=== PATIENT | female | born 1945 | race Caucasian/White ===

== ENCOUNTER → 2016-12-10 | Outpatient (CLI) | payer MEDICARE, BC ==
--- NOTE | 2016-12-11 12:51 | MM ---
Reason for exam: screening (asymptomatic). Last mammogram was performed 1 year and 9 months ago. History: Patient is postmenopausal. Physical Findings: A clinical breast exam by your physician is recommended on an annual basis and results should be correlated with mammographic findings. MG 3D Screening Mammo W/Cad Bilateral CC and MLO view(s) were taken. Prior study comparison: February 28, 2015, mammogram. December 22, 2013, mammogram. The breast tissue is heterogeneously dense. This may lower the sensitivity of mammography. Finding: There are stable, coarse, heterogeneous, diffuse calcifications in both breasts. No significant changes in finding since February 28, 2015 and December 22, 2013. ASSESSMENT: Benign, BI-RAD 2 RECOMMENDATION: Routine screening mammogram of both breasts in 1 year.
== END | disposition home or self-care (01) ==
LOC: RADMAMWWP 16:20
PROVIDERS: ATTEND Family Medicine
DX: Z12.31 Encounter for screening mammogram for malignant neoplasm of breast (principal)
CPT/HCPCS: 77063; G0202

== ENCOUNTER 2017-07-31 06:59 | Day surgery (SDC) | payer MEDICARE ==
[2017-07-30 08:31] VITALS: BMI 29.2
[~2017-07-31 06:59] MED LIST: LACTATED RINGERS 1,000 ML IV SCH
[2017-07-31 07:52] VITALS: RESP 16; TEMP 97.7
[2017-07-31 07:59] LABS: Glucose,Whole Blood 98 mg/dL (75-99)
[2017-07-31] MEDS ORDERED: LIDOCAINE 1% 20 ML VIAL (10MG/ML) FOR IV START INTRADERMA ONE (07:59)
[2017-07-31] MEDS ORDERED: LIDOCAINE 1% INJ 10MG/ML (20 ML MDV) ONE (08:11)
[2017-07-31] MEDS ORDERED: PROPOFOL 10 MG/ML 20 ML VIAL IV ONE (08:11)
--- NOTE | 2017-07-31 08:15 | P.GSHP ---
History of Present Illness H&P Date: 07/31/17 Chief Complaint: Screening colonoscopy This is a 72-year-old female referred by Dr. Gibbons. Patient presents today for screening colonoscopy. She states her last colonoscopy was over 20 years ago. He denies any significant GI complaints. Past Medical History Past Medical History: COPD, Diabetes Mellitus, Deep Vein Thrombosis (DVT), Myocardial Infarction ([place]), Osteoarthritis (OA), Thyroid Disorder Additional Past Medical History / Comment(s): HX OF DVT RIGHT LEG, ARTHRITIS WITH BACK PAIN. Last Myocardial Infarction Date:: 2000 ? History of Any Multi-Drug Resistant Organisms: None Reported Past Surgical History: Appendectomy, Orthopedic Surgery, Tubal Ligation Additional Past Surgical History / Comment(s): LEFT WRIST SURGERY Past Anesthesia/Blood Transfusion Reactions: No Reported Reaction Past Psychological History: No Psychological Hx Reported Smoking Status: Current every day smoker Past Alcohol Use History: None Reported Additional Past Alcohol Use History / Comment(s): SMOKING 2 CIGARETTES/DAY. HX OF 2 PPD SMOKER. SMOKING SINCE 16 YRS OLD. Past Drug Use History: None Reported - Past Family History Mother Family Medical History: Cancer Additional Family Medical History / Comment(s): LUNG CANCER Medications and Allergies Home Medications Medication Instructions Recorded Confirmed Type Aspirin 325 mg PO HS 07/30/17 07/31/17 History Diclofenac Sodium/Misoprostol 1 each PO DAILY 07/30/17 07/31/17 History [Arthrotec 75 mg-200 Mcg Tab] Inhaler (Unknown Name) 1 puff INHALATION BID 07/30/17 07/31/17 History Levothyroxine Sodium [Synthroid] 50 mcg PO HS 07/30/17 07/31/17 History Losartan [Cozaar] 50 mg PO HS 07/30/17 07/31/17 History sitaGLIPtin PHOSPHATE [Januvia] 100 mg PO HS 07/30/17 07/31/17 History Allergies Allergy/AdvReac Type Severity Reaction Status Date / Time No Known Allergies Allergy Verified 07/31/17 07:43 Surgical - Exam Vital Signs Temp Pulse Resp BP Pulse Ox 97.7 F 108 H 16 174/85 96 07/31/17 07:51 07/31/17 07:51 07/31/17 07:51 07/31/17 07:51 07/31/17 07:51 - General well developed, no distress - Eyes PERRL - ENT normal pinna - Neck no masses - Respiratory normal expansion - Cardiovascular Rhythm: regular - Abdomen Abdomen: soft, non tender Assessment and Plan Assessment: We'll perform screening colonoscopy.
--- NOTE | 2017-07-31 08:34 | P.OP ---
Date of Procedure: 07/31/17 Preoperative Diagnosis: Screening colonoscopy Postoperative Diagnosis: Diverticulosis Procedure(s) Performed: Colonoscopy Anesthesia: MAC Surgeon: Sotero Landry Pathology: none sent Condition: stable Disposition: PACU Description of Procedure: The patient's placed on the endoscopy table in the lateral position. She received IV sedation. Digital rectal exam was performed there was no abnormalities. The flexible colonoscope was then placed patient anus passed throughout the entire colon. The ileocecal valve sutures. The cecum, ascending and transverse colon appeared normal. In the descending and sigmoid colon there is mild diverticular changes. Scope was then brought back the rectum and there was a small hole seen this removed with the cold forcep. Scope was withdrawn for patient.
[2017-07-31 08:54] VITALS: BP 151/89; PULSE 61
== END 2017-07-31 09:07 | disposition home or self-care (01) ==
LOC: ORWHC2ENDO 06:59
PROVIDERS: ATTEND Surgery
DX: Z12.11 Encounter for screening for malignant neoplasm of colon (principal); K62.1 Rectal polyp; K57.30 Diverticulosis of large intestine without perforation or abscess without bleeding; J44.9 Chronic obstructive pulmonary disease, unspecified; E11.9 Type 2 diabetes mellitus without complications; Z79.84 Long term (current) use of oral hypoglycemic drugs; E78.5 Hyperlipidemia, unspecified; I25.2 Old myocardial infarction; M19.90 Unspecified osteoarthritis, unspecified site; Z86.718 Personal history of other venous thrombosis and embolism; E07.9 Disorder of thyroid, unspecified; F17.210 Nicotine dependence, cigarettes, uncomplicated; Z79.82 Long term (current) use of aspirin; Z79.899 Other long term (current) drug therapy
CPT/HCPCS: 88305; 45380; J2001; J2704

== ENCOUNTER → 2018-03-04 | Outpatient (CLI) | payer MEDICARE ==
--- NOTE | 2018-03-07 07:01 | MM ---
Reason for exam: screening (asymptomatic). Last mammogram was performed 1 year and 3 months ago. History: Patient is postmenopausal. MG 3D Screening Mammo W/Cad Bilateral CC and MLO view(s) were taken. Prior study comparison: December 10, 2016, bilateral MG 3d screening mammo w/cad. February 28, 2015, mammogram. The breast tissue is heterogeneously dense. This may lower the sensitivity of mammography. There is a 9 mm equal density in the left breast upper position. There are benign-appearing calcification in bilateral breast. ASSESSMENT: Incomplete: need additional imaging evaluation, BI-RAD 0 RECOMMENDATION: Special view mammogram of the left breast.
== END ==
LOC: RADMAMWWP 16:24
PROVIDERS: ATTEND Family Medicine
DX: Z12.31 Encounter for screening mammogram for malignant neoplasm of breast (principal)
CPT/HCPCS: 77063; 77067

== ENCOUNTER → 2018-03-19 | Outpatient (CLI) | payer MEDICARE ==
--- NOTE | 2018-03-21 11:49 | MM ---
Reason for exam: additional evaluation requested from abnormal screening. Last mammogram was performed less than 1 month ago. History: Patient is postmenopausal. Family history of breast cancer in aunt at age 60. Physical Findings: Nurse did not find any significant physical abnormalities on exam. MG 3D Work Up W/Cad LT LM and spot compression MLO view(s) were taken of the left breast. Prior study comparison: March 04, 2018, bilateral MG 3d screening mammo w/cad. December 10, 2016, bilateral MG 3d screening mammo w/cad. The breast tissue is heterogeneously dense. This may lower the sensitivity of mammography. No discrete abnormality including area of concern. These results were verbally communicated with the patient and result sheet given to the patient on 03/19/18. ASSESSMENT: Benign, BI-RAD 2 RECOMMENDATION: Routine screening mammogram of both breasts in 1 year.
== END | disposition home or self-care (01) ==
LOC: RADMAMWWP 13:37
PROVIDERS: ATTEND Family Medicine
DX: R92.8 Other abnormal and inconclusive findings on diagnostic imaging of breast (principal)
CPT/HCPCS: 77065; G0279; 77061

== ENCOUNTER → 2018-11-05 | Outpatient (CLI) | payer MEDICARE ==
--- NOTE | 2018-11-05 11:09 | BD ---
EXAMINATION TYPE: Axial Bone Density DATE OF EXAM: 11/05/2018 COMPARISON: NONE CLINICAL HISTORY: Z 78.0 Height: 62 Weight: 163.7 FRAX RISK QUESTIONS: Alcohol (3 or more units per day): no Family History (Parent hip fracture): no Glucocorticoids (More than 3mos): no (Ex: prednisone, prednisolone, methylprednisolone, dexamethasone, and hydrocortisone). History of Fracture in Adulthood: yes Secondary Osteoporosis: 1. Type 1 Diabetes: no 2. Hyperthyroidism: no 3. Menopause before 45: no 4. Malnutrition: no 5. Chronic liver disease: no Rheumatoid Arthritis: no Current Tobacco Use: yes RISK FACTORS HISTORY OF: History of Wrist Fracture: left When: 2008 Family History of Osteoporosis: no Active: sometimes Diet low in dairy products/other sources of calcium: yes Postmenopausal woman: Lost more than 2 inches in height since high school: no MEDICATIONS: simvastatin, losartan, arthrotec, Januvia, aspirin Additional History: EXAM MEASUREMENTS: Bone mineral densitometry was performed using the [employer] System. Bone mineral density as measured about the Lumbar spine is: ----- L1-L4(G/cm2): 1.326 T Score Values are as follows: ----- L2: 1.2 ----- L3: 1.8 ----- L4: 1.2 ----- L1-L4: 1.2 Bone mineral density : baseline Bone mineral density about the R hip (g/cm2): 0.968 Bone mineral density about the L hip (g/cm2): 0.779 T Score values are as follows: -----R Neck: -0.5 -----L Neck: -1.9 -----R Total: -0.5 -----L Total: -1.0 Bone mineral density : baseline IMPRESSION: Osteopenia (T Score between -2.5 and -1). There is slightly increased risk of fracture and the patient may be considered for treatment. Re-Screen 2-5 years. NOTE: T-SCORE=SD OF THE YOUNG ADULT MEAN.
== END | disposition home or self-care (01) ==
LOC: RADBDWWP 10:27
PROVIDERS: ATTEND Family Medicine
DX: Z13.820 Encounter for screening for osteoporosis (principal); M85.80 Other specified disorders of bone density and structure, unspecified site; E87.5 Hyperkalemia; Z78.0 Asymptomatic menopausal state
CPT/HCPCS: 36415; 77080; 84132

== ENCOUNTER → 2020-09-03 | Outpatient (CLI) | payer MEDICARE ==
--- NOTE | 2020-09-05 08:29 | MM ---
Reason for exam: screening (asymptomatic). Last mammogram was performed 2 years and 6 months ago. History: Patient is postmenopausal. Family history of breast cancer in aunt at age 60. Physical Findings: A clinical breast exam by your physician is recommended on an annual basis and results should be correlated with mammographic findings. MG 3D Screening Mammo W/Cad Bilateral CC and MLO view(s) were taken. Prior study comparison: March 19, 2018, left breast MG 3d work up w/cad LT. March 04, 2018, bilateral MG 3d screening mammo w/cad. There are scattered fibroglandular densities. No significant changes when compared with prior studies. ASSESSMENT: Benign, BI-RAD 2 RECOMMENDATION: Routine screening mammogram of both breasts in 1 year.
== END | disposition home or self-care (01) ==
LOC: RADMAMWWP 14:35
PROVIDERS: ATTEND Family Medicine
DX: Z12.31 Encounter for screening mammogram for malignant neoplasm of breast (principal); Z78.0 Asymptomatic menopausal state; Z80.3 Family history of malignant neoplasm of breast
CPT/HCPCS: 77063; 77067

== ENCOUNTER 2020-10-22 12:00 | Emergency (ER) | payer MEDICARE ==
[2020-10-22 12:10] VITALS: RESP 18; TEMP 98.4
[2020-10-22] MEDS ORDERED: KETOROLAC 15 MG/ML 1 ML VIAL IVP STA (12:40)
--- NOTE | 2020-10-22 13:03 | ED ---
General Adult HPI - General Chief complaint: Extremity Injury, Upper Stated complaint: arm pain & swelling Time Seen by Provider: 10/22/20 12:15 Source: patient, RN notes reviewed, old records reviewed Mode of arrival: ambulatory Limitations: no limitations - History of Present Illness Initial comments: Patient is a 75-year-old female with past medical history remarkable for COPD, diabetes, prior DVT no longer on anticoagulation, [place], thyroid disorder who is presenting to the emergency Department complaining of concern for possible blood clot in her right upper extremity or left lower extremity. Patient states she has noticed swelling in the left lower extremity that has been ongoing and gotten worse in the last week. She denies any shortness breath, chest pain, abdominal pain, nausea, vomiting. She denies any left arm pain. Denies any headache, weakness, numbness. She is complaining of some mild pain in her right arm, primarily in the popliteal space which seems to radiate up to her right shoulder. There is no neck pain or trauma. There is no chest pain. She states she has not expresses pain before has been ongoing for one or 2 days. She is concerned there also may be a clot there. There is subjective numbness, however nonpresent of his physical exam. She denies any weakness. She has no other acute complaints at this time. Patient did not receive her COVID-19 vaccine. She denies any history of COVID-19 infection. She denies any trauma to the right arm or left leg. She is able to ambulate without difficulty. - Related Data Home Medications Medication Instructions Recorded Confirmed Aspirin 325 mg PO HS 07/30/17 10/22/20 sitaGLIPtin PHOSPHATE [Januvia] 100 mg PO HS 07/30/17 10/22/20 Losartan Potassium 100 mg PO HS 10/22/20 10/22/20 Simvastatin [Zocor] 20 mg PO HS 10/22/20 10/22/20 Previous Rx's Medication Instructions Recorded Ibuprofen [Motrin] 400 mg PO Q6HR PRN 7 Days #28 tab 10/22/20 Lidocaine 5% Patch [Lidoderm 5% 1 patch TOPICAL DAILY PRN 7 Days 10/22/20 Patch] #7 patch Allergies Allergy/AdvReac Type Severity Reaction Status Date / Time No Known Allergies Allergy Verified 10/22/20 13:59 Review of Systems ROS Statement: Those systems with pertinent positive or pertinent negative responses have been documented in the HPI. Review of Systems: CONST: Denies fever EYES: Denies blurry vision ENT: Denies nasal congestion C/V: Denies Chest pain RESP: Denies shortness of breath GI: Denies abdominal pain : Denies dysuria SKIN: Denies rash. MSK: Endorses right arm pain, left leg swelling NEURO: Denies headache ROS Other: All systems not noted in ROS Statement are negative. Past Medical History Past Medical History: COPD, Diabetes Mellitus, Deep Vein Thrombosis (DVT), Myocardial Infarction ([place]), Osteoarthritis (OA), Thyroid Disorder Additional Past Medical History / Comment(s): HX OF DVT RIGHT LEG, ARTHRITIS WITH BACK PAIN. Last Myocardial Infarction Date:: 2000 ? History of Any Multi-Drug Resistant Organisms: None Reported Past Surgical History: Appendectomy, Orthopedic Surgery, Tubal Ligation Additional Past Surgical History / Comment(s): LEFT WRIST SURGERY Past Anesthesia/Blood Transfusion Reactions: No Reported Reaction Past Psychological History: No Psychological Hx Reported Smoking Status: Current every day smoker Past Alcohol Use History: None Reported Past Drug Use History: None Reported - Past Family History Mother Family Medical History: Cancer Additional Family Medical History / Comment(s): LUNG CANCER General Exam - General Exam Comments Initial Comments: General: Appears in no acute distress. HEAD: Normal with no signs of head trauma. EYES: PERRLA, EOMI, conjunctiva normal, no discharge. ENT: Hearing grossly intact, normal oropharynx. RESPIRATORY: Clear breath sounds bilaterally. No wheezes, rales, or rhonchi. C/V: Regular rate and rhythm. S1 and S2 auscultated. Peripheral pulses are 2+ and intact throughout including the right radial and ulnar arteries as well as the left PT and DP arteries. Patient does have no noticeable swelling of the right upper extremity. She is tender to palpation along the antecubital space, and I cannot palpate any venous structures. There is no color change the site. Patient does have approximately 2+ pitting edema in the left lower extremity up to the upper calf. She has no tenderness to palpation of the calf or popliteal region. ABD: Abd is soft, nontender, nondistended EXT: Normal range of motion, no obvious deformity. Patient does have right s houlder exam that is normal and unremarkable. She has no midline cervical spine tenderness to palpation, thoracic spine tenderness palpation, lumbar spine tenderness to palpation. Patient has a normal left knee, left ankle, left foot exam. SKIN: No rashes or lesions observed on exposed skin. No obvious skin changes to the left lower extremity her right upper extremity. NEURO: Alert and oriented x 4. Cranial nerves II-XII intact. No focal sensory or strength deficits. Patient is able to ambulate. Cerebellar function is intact as evident by normal finger nose testing. Limitations: no limitations Course Vital Signs 10/22/20 10/22/20 12:06 15:32 Temperature 98.4 F Pulse Rate 79 57 L Respiratory 18 18 Rate Blood Pressure 162/88 163/92 O2 Sat by Pulse 98 97 Oximetry Medical Decision Making - Medical Decision Making Based on the patient's presentation and physical exam, I cannot rule out the possibility of acute clot to the right upper extremity or left lower extremity. Therefore we will obtain venous duplexes of both extremities. We will also obtain basic laboratory studies at this time. Does not appear to be traumatic injury. Possible this is muscular skeletal in nature. I have low suspicion for any other etiology at this time. She has no other symptoms at this time. Patient's laboratory studies are relatively unremarkable. Patient has mild hyponatremia of 132 and hypochloremia of 97. Patient's duplexes showed no acute signs of DVT or thrombosis. On reevaluation, patient is feeling improved. We did discuss the findings of her imaging and laboratory studies. I do believe it is safer to be discharged home at this time with close follow-up. She is likely experiencing muscular skeletal pain independent left lower extremity edema. She was in agreement this plan. I will provide the patient with a prescription for lidocaine patches, ibuprofen. I instructed the patient to follow up with their PCP in the next 3 days. . I explained that the patient should return to the emergency department if they experience any worsening symptoms. Strict return precautions were discussed with the patient. The patient expressed understanding of these instructions. I answered all questions that the patient had. The patient was discharged home in good condition with their prescriptions and follow up information. - Lab Data Result diagrams: 10/22/20 12:44 10/22/20 12:44 Lab Results 10/22/20 10/22/20 10/22/20 Range/Units 12:44 12:44 12:44 WBC 7.1 (3.8-10.6) k/uL RBC 5.45 H (3.80-5.40) m/uL Hgb 16.4 H (11.4-16.0) gm/dL Hct 51.1 H (34.0-46.0) % MCV 93.8 (80.0-100.0) fL MCH 30.2 (25.0-35.0) pg MCHC 32.2 (31.0-37.0) g/dL RDW 13.9 (11.5-15.5) % Plt Count 226 (150-450) k/uL MPV 7.3 Neutrophils % 81 % Lymphocytes % 10 % Monocytes % 6 % Eosinophils % 1 % Basophils % 1 % Neutrophils # 5.7 (1.3-7.7) k/uL Lymphocytes # 0.7 L (1.0-4.8) k/uL Monocytes # 0.4 (0-1.0) k/uL Eosinophils # 0.1 (0-0.7) k/uL Basophils # 0.0 (0-0.2) k/uL PT 10.0 (9.0-12.0) sec INR 0.9 (<1.2) APTT 22.5 (22.0-30.0) sec Sodium 132 L (137-145) mmol/L Potassium 4.7 (3.5-5.1) mmol/L Chloride 97 L (98-107) mmol/L Carbon Dioxide 28 (22-30) mmol/L Anion Gap 7 mmol/L BUN 8 (7-17) mg/dL Creatinine 0.59 (0.52-1.04) mg/dL Est GFR (CKD-EPI)AfAm >90 (>60 ml/min/1.73 sqM) Est GFR (CKD-EPI)NonAf >90 (>60 ml/min/1.73 sqM) Glucose 126 H (74-99) mg/dL Calcium 9.9 (8.4-10.2) mg/dL Disposition Clinical Impression: Musculoskeletal pain, Dependent edema Disposition: HOME SELF-CARE Condition: Good Instructions (If sedation given, give patient instructions): Musculoskeletal Pain (ED) Prescriptions: Lidocaine 5% Patch [Lidoderm 5% Patch] 1 patch TOPICAL DAILY PRN 7 Days #7 patch PRN Reason: Pain Ibuprofen [Motrin] 400 mg PO Q6HR PRN 7 Days #28 tab PRN Reason: Pain Is patient prescribed a controlled substance at d/c from ED?: No Referrals: Donya Payton DO [Primary Care Provider] - 1-2 days
[2020-10-22 13:04] LABS: Basophils % (A) 1 %; Eosinophils # (A) 0.1 k/uL (0-0.7); Eosinophils % (A) 1 %; HCT 51.1 % (34.0-46.0); HGB 16.4 gm/dL (11.4-16.0); Lymphocytes # (A) 0.7 k/uL (1.0-4.8); Lymphocytes % (A) 10 %; MCH 30.2 pg (25.0-35.0); MCHC 32.2 g/dL (31.0-37.0); MCV 93.8 fL (80.0-100.0); Mean Platelet Volume 7.3; Monocytes # (A) 0.4 k/uL (0-1.0); Monocytes % (A) 6 %; Neutrophils # (A) 5.7 k/uL (1.3-7.7); Neutrophils % (A) 81 %; Platelet Count 226 k/uL (150-450); RBC 5.45 m/uL (3.80-5.40); RDW 13.9 % (11.5-15.5); WBC 7.1 k/uL (3.8-10.6)
[2020-10-22 13:13] LABS: African American GFR (CKD) >90 (>60 ml/min/1.73 sqM); Anion Gap 7 mmol/L; Blood Urea Nitrogen 8 mg/dL (7-17); Calcium 9.9 mg/dL (8.4-10.2); Carbon Dioxide 28 mmol/L (22-30); Chloride 97 mmol/L (98-107); Glucose 126 mg/dL (74-99); Non-African American GFR(CKD) >90 (>60 ml/min/1.73 sqM); Potassium 4.7 mmol/L (3.5-5.1); Sodium 132 mmol/L (137-145)
[2020-10-22 13:21] LABS: INR 0.9 (<1.2); Partial Thromboplastin Time 22.5 sec (22.0-30.0)
--- NOTE | 2020-10-22 14:12 | US ---
EXAMINATION TYPE: US venous doppler duplex LE LT DATE OF EXAM: 10/22/2020 1:55 PM COMPARISON: NONE CLINICAL HISTORY: swelling, concern for DVT. left leg edema for 1 month SIDE PERFORMED: left TECHNIQUE: The lower extremity deep venous system is examined utilizing real time linear array sonog andreina with graded compression, doppler sonography and color-flow sonography. VESSELS IMAGED: Common Femoral Vein Deep Femoral Vein Greater Saphenous Vein * Femoral Vein Popliteal Vein Small Saphenous Vein * Proximal Calf Veins (* superficial vessels) Left Leg: no evidence of DVT IMPRESSION: No DVT at this time.
--- NOTE | 2020-10-22 14:26 | US ---
EXAMINATION TYPE: US venous doppler duplex UE RT DATE OF EXAM: 10/22/2020 COMPARISON: NONE CLINICAL HISTORY: swelling, concern for DVT. burning sensation right arm SIDE PERFORMED: right There is normal flow, compressibility and vascular waveforms. Visualized portions of the right buyer intern al jugular vein, subclavian vein, axillary vein, brachial vein, basilic vein, cephalic vein, radial a nd ulnar veins are normal. Right Arm: no evidence of DVT IMPRESSION: No evident deep venous process in the right upper extremity
[2020-10-22 15:33] VITALS: BP 163/92; PULSE 57
== END 2020-10-22 15:32 | disposition home or self-care (01) ==
LOC: EC 12:00
DX: M79.18 Myalgia, other site (principal); R60.9 Edema, unspecified; E11.9 Type 2 diabetes mellitus without complications; I25.2 Old myocardial infarction; J44.9 Chronic obstructive pulmonary disease, unspecified; M19.90 Unspecified osteoarthritis, unspecified site; F17.200 Nicotine dependence, unspecified, uncomplicated; Z79.82 Long term (current) use of aspirin; Z79.84 Long term (current) use of oral hypoglycemic drugs; Z79.1 Long term (current) use of non-steroidal anti-inflammatories (NSAID); Z79.01 Long term (current) use of anticoagulants; Z79.899 Other long term (current) drug therapy; Z80.1 Family history of malignant neoplasm of trachea, bronchus and lung; Z86.718 Personal history of other venous thrombosis and embolism
CPT/HCPCS: 36415; 80048; 85025; 85610; 85730; 93971 ×2; 99284; 96374; J1885

== ENCOUNTER → 2020-11-29 | Outpatient (CLI) | payer MEDICARE ==
--- NOTE | 2020-11-29 15:25 | BD ---
EXAMINATION TYPE: Axial Bone Density DATE OF EXAM: 11/29/2020 COMPARISON: 2019 CLINICAL HISTORY: Postmenopausal screening Height: 62 Weight: 159.4 FRAX RISK QUESTIONS: Alcohol (3 or more units per day): no Family History (Parent hip fracture): no Glucocorticoids (More than 3mos): no (Ex: prednisone, prednisolone, methylprednisolone, dexamethasone, and hydrocortisone). History of Fracture in Adulthood: yes Secondary Osteoporosis: 1. Type 1 Diabetes: no 2. Hyperthyroidism: no 3. Menopause before 45: no 4. Malnutrition: no 5. Chronic liver disease: no Rheumatoid Arthritis: no Current Tobacco Use: yes RISK FACTORS HISTORY OF: History of Wrist Fracture: When: Surgery to Spine/Hip(right/left)/Wrist (right/left): no Family History of Osteoporosis: no Active: no Diet low in dairy products/other sources of calcium: yes Postmenopausal woman: yes Lost more than 2 inches in height since high school: no MEDICATIONS: juniva, simvastatin, losartan, aspirin, pain meds Additional History: EXAM MEASUREMENTS: Bone mineral densitometry was performed using the [employer] System. Bone mineral density as measured about the Lumbar spine is: ----- L1-L4(G/cm2): 1.331 T Score Values are as follows: ----- L2: 1.1 ----- L3: 1.0 ----- L4: 1.1 ----- L1-L4: 1.3 Bone mineral density has: decreased -2.6 % since study of: 11.05.2018 Bone mineral density about the R hip (g/cm2): 0.756 Bone mineral density about the L hip (g/cm2): 0.769 T Score values are as follows: -----R Neck: -2.0 -----L Neck: -1.9 -----R Total: -1.3 -----L Total: -1.4 Bone mineral density has: decreased -8.0 % since study of: 11.05.2018 IMPRESSION: Osteopenia (T Score between -2.5 and -1). There is slightly increased risk of fracture and the patient may be considered for treatment. Re-Screen 2-5 years. NOTE: T-SCORE=SD OF THE YOUNG ADULT MEAN.
== END | disposition home or self-care (01) ==
LOC: RADBDWWP 13:03
PROVIDERS: ATTEND Family Medicine
DX: M85.89 Other specified disorders of bone density and structure, multiple sites (principal); Z78.0 Asymptomatic menopausal state
CPT/HCPCS: 77080

== ENCOUNTER 2021-01-28 07:52 | Inpatient (IN) | payer MEDICARE ==
[2021-01-28] MEDS ORDERED: IPRATROPIUM-ALBUTEROL 3 ML NEB INHALATION STA (08:33)
--- NOTE | 2021-01-28 08:34 | ED ---
General Adult HPI - General Chief complaint: Shortness of Breath Stated complaint: congestion Time Seen by Provider: 01/28/21 08:11 Source: patient, family, RN notes reviewed Mode of arrival: wheelchair Limitations: no limitations - History of Present Illness Initial comments: 75-year-old female with a past medical history of COPD, diabetes mellitus, DC, DVT presents to the emergency room for chief, shortness of breath. Patient states for the past few days she has felt congested in her throat and in her chest. States she has had increased cough. She does have a history of COPD but does not use any treatments at home. Patient also has noticed more swelling in her feet and ankles bilaterally. Patient denies any chest pain. Denies fevers.Patient has no other complaints at this time including chest pain, abdominal pain, nausea or vomiting, headache, or visual changes. - Related Data Home Medications Medication Instructions Recorded Confirmed Aspirin 325 mg PO HS 07/30/17 10/22/20 sitaGLIPtin PHOSPHATE [Januvia] 100 mg PO HS 07/30/17 10/22/20 Losartan Potassium 100 mg PO HS 10/22/20 10/22/20 Simvastatin [Zocor] 20 mg PO HS 10/22/20 10/22/20 Previous Rx's Medication Instructions Recorded Ibuprofen [Motrin] 400 mg PO Q6HR PRN 7 Days #28 tab 10/22/20 Lidocaine 5% Patch [Lidoderm 5% 1 patch TOPICAL DAILY PRN 7 Days 10/22/20 Patch] #7 patch Allergies Allergy/AdvReac Type Severity Reaction Status Date / Time No Known Allergies Allergy Verified 01/28/21 08:09 Review of Systems ROS Statement: Those systems with pertinent positive or pertinent negative responses have been documented in the HPI. ROS Other: All systems not noted in ROS Statement are negative. Past Medical History Past Medical History: COPD, Diabetes Mellitus, Deep Vein Thrombosis (DVT), Myocardial Infarction ([place]), Osteoarthritis (OA), Thyroid Disorder Additional Past Medical History / Comment(s): HX OF DVT RIGHT LEG, ARTHRITIS WITH BACK PAIN. Last Myocardial Infarction Date:: 2000 ? History of Any Multi-Drug Resistant Organisms: None Reported Past Surgical History: Appendectomy, Orthopedic Surgery, Tubal Ligation Additional Past Surgical History / Comment(s): LEFT WRIST SURGERY Past Anesthesia/Blood Transfusion Reactions: No Reported Reaction Past Psychological History: No Psychological Hx Reported Smoking Status: Current every day smoker Past Alcohol Use History: None Reported Past Drug Use History: None Reported - Past Family History Mother Family Medical History: Cancer Additional Family Medical History / Comment(s): LUNG CANCER General Exam Limitations: no limitations General appearance: alert, in no apparent distress Eye exam: Present: normal appearance, PERRL, EOMI. Absent: scleral icterus, con junctival injection ENT exam: Present: normal exam, mucous membranes moist Neck exam: Present: normal inspection, full ROM. Absent: tenderness Respiratory exam: Present: normal lung sounds bilaterally, rales. Absent: respiratory distress Cardiovascular Exam: Present: regular rate, normal rhythm, normal heart sounds Course Vital Signs 01/28/21 01/28/21 01/28/21 08:04 09:42 09:46 Temperature 98.7 F Pulse Rate 77 71 Respiratory 18 18 Rate Blood Pressure 156/94 O2 Sat by Pulse 95 98 Oximetry 01/28/21 01/28/21 09:56 10:00 Temperature Pulse Rate 64 Respiratory 18 Rate Blood Pressure O2 Sat by Pulse Oximetry EKG Findings - EKG Comments: EKG Findings:: Normal sinus rhythm with PVCs, ventricular rate 79, IN interval 154, QTc 474 Medical Decision Making - Medical Decision Making Vitals are stable. Patient did require oxygen throughout her stay. Patient is presenting for shortness of breath and bilateral ankle and foot swelling. She does have pitting edema. CBC unremarkable. CMPreveal hyponatremia. BNP is elevated at 17,000 and chest x-ray does show a possible interstitial edema. Motor within normal limits at 0.030 but will be repeated. At this time case was discussed with direct Dr. White does accept admission. Patient was given a small dose of Lasix given her hyponatremia. Etiology will be consulted. - Lab Data Result diagrams: 01/28/21 08:55 01/28/21 08:55 Lab Results 01/28/21 01/28/21 01/28/21 Range/Units 08:55 08:55 08:55 WBC 7.2 (3.8-10.6) k/uL RBC 4.82 (3.80-5.40) m/uL Hgb 14.2 (11.4-16.0) gm/dL Hct 43.4 (34.0-46.0) % MCV 90.1 (80.0-100.0) fL MCH 29.4 (25.0-35.0) pg MCHC 32.6 (31.0-37.0) g/dL RDW 13.7 (11.5-15.5) % Plt Count 203 (150-450) k/uL MPV 7.3 Neutrophils % 80 % Lymphocytes % 9 % Monocytes % 7 % Eosinophils % 1 % Basophils % 0 % Neutrophils # 5.8 (1.3-7.7) k/uL Lymphocytes # 0.7 L (1.0-4.8) k/uL Monocytes # 0.5 (0-1.0) k/uL Eosinophils # 0.1 (0-0.7) k/uL Basophils # 0.0 (0-0.2) k/uL PT 11.2 (9.0-12.0) sec INR 1.1 (<1.2) APTT 23.5 (22.0-30.0) sec Sodium 128 L (137-145) mmol/L Potassium 4.6 (3.5-5.1) mmol/L Chloride 97 L (98-107) mmol/L Carbon Dioxide 22 (22-30) mmol/L Anion Gap 9 mmol/L BUN 15 (7-17) mg/dL Creatinine 0.73 (0.52-1.04) mg/dL Est GFR (CKD-EPI)AfAm >90 (>60 ml/min/1.73 sqM) Est GFR (CKD-EPI)NonAf 82 (>60 ml/min/1.73 sqM) Glucose 116 H (74-99) mg/dL Plasma Lactic Acid Georgi (0.7-2.0) mmol/L Calcium 9.2 (8.4-10.2) mg/dL Total Bilirubin 0.7 (0.2-1.3) mg/dL AST 29 (14-36) U/L ALT 23 (4-34) U/L Alkaline Phosphatase 99 (38-126) U/L Troponin I (0.000-0.034) ng/mL NT-Pro-B Natriuret Pep pg/mL Total Protein 6.7 (6.3-8.2) g/dL Albumin 3.7 (3.5-5.0) g/dL Coronavirus (PCR) (Not Detectd) 01/28/21 01/28/21 01/28/21 Range/Units 08:55 08:55 08:55 WBC (3.8-10.6) k/uL RBC (3.80-5.40) m/uL Hgb (11.4-16.0) gm/dL Hct (34.0-46.0) % MCV (80.0-100.0) fL MCH (25.0-35.0) pg MCHC (31.0-37.0) g/dL RDW (11.5-15.5) % Plt Count (150-450) k/uL MPV Neutrophils % % Lymphocytes % % Monocytes % % Eosinophils % % Basophils % % Neutrophils # (1.3-7.7) k/uL Lymphocytes # (1.0-4.8) k/uL Monocytes # (0-1.0) k/uL Eosinophils # (0-0.7) k/uL Basophils # (0-0.2) k/uL PT (9.0-12.0) sec INR (<1.2) APTT (22.0-30.0) sec Sodium (137-145) mmol/L Potassium (3.5-5.1) mmol/L Chloride (98-107) mmol/L Carbon Dioxide (22-30) mmol/L Anion Gap mmol/L BUN (7-17) mg/dL Creatinine (0.52-1.04) mg/dL Est GFR (CKD-EPI)AfAm (>60 ml/min/1.73 sqM) Est GFR (CKD-EPI)NonAf (>60 ml/min/1.73 sqM) Glucose (74-99) mg/dL Plasma Lactic Acid Georgi 0.9 (0.7-2.0) mmol/L Calcium (8.4-10.2) mg/dL Total Bilirubin (0.2-1.3) mg/dL AST (14-36) U/L ALT (4-34) U/L Alkaline Phosphatase (38-126) U/L Troponin I 0.030 (0.000-0.034) ng/mL NT-Pro-B Natriuret Pep 67422 pg/mL Total Protein (6.3-8.2) g/dL Albumin (3.5-5.0) g/dL Coronavirus (PCR) (Not Detectd) 01/28/21 Range/Units 08:55 WBC (3.8-10.6) k/uL RBC (3.80-5.40) m/uL Hgb (11.4-16.0) gm/dL Hct (34.0-46.0) % MCV (80.0-100.0) fL MCH (25.0-35.0) pg MCHC (31.0-37.0) g/dL RDW (11.5-15.5) % Plt Count (150-450) k/uL MPV Neutrophils % % Lymphocytes % % Monocytes % % Eosinophils % % Basophils % % Neutrophils # (1.3-7.7) k/uL Lymphocytes # (1.0-4.8) k/uL Monocytes # (0-1.0) k/uL Eosinophils # (0-0.7) k/uL Basophils # (0-0.2) k/uL PT (9.0-12.0) sec INR (<1.2) APTT (22.0-30.0) sec Sodium (137-145) mmol/L Potassium (3.5-5.1) mmol/L Chloride (98-107) mmol/L Carbon Dioxide (22-30) mmol/L Anion Gap mmol/L BUN (7-17) mg/dL Creatinine (0.52-1.04) mg/dL Est GFR (CKD-EPI)AfAm (>60 ml/min/1.73 sqM) Est GFR (CKD-EPI)NonAf (>60 ml/min/1.73 sqM) Glucose (74-99) mg/dL Plasma Lactic Acid Georgi (0.7-2.0) mmol/L Calcium (8.4-10.2) mg/dL Total Bilirubin (0.2-1.3) mg/dL AST (14-36) U/L ALT (4-34) U/L Alkaline Phosphatase (38-126) U/L Troponin I (0.000-0.034) ng/mL NT-Pro-B Natriuret Pep pg/mL Total Protein (6.3-8.2) g/dL Albumin (3.5-5.0) g/dL Coronavirus (PCR) Not Detected (Not Detectd) Disposition Clinical Impression: CHF exacerbation, Elevated brain natriuretic peptide (BNP) level, Hyponatremia, Shortness of breath Disposition: ADMITTED IP TO THIS HOSP Is patient prescribed a controlled substance at d/c from ED?: No Referrals: Donya Payton DO [Primary Care Provider] - 1-2 days Time of Disposition: 10:10
[2021-01-28 09:18] LABS: Basophils % (A) 0 %; Eosinophils # (A) 0.1 k/uL (0-0.7); Eosinophils % (A) 1 %; HCT 43.4 % (34.0-46.0); HGB 14.2 gm/dL (11.4-16.0); Lymphocytes # (A) 0.7 k/uL (1.0-4.8); Lymphocytes % (A) 9 %; MCH 29.4 pg (25.0-35.0); MCHC 32.6 g/dL (31.0-37.0); MCV 90.1 fL (80.0-100.0); Mean Platelet Volume 7.3; Monocytes # (A) 0.5 k/uL (0-1.0); Monocytes % (A) 7 %; Neutrophils # (A) 5.8 k/uL (1.3-7.7); Neutrophils % (A) 80 %; Platelet Count 203 k/uL (150-450); RBC 4.82 m/uL (3.80-5.40); RDW 13.7 % (11.5-15.5); WBC 7.2 k/uL (3.8-10.6)
[2021-01-28 09:23] LABS: ALT 23 U/L (4-34); AST 29 U/L (14-36); African American GFR (CKD) >90 (>60 ml/min/1.73 sqM); Albumin 3.7 g/dL (3.5-5.0); Alkaline Phosphatase 99 U/L (38-126); Anion Gap 9 mmol/L; Blood Urea Nitrogen 15 mg/dL (7-17); Calcium 9.2 mg/dL (8.4-10.2); Carbon Dioxide 22 mmol/L (22-30); Chloride 97 mmol/L (98-107); Glucose 116 mg/dL (74-99); Non-African American GFR(CKD) 82 (>60 ml/min/1.73 sqM); Potassium 4.6 mmol/L (3.5-5.1); Sodium 128 mmol/L (137-145); Total Bilirubin 0.7 mg/dL (0.2-1.3); Total Protein 6.7 g/dL (6.3-8.2)
[2021-01-28 09:32] LABS: INR 1.1 (<1.2); Partial Thromboplastin Time 23.5 sec (22.0-30.0); Prothrombin Time 11.2 sec (9.0-12.0)
--- NOTE | 2021-01-28 09:41 | XR ---
EXAMINATION TYPE: XR chest 2V DATE OF EXAM: 01/28/2021 COMPARISON: NONE HISTORY: Difficulty breathing, shortness of breath and congestion TECHNIQUE: Frontal and lateral views of the chest are obtained. FINDINGS: There is no focal air space opacity, pleural effusion, or pneumothorax seen. Interstitium mildly prominent, some bandlike areas of increased attenuation are present. There is increased AP william meter of the chest with flattening the hemidiaphragms. The cardiac silhouette size is enlarged, the a gloria is dense. The osseous structures are intact, there is a spinal curvature. IMPRESSION: There may be underlying scarring, interstitial lung disease, difficult to exclude early interstitial edema, there is underlying cardiomegaly and possible COPD, short interval follow-up sugg julio cesard as indicated
[2021-01-28] MEDS ORDERED: FUROSEMIDE 10 MG/ML 2 ML VIAL IV STA (10:05)
--- NOTE | 2021-01-28 13:31 | P.CRDCN ---
History of Present Illness Consult date: 01/28/21 History of present illness: HISTORY OF PRESENT ILLNESS: This is a 75-year-old female with a past medical history significant for hypertension, hyperlipidemia, diabetes, peripheral vascular disease with previous stenting, COPD, and nicotine dependence. Patient used to follow in the office with Dr. Rinaldi but has not been seen since 2016. We have been asked to see the patient in consultation for congestive heart failure. Patient examined at the bedside. Patient presented to the emergency room with a chief complaint of shortness of breath and and increased lower extremity edema. The patient also reports having some mild chest discomfort. She reports some occasional dizziness at home but no syncopal episodes. The patient currently denies shortness of breath at rest. She states her shortness of breath has mostly been with exertion. The patient was found to be in congestive heart failure on presentation to the emergency room. The patient denies any previous history of congestive heart failure. EKG reveals sinus mechanism with Q waves inferiorly. No signs of acute ischemia Chest xray underlying scarring, interstitial lung disease, difficult to exclude early interstitial edema. There is underlying cardiomegaly and possible COPD. Laboratory data: WBC 7.2. Hemoglobin 14.2. Platelet count 203. Sodium 128. Potassium 4.6. BUN 15. Creatinine 0.73. Troponin 0.030. 0.027. ProBNP 17,800 Current home cardiac medications include aspirin 325 mg at night, losartan 100 mg at night, simvastatin 20 mg at night REVIEW OF SYSTEMS: At the time of my exam: CONSTITUTIONAL: Denies fever or chills. HEENT: Denies blurred vision, vision changes, or eye pain. Denies hemoptysis CARDIOVASCULAR: Denies chest pain. Denies orthopnea. Denies PND. Denies palpitations RESPIRATORY: Denies shortness of breath. GASTROINTESTINAL: Denies abdominal pain. Denies nausea or vomiting. HEMATOLOGIC: Denies bleeding disorders. GENITOURINARY: Denies any blood in urine. SKIN: Denies pruitis. Denies rash. PHYSICAL EXAM: VITAL SIGNS: Reviewed. GENERAL: Well-developed in no acute distress. HEENT: Head is normocephalic. Pupils are equal, round. Sclerae anicteric. Mucous membranes of the mouth are moist. Neck supple. No thyromegaly. Positive JVD LUNGS: Respirations even and unlabored. Lungs diminished to auscultation bilaterally. HEART: Regular rate and rhythm. S1 and S2 heard. ABDOMEN: Soft. Nondistended. Nontender. EXTREMITIES: Normal range of motion. No clubbing or cyanosis. Peripheral pulses intact. 2-3+ bilateral lower extremity edema NEUROLOGIC: Awake and alert. Oriented x 3. ASSESSMENT: Acute congestive heart failure, type unknown, echo pending, proBNP 17,800 Hypertension Hyperlipidemia Diabetes Peripheral vascular disease with previous stenting COPD Nicotine dependence Hyponatremia PLAN: Obtain 2-D echo to assess cardiac structure and function Begin IV Lasix 40 mg every 8 hours Monitor kidney function Accurate I&O Daily weights Resume home cardiac medications Further recommendations pending patient's course Patient to follow up outpatient with Dr. Melton Nurse practitioner note has been reviewed by physician. Signing provider agrees with the documented findings, assessment, and plan of care. Past Medical History Past Medical History: COPD, Diabetes Mellitus, Deep Vein Thrombosis (DVT), Myocardial Infarction ([place]), Osteoarthritis (OA), Thyroid Disorder Additional Past Medical History / Comment(s): HX OF DVT RIGHT LEG, ARTHRITIS WITH BACK PAIN. Last Myocardial Infarction Date:: 2000 ? History of Any Multi-Drug Resistant Organisms: None Reported Past Surgical History: Appendectomy, Orthopedic Surgery, Tubal Ligation Additional Past Surgical History / Comment(s): LEFT WRIST SURGERY Past Anesthesia/Blood Transfusion Reactions: No Reported Reaction Past Psychological History: No Psychological Hx Reported Smoking Status: Current every day smoker Past Alcohol Use History: None Reported Past Drug Use History: None Reported - Past Family History Mother Family Medical History: Cancer Additional Family Medical History / Comment(s): LUNG CANCER Medications and Allergies Home Medications Medication Instructions Recorded Confirmed Type sitaGLIPtin PHOSPHATE [Januvia] 100 mg PO HS 07/30/17 01/28/21 History Losartan Potassium 100 mg PO HS 10/22/20 01/28/21 History Simvastatin [Zocor] 20 mg PO HS 10/22/20 01/28/21 History Aspirin EC [Ecotrin] 325 mg PO HS 01/28/21 01/28/21 History Cholecalciferol [Vitamin D3 (25 25 mcg PO HS 01/28/21 01/28/21 History Mcg = 1000 Iu)] Diclofenac Sodium/Misoprostol 1 tab PO HS 01/28/21 01/28/21 History [Arthrotec 75 mg-200 Mcg Tab] Allergies Allergy/AdvReac Type Severity Reaction Status Date / Time No Known Allergies Allergy Verified 01/28/21 10:12 Physical Exam Vitals: Vital Signs Temp Pulse Resp BP Pulse Ox 01/28/21 11:47 68 18 175/92 98 01/28/21 10:00 18 01/28/21 09:56 64 01/28/21 09:46 71 01/28/21 09:42 18 98 01/28/21 08:04 98.7 F 77 18 156/94 95 Intake and Output 01/27/21 01/28/21 01/28/21 22:59 06:59 14:59 Other: Weight 74.843 kg Results 01/28/21 08:55 01/28/21 08:55 Cardiac Enzymes 01/28/21 01/28/21 Range/Units 08:55 08:55 AST 29 (14-36) U/L Troponin I 0.030 (0.000-0.034) ng/mL Coagulation 01/28/21 Range/Units 08:55 PT 11.2 (9.0-12.0) sec APTT 23.5 (22.0-30.0) sec CBC 01/28/21 Range/Units 08:55 WBC 7.2 (3.8-10.6) k/uL RBC 4.82 (3.80-5.40) m/uL Hgb 14.2 (11.4-16.0) gm/dL Hct 43.4 (34.0-46.0) % Plt Count 203 (150-450) k/uL Comprehensive Metabolic Panel 01/28/21 Range/Units 08:55 Sodium 128 L (137-145) mmol/L Potassium 4.6 (3.5-5.1) mmol/L Chloride 97 L (98-107) mmol/L Carbon Dioxide 22 (22-30) mmol/L BUN 15 (7-17) mg/dL Creatinine 0.73 (0.52-1.04) mg/dL Glucose 116 H (74-99) mg/dL Calcium 9.2 (8.4-10.2) mg/dL AST 29 (14-36) U/L ALT 23 (4-34) U/L Alkaline Phosphatase 99 (38-126) U/L Total Protein 6.7 (6.3-8.2) g/dL Albumin 3.7 (3.5-5.0) g/dL Intake and Output 01/27/21 01/28/21 01/28/21 22:59 06:59 14:59 Other: Weight 74.843 kg Patient Weight 01/29/21 06:59 Weight 74.843 kg 01/28/21 08:55 01/28/21 08:55
[2021-01-28] MEDS: FUROSEMIDE 10 MG/ML 4 ML VIAL IV SCH (16:51)
[2021-01-28 17:04] LABS: Glucose,Whole Blood 118 mg/dL (75-99)
--- NOTE | 2021-01-28 19:45 | ECHOF ---
Referral Reason:CHF MEASUREMENTS -------- HEIGHT: 157.5 cm WEIGHT: 74.8 kg BP: IVSd: 1.3 cm (0.6 - 1.1) LVIDd: 4.5 cm (3.9 - 5.3) LVPWd: 1.6 cm (0.6 - 1.1) EDV(Teich): 91 ml IVSs: 1.8 cm LVIDs: 4.2 cm LVPWs: 1.3 cm %IVS Thck: 42 % ESV(Teich): 77 ml EF(Teich): 15 % %FS: 7 % SV(Teich): 14 ml LA Diam: 1.4 cm (2.7 - 3.8) RVIDd: 3.1 cm (< 3.3) LALs A4C: 6.1 cm LAAs A4C: 24.4 cm LAESV A-L A4C: 82 ml LAESV MOD A4C: 71 ml LALs A2C: 5.7 cm LAAs A2C: 18.0 cm LAESV A-L A2C: 48 ml LAESV MOD A2C: 46 ml LAESV(A-L): 65 ml LAESV Index (A-L): 37.19 ml/m Ao Diam: 2.7 cm (2.0 - 3.7) LA Diam: 4.0 cm (2.7 - 3.8) EPSS: 2.5 cm MV E Puneet: 1.09 m/s MV DecT: 150 ms MV Dec Izard: 7.3 m/s MV A Puneet: 0.88 m/s MV E/A Ratio: 1.25 MV PHT: 44 ms MR Vmax: 3.36 m/s MR maxP.27 mmHg AV Vmax: 0.90 m/s AV maxP.32 mmHg AR Vmax: 1.49 m/s AR maxP.83 mmHg AR PHT: 327 ms AR Dec Time: 1129 ms AR Dec Izard: 1.3 m/s TR Vmax: 2.71 m/s TR maxP.35 mmHg RAP: 5.00 mmHg RVSP: 34.35 mmHg %FS: 32.58 % EDV(Teich): 111.09 ml EF(Teich): 60.79 % ESV(Teich): 43.55 ml IVSd: 0.96 cm (0.6 - 1.1) IVSs: 1.33 cm LVIDd: 4.87 cm (3.9 - 5.3) LVIDs: 3.28 cm LVPWd: 1.03 cm (0.6 - 1.1) LVPWs: 1.70 cm MV EF SLOPE: 56.62 mm/s (70 - 150) MV EXCURSION: 14.38 mm (> 18.000) SV(Teich): 67.54 ml FINDINGS -------- This was a technically adequate study. The left ventricular size is normal. There is moderate concentric left ventricular hypertrophy. O verall left ventricular systolic function is moderate-severely impaired with, an EF between 30 - 35 % . Increased LAP Grade 2 Diastolic Dysfunction. The right ventricle is normal in size. LA is moderately dilated 34-39 ml/m2 RA appears enlarged. The aortic valve is trileaflet and appears structurally normal. Trace amount of aortic regurgitatio n. The mitral valve is normal. Moderate mitral regurgitation is present. The tricuspid valve appears structurally normal. Mild tricuspid regurgitation present. Right vent ricular systolic pressure is normal at < 35 mmHg. There is no pulmonic regurgitation present. The aortic root size is normal. IVC Not well visulized. There is a trivial pericardial effusion present. CONCLUSIONS -------- 1. The left ventricular size is normal. 2. There is moderate concentric left ventricular hypertrophy. 3. Overall left ventricular systolic function is moderate-severely impaired with, an EF between 30 - 35 %. 4. Increased LAP Grade 2 Diastolic Dysfunction. 5. LA is moderately dilated 34-39 ml/m2 6. RA appears enlarged. 7. Trace amount of aortic regurgitation. 8. Moderate mitral regurgitation is present. 9. Mild tricuspid regurgitation present. 10. There is a trivial pericardial effusion present. HOSPITALITY SPECIALIST: Basia Collier, NOAH
[2021-01-28] MEDS: LOSARTAN 50 MG TAB PO SCH (19:51)
[2021-01-28 20:17] LABS: Glucose,Whole Blood 99 mg/dL (75-99)
[2021-01-28] MEDS: CHOLECALCIFEROL 25 MCG (1000 IU) TABLET PO SCH (20:20)
[2021-01-28] MEDS: LINAGLIPTIN 5 MG TABLET PO SCH (20:20)
[2021-01-28] MEDS: ATORVASTATIN 10 MG TAB PO SCH (20:20)
--- NOTE | 2021-01-28 23:25 | P.HPIM ---
History of Present Illness H&P Date: 01/28/21 Chief Complaint: Leg swelling Patient is a 75-year-old female with a known history of COPD, diabetes type 2 [id number], peripheral vascular disease with history of right lower extremity and, history of DVT, and hypothyroidism presents z to ER with complaints of bilateral lower extremity swelling. Patient states that she has been having left leg swelling for the past 2 months on and off and also started having right leg swelling 10 days ago and also shortness of breath with walking. Patient does have history of right lower extremity stent in 2000. Patient is currently everyday smoker. Denies any complaints of chest pain. No nausea vomiting abdominal pain or diarrhea. No palpitations. No cough or sputum production. No recent travel or sick contacts. Chest x-ray showed there may be underlying scarring, interstitial lung disease, difficult to exclude early interstitial edema there is underlying cardiomegaly and possible COPD, short-term interval follow-up suggested as indicated. EKG showed sinus rhythm Laboratory showed sodium 128 potassium 4.6 chloride 97 BUN 15 and creatinine 0.73 BNP 77783 and troponin x3 - COVID-19 PCR not detected Review of Systems Constitutional: Patient denies any fever or chills . No generalized weakness or weight loss. Abdomen: Patient denied nausea vomiting and diarrhea and abdominal pain. Cardiovascular: Patient does have bilateral leg swelling and shortness of breath. No chest pain. No palpitations.. Respiratory: patient denied any cough or sputum production. + shortness of breath Neurologic: Patient denied any numbness or tingling headache. Musculoskeletal: Patient denies any complaints of joint swelling or deformity. Skin: Negative Psychiatric: Negative Endocrine: No heat or cold intolerance. No recent weight gain. Genitourinary: No dysuria or hematuria. All other 14 point ROS negative except the above Past Medical History Past Medical History: COPD, Diabetes Mellitus, Deep Vein Thrombosis (DVT), Myocardial Infarction ([place]), Osteoarthritis ([place]), Thyroid Disorder Additional Past Medical History / Comment(s): HX OF DVT RIGHT LEG, ARTHRITIS WITH BACK PAIN. Last Myocardial Infarction Date:: 2000 ? History of Any Multi-Drug Resistant Organisms: None Reported Past Surgical History: Appendectomy, Orthopedic Surgery, Tubal Ligation Additional Past Surgical History / Comment(s): LEFT WRIST SURGERY Past Anesthesia/Blood Transfusion Reactions: No Reported Reaction Past Psychological History: No Psychological Hx Reported Smoking Status: Current every day smoker Past Alcohol Use History: None Reported Additional Past Alcohol Use History / Comment(s): SMOKING 2 CIGARETTES/DAY. HX OF 2 PPD SMOKER. SMOKING SINCE 16 YRS OLD. Past Drug Use History: None Reported - Past Family History Mother Family Medical History: Cancer Additional Family Medical History / Comment(s): LUNG CANCER Medications and Allergies Home Medications Medication Instructions Recorded Confirmed Type sitaGLIPtin PHOSPHATE [Januvia] 100 mg PO HS 07/30/17 01/28/21 History Losartan Potassium 100 mg PO HS 10/22/20 01/28/21 History Simvastatin [Zocor] 20 mg PO HS 10/22/20 01/28/21 History Aspirin EC [Ecotrin] 325 mg PO HS 01/28/21 01/28/21 History Cholecalciferol [Vitamin D3 (25 25 mcg PO HS 01/28/21 01/28/21 History Mcg = 1000 Iu)] Diclofenac Sodium/Misoprostol 1 tab PO HS 01/28/21 01/28/21 History [Arthrotec 75 mg-200 Mcg Tab] Allergies Allergy/AdvReac Type Severity Reaction Status Date / Time No Known Allergies Allergy Verified 01/28/21 10:12 Physical Exam Vitals: Vital Signs Temp Pulse Pulse Resp BP BP Pulse Ox 01/28/21 20:00 69 18 01/28/21 19:50 98.1 F 69 18 90/65 99 01/28/21 15:46 98.1 F 96 18 133/71 98 01/28/21 15:36 98.7 F 56 L 18 130/87 97 01/28/21 14:10 56 L 18 130/87 97 01/28/21 11:47 68 18 175/92 98 01/28/21 10:00 18 01/28/21 09:56 64 01/28/21 09:46 71 01/28/21 09:42 18 98 01/28/21 08:04 98.7 F 77 18 156/94 95 Intake and Output 01/28/21 01/28/21 01/29/21 14:59 22:59 06:59 Intake Total 240 Output Total 2100 Balance -1860 Intake: Oral 240 Output: Urine 2100 Other: Voiding Method Toilet Weight 74.843 kg 77.3 kg PHYSICAL EXAMINATION: Patient is lying in the bed comfortably, no acute distress, awake alert and orie nted.. HEENT: Normocephalic. Neck is supple. Pupils reactive. Nostrils clear. Oral cavity is moist. Neck reveals no JVD, carotid bruits, or thyromegaly. CHEST EXAMINATION: Trachea is central. Symmetrical expansion. Bibasilar diminished sounds and crackles present. Scattered rhonchi.. CARDIAC: Normal S1, S2 with no gallops. No murmurs ABDOMEN: Soft. Bowel sounds normal. No organomegaly. No abdominal bruits. Extremities: Bilateral lower extremity 2+ edema.. No clubbing or cyanosis Neurologically awake, alert, oriented x3 with well-coordinated movements. No focal deficits noted Skin: No rash or skin lesions. Psychiatric: Cooperative. Nonsuicidal Musculoskeletal: No joint swelling or deformity. Normal range of motion. Results CBC & Chem 7: 01/28/21 08:55 01/28/21 08:55 Labs: Abnormal Lab Results - Last 24 Hours (Table) 01/28/21 01/28/21 01/28/21 Range/Units 08:55 08:55 17:00 Lymphocytes # 0.7 L (1.0-4.8) k/uL Sodium 128 L (137-145) mmol/L Chloride 97 L (98-107) mmol/L Glucose 116 H (74-99) mg/dL POC Glucose (mg/dL) 118 H (75-99) mg/dL Thrombosis Risk Factor Assmnt - DVT/VTE Prophylaxis DVT/VTE Prophylaxis: Pharmacologic Prophylaxis ordered - Choose All That Apply Each Factor Represents 1 point: Obesity (BMI >25) Each Risk Factor Represents 2 Points: Age 61-74 years Thrombosis Risk Factor Assessment Total Risk Factor Score: 3 Thrombosis Risk Factor Assessment Level: Moderate Risk Assessment and Plan Assessment: Acute CHF ejection fraction not known. Elevated BNP, leg swelling, shortness of breath and interstitial edema on chest x-ray. Hyponatremia likely hypervolemic Ongoing nicotine addiction Hypertension Diabetes type 2 [id number] Peripheral vascular disease with history of right lower extremity stent placemen t. DVT prophylaxis with heparin subcu Plan: Patient will be continued on telemetry monitoring. Continue with Lasix 40 mg IV every 12 hourly and continue with aspirin and statins. Duo nebs as needed. Continue with home blood pressure medications and follow-up closely. Cardiology on board. 2D echocardiogram was ordered. Follow-up renal function. Time with Patient: Greater than 30
[2021-01-29] MEDS: FUROSEMIDE 10 MG/ML 4 ML VIAL IV SCH ×3 (00:13→16:45)
[2021-01-29] MEDS: HEPARIN SODIUM,PORCINE/PF 5,000 UNIT/0.5 ML SYRINGE SQ SCH ×3 (00:13→16:45)
[2021-01-29 05:58] LABS: Glucose,Whole Blood 105 mg/dL (75-99)
[2021-01-29 06:37] LABS: African American GFR (CKD) 78 (>60 ml/min/1.73 sqM); Anion Gap 7 mmol/L; Blood Urea Nitrogen 17 mg/dL (7-17); Calcium 8.8 mg/dL (8.4-10.2); Carbon Dioxide 37 mmol/L (22-30); Chloride 86 mmol/L (98-107); Glucose 96 mg/dL (74-99); Non-African American GFR(CKD) 67 (>60 ml/min/1.73 sqM); Potassium 3.9 mmol/L (3.5-5.1); Sodium 130 mmol/L (137-145)
--- NOTE | 2021-01-29 07:39 | P.PN ---
Subjective Progress Note Date: 01/29/21 Principal diagnosis: Heart failure exacerbation secondary to heart failure with reduced ejection fraction This is a 75-year-old female patient with a past medical history significant for diabetes and hypertension and dyslipidemia as well as a smoking and chronic obstructive pulmonary disease and also lower extremities peripheral tear disease was admitted to the hospital with acute exacerbation of heart failure of unknown etiology at that point. Subsequently the patient underwent an echo which revealed impaired only function was EF between 30-35%. She was seen this morning beach she stated "I feel better". The shortness of breath has improved as well as the lower extent his edema. Hemodynamically she is stable. She has been diuresing very well on the current dose of Lasix which is 40 mg IV twice a day. I'm going to add small dose of DL inhibitor and hold adding any beta jake in view of the heart failure exacerbation status. She needs to undergo coronary angiogram either as an inpatient or as an outpatient. Objective - Vital Signs Vital signs: Vital Signs Temp 98.0 F 01/29/21 04:00 Pulse 85 01/29/21 04:00 Resp 18 01/29/21 04:00 BP 90/55 01/29/21 04:00 Pulse Ox 98 01/29/21 04:00 Intake & Output 01/28/21 01/29/21 01/29/21 18:59 06:59 18:59 Intake Total 240 Output Total 400 2350 Balance -160 -2350 Weight 77.3 kg 74.1 kg Intake: Oral 240 Output: Urine 400 2350 Other: Voiding Method Toilet - Constitutional General appearance: Present: no acute distress - Respiratory Respiratory: bilateral: diminished - Cardiovascular Rhythm: regular Heart sounds: normal: S1, S2 - Labs CBC & Chem 7: 01/28/21 08:55 01/29/21 05:30 Labs: Abnormal Lab Results - Last 24 Hours (Table) 01/28/21 01/28/21 01/28/21 Range/Units 08:55 08:55 17:00 Lymphocytes # 0.7 L (1.0-4.8) k/uL Sodium 128 L (137-145) mmol/L Chloride 97 L (98-107) mmol/L Carbon Dioxide (22-30) mmol/L Glucose 116 H (74-99) mg/dL POC Glucose (mg/dL) 118 H (75-99) mg/dL 01/29/21 01/29/21 Range/Units 05:30 05:56 Lymphocytes # (1.0-4.8) k/uL Sodium 130 L (137-145) mmol/L Chloride 86 L (98-107) mmol/L Carbon Dioxide 37 H (22-30) mmol/L Glucose (74-99) mg/dL POC Glucose (mg/dL) 105 H (75-99) mg/dL Assessment and Plan Assessment: Assessment #1 acute exacerbation of heart failure with reduced ejection fraction #2 severe cardiomyopathy of unknown etiology, ischemic versus nonischemic #3 lower extremities peripheral arterial disease #4 smoking history #5 multiple comorbid conditions including diabetes and hypertension and dyslipidemia and COPD Plan #1 continue the current dose of Lasix IV #2 continue monitoring the kidney function and electrolytes #3 as small dose of DL inhibitor with lisinopril #4 hold adding any beta jake at this point in view of the heart failure exacerbation #5 coronary angiogram to be performed to rule out severe CAD
[2021-01-29] MEDS: ASPIRIN 81 MG PO SCH (08:55)
[2021-01-29 10:28] VITALS: BMI 29.8
[2021-01-29 12:00] LABS: Glucose,Whole Blood 97 mg/dL (75-99)
[2021-01-29 16:49] LABS: Glucose,Whole Blood 96 mg/dL (75-99)
[2021-01-29] MEDS: CHOLECALCIFEROL 25 MCG (1000 IU) TABLET PO SCH (20:09)
[2021-01-29] MEDS: LINAGLIPTIN 5 MG TABLET PO SCH (20:09)
[2021-01-29] MEDS: ATORVASTATIN 10 MG TAB PO SCH (20:09)
[2021-01-29 20:29] LABS: Glucose,Whole Blood 121 mg/dL (75-99)
[2021-01-29] MEDS: ACETAMINOPHEN TAB 325 MG TAB PO PRN (20:39)
[2021-01-29] MEDS: LOSARTAN 50 MG TAB PO SCH (22:59)
[2021-01-29] MEDS ORDERED: HEPARIN SODIUM,PORCINE 5,000 UNIT/ML 1 ML VIAL ONE (23:26)
[2021-01-30] MEDS: HEPARIN SODIUM,PORCINE/PF 5,000 UNIT/0.5 ML SYRINGE SQ SCH ×4 (03:28→23:46)
[2021-01-30] MEDS: FUROSEMIDE 10 MG/ML 4 ML VIAL IV SCH ×3 (03:28→20:36)
[2021-01-30 06:00] LABS: Glucose,Whole Blood 88 mg/dL (75-99)
[2021-01-30] MEDS: ACETAMINOPHEN TAB 325 MG TAB PO PRN ×2 (06:57→12:31)
[2021-01-30] MEDS: IPRATROPIUM-ALBUTEROL 3 ML NEB INHALATION PRN (07:55)
[2021-01-30] MEDS: ASPIRIN 81 MG PO SCH (08:14)
--- NOTE | 2021-01-30 11:42 | P.PN ---
Subjective Progress Note Date: 01/30/21 HISTORY OF PRESENT ILLNESS: This is a 75-year-old female with a past medical history significant for hypertension, hyperlipidemia, diabetes, peripheral vascular disease with previous stenting, COPD, and nicotine dependence. Patient used to follow in the office with Dr. Rinaldi but has not been seen since 2016. We have been asked to see the patient in consultation for congestive heart failure. Patient examined at the bedside. Patient presented to the emergency room with a chief complaint of shortness of breath and and increased lower extremity edema. The patient also reports having some mild chest discomfort. She reports some occasional dizziness at home but no syncopal episodes. The patient currently denies shortness of breath at rest. She states her shortness of breath has mostly been with exertion. The patient was found to be in congestive heart failure on presentat ion to the emergency room. The patient denies any previous history of congestive heart failure. EKG reveals sinus mechanism with Q waves inferiorly. No signs of acute ischemia Chest xray underlying scarring, interstitial lung disease, difficult to exclude early interstitial edema. There is underlying cardiomegaly and possible COPD. Laboratory data: WBC 7.2. Hemoglobin 14.2. Platelet count 203. Sodium 128. Potassium 4.6. BUN 15. Creatinine 0.73. Troponin 0.030. 0.027. ProBNP 17,800 Current home cardiac medications include aspirin 325 mg at night, losartan 100 mg at night, simvastatin 20 mg at night 01/30/21 Patient examined this morning at the bedside. Patient denies chest pain or pressure. Reports improvement in her shortness of breath. She remains on IV lasix every 8 hours. Fluid balance is -3 over the last 24 hours. Echo reveals EF 30-35% PHYSICAL EXAM: VITAL SIGNS: Reviewed. GENERAL: Well-developed in no acute distress. HEENT: Head is normocephalic. Pupils are equal, round. Sclerae anicteric. Mucous membranes of the mouth are moist. Neck supple. No thyromegaly. Positive JVD LUNGS: Respirations even and unlabored. Lungs diminished to auscultation bilaterally. HEART: Regular rate and rhythm. S1 and S2 heard. ABDOMEN: Soft. Nondistended. Nontender. EXTREMITIES: Normal range of motion. No clubbing or cyanosis. Peripheral pulses intact. 1+ bilateral lower extremity edema NEUROLOGIC: Awake and alert. Oriented x 3. ASSESSMENT: Acute congestive heart failure, systolic Cardiomyopathy, type unknown Hypertension Hyperlipidemia Diabetes Peripheral vascular disease with previous stenting COPD Nicotine dependence Hyponatremia PLAN: Continue IV lasix. Decrease dosing to q12 hours. Check electrolytes Monitor kidney function Accurate I&O Daily weights Anticipate cardiac cath tomorrow with Dr. Melton pending kidney function Further recommendations pending patient's course Patient to follow up outpatient with Dr. Melton Nurse practitioner note has been reviewed by physician. Signing provider agrees with the documented findings, assessment, and plan of care. Objective - Vital Signs Vital signs: Vital Signs Temp 97.4 F L 01/30/21 08:00 Pulse 84 01/30/21 08:02 Resp 16 01/30/21 08:02 BP 107/67 01/30/21 08:00 Pulse Ox 96 01/30/21 08:00 Intake & Output 01/29/21 01/30/21 01/30/21 18:59 06:59 18:59 Intake Total 598 118 Output Total 1850 1825 Balance -1252 -1825 118 Weight 74.1 kg 72.3 kg Intake: Oral 598 118 Output: Urine 1850 1825 Other: Voiding Method Toilet Toilet Toilet # Bowel Movements 1 - Labs CBC & Chem 7: 01/28/21 08:55 01/29/21 05:30 Labs: Abnormal Lab Results - Last 24 Hours (Table) 01/29/21 Range/Units 20:26 POC Glucose (mg/dL) 121 H (75-99) mg/dL
[2021-01-30 12:05] LABS: Glucose,Whole Blood 90 mg/dL (75-99)
[2021-01-30 12:47] LABS: Calcium 8.8 mg/dL (8.4-10.2); Magnesium 1.5 mg/dL (1.6-2.3); Potassium 3.6 mmol/L (3.5-5.1)
[2021-01-30] MEDS ORDERED: NITROGLYCERIN SL TABS 0.4 MG TAB SUBLINGUAL PRN (14:03)
[2021-01-30] MEDS ORDERED: ALPRAZolam 0.25 MG TAB PO PRN (14:03)
[2021-01-30] MEDS ORDERED: ALPRAZolam 0.5 MG TAB PO PRN (14:03)
[2021-01-30 16:32] LABS: Glucose,Whole Blood 107 mg/dL (75-99)
[2021-01-30] MEDS ORDERED: POTASSIUM CHLORIDE ER 20 MEQ TAB.ER PO STA (16:47)
[2021-01-30] MEDS: MAGNESIUM SULFATE-D5W PMX 1 GM in DEXTROSE/WATER 1 100ML.BAG IVPB SCH ×2 (16:58→18:11)
[2021-01-30 20:12] LABS: Glucose,Whole Blood 119 mg/dL (75-99)
[2021-01-30] MEDS: CHOLECALCIFEROL 25 MCG (1000 IU) TABLET PO SCH (20:36)
[2021-01-30] MEDS: ATORVASTATIN 10 MG TAB PO SCH (20:36)
[2021-01-30] MEDS: LINAGLIPTIN 5 MG TABLET PO SCH (20:36)
[2021-01-30] MEDS: LOSARTAN 50 MG TAB PO SCH (23:46)
[2021-01-30] MEDS: SODIUM CHLORIDE 0.9% 1,000 ML in EMPTY BAG 1 BAG IV SCH (23:47)
[2021-01-31 06:06] LABS: Glucose,Whole Blood 102 mg/dL (75-99)
[2021-01-31] MEDS ORDERED: HEPARIN SODIUM,PORCINE 10,000 UNIT in SODIUM CHLORIDE 0.9% 1,000 ML IRRIGATION PRN (07:00)
[2021-01-31] MEDS ORDERED: ASPIRIN 325 MG TAB PO ONE (07:00)
[2021-01-31] MEDS ORDERED: HEPARIN SODIUM,PORCINE 2,500 UNIT in SODIUM CHLORIDE 0.9% 250 ML IRRIGATION PRN (07:00)
[2021-01-31] MEDS ORDERED: ATORVASTATIN 80 MG TAB PO ONE (07:00)
[2021-01-31 08:22] LABS: Basophils % (A) 0 %; Eosinophils # (A) 0.1 k/uL (0-0.7); Eosinophils % (A) 1 %; HCT 48.1 % (34.0-46.0); HGB 14.9 gm/dL (11.4-16.0); Hypochromasia Slight; Lymphocytes # (A) 0.7 k/uL (1.0-4.8); Lymphocytes % (A) 9 %; MCH 29.7 pg (25.0-35.0); Mean Platelet Volume 7.1; Monocytes # (A) 0.7 k/uL (0-1.0); Monocytes % (A) 9 %; Neutrophils # (A) 6.3 k/uL (1.3-7.7); Neutrophils % (A) 78 %; Platelet Count 210 k/uL (150-450); RBC 5.03 m/uL (3.80-5.40); RDW 13.9 % (11.5-15.5); WBC 8.1 k/uL (3.8-10.6)
[2021-01-31 08:32] LABS: MCV 95.6 fL (80.0-100.0)
[2021-01-31 08:36] LABS: Calcium 9.1 mg/dL (8.4-10.2); Potassium 4.1 mmol/L (3.5-5.1)
[2021-01-31] MEDS: ASPIRIN 81 MG PO SCH (08:39)
[2021-01-31] MEDS ORDERED: VERAPAMIL 2.5 MG/ML 2 ML AMP ONE (09:09)
[2021-01-31] MEDS ORDERED: LIDOCAINE 1% INJ 10MG/ML (20 ML MDV) ONE (09:09)
[2021-01-31] MEDS ORDERED: IV FLUID CONTINUATION 200 ML IV ONE (09:21)
[2021-01-31] MEDS ORDERED: HEPARIN SODIUM 1,000 UN/ML (10ML VL) ONE (09:35)
[2021-01-31] MEDS ORDERED: MIDAZOLAM 2 MG/2 ML VIAL IV ONE (09:47)
[2021-01-31] MEDS ORDERED: LIDOCAINE 1% INJ 10MG/ML (20 ML MDV) SQ ONE (09:49)
[2021-01-31] MEDS ORDERED: HEPARIN SODIUM 1,000 UN/ML (10ML VL) IV ONE (09:52)
[2021-01-31] MEDS: VERAPAMIL SYRINGE (5 MG/10 ML) INTRAARTER ONE ×2 (09:52→09:58)
[2021-01-31] MEDS ORDERED: IOPAMIDOL-370 125ML BTL INJ ONE (09:58)
[2021-01-31] MEDS ORDERED: RX INFO: IV CONTRAST WAS GIVEN 1 EACH MISC MISCELLANE PRN (10:05)
[2021-01-31] MEDS ORDERED: SODIUM CHLORIDE 0.9% 1,000 ML IV SCH (10:15)
--- NOTE | 2021-01-31 11:37 | CC ---
CARDIAC CATHETERIZATION REPORT PERFORMING PHYSICIAN: Zia Melton MD. PROCEDURE PERFORMED: 1. Selective right and left coronary angiogram. 2. Left heart catheterization. INDICATION: This is a 75-year-old female patient with lower extremities peripheral arterial disease as well as chronic obstructive pulmonary disease and also hypertension, and dyslipidemia, who was admitted to the hospital with heart failure symptoms. She underwent an echocardiogram which revealed severe cardiomyopathy and for that reason, a heart catheterization was advised. APPROACH: Right radial artery. COMPLICATION: None. LEVEL OF SEDATION: Moderate with sedation length of 11 minutes. PROCEDURE DESCRIPTION: After obtaining an informed consent, the patient was brought to the cardiac pathology laboratory aide. The right radial artery was cannulated using micropuncture technique. Under ultrasound guidance, a micropuncture wire passed easily. Then I placed a 6-Mongolian sheath in the right radial artery. I gave the patient 2 mg of verapamil IA and 6000 units of heparin IV. Selective right and left coronary angiogram performed using JR4 and JL3.5 catheters. Left heart catheterization was performed using the JR4 catheter which crossed the aortic valve. Then I did pullback across the valve. The procedure was completed without any complication. SELECTIVE CORONARY ANGIOGRAM: 1. The right coronary artery is extremely calcified. The RCA is chronically occluded by the mid portion and fills by collateral from the left coronary system. 2. The left main is extremely calcified. The left main is calcified as well with about 30 to 40% lesion. The left main bifurcates into LCX and LAD. 3. The LCX is a large-caliber vessel. It is a nondominant vessel. The LCX proximally gives rise to an OM branch which is a medium caliber vessel has a lesion appeared to be in the range of 70% to 80%. The left circumflex after that continues in the AV groove as a moderate caliber vessel and seems to be occluded distally as well. 4. The LAD is a large-caliber vessel. It is extremely calcified. The proximal LAD has eccentric lesion appeared to be in the range of 90 to 95 percent by the bifurcation of a large diagonal branch. The mid LAD has tubular lesion appeared to be in the range of 60% to 70%. HEMODYNAMICS: The LVEDP was 30 mmHg without significant gradient across aortic valve. CONCLUSION: 1. Extremely calcified right and left coronary system. 2. Extremely calcified aortic root and ascending aorta. 3. Severe triple-vessel coronary artery disease. 4. Chronic total occlusion of the RCA in the mid portion. 5. Severe disease involving the first obtuse marginal branch of the left circumflex with completed circumflex in the AV groove distally. 6. Critical disease involving the proximal left anterior descending artery by the bifurcation of a large diagonal branch. 7. Extremely elevated left-sided filling pressure. POSTPROCEDURE MANAGEMENT: 1. Given the above anatomy, I advised the patient to be seen by a surgeon for the evaluation of coronary artery bypass grafting. 2. Further recommendation will follow that. 3. Continue IV diuretics. 4. Follow up with the patient. MMODL / IJN: [id number] /
--- NOTE | 2021-01-31 11:44 | P.GSCN ---
<Basia Guerrero - Last Filed: 01/31/21 11:29> History of Present Illness Consult date: 01/31/21 Reason for Consult: Calcified triple-vessel coronary artery disease Requesting physician: Zia Melton History of present illness: This is a 75-year-old inactive female who follows on an outpatient basis with Dr. Donya Padilla for primary care. She has a previous medical history of hypertension, hyperlipidemia, myocardial infarction in 2000 without intervention, peripheral arterial disease with stent placement to the right lower extremity in 2000 at [facility] per patient, cardiomyopathy, [id number] diabetes, COPD with current tobacco dependence, previous hypothyroid taken off meds, and family history of lung cancer and stroke. She remains unvaccinated against covid. The patient presented to [facility] emergency room a few days ago with complaints of exertional dyspnea which has been worse over the previous week, lower extremity edema, and chronic cough with congestion. She denies any fever, nausea/ vomiting, chest pain, or any other symptomatology. She states she gets short of breath just walking from one room to another. She denies dyspnea at rest. In the emergency room her x-ray demonstrated evidence of heart failure, BNP was 17,000, troponin was negative, white blood cell count was 8.1, coronavirus PCR was negative, and the patient was felt to be in acute heart failure. Transthoracic echocardiogram was completed demonstrating impaired left ventricular systolic function with EF 30-35%, grade 2 diastolic dysfunction, trace aortic insufficiency, moderate mitral regurgitation, mild tricuspid regurgitation, and trivial pericardial effusion. She was admitted for evaluation and treatment with consultation placed to cardiology. She was initiated on IV Lasix and allowed to diuresis. She was recommended to undergo heart catheterization which was completed today and which demonstrated severely calcified triple-vessel coronary artery disease. Consultation was placed to cardiothoracic surgery for surgical revascularization recommendations. Review of Systems Review of systems was completed and was negative except as noted - Cardiovascular Reports as per HPI, Reports decreased exercise tolerance, Reports dyspnea on exertion, Reports leg edema, Reports shortness of breath - Respiratory Reports as per HPI, Reports congestion, Reports cough Past Medical History Past Medical History: Chest Pain / Angina, COPD, Diabetes Mellitus, Hyperlipidemia, Hypertension, Myocardial Infarction ([place]), Osteoarthritis (OA), Thyroid Disorder Additional Past Medical History / Comment(s): ARTHRITIS WITH BACK PAIN. Last Myocardial Infarction Date:: 2000 ? History of Any Multi-Drug Resistant Organisms: None Reported Past Surgical History: Appendectomy, Orthopedic Surgery, Tubal Ligation Additional Past Surgical History / Comment(s): LEFT WRIST SURGERY; right knee scope Past Anesthesia/Blood Transfusion Reactions: No Reported Reaction Past Psychological History: No Psychological Hx Reported Smoking Status: Current every day smoker Past Alcohol Use History: None Reported Past Drug Use History: None Reported Additional History: Patient recently quit down to half a pack a day in the last week, prior she smoked 1-2 packs per day for more than 60 years - Past Family History Mother Family Medical History: Cancer, Coronary Artery Disease (CAD) Additional Family Medical History / Comment(s): from LUNG CANCER Father Family Medical History: CVA/TIA Additional Family Medical History / Comment(s): from CVA Medications and Allergies Home Medications Medication Instructions Recorded Confirmed Type sitaGLIPtin PHOSPHATE [Januvia] 100 mg PO HS 07/30/17 01/28/21 History Losartan Potassium 100 mg PO HS 10/22/20 01/28/21 History Simvastatin [Zocor] 20 mg PO HS 10/22/20 01/28/21 History Aspirin EC [Ecotrin] 325 mg PO HS 01/28/21 01/28/21 History Cholecalciferol [Vitamin D3 (25 25 mcg PO HS 01/28/21 01/28/21 History Mcg = 1000 Iu)] Diclofenac Sodium/Misoprostol 1 tab PO HS 01/28/21 01/28/21 History [Arthrotec 75 mg-200 Mcg Tab] Allergies Allergy/AdvReac Type Severity Reaction Status Date / Time No Known Allergies Allergy Verified 01/28/21 10:12 Surgical - Exam Vital Signs Temp Pulse Resp BP Pulse Ox 98.7 F 77 18 156/94 95 01/28/21 08:04 01/28/21 08:04 01/28/21 08:04 01/28/21 08:04 01/28/21 08:04 CONSTITUTIONAL: Awake and alert, appears comfortable, cooperative, well- developed, well-nourished, no pain, no acute distress EYES: Pupils equal, round, reactive to light, normal ocular movement ENT: Moist mucous membranes without oral lesions present NECK: No masses, no bruits, trachea midline RESPIRATORY: Lungs sounds diminished bilaterally. Respirations even, nonlabored. Currently on 2 L nasal cannula with oxygen saturation 95%. Strong loose cough. No chest wall deformities. No clubbing or cyanosis present CARDIOVASCULAR: S1, S2 present. Regular rate and rhythm, sinus rhythm on telemetry. Palpable peripheral pulses bilaterally. Bilateral lower extremity 1+ edema present. No calf pain or tenderness noted. No significant lower extremity varicosities noted. GASTROINTESTINAL: Abdomen soft, nontender, nondistended without masses or organomegaly noted. There is no rebound or guarding present. Active bowel sounds present 4 quadrants. GENITOURINARY: Deferred INTEGUMENTARY: Skin is warm and dry with evidence of good perfusion. Right radial heart catheterization site with T Band in place, no redness or drainage NEUROLOGIC: Cranial nerves II through XII intact, normal coordination, no obvious motor or sensory deficits, speech is normal MUSKULOSKELETAL: Able to move all extremities, strength equal bilaterally, normal posture PSYCHIATRIC: Alert and oriented to person place and time, appropriate affect, intact judgment and insight Results - Labs 01/31/21 07:28 01/31/21 07:28 Abnormal Lab Results - Last 24 Hours (Table) 01/30/21 01/30/21 01/30/21 Range/Units 11:49 16:30 20:10 Hct (34.0-46.0) % Lymphocytes # (1.0-4.8) k/uL Sodium 128 L (137-145) mmol/L Chloride 82 L (98-107) mmol/L Carbon Dioxide 41 H* (22-30) mmol/L BUN 18 H (7-17) mg/dL POC Glucose (mg/dL) 107 H 119 H (75-99) mg/dL Magnesium 1.5 L (1.6-2.3) mg/dL 01/31/21 01/31/21 01/31/21 Range/Units 06:02 07:28 07:28 Hct 48.1 H (34.0-46.0) % Lymphocytes # 0.7 L (1.0-4.8) k/uL Sodium 130 L (137-145) mmol/L Chloride 84 L (98-107) mmol/L Carbon Dioxide 38 H (22-30) mmol/L BUN 18 H (7-17) mg/dL POC Glucose (mg/dL) 102 H (75-99) mg/dL Magnesium (1.6-2.3) mg/dL Diabetes panel 01/30/21 01/31/21 Range/Units 11:49 07:28 Sodium 128 L 130 L (137-145) mmol/L Potassium 3.6 4.1 (3.5-5.1) mmol/L Chloride 82 L 84 L (98-107) mmol/L Carbon Dioxide 41 H* 38 H (22-30) mmol/L BUN 18 H 18 H (7-17) mg/dL Creatinine 0.77 0.76 (0.52-1.04) mg/dL Glucose 84 93 (74-99) mg/dL Calcium 8.8 9.1 (8.4-10.2) mg/dL Calcium panel 01/30/21 01/31/21 Range/Units 11:49 07:28 Calcium 8.8 9.1 (8.4-10.2) mg/dL Pituitary panel 01/30/21 01/31/21 Range/Units 11:49 07:28 Sodium 128 L 130 L (137-145) mmol/L Potassium 3.6 4.1 (3.5-5.1) mmol/L Chloride 82 L 84 L (98-107) mmol/L Carbon Dioxide 41 H* 38 H (22-30) mmol/L BUN 18 H 18 H (7-17) mg/dL Creatinine 0.77 0.76 (0.52-1.04) mg/dL Glucose 84 93 (74-99) mg/dL Calcium 8.8 9.1 (8.4-10.2) mg/dL Adrenal panel 01/30/21 01/31/21 Range/Units 11:49 07:28 Sodium 128 L 130 L (137-145) mmol/L Potassium 3.6 4.1 (3.5-5.1) mmol/L Chloride 82 L 84 L (98-107) mmol/L Carbon Dioxide 41 H* 38 H (22-30) mmol/L BUN 18 H 18 H (7-17) mg/dL Creatinine 0.77 0.76 (0.52-1.04) mg/dL Glucose 84 93 (74-99) mg/dL Calcium 8.8 9.1 (8.4-10.2) mg/dL - Imaging Chest x-ray: report reviewed, image reviewed EKG: image reviewed Additional studies: Heart catheterization films reviewed with Dr. Melton Assessment and Plan Assessment: 1. Calcified triple-vessel coronary artery disease 2. Acute systolic heart failure present on admission 3. Exertional dyspnea present on admission secondary to above 4. History of hypertension 5. Hyperlipidemia, treated 6. Myocardial infarction in 2000 without intervention 7. Peripheral arterial disease with stent placement to the right lower extremity in 2000 at [facility] per patient 8. History of cardiomyopathy 9. Swn-pknmsqv-zeqnmhzdd diabetes 10. COPD 11. Current tobacco dependence 12. Previous hypothyroid taken off meds 13. Family history of lung cancer and stroke 14. Unvaccinated against covid. Plan: The patient was seen and examined at the bedside on the cardiac stepdown unit with daughter present. Chart/diagnostics were reviewed. The case will be discussed in detail with Dr. Kothari. The usual perioperative course of surgical revascularization was discussed in detail with the patient, risks and benefits were reviewed, all questions were answered. The patient is agreeable to consider surgery if that is the recommendation. Preoperative testing was initiated. Recommend continuing aspirin, statin, recommend initiating beta jake therapy. Continue diuresis. Patient was counseled regarding the need to quit smoking. She states she has been cutting down and does intend to quit. Of note, the patient and daughter do state that she is very inactive, in fact the majority of the time she sits around watching TV. She does intend to move in with her daughter when she is discharged from the hospital. More recommendations to follow once preoperative testing has been completed and Dr. Kothari has had the opportunity to review the patient's heart catheterization films. Thank you Dr. Melton for this consult Time with Patient: Greater than 30 <Herber Kothari - Last Filed: 01/31/21 17:00> Surgical - Exam Vital Signs Temp Pulse Resp BP Pulse Ox 98.7 F 77 18 156/94 95 01/28/21 08:04 01/28/21 08:04 01/28/21 08:04 01/28/21 08:04 01/28/21 08:04 Results - Labs 01/31/21 07:28 01/31/21 07:28 Abnormal Lab Results - Last 24 Hours (Table) 01/30/21 01/31/21 01/31/21 Range/Units 20:10 06:02 07:28 Hct (34.0-46.0) % Lymphocytes # (1.0-4.8) k/uL Sodium 130 L (137-145) mmol/L Chloride 84 L (98-107) mmol/L Carbon Dioxide 38 H (22-30) mmol/L BUN 18 H (7-17) mg/dL POC Glucose (mg/dL) 119 H 102 H (75-99) mg/dL 01/31/21 01/31/21 01/31/21 Range/Units 07:28 11:47 16:43 Hct 48.1 H (34.0-46.0) % Lymphocytes # 0.7 L (1.0-4.8) k/uL Sodium (137-145) mmol/L Chloride (98-107) mmol/L Carbon Dioxide (22-30) mmol/L BUN (7-17) mg/dL POC Glucose (mg/dL) 101 H 101 H (75-99) mg/dL Diabetes panel 01/31/21 Range/Units 07:28 Sodium 130 L (137-145) mmol/L Potassium 4.1 (3.5-5.1) mmol/L Chloride 84 L (98-107) mmol/L Carbon Dioxide 38 H (22-30) mmol/L BUN 18 H (7-17) mg/dL Creatinine 0.76 (0.52-1.04) mg/dL Glucose 93 (74-99) mg/dL Calcium 9.1 (8.4-10.2) mg/dL Calcium panel 01/31/21 Range/Units 07:28 Calcium 9.1 (8.4-10.2) mg/dL Pituitary panel 01/31/21 Range/Units 07:28 Sodium 130 L (137-145) mmol/L Potassium 4.1 (3.5-5.1) mmol/L Chloride 84 L (98-107) mmol/L Carbon Dioxide 38 H (22-30) mmol/L BUN 18 H (7-17) mg/dL Creatinine 0.76 (0.52-1.04) mg/dL Glucose 93 (74-99) mg/dL Calcium 9.1 (8.4-10.2) mg/dL Adrenal panel 01/31/21 Range/Units 07:28 Sodium 130 L (137-145) mmol/L Potassium 4.1 (3.5-5.1) mmol/L Chloride 84 L (98-107) mmol/L Carbon Dioxide 38 H (22-30) mmol/L BUN 18 H (7-17) mg/dL Creatinine 0.76 (0.52-1.04) mg/dL Glucose 93 (74-99) mg/dL Calcium 9.1 (8.4-10.2) mg/dL Assessment and Plan Plan: Patient seen and examined . Cath and echo reviewed. Multiple comorbidities, s/p Remote [place], CHF prsentation, active smoker, sedentary life, vasculopathy with PAD and prior lower extremities stenting. Calcified diffuse Triple vessel CAD, moderate MR and moderate to severe LV dysfunction. FEV1 WITH GOOD EFFORT AT LESS THAN 500CC, 25% of predicted. Questionable left subclavian steal.. Calcified aortic root. Patient is a non-surgical candidate. Consider high risk P CI with support. Discussed with Dr Worley.
[2021-01-31 11:48] LABS: Glucose,Whole Blood 101 mg/dL (75-99)
--- NOTE | 2021-01-31 12:04 | P.PN ---
Subjective Progress Note Date: 01/29/21 Principal diagnosis: Acute CHF with reduced ejection fraction Patient is a 75-year-old female with a known history of COPD, diabetes type 2 [id number], peripheral vascular disease with history of right lower extremity and, history of DVT, and hypothyroidism presents z to ER with complaints of bilateral lower extremity swelling. Patient states that she has been having left leg swelling for the past 2 months on and off and also started having right leg swelling 10 days ago and also shortness of breath with walking. Patient does have history of right lower extremity stent in 2000. Patient is currently everyday smoker. Denies any complaints of chest pain. No nausea vomiting abdominal pain or diarrhea. No palpitations. No cough or sputum production. No recent travel or sick contacts. Chest x-ray showed there may be underlying scarring, interstitial lung disease, difficult to exclude early interstitial edema there is underlying cardiomegaly and possible COPD, short-term interval follow-up suggested as indicated. EKG showed sinus rhythm Laboratory showed sodium 128 potassium 4.6 chloride 97 BUN 15 and creatinine 0.73 BNP 05303 and troponin x3 - COVID-19 PCR not detected 01/29/2021 Patient is currently lying in the bed. Awake alert and oriented 3. Feels better. Bilateral leg swelling is improving. Patient is being tried on Lasix 40 mg twice daily. Cardiology is on board. 2-D echocardiogram showed ejection fraction 30-35%. Cardiology recommends catheterization. Laboratory data showed sodium 1:30 potassium 3.9 chloride 86 bicarb is 37 BUN 17 and creatinine 0.86 TSH 3.15 Current medications reviewed. Objective - Vital Signs Vital signs: Vital Signs Temp 96.9 F L 01/31/21 08:00 Pulse 91 01/31/21 11:53 Resp 16 01/31/21 11:53 BP 95/61 01/31/21 11:53 Pulse Ox 96 01/31/21 11:53 Intake & Output 01/30/21 01/31/21 01/31/21 18:59 06:59 18:59 Intake Total 354 150 Output Total 1800 Balance 354 -1800 150 Weight 71.3 kg Intake: IV 150 Oral 354 Output: Urine 1800 Other: Voiding Method Toilet Toilet Toilet - Exam PHYSICAL EXAMINATION: Patient is lying in the bed comfortably, no acute distress, awake alert and oriented.. HEENT: Normocephalic. Neck is supple. Pupils reactive. Nostrils clear. Oral cavity is moist. Neck reveals no JVD, carotid bruits, or thyromegaly. CHEST EXAMINATION: Trachea is central. Symmetrical expansion. Bilateral basilar crackles present. No wheezing or rhonchi. CARDIAC: Normal S1, S2 with no gallops. No murmurs ABDOMEN: Soft. Bowel sounds normal. No organomegaly. No abdominal bruits. Extremities: Bilateral lower extremity 2+ edema.. No clubbing or cyanosis Neurologically awake, alert, oriented x3 with well-coordinated movements. No focal deficits noted Skin: No rash or skin lesions. Psychiatric: Cooperative. Nonsuicidal Musculoskeletal: No joint swelling or deformity. Normal range of motion. - Labs CBC & Chem 7: 01/31/21 07:28 01/31/21 07:28 Labs: Abnormal Lab Results - Last 24 Hours (Table) 01/30/21 01/30/21 01/30/21 Range/Units 11:49 16:30 20:10 Hct (34.0-46.0) % Lymphocytes # (1.0-4.8) k/uL Sodium 128 L (137-145) mmol/L Chloride 82 L (98-107) mmol/L Carbon Dioxide 41 H* (22-30) mmol/L BUN 18 H (7-17) mg/dL POC Glucose (mg/dL) 107 H 119 H (75-99) mg/dL Magnesium 1.5 L (1.6-2.3) mg/dL 01/31/21 01/31/21 01/31/21 Range/Units 06:02 07:28 07:28 Hct 48.1 H (34.0-46.0) % Lymphocytes # 0.7 L (1.0-4.8) k/uL Sodium 130 L (137-145) mmol/L Chloride 84 L (98-107) mmol/L Carbon Dioxide 38 H (22-30) mmol/L BUN 18 H (7-17) mg/dL POC Glucose (mg/dL) 102 H (75-99) mg/dL Magnesium (1.6-2.3) mg/dL 01/31/21 Range/Units 11:47 Hct (34.0-46.0) % Lymphocytes # (1.0-4.8) k/uL Sodium (137-145) mmol/L Chloride (98-107) mmol/L Carbon Dioxide (22-30) mmol/L BUN (7-17) mg/dL POC Glucose (mg/dL) 101 H (75-99) mg/dL Magnesium (1.6-2.3) mg/dL Assessment and Plan Assessment: Acute CHF ejection fraction 30-35%. Systolic dysfunction. Severe cardiomyopathy. Ischemic versus nonischemic. Elevated BNP, leg swelling, shortness of breath and interstitial edema on chest x-ray. Hyponatremia likely hypervolemic. Improving. Ongoing nicotine addiction Hypertension Diabetes type 2 [id number] Peripheral vascular disease with history of right lower extremity stent placement. DVT prophylaxis with heparin subcu Plan: Patient will be continued on telemetry monitoring. Continue with Lasix 40 mg IV every 12 hourly and continue with aspirin and statins. Low-dose lisinopril was added. Beta blockers on hold. Duo nebs as needed. 2-D echo. That her person. Continue with home blood pressure medications and follow-up closely. Cardiology on board. Follow-up renal function. Cardiology is planning for coronary angiogram to rule out severe CAD
--- NOTE | 2021-01-31 12:10 | P.PN ---
Subjective Progress Note Date: 01/30/21 Principal diagnosis: Acute CHF with reduced ejection fraction Patient is a 75-year-old female with a known history of COPD, diabetes type 2 [id number], peripheral vascular disease with history of right lower extremity and, history of DVT, and hypothyroidism presents z to ER with complaints of bilateral lower extremity swelling. Patient states that she has been having left leg swelling for the past 2 months on and off and also started having right leg swelling 10 days ago and also shortness of breath with walking. Patient does have history of right lower extremity stent in 2000. Patient is currently everyday smoker. Denies any complaints of chest pain. No nausea vomiting abdominal pain or diarrhea. No palpitations. No cough or sputum production. No recent travel or sick contacts. Chest x-ray showed there may be underlying scarring, interstitial lung disease, difficult to exclude early interstitial edema there is underlying cardiomegaly and possible COPD, short-term interval follow-up suggested as indicated. EKG showed sinus rhythm Laboratory showed sodium 128 potassium 4.6 chloride 97 BUN 15 and creatinine 0.73 BNP 10444 and troponin x3 - COVID-19 PCR not detected 01/29/2021 Patient is currently lying in the bed. Awake alert and oriented 3. Feels better. Bilateral leg swelling is improving. Patient is being tried on Lasix 40 mg twice daily. Cardiology is on board. 2-D echocardiogram showed ejection fraction 30-35%. Cardiology recommends catheterization. Laboratory data showed sodium 1:30 potassium 3.9 chloride 86 bicarb is 37 BUN 17 and creatinine 0.86 TSH 3.15 01/30/2021 Patient is resting in the bed comfortably. Awake alert and oriented 3. Current on IV Lasix. Continue lisinopril. Cardiac catheterization Denied any complaints of chest pain or shortness of breath. No nausea vomiting or abdominal pain or diarrhea. No fever no chills. No cough or sputum production. No headache or dizziness or lightheadedness. Tolerating oral diet. Current medications reviewed. Objective - Vital Signs Vital signs: Vital Signs Temp 97.7 F 01/30/21 19:29 Pulse 68 01/30/21 19:29 Resp 18 01/30/21 19:29 BP 106/64 01/30/21 19:29 Pulse Ox 96 01/30/21 19:29 Intake & Output 01/30/21 01/30/21 01/31/21 06:59 18:59 06:59 Intake Total 354 Output Total 1825 200 Balance -1825 354 -200 Weight 72.3 kg Intake: Oral 354 Output: Urine 1825 200 Other: Voiding Method Toilet Toilet Toilet - Exam PHYSICAL EXAMINATION: Patient is lying in the bed comfortably, no acute distress, awake alert and oriented.. HEENT: Normocephalic. Neck is supple. Pupils reactive. Nostrils clear. Oral cavity is moist. Neck reveals no JVD, carotid bruits, or thyromegaly. CHEST EXAMINATION: Trachea is central. Symmetrical expansion. Bilateral basilar crackles present. No wheezing or rhonchi. CARDIAC: Normal S1, S2 with no gallops. No murmurs ABDOMEN: Soft. Bowel sounds normal. No organomegaly. No abdominal bruits. Extremities: Bilateral lower extremity 1+ edema.. No clubbing or cyanosis Neurologically awake, alert, oriented x3 with well-coordinated movements. No focal deficits noted Skin: No rash or skin lesions. Psychiatric: Cooperative. Nonsuicidal Musculoskeletal: No joint swelling or deformity. Normal range of motion. - Labs CBC & Chem 7: 01/31/21 07:28 01/31/21 07:28 Labs: Abnormal Lab Results - Last 24 Hours (Table) 01/30/21 01/30/21 01/30/21 Range/Units 11:49 16:30 20:10 Sodium 128 L (137-145) mmol/L Chloride 82 L (98-107) mmol/L Carbon Dioxide 41 H* (22-30) mmol/L BUN 18 H (7-17) mg/dL POC Glucose (mg/dL) 107 H 119 H (75-99) mg/dL Magnesium 1.5 L (1.6-2.3) mg/dL Assessment and Plan Assessment: Acute CHF ejection fraction 30-35%. Systolic dysfunction. Severe cardiomyopathy. Ischemic versus nonischemic. Elevated BNP, leg swelling, shortness of breath and interstitial edema on chest x-ray. Hyponatremia likely hypervolemic. Improving. Ongoing nicotine addiction Hypertension Diabetes type 2 [id number] Peripheral vascular disease with history of right lower extremity stent placement. DVT prophylaxis with heparin subcu Plan: Patient will be continued on telemetry monitoring. Continue with Lasix 40 mg IV every 8 hourly and continue with aspirin and statins. Low-dose lisinopril was added. Beta blockers on hold. Duo nebs as needed. 2-D echo. That her person. Continue with home blood pressure medications and follow-up closely. Cardiology on board. Follow-up renal function. Cardiology is planning for coronary angiogram to rule out severe CAD Time with Patient: Greater than 30
[2021-01-31] MEDS: HEPARIN SODIUM,PORCINE/PF 5,000 UNIT/0.5 ML SYRINGE SQ SCH ×2 (12:47→15:45)
--- NOTE | 2021-01-31 13:43 | US ---
EXAMINATION TYPE: US carotid duplex BILAT DATE OF EXAM: 01/31/2021 COMPARISON: NONE CLINICAL HISTORY: preop cardiac surgery. EXAM MEASUREMENTS: RIGHT: Peak Systolic Velocity (PSV) cm/sec ----- Right CCA: 70.6 ----- Right ICA: 146.1 ----- Right ECA: 91.1 ICA/CCA ratio: 2.1 RIGHT: End Diastole cm/sec ----- Right CCA: 11.3 ----- Right ICA: 27.6 ----- Right ECA: 5.2 LEFT: Peak Systolic Velocity (PSV) cm/sec ----- Left CCA: 54.9 ----- Left ICA: 197.5 ----- Left ECA: 232.4 ICA/CCA ratio: 3.6 LEFT: End Diastole cm/sec ----- Left CCA: 13.0 ----- Left ICA: 61.7 ----- Left ECA: 22.9 VERTEBRALS (direction of flow): Right Vertebral: Antegrade Left Vertebral: There appears to be to-and-fro antegrade and retrograde flow in the left vertebral ar dayan; possibly indicating pre-subclavian steal. There is visualization of moderate to severe plaque bilaterally in the CCA, ECA, and ICA; more severe on the left. There is evidence of stenosis in the right ICA as well as the left ICA and ECA based o n elevated velocities. IMPRESSION: 1. Atherosclerotic disease with findings suggestive of a moderate proximal left ICA stenosis measurin g approximately 50-69%. Correlate with CTA of the neck as clinically warranted. 2. See above regarding left vertebral artery with possible subclavian steal phenomenon correlate clin ically. Criteria for Assigning % of Stenosis / Diameter reduction (Estimation based on the indirect measurements of the internal carotid artery velocities (ICA PSV). 1. Normal (no stenosis)=ICA PSV < 125 cm/s: ratio < 2.0: ICA EDV<40 cm/s. 2. Less than 50% stenosis=ICA PSV < 125 cm/s: ratio < 2.0: ICA EDV<40 cm/s. 3. 50 to 69% stenosis=ICA PSV of 125 to 230 cm/s: ration 2.0 ? 4.0: ICA EDV 40-100 cm/s. 4. Greater than 70% stenosis to near occlusion= ICA PSV > 230 cm/s: ratio > 4.0: ICA EDV > 100 cm/s. 5. Near occlusion= ICA PSV velocities may be low or undetectable: variable ratio and ICA EDV. 6. Total occlusion=unable to detect flow.
[2021-01-31] MEDS: ACETAMINOPHEN TAB 325 MG TAB PO PRN (15:46)
[2021-01-31] MEDS: FUROSEMIDE 40 MG TAB PO SCH (15:46)
[2021-01-31 16:46] LABS: Glucose,Whole Blood 101 mg/dL (75-99)
[2021-01-31] MEDS: SODIUM CHLORIDE 0.9% 1,000 ML in EMPTY BAG 1 BAG IV SCH (18:25)
[2021-01-31] MEDS: ATORVASTATIN 40 MG TAB PO SCH (20:17)
[2021-01-31] MEDS: CHOLECALCIFEROL 25 MCG (1000 IU) TABLET PO SCH (20:17)
[2021-01-31] MEDS: LINAGLIPTIN 5 MG TABLET PO SCH (20:17)
[2021-01-31 20:34] LABS: Glucose,Whole Blood 92 mg/dL (75-99)
--- NOTE | 2021-02-01 00:07 | P.PN ---
Subjective Progress Note Date: 01/31/21 Principal diagnosis: Acute CHF with reduced ejection fraction Patient is a 75-year-old female with a known history of COPD, diabetes type 2 [id number], peripheral vascular disease with history of right lower extremity and, history of DVT, and hypothyroidism presents z to ER with complaints of bilateral lower extremity swelling. Patient states that she has been having left leg swelling for the past 2 months on and off and also started having right leg swelling 10 days ago and also shortness of breath with walking. Patient does have history of right lower extremity stent in 2000. Patient is currently everyday smoker. Denies any complaints of chest pain. No nausea vomiting abdominal pain or diarrhea. No palpitations. No cough or sputum production. No recent travel or sick contacts. Chest x-ray showed there may be underlying scarring, interstitial lung disease, difficult to exclude early interstitial edema there is underlying cardiomegaly and possible COPD, short-term interval follow-up suggested as indicated. EKG showed sinus rhythm Laboratory showed sodium 128 potassium 4.6 chloride 97 BUN 15 and creatinine 0.73 BNP 73412 and troponin x3 - COVID-19 PCR not detected 01/29/2021 Patient is currently lying in the bed. Awake alert and oriented 3. Feels better. Bilateral leg swelling is improving. Patient is being tried on Lasix 40 mg twice daily. Cardiology is on board. 2-D echocardiogram showed ejection fraction 30-35%. Cardiology recommends catheterization. Laboratory data showed sodium 1:30 potassium 3.9 chloride 86 bicarb is 37 BUN 17 and creatinine 0.86 TSH 3.15 01/30/2021 Patient is resting in the bed comfortably. Awake alert and oriented 3. Current on IV Lasix. Continue lisinopril. Cardiac catheterization Denied any complaints of chest pain or shortness of breath. No nausea vomiting or abdominal pain or diarrhea. No fever no chills. No cough or sputum production. No headache or dizziness or lightheadedness. Tolerating oral diet. 01/31/2021 Patient is currently resting in bed. Awake alert and oriented x3. Leg swelling is much improved and Lasix changed to by mouth. Patient underwent cardiac catheterization today showed extremely calcified right and left coronary system. Severe triple-vessel coronary artery disease. Chronic total occlusion of the RCA in the midportion. Severe disease involving the first obtuse marginal branch of the left circumflex with completed circumflex in the AV groove distally. Critical disease involving the proximal left anterior descending artery by the bifurcation of a large diagonal branch. Extremity elevated left-sided filling pressure. CT surgery was consulted for possible coronary revascularization. Otherwise patient denied any complaints of chest pain. No fever no chills. No cough or sputum production. Laboratory showed sodium 130 potassium 4.1 chloride 84 bicarb is 38 BUN 18 and creatinine 0.76 Current medications reviewed. Objective - Vital Signs Vital signs: Vital Signs Temp 96.9 F L 01/31/21 08:00 Pulse 72 01/31/21 13:53 Resp 16 01/31/21 13:53 BP 136/73 01/31/21 13:53 Pulse Ox 100 01/31/21 13:53 Intake & Output 01/30/21 01/31/21 01/31/21 18:59 06:59 18:59 Intake Total 354 150 Output Total 1800 Balance 354 -1800 150 Weight 71.3 kg Intake: IV 150 Oral 354 Output: Urine 1800 Other: Voiding Method Toilet Toilet Toilet - Exam PHYSICAL EXAMINATION: Patient is lying in the bed comfortably, no acute distress, awake alert and oriented.. HEENT: Normocephalic. Neck is supple. Pupils reactive. Nostrils clear. Oral cavity is moist. Neck reveals no JVD, carotid bruits, or thyromegaly. CHEST EXAMINATION: Trachea is central. Symmetrical expansion. Bilateral basilar crackles present. No wheezing or rhonchi. CARDIAC: Normal S1, S2 with no gallops. No murmurs ABDOMEN: Soft. Bowel sounds normal. No organomegaly. No abdominal bruits. Extremities: Bilateral lower extremity 1+ edema.. No clubbing or cyanosis Neurologically awake, alert, oriented x3 with well-coordinated movements. No focal deficits noted Skin: No rash or skin lesions. Psychiatric: Cooperative. Nonsuicidal Musculoskeletal: No joint swelling or deformity. Normal range of motion. - Labs CBC & Chem 7: 01/31/21 07:28 01/31/21 07:28 Labs: Abnormal Lab Results - Last 24 Hours (Table) 01/30/21 01/30/21 01/31/21 Range/Units 16:30 20:10 06:02 Hct (34.0-46.0) % Lymphocytes # (1.0-4.8) k/uL Sodium (137-145) mmol/L Chloride (98-107) mmol/L Carbon Dioxide (22-30) mmol/L BUN (7-17) mg/dL POC Glucose (mg/dL) 107 H 119 H 102 H (75-99) mg/dL 01/31/21 01/31/21 01/31/21 Range/Units 07:28 07:28 11:47 Hct 48.1 H (34.0-46.0) % Lymphocytes # 0.7 L (1.0-4.8) k/uL Sodium 130 L (137-145) mmol/L Chloride 84 L (98-107) mmol/L Carbon Dioxide 38 H (22-30) mmol/L BUN 18 H (7-17) mg/dL POC Glucose (mg/dL) 101 H (75-99) mg/dL Assessment and Plan Assessment: Severe triple-vessel disease with extremely calcified right and left coronary arteries system. Status post cath on 01/31/2021 CT surgery consulted for evaluation. Acute CHF ejection fraction 30-35%. Systolic dysfunction. Severe cardiomyopathy. Ischemic versus nonischemic. Elevated BNP, leg swelling, shortness of breath and interstitial edema on chest x-ray. Hyponatremia likely hypervolemic. Improving. Ongoing nicotine addiction Hypertension Diabetes type 2 [id number] Peripheral vascular disease with history of right lower extremity stent placement. DVT prophylaxis with heparin subcu Plan: Patient will be continued on telemetry monitoring. Continued with Lasix 40 mg IV every 8 hourly. chnaged to PO 40mg BID, continue with aspirin and statins. Low-dose lisinopril was added. Beta blockers on hold. Duo nebs as needed. Continue with home blood pressure medications and follow-up closely. Cardiology on board. Follow-up renal function. coronary angiogram Showed severe triple-vessel disease. CT surgery was consulted. Time with Patient: Greater than 30
[2021-02-01] MEDS: HEPARIN SODIUM,PORCINE/PF 5,000 UNIT/0.5 ML SYRINGE SQ SCH ×4 (00:52→23:29)
[2021-02-01] MEDS: SODIUM CHLORIDE 0.9% 1,000 ML in EMPTY BAG 1 BAG IV SCH ×2 (00:53→16:57)
[2021-02-01] MEDS: FUROSEMIDE 10 MG/ML 4 ML VIAL IV SCH ×4 (03:03→23:30)
[2021-02-01 05:59] LABS: Glucose,Whole Blood 109 mg/dL (75-99)
[2021-02-01 08:31] LABS: Sodium 131 mmol/L (137-145)
[2021-02-01 08:34] LABS: African American GFR (CKD) >90 (>60 ml/min/1.73 sqM); Anion Gap 5 mmol/L; Blood Urea Nitrogen 17 mg/dL (7-17); Calcium 8.8 mg/dL (8.4-10.2); Carbon Dioxide 37 mmol/L (22-30); Chloride 89 mmol/L (98-107); Glucose 101 mg/dL (74-99); Non-African American GFR(CKD) 86 (>60 ml/min/1.73 sqM); Potassium 4.6 mmol/L (3.5-5.1)
[2021-02-01] MEDS: ASPIRIN 81 MG PO SCH (09:44)
[2021-02-01] MEDS: FUROSEMIDE 40 MG TAB PO SCH (09:44)
[2021-02-01] MEDS: METOPROLOL SUCCINATE (ER) 25 MG TAB.ER.24H PO SCH (09:44)
[2021-02-01 11:53] LABS: Glucose,Whole Blood 95 mg/dL (75-99)
--- NOTE | 2021-02-01 13:09 | P.PN ---
Subjective Progress Note Date: 02/01/21 HISTORY OF PRESENT ILLNESS: This is a 75-year-old female with a past medical history significant for hypertension, hyperlipidemia, diabetes, peripheral vascular disease with previous stenting, COPD, and nicotine dependence. Patient used to follow in the office with Dr. Rinaldi but has not been seen since 2016. We have been asked to see the patient in consultation for congestive heart failure. Patient examined at the bedside. Patient presented to the emergency room with a chief complaint of shortness of breath and and increased lower extremity edema. The patient also reports having some mild chest discomfort. She reports some occasional dizziness at home but no syncopal episodes. The patient currently denies shortness of breath at rest. She states her shortness of breath has mostly been with exertion. The patient was found to be in congestive heart failure on presentat ion to the emergency room. The patient denies any previous history of congestive heart failure. EKG reveals sinus mechanism with Q waves inferiorly. No signs of acute ischemia Chest xray underlying scarring, interstitial lung disease, difficult to exclude early interstitial edema. There is underlying cardiomegaly and possible COPD. Laboratory data: WBC 7.2. Hemoglobin 14.2. Platelet count 203. Sodium 128. Potassium 4.6. BUN 15. Creatinine 0.73. Troponin 0.030. 0.027. ProBNP 17,800 Current home cardiac medications include aspirin 325 mg at night, losartan 100 mg at night, simvastatin 20 mg at night 01/30/21 Patient examined this morning at the bedside. Patient denies chest pain or pressure. Reports improvement in her shortness of breath. She remains on IV lasix every 8 hours. Fluid balance is -3 over the last 24 hours. Echo reveals EF 30-35% 02/01/2021 Patient underwent cardiac catheterization revealing triple vessel disease. Patient was evaluated by cardiothoracic surgery and it was decided that patient was a nonsurgical candidate. Patient denies chest pain or pressure. She does report shortness of breath today. PHYSICAL EXAM: VITAL SIGNS: Reviewed. GENERAL: Well-developed in no acute distress. HEENT: Head is normocephalic. Pupils are equal, round. Sclerae anicteric. Mucous membranes of the mouth are moist. Neck supple. No thyromegaly. Positive JVD LUNGS: Respirations even and unlabored. Lungs diminished to auscultation bilaterally with bibasilar rales HEART: Regular rate and rhythm. S1 and S2 heard. ABDOMEN: Soft. Nondistended. Nontender. EXTREMITIES: Normal range of motion. No clubbing or cyanosis. Peripheral pulses intact. 1+ bilateral lower extremity edema NEUROLOGIC: Awake and alert. Oriented x 3. ASSESSMENT: Acute congestive heart failure, systolic Cardiomyopathy, ischemic Triple vessel coronary artery disease Hypertension Hyperlipidemia Diabetes Peripheral vascular disease with previous stenting COPD Nicotine dependence Hyponatremia PLAN: Resume IV Lasix 40 mg every 8 hours Check electrolytes Monitor kidney function Accurate I&O Daily weights Further recommendations pending patient's course Patient to undergo PCI next week with Dr. Melton Nurse practitioner note has been reviewed by physician. Signing provider agrees with the documented findings, assessment, and plan of care. Objective - Vital Signs Vital signs: Vital Signs Temp 98.3 F 02/01/21 12:00 Pulse 95 02/01/21 12:00 Resp 19 02/01/21 12:00 BP 85/66 02/01/21 12:00 Pulse Ox 97 02/01/21 12:00 Intake & Output 01/31/21 02/01/21 02/01/21 18:59 06:59 18:59 Intake Total 150 Output Total 400 1200 Balance -250 -1200 Weight 73 kg Intake: IV 150 Output: Urine 400 1200 Other: Voiding Method Toilet Toilet - Labs CBC & Chem 7: 01/31/21 07:28 02/01/21 07:38 Labs: Abnormal Lab Results - Last 24 Hours (Table) 01/31/21 02/01/21 02/01/21 Range/Units 16:43 05:57 07:38 Sodium 131 L (137-145) mmol/L Chloride 89 L (98-107) mmol/L Carbon Dioxide 37 H (22-30) mmol/L Glucose 101 H (74-99) mg/dL POC Glucose (mg/dL) 101 H 109 H (75-99) mg/dL
[2021-02-01 16:44] LABS: Glucose,Whole Blood 94 mg/dL (75-99)
[2021-02-01] MEDS: ACETAMINOPHEN TAB 325 MG TAB PO PRN ×2 (17:05→20:44)
--- NOTE | 2021-02-01 18:34 | P.PN ---
Subjective Patient is a 75-year-old female with a known history of COPD, diabetes type 2 [id number], peripheral vascular disease with history of right lower extremity and, history of DVT, and hypothyroidism presents z to ER with complaints of bilateral lower extremity swelling. Patient states that she has been having left leg swelling for the past 2 months on and off and also started having right leg swelling 10 days ago and also shortness of breath with walking. Patient does have history of right lower extremity stent in 2000. Patient is c urrently everyday smoker. Denies any complaints of chest pain. No nausea vomiting abdominal pain or diarrhea. No palpitations. No cough or sputum production. No recent travel or sick contacts. Chest x-ray showed there may be underlying scarring, interstitial lung disease, difficult to exclude early interstitial edema there is underlying cardiomegaly and possible COPD, short-term interval follow-up suggested as indicated. EKG showed sinus rhythm Laboratory showed sodium 128 potassium 4.6 chloride 97 BUN 15 and creatinine 0.73 BNP 45193 and troponin x3 - COVID-19 PCR not detected 01/29/2021 Patient is currently lying in the bed. Awake alert and oriented 3. Feels better. Bilateral leg swelling is improving. Patient is being tried on Lasix 40 mg twice daily. Cardiology is on board. 2-D echocardiogram showed ejection fraction 30-35%. Cardiology recommends catheterization. Laboratory data showed sodium 1:30 potassium 3.9 chloride 86 bicarb is 37 BUN 17 and creatinine 0.86 TSH 3.15 01/30/2021 Patient is resting in the bed comfortably. Awake alert and oriented 3. Current on IV Lasix. Continue lisinopril. Cardiac catheterization Denied any complaints of chest pain or shortness of breath. No nausea vomiting or abdominal pain or diarrhea. No fever no chills. No cough or sputum production. No headache or dizziness or lightheadedness. Tolerating oral diet. 01/31/2021 Patient is currently resting in bed. Awake alert and oriented x3. Leg swelling is much improved and Lasix changed to by mouth. Patient underwent cardiac catheterization today showed extremely calcified right and left coronary system. Severe triple-vessel coronary artery disease. Chronic total occlusion of the RCA in the midportion. Severe disease involving the first obtuse marginal branch of the left circumflex with completed circumflex in the AV groove distally. Critical disease involving the proximal left anterior descending artery by the bifurcation of a large diagonal branch. Extremity elevated left-sided filling pressure. 02/01/2021 This is a pleasant 75 years old female who presents with signs symptoms of CHF. She is improving gradually and doing well at dressed with minimal exertional dyspnea. No chest pain. Looks calm and pleasant with no specific complaint. Hemodynamically stable. Sodium is 131 she underwent cardiac cath yesterday and showed severe Na[place] coronary artery disease with extremely calcified left coronary system Her IV Lasix increased to 40 mg 3 times a day. Also she is on baby aspirin 81 mg, metoprolol 12.5 mg, subcu heparin Cardiothoracic surgery to evaluate the patient Objective - Vital Signs Vital signs: Vital Signs Temp 98.3 F 02/01/21 12:00 Pulse 95 02/01/21 12:00 Resp 19 02/01/21 12:00 BP 85/66 02/01/21 12:00 Pulse Ox 97 02/01/21 12:00 Intake & Output 01/31/21 02/01/21 02/01/21 18:59 06:59 18:59 Intake Total 150 Output Total 400 1200 Balance -250 -1200 Weight 73 kg Intake: IV 150 Output: Urine 400 1200 Other: Voiding Method Toilet Toilet - Exam -GENERAL: The patient is alert and oriented x3, not in any acute distress. Obese HEENT: Pupils are round and equally reacting to light. EOMI. No scleral icterus. No conjunctival pallor. Normocephalic, atraumatic. No pharyngeal erythema. No thyromegaly. CARDIOVASCULAR: S1 and S2 present. No murmurs, rubs, or gallops. -PULMONARY: Chest is clear to auscultation, no wheezing. bilateral basal crepitation ABDOMEN: Soft, nontender, nondistended, normoactive bowel sounds. No palpable organomegaly. MUSCULOSKELETAL: No joint swelling or deformity. EXTREMITIES: No cyanosis, clubbing, or pedal edema. NEUROLOGICAL: Gross neurological examination did not reveal any focal deficits. SKIN: No rashes. no petechiae. - Labs CBC & Chem 7: 01/31/21 07:28 02/01/21 07:38 Labs: Abnormal Lab Results - Last 24 Hours (Table) 01/31/21 02/01/21 02/01/21 Range/Units 16:43 05:57 07:38 Sodium 131 L (137-145) mmol/L Chloride 89 L (98-107) mmol/L Carbon Dioxide 37 H (22-30) mmol/L Glucose 101 H (74-99) mg/dL POC Glucose (mg/dL) 101 H 109 H (75-99) mg/dL Assessment and Plan Assessment: Severe triple-vessel disease with extremely calcified right and left coronary a rteries system. Status post cath on 01/31/2021 CT surgery consulted for evaluation. Acute CHF ejection fraction 30-35%. Systolic dysfunction. Severe cardiomyopathy. Ischemic Hyponatremia likely hypervolemic. Ongoing nicotine addiction Hypertension Diabetes type 2 [id number] Peripheral vascular disease with history of right lower extremity stent placement. Plan: This is a pleasant 75 years old female presents with CHF and found to have severe triple-vessel coronary artery disease Continue with Lasix 40 mg IV [employer] team on consult. Cardiothoracic surgery consult for possible bypass grafting Labs and medication were reviewed.. Continue same treatment. Continue with symptomatic treatment. Resume home medication. Monitor lytes and vitals. DVT and GI prophylaxis. Further recommendationsas per clinical course of the patient DVT prophylaxis: Subcutaneous heparin GI Prophylaxis: Pepcid Prognosis is guarded
[2021-02-01] MEDS: IPRATROPIUM-ALBUTEROL 3 ML NEB INHALATION PRN (19:40)
[2021-02-01] MEDS: FAMOTIDINE 20 MG/2 ML VIAL IV SCH (20:22)
[2021-02-01] MEDS: CHOLECALCIFEROL 25 MCG (1000 IU) TABLET PO SCH (20:22)
[2021-02-01] MEDS: ATORVASTATIN 40 MG TAB PO SCH (20:22)
[2021-02-01] MEDS: LINAGLIPTIN 5 MG TABLET PO SCH (20:22)
[2021-02-02] MEDS: ACETAMINOPHEN TAB 325 MG TAB PO PRN ×4 (01:59→22:12)
[2021-02-02 06:00] LABS: Glucose,Whole Blood 122 mg/dL (75-99)
[2021-02-02] MEDS: SODIUM CHLORIDE 0.9% 1,000 ML in EMPTY BAG 1 BAG IV SCH ×2 (06:35→20:13)
--- NOTE | 2021-02-02 07:13 | P.PN ---
Subjective Progress Note Date: 02/02/21 Principal diagnosis: Heart failure exacerbation secondary to heart failure with reduced ejection fraction This is a 75-year-old female patient with a past medical history significant for diabetes and hypertension and dyslipidemia as well as a smoking and chronic obstructive pulmonary disease and also lower extremities peripheral tear disease was admitted to the hospital with acute exacerbation of heart failure of unknown etiology at that point. Subsequently the patient underwent an echo which revealed impaired only function was EF between 30-35%. Subsequently she underwe nt a heart catheterization and that revealed severe triple-vessel coronary artery disease. She was seen by surgical team and she deemed to be high risk for the surgery. The patient was seen this morning. She stated that she is feeling better overall. She stated have bilateral rhonchi. The pressure has been marginally low. I'm going to decrease the dose of Lasix in to 40 mg IV twice a day. C ontinue the current medical regimen. Consider discharging the patient home tomorrow and consider PCI as an outpatient. Objective - Vital Signs Vital signs: Vital Signs Temp 97.9 F 02/02/21 04:00 Pulse 70 02/02/21 04:00 Resp 16 02/02/21 04:00 BP 90/53 02/02/21 04:00 Pulse Ox 99 02/02/21 04:00 Intake & Output 02/01/21 02/02/21 02/02/21 18:59 06:59 18:59 Intake Total 240 Output Total 1300 Balance 240 -1300 Weight 73.6 kg Intake: Oral 240 Output: Urine 1300 Other: Voiding Method Toilet Toilet - Constitutional General appearance: Present: no acute distress - Respiratory Respiratory: bilateral: rales - Cardiovascular Rhythm: regular Heart sounds: normal: S1, S2 - Labs CBC & Chem 7: 01/31/21 07:28 02/01/21 07:38 Labs: Abnormal Lab Results - Last 24 Hours (Table) 02/01/21 02/02/21 Range/Units 07:38 05:55 Sodium 131 L (137-145) mmol/L Chloride 89 L (98-107) mmol/L Carbon Dioxide 37 H (22-30) mmol/L Glucose 101 H (74-99) mg/dL POC Glucose (mg/dL) 122 H (75-99) mg/dL Assessment and Plan Assessment: Assessment #1 acute exacerbation of heart failure with reduced ejection fraction #2 severe cardiomyopathy of unknown etiology, ischemic versus nonischemic #3 severe triple-vessel CAD #4 smoking history #5 multiple comorbid conditions including diabetes and hypertension and dyslipidemia and COPD Plan #1 decrease the dose of IV Lasix #2 continue monitoring the kidney function and electrolytes #3 possible discharge home in the next 24 hours
[2021-02-02] MEDS: HEPARIN SODIUM,PORCINE/PF 5,000 UNIT/0.5 ML SYRINGE SQ SCH ×3 (08:51→23:54)
[2021-02-02] MEDS: FAMOTIDINE 20 MG/2 ML VIAL IV SCH ×2 (08:51→20:18)
[2021-02-02] MEDS: FUROSEMIDE 10 MG/ML 4 ML VIAL IV SCH ×2 (08:51→20:18)
[2021-02-02] MEDS: METOPROLOL SUCCINATE (ER) 25 MG TAB.ER.24H PO SCH (08:51)
[2021-02-02] MEDS: ASPIRIN 81 MG PO SCH (08:51)
--- NOTE | 2021-02-02 12:53 | P.PN ---
Subjective Patient is a 75-year-old female with a known history of COPD, diabetes type 2 [id number], peripheral vascular disease with history of right lower extremity and, history of DVT, and hypothyroidism presents z to ER with complaints of bilateral lower extremity swelling. Patient states that she has been having left leg swelling for the past 2 months on and off and also started having right leg swelling 10 days ago and also shortness of breath with walking. Patient does have history of right lower extremity stent in 2000. Patient is c urrently everyday smoker. Denies any complaints of chest pain. No nausea vomiting abdominal pain or diarrhea. No palpitations. No cough or sputum production. No recent travel or sick contacts. Chest x-ray showed there may be underlying scarring, interstitial lung disease, difficult to exclude early interstitial edema there is underlying cardiomegaly and possible COPD, short-term interval follow-up suggested as indicated. EKG showed sinus rhythm Laboratory showed sodium 128 potassium 4.6 chloride 97 BUN 15 and creatinine 0.73 BNP 71261 and troponin x3 - COVID-19 PCR not detected 01/29/2021 Patient is currently lying in the bed. Awake alert and oriented 3. Feels better. Bilateral leg swelling is improving. Patient is being tried on Lasix 40 mg twice daily. Cardiology is on board. 2-D echocardiogram showed ejection fraction 30-35%. Cardiology recommends catheterization. Laboratory data showed sodium 1:30 potassium 3.9 chloride 86 bicarb is 37 BUN 17 and creatinine 0.86 TSH 3.15 01/30/2021 Patient is resting in the bed comfortably. Awake alert and oriented 3. Current on IV Lasix. Continue lisinopril. Cardiac catheterization Denied any complaints of chest pain or shortness of breath. No nausea vomiting or abdominal pain or diarrhea. No fever no chills. No cough or sputum production. No headache or dizziness or lightheadedness. Tolerating oral diet. 01/31/2021 Patient is currently resting in bed. Awake alert and oriented x3. Leg swelling is much improved and Lasix changed to by mouth. Patient underwent cardiac catheterization today showed extremely calcified right and left coronary system. Severe triple-vessel coronary artery disease. Chronic total occlusion of the RCA in the midportion. Severe disease involving the first obtuse marginal branch of the left circumflex with completed circumflex in the AV groove distally. Critical disease involving the proximal left anterior descending artery by the bifurcation of a large diagonal branch. Extremity elevated left-sided filling pressure. 02/01/2021 This is a pleasant 75 years old female who presents with signs symptoms of CHF. She is improving gradually and doing well at dressed with minimal exertional dyspnea. No chest pain. Looks calm and pleasant with no specific complaint. Hemodynamically stable. Sodium is 131 she underwent cardiac cath yesterday and showed severe [place] coronary artery disease with extremely calcified left coronary system Her IV Lasix increased to 40 mg 3 times a day. Also she is on baby aspirin 81 mg, metoprolol 12.5 mg, subcu heparin Cardiothoracic surgery to evaluate the patient 02/02/2021 Patient clinically looks the same as yesterday, only with mild dyspnea on exertion. No chest pain. She is hemodynamically stable. Glucose controlled Check labs tomorrow morning Fluid restriction 1200 mL per day was added today. 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 Obese HEENT: Pupils are round and equally reacting to light. EOMI. No scleral icterus. No conjunctival pallor. Normocephalic, atraumatic. No pharyngeal erythema. No thyromegaly. CARDIOVASCULAR: S1 and S2 present. No murmurs, rubs, or gallops. -PULMONARY: Chest is clear to auscultation, no wheezing. bilateral basal crepitation ABDOMEN: Soft, nontender, nondistended, normoactive bowel sounds. No palpable organomegaly. MUSCULOSKELETAL: No joint swelling or deformity. EXTREMITIES: No cyanosis, clubbing, or pedal edema. NEUROLOGICAL: Gross neurological examination did not reveal any focal deficits. SKIN: No rashes. no petechiae. - Labs CBC & Chem 7: 01/31/21 07:28 02/01/21 07:38 Labs: Abnormal Lab Results - Last 24 Hours (Table) 02/02/21 Range/Units 05:55 POC Glucose (mg/dL) 122 H (75-99) mg/dL Assessment and Plan Assessment: Severe triple-vessel disease with extremely calcified right and left coronary arteries system. Status post cath on 01/31/2021 CT surgery consulted for evaluation. Acute CHF ejection fraction 30-35%. Systolic dysfunction. Severe cardiomyopathy. Ischemic Hyponatremia likely hypervolemic. Ongoing nicotine addiction Hypertension Diabetes type 2 [id number] Peripheral vascular disease with history of right lower extremity stent placement. 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 Cardiothoracic surgery consult for possible bypass grafting Labs and medication were reviewed.. Continue same treatment. Continue with symptomatic treatment. Resume home medication. Monitor lytes and vitals. DVT and GI prophylaxis. Further recommendationsas per clinical course of the patient DVT prophylaxis: Subcutaneous heparin GI Prophylaxis: Pepcid Prognosis is guarded
[2021-02-02] MEDS: IPRATROPIUM-ALBUTEROL 3 ML NEB INHALATION PRN (19:45)
[2021-02-02] MEDS: LINAGLIPTIN 5 MG TABLET PO SCH (20:18)
[2021-02-02] MEDS: ATORVASTATIN 40 MG TAB PO SCH (20:18)
[2021-02-02] MEDS: CHOLECALCIFEROL 25 MCG (1000 IU) TABLET PO SCH (20:18)
[2021-02-02 21:03] LABS: Glucose,Whole Blood 125 mg/dL (75-99)
[2021-02-03 06:51] LABS: Glucose,Whole Blood 109 mg/dL (75-99)
[2021-02-03 07:33] LABS: Basophils # (A) 0.1 k/uL (0-0.2); Basophils % (A) 1 %; Eosinophils # (A) 0.2 k/uL (0-0.7); Eosinophils % (A) 3 %; HCT 44.9 % (34.0-46.0); Hypochromasia Slight; Lymphocytes # (A) 1.1 k/uL (1.0-4.8); Lymphocytes % (A) 19 %; MCH 29.8 pg (25.0-35.0); MCHC 31.2 g/dL (31.0-37.0); MCV 95.6 fL (80.0-100.0); Mean Platelet Volume 7.7; Monocytes # (A) 0.6 k/uL (0-1.0); Monocytes % (A) 11 %; Neutrophils # (A) 3.6 k/uL (1.3-7.7); Neutrophils % (A) 63 %; Platelet Count 180 k/uL (150-450); RDW 13.2 % (11.5-15.5); WBC 5.7 k/uL (3.8-10.6)
[2021-02-03 07:51] LABS: Calcium 9.4 mg/dL (8.4-10.2); Potassium 4.7 mmol/L (3.5-5.1)
--- NOTE | 2021-02-03 07:54 | P.PN ---
Subjective Progress Note Date: 02/03/21 Principal diagnosis: Heart failure exacerbation secondary to heart failure with reduced ejection fraction This is a 75-year-old female patient with a past medical history significant for diabetes and hypertension and dyslipidemia as well as a smoking and chronic obstructive pulmonary disease and also lower extremities peripheral tear disease was admitted to the hospital with acute exacerbation of heart failure of unknown etiology at that point. Subsequently the patient underwent an echo which revealed impaired only function was EF between 30-35%. She underwent a heart ca theterization and that revealed severe triple-vessel coronary artery disease. She was seen by surgical team and she deemed to be high risk for the surgery. The patient was seen this morning. She stated "I feel better". Her breathing has improved significantly. She does have diminished breathing sounds in both bases probably slightly worse on the right side than the left side. No lower extremities edema. No symptoms of chest pain or chest discomfort. She is interested in going home today. Her pressure continues to be stable. I'm going to stop the Lasix IV and start the patient on Lasix by mouth. We'll obtain a chest x-ray before discharge and try to get the patient up and around and if she is stable she potentially come go home and I will follow-up with the patient as an outpatient. She is on maximize medical treatment for the cardiomyopathy except for Aldactone which will be started hopefully as an outpatient and also as an outpatient I will discuss with her the option of revascularization including percutaneous coronary intervention. Objective - Vital Signs Vital signs: Vital Signs Temp 98.2 F 02/03/21 04:00 Pulse 79 02/03/21 04:00 Resp 20 02/03/21 04:00 BP 104/71 02/03/21 04:00 Pulse Ox 95 02/03/21 04:00 Intake & Output 02/02/21 02/03/21 02/03/21 18:59 06:59 18:59 Intake Total 336 100 Output Total 800 600 Balance -464 -500 Weight 71.2 kg Intake: Oral 336 100 Output: Urine 800 600 Other: Voiding Method Toilet Toilet # Voids 3 # Bowel Movements 1 - Constitutional General appearance: Present: no acute distress - Respiratory Respiratory: bilateral: diminished - Cardiovascular Rhythm: regular Heart sounds: normal: S1, S2 - Labs CBC & Chem 7: 02/03/21 06:36 02/01/21 07:38 Labs: Abnormal Lab Results - Last 24 Hours (Table) 02/02/21 02/03/21 Range/Units 20:53 06:49 POC Glucose (mg/dL) 125 H 109 H (75-99) mg/dL Assessment and Plan Assessment: Assessment #1 acute exacerbation of heart failure with reduced ejection fraction #2 severe cardiomyopathy of unknown etiology, ischemic versus nonischemic #3 severe triple-vessel CAD #4 smoking history #5 multiple comorbid conditions including diabetes and hypertension and dyslipidemia and COPD Plan #1 DC Lasix IV and start the patient on Lasix by mouth #2 obtain a chest x-ray #3 get the patient up and around #4 continue the current medical regimen #5 DC home in the next 12 hours
[2021-02-03] MEDS: ASPIRIN 81 MG PO SCH (08:38)
[2021-02-03] MEDS: FAMOTIDINE 20 MG TAB PO SCH ×2 (08:38→21:05)
[2021-02-03] MEDS: METOPROLOL SUCCINATE (ER) 25 MG TAB.ER.24H PO SCH (08:38)
[2021-02-03] MEDS: HEPARIN SODIUM,PORCINE/PF 5,000 UNIT/0.5 ML SYRINGE SQ SCH ×2 (08:38→15:24)
[2021-02-03] MEDS: FUROSEMIDE 20 MG TAB PO SCH ×2 (08:38→15:24)
[2021-02-03] MEDS: IPRATROPIUM-ALBUTEROL 3 ML NEB INHALATION PRN (08:50)
--- NOTE | 2021-02-03 09:33 | XR ---
EXAMINATION TYPE: XR chest 2V DATE OF EXAM: 02/03/2021 8:49 AM COMPARISON:Chest radiographs from 01/31/2021 CLINICAL INDICATION:Female, 76 years old with history of chf; TECHNIQUE: Frontal and lateral views of the chest. FINDINGS: Lungs/Pleura: There is no evidence of pleural effusion, focal consolidation, or pneumothorax. Pulmonary vascularity: Pulmonary vascular congestion. Heart/mediastinum: Cardiomediastinal silhouette is enlarged and stable. Musculoskeletal: No acute osseous pathology. IMPRESSION: Congestive heart failure changes with cardiomegaly and mild pulmonary vascular congestion.
[2021-02-03] MEDS: SODIUM CHLORIDE 0.9% 1,000 ML in EMPTY BAG 1 BAG IV SCH (09:53)
[2021-02-03] MEDS: ACETAMINOPHEN TAB 325 MG TAB PO PRN ×2 (09:54→15:30)
[2021-02-03 11:35] LABS: Glucose,Whole Blood 105 mg/dL (75-99)
[2021-02-03] MEDS ORDERED: FUROSEMIDE 10 MG/ML 4 ML VIAL IV STA (12:13)
--- NOTE | 2021-02-03 12:15 | P.PN ---
Subjective Patient is a 75-year-old female with a known history of COPD, diabetes type 2 [id number], peripheral vascular disease with history of right lower extremity and, history of DVT, and hypothyroidism presents z to ER with complaints of bilateral lower extremity swelling. Patient states that she has been having left leg swelling for the past 2 months on and off and also started having right leg swelling 10 days ago and also shortness of breath with walking. Patient does have history of right lower extremity stent in 2000. Patient is c urrently everyday smoker. Denies any complaints of chest pain. No nausea vomiting abdominal pain or diarrhea. No palpitations. No cough or sputum production. No recent travel or sick contacts. Chest x-ray showed there may be underlying scarring, interstitial lung disease, difficult to exclude early interstitial edema there is underlying cardiomegaly and possible COPD, short-term interval follow-up suggested as indicated. EKG showed sinus rhythm Laboratory showed sodium 128 potassium 4.6 chloride 97 BUN 15 and creatinine 0.73 BNP 03651 and troponin x3 - COVID-19 PCR not detected 01/29/2021 Patient is currently lying in the bed. Awake alert and oriented 3. Feels better. Bilateral leg swelling is improving. Patient is being tried on Lasix 40 mg twice daily. Cardiology is on board. 2-D echocardiogram showed ejection fraction 30-35%. Cardiology recommends catheterization. Laboratory data showed sodium 1:30 potassium 3.9 chloride 86 bicarb is 37 BUN 17 and creatinine 0.86 TSH 3.15 01/30/2021 Patient is resting in the bed comfortably. Awake alert and oriented 3. Current on IV Lasix. Continue lisinopril. Cardiac catheterization Denied any complaints of chest pain or shortness of breath. No nausea vomiting or abdominal pain or diarrhea. No fever no chills. No cough or sputum production. No headache or dizziness or lightheadedness. Tolerating oral diet. 01/31/2021 Patient is currently resting in bed. Awake alert and oriented x3. Leg swelling is much improved and Lasix changed to by mouth. Patient underwent cardiac catheterization today showed extremely calcified right and left coronary system. Severe triple-vessel coronary artery disease. Chronic total occlusion of the RCA in the midportion. Severe disease involving the first obtuse marginal branch of the left circumflex with completed circumflex in the AV groove distally. Critical disease involving the proximal left anterior descending artery by the bifurcation of a large diagonal branch. Extremity elevated left-sided filling pressure. 02/01/2021 This is a pleasant 75 years old female who presents with signs symptoms of CHF. She is improving gradually and doing well at dressed with minimal exertional dyspnea. No chest pain. Looks calm and pleasant with no specific complaint. Hemodynamically stable. Sodium is 131 she underwent cardiac cath yesterday and showed severe May coronary artery disease with extremely calcified left coronary system Her IV Lasix increased to 40 mg 3 times a day. Also she is on baby aspirin 81 mg, metoprolol 12.5 mg, subcu heparin Cardiothoracic surgery to evaluate the patient 02/02/2021 Patient clinically looks the same as yesterday, only with mild dyspnea on exertion. No chest pain. She is hemodynamically stable. Glucose controlled Check labs tomorrow morning Fluid restriction 1200 mL per day was added today. Lasix was lowered to 40 mg twice a day, it was 3 times a day yesterday possible PCI this coming week according to Automotive Worker 02/03/2021 Patient breathing improving gradually however she looks still somewhat swollen, and repeat chest x-ray this morning shows still CHF and she still has hyper euvolemic hyponatremia with sodium stable at 131. Other than that she denies significant dyspnea or chest pain at rest. Leg swelling is minimal, no much basal crepitation. Sodium 131, carbon dioxide 43. Her Lasix switched to oral dose 20 mg twice daily by cardiology team Give 1 time dose of IV Lasix Check BMP tomorrow morning Objective - Vital Signs Vital signs: Vital Signs Temp 98.2 F 02/03/21 04:00 Pulse 79 02/03/21 04:00 Resp 20 02/03/21 04:00 BP 104/71 02/03/21 04:00 Pulse Ox 95 02/03/21 04:00 Intake & Output 02/02/21 02/03/21 02/03/21 18:59 06:59 18:59 Intake Total 336 100 118 Output Total 800 600 200 Balance -464 -500 -82 Weight 71.2 kg Intake: Oral 336 100 118 Output: Urine 800 600 200 Other: Voiding Method Toilet Toilet # Voids 3 # Bowel Movements 1 1 - Exam -GENERAL: The patient is alert and oriented x3, not in any acute distress. Ob mikayla HEENT: Pupils are round and equally reacting to light. EOMI. No scleral icterus. No conjunctival pallor. Normocephalic, atraumatic. No pharyngeal erythema. No thyromegaly. CARDIOVASCULAR: S1 and S2 present. No murmurs, rubs, or gallops. -PULMONARY: Chest is clear to auscultation, no wheezing. bilateral basal crepitation ABDOMEN: Soft, nontender, nondistended, normoactive bowel sounds. No palpable organomegaly. MUSCULOSKELETAL: No joint swelling or deformity. EXTREMITIES: No cyanosis, clubbing, or pedal edema. NEUROLOGICAL: Gross neurological examination did not reveal any focal deficits. SKIN: No rashes. no petechiae. - Labs CBC & Chem 7: 02/03/21 06:36 02/03/21 06:36 Labs: Abnormal Lab Results - Last 24 Hours (Table) 02/02/21 02/03/21 02/03/21 Range/Units 20:53 06:36 06:49 Sodium 131 L (137-145) mmol/L Chloride 85 L (98-107) mmol/L Carbon Dioxide 43 H* (22-30) mmol/L BUN 20 H (7-17) mg/dL Glucose 102 H (74-99) mg/dL POC Glucose (mg/dL) 125 H 109 H (75-99) mg/dL Assessment and Plan Assessment: Severe triple-vessel disease with extremely calcified right and left coronary arteries system. Status post cath on 01/31/2021 CT surgery consulted for evaluation. Acute CHF ejection fraction 30-35%. Systolic dysfunction. Severe cardiomyopathy. Ischemic Hyponatremia likely hypervolemic. Ongoing nicotine addiction Hypertension Diabetes type 2 [id number] Peripheral vascular disease with history of right lower extremity stent placement. Plan: This is a pleasant 75 years old female presents with CHF and found to have severe triple-vessel coronary artery disease Continue with Lasix 20 mg which is switched to by mouth by seed cleaning machine operator Automotive Worker team on consult. Cardiothoracic surgery consult for possible bypass grafting Labs and medication were reviewed.. Continue same treatment. Continue with symptomatic treatment. Resume home medication. Monitor lytes and vitals. DVT and GI prophylaxis. Further recommendationsas per clinical course of the patient DVT prophylaxis: Subcutaneous heparin GI Prophylaxis: Pepcid Prognosis is guarded
[2021-02-03] MEDS ORDERED: FUROSEMIDE 20 MG TAB PO ONE (21:00)
[2021-02-03] MEDS: CHOLECALCIFEROL 25 MCG (1000 IU) TABLET PO SCH (21:05)
[2021-02-03] MEDS: ATORVASTATIN 40 MG TAB PO SCH (21:05)
[2021-02-03] MEDS: LINAGLIPTIN 5 MG TABLET PO SCH (21:05)
[2021-02-04] MEDS: SODIUM CHLORIDE 0.9% 1,000 ML in EMPTY BAG 1 BAG IV SCH (00:12)
[2021-02-04] MEDS: HEPARIN SODIUM,PORCINE/PF 5,000 UNIT/0.5 ML SYRINGE SQ SCH ×2 (00:13→08:27)
[2021-02-04 06:45] LABS: Calcium 9.3 mg/dL (8.4-10.2); Magnesium 1.9 mg/dL (1.6-2.3); Potassium 4.3 mmol/L (3.5-5.1)
[2021-02-04] MEDS: FUROSEMIDE 20 MG TAB PO SCH (08:27)
[2021-02-04] MEDS: FAMOTIDINE 20 MG TAB PO SCH (08:27)
[2021-02-04] MEDS: ASPIRIN 81 MG PO SCH (08:27)
[2021-02-04] MEDS: METOPROLOL SUCCINATE (ER) 25 MG TAB.ER.24H PO SCH (08:27)
[2021-02-04 08:34] VITALS: TEMP 98
[2021-02-04] MEDS ORDERED: lisinopriL 5 MG TAB PO SCH (09:00)
[2021-02-04] MEDS ORDERED: CLOPIDOGREL 75 MG TAB PO SCH (09:00)
[2021-02-04] MEDS ORDERED: METOPROLOL SUCCINATE (ER) 25 MG TAB.ER.24H PO ONE (09:00)
[2021-02-04] MEDS ORDERED: METOPROLOL SUCCINATE (ER) 25 MG TAB.ER.24H PO SCH (09:00)
[2021-02-04 11:59] VITALS: BP 158/81; PULSE 74; RESP 17
--- NOTE | 2021-02-04 14:11 | P.PN ---
Subjective This is a 75-year-old female with a past medical history significant for hypertension, hyperlipidemia, diabetes, peripheral vascular disease with pre vious stenting, COPD, and nicotine dependence. Patient used to follow in the office with Dr. Rinaldi but has not been seen since 2016. We have been asked to see the patient in consultation for congestive heart failure. Patient presented to the emergency room with a chief complaint of shortness of breath and and increased lower extremity edema. Echo revealed EF 30-35%, increased grade 2 diastolic dysfunction, moderate mitral regurgitation, mild cusp regurgitation, which is new for the patient. 02/01/2021 patient underwent cardiac catheterization revealing triple vessel disease. Patient was evaluated by cardiothoracic surgery and it was decided that patient was a nonsurgical candidate. Patient denies chest pain or pressure. She denies shortness of breath. Labs Reviewed. She's currently maintained on aspirin 80 mg daily, atorvastatin 40 mg nightly, PO Lasix 20 mg twice a day, lisinopril 2.5 mg daily, metoprolol succinate 12.5 mg daily PHYSICAL EXAM: VITAL SIGNS: Reviewed. GENERAL: Well-developed in no acute distress. HEENT:Neck supple.No JVD LUNGS: Respirations even and unlabored. Lungs clear to auscultation bilaterally HEART: Regular rate and rhythm. S1 and S2 heard. ABDOMEN: Soft. Nondistended. Nontender. EXTREMITIES: Normal range of motion. No clubbing or cyanosis. No edema NEUROLOGIC: Awake and alert. Oriented x 3. ASSESSMENT: Acute congestive heart failure, systolic Cardiomyopathy, ischemic Triple vessel coronary artery disease Hypertension Hyperlipidemia Diabetes Peripheral vascular disease with previous stenting COPD Nicotine dependence Hyponatremia PLAN: Start Plavix 75mg daily Increase lisinopril 5mg daily and metoprolol succinate to 25mg daily Continue aspirin, statin, PO Lasix From a cardiology perspective, patient is stable to be discharged home today on current medical regimen. Follow up with Dr. Melton in 1 week. Nurse practitioner note has been reviewed by physician. Signing provider agrees with the documented findings, assessment, and plan of care. Objective - Vital Signs Vital signs: Vital Signs Temp 98.0 F 02/04/21 11:58 Pulse 74 02/04/21 11:58 Resp 17 02/04/21 11:58 BP 158/81 02/04/21 11:58 Pulse Ox 93 L 02/04/21 11:59 Intake & Output 02/03/21 02/04/21 02/04/21 18:59 06:59 18:59 Intake Total 354 10 240 Output Total 1000 800 Balance -646 -790 240 Weight 71 kg Intake: IV 10 Invasive Line 2 10 Oral 354 240 Output: Urine 1000 800 Other: Voiding Method Toilet Toilet Toilet # Bowel Movements 1 - Labs CBC & Chem 7: 02/03/21 06:36 02/04/21 05:42 Labs: Abnormal Lab Results - Last 24 Hours (Table) 02/04/21 Range/Units 05:42 Sodium 131 L (137-145) mmol/L Chloride 87 L (98-107) mmol/L Carbon Dioxide 40 H (22-30) mmol/L BUN 24 H (7-17) mg/dL
--- NOTE | 2021-02-04 23:56 | P.DS ---
Providers Date of admission: 01/28/21 09:57 Attending physician: Lolis White Consults: 01/28/21 10:05 Consult Physician Routine Consulting Provider: [facility] Consult Reason/Comments: CHF Do you want consulting provider notified?: Yes Primary care physician: Donya Payton Hospital Course: Diagnoses: Severe triple-vessel disease with extremely calcified right and left coronary arteries system. Status post cath on 01/31/2021 Acute CHF ejection fraction 30-35%. Systolic dysfunction. Severe cardiomyopathy. Ischemic Hyponatremia likely hypervolemic. Ongoing nicotine addiction Hypertension Diabetes type 2 [id number] Peripheral vascular disease with history of right lower extremity stent placement. Hospital course: Patient is a 75-year-old female with a known history of COPD, diabetes type 2 [id number]-[id number], peripheral vascular disease with history of right lower extremity and, history of DVT, and hypothyroidism presents to ER with complaints of bilateral lower extremity swelling. Found to have acute CHF exacerbation with ejection fraction 30-35% Patient was treated with IV Lasix 40 mg twice a day and short course of heparin drip which is stopped already now Patient has been doing well for more than 48 hours, no significant dyspnea and today states that her dyspnea is completely resolved. Leg swelling is also improving. She denies chest pain for more than 48 hours Also patient has been evaluated by clinical sociologist and switched her Lasix to oral dose 20 mg twice a day, also her metoprolol increased to 12.5 up to 25 mg and lisinopril 2.5 up to 5 mg. As well as Lipitor 40 mg. Plavix added to her aspirin. Her aspirin dose lowered from 325 mg at home down to 81 mg, I informed the patient and myself about all these changes and she agreeable. Patient denies any other specific symptoms and she is eager to go home today. No change in urine or bowel habits. No fever For discharge by clinical sociologist Problems and management plan were discussed with the patient and he verbalized understanding and acceptance Patient was found stable and can be discharged home however he needs follow-up as an outpatient. Patient was instructed to follow up with PCP Dr. Payton within one week and patient agrees 02/06/21 Also patient was instructed to follow up with her clinical sociologist Dr. Melton in one week after discharge, she agrees to call and make her appointment. Staff tried to make her an appointment with cardiology office and informed cardiac office will call patient themselves. Physical exam Gen: patient is a AAOx3, no distress CVS: S1-S2, RRR, no murmur Lungs: B/L CTA, no wheezing Abdomen: soft, no distention, no tenderness, positive bowel sounds Extremity: no leg edema or induration Time spent more than 35 minutes Plan - Discharge Summary Discharge Rx Participant: No New Discharge Prescriptions: New Aspirin 81 mg PO DAILY #30 tab Atorvastatin [Lipitor] 40 mg PO HS #30 tab Famotidine [Pepcid] 20 mg PO BID #30 tab Clopidogrel [Plavix] 75 mg PO DAILY #30 tab Metoprolol Succinate (ER) [Toprol XL] 25 mg PO DAILY #30 tablet Furosemide [Lasix] 20 mg PO BID@0900,1600 #60 tab Albuterol Inhaler [Ventolin Hfa Inhaler] 2 puff INHALATION RT-QID PRN #8 gm PRN Reason: Shortness Of Breath lisinopriL [Zestril] 5 mg PO DAILY #30 tab Continue sitaGLIPtin PHOSPHATE [Januvia] 100 mg PO HS Cholecalciferol [Vitamin D3 (25 Mcg = 1000 Iu)] 25 mcg PO HS Discontinued Losartan Potassium 100 mg PO HS Aspirin EC [Ecotrin] 325 mg PO HS Simvastatin [Zocor] 20 mg PO HS Diclofenac Sodium/Misoprostol [Arthrotec 75 mg-200 Mcg Tab] 1 tab PO HS Discharge Medication List sitaGLIPtin PHOSPHATE [Januvia] 100 mg PO HS 07/30/17 [History] Cholecalciferol [Vitamin D3 (25 Mcg = 1000 Iu)] 25 mcg PO HS 01/28/21 [History] Albuterol Inhaler [Ventolin Hfa Inhaler] 2 puff INHALATION RT-QID PRN #8 gm 02/04/21 [Rx] Aspirin 81 mg PO DAILY #30 tab 02/04/21 [Rx] Atorvastatin [Lipitor] 40 mg PO HS #30 tab 02/04/21 [Rx] Clopidogrel [Plavix] 75 mg PO DAILY #30 tab 02/04/21 [Rx] Famotidine [Pepcid] 20 mg PO BID #30 tab 02/04/21 [Rx] Furosemide [Lasix] 20 mg PO BID@0900,1600 #60 tab 02/04/21 [Rx] Metoprolol Succinate (ER) [Toprol XL] 25 mg PO DAILY #30 tablet 02/04/21 [Rx] lisinopriL [Zestril] 5 mg PO DAILY #30 tab 02/04/21 [Rx] Follow up Appointment(s)/Referral(s): Zia Melton MD [STAFF PHYSICIAN] - 1 Week ([facility] will call with a follow up appointment because she hasnt been seen recently, per Gi, office staff.) [facility] [NON-STAFF] - 1-2 Days Donya Payton DO [Primary Care Provider] - 02/06/21 2:20 pm Patient Instructions/Handouts: Heart Failure (DC) Activity/Diet/Wound Care/Special Instructions: Heart healthy diet, we recommend to restrict fluid and salt at home Activity is restricted till you see your doctor We recommend to check your glucose 4 times a day, before each meal and at bedtime, keep the results in a log book and bring it to your doctor on your appointment date If her glucose is less than 70 or more than 400 then call 911 and come to emergency room Discharge Disposition: HOME SELF-CARE
[2021-02-05] MEDS ORDERED: lisinopriL 5 MG TAB PO SCH (09:00)
[2021-02-05] MEDS ORDERED: METOPROLOL SUCCINATE (ER) 25 MG TAB.ER.24H PO SCH (09:00)
--- NOTE | 2021-02-06 09:10 | P.VSCSTY ---
Greater Saphenous Vein Mapping This is bilateral lower extremity greater saphenous vein mapping. Date of service: 01/31/2021 Vein quality and ultrasound appearance: We see no intraluminal thrombus or obvious wall changes. Vein size groin right : 5.4 x 4.6 groin left: 6.5 x 5.2 High thigh right: 5.4 x 3.5 high thigh left: 6.5 x 4.8 Mid thigh right: 3.3 x 2.6 mid thigh left: 4.9 x 3.8 Above-knee right: 5.7 x 3.6 above-knee left: 4.1 x 3.0 Below knee right: 4.9 x 2.6 below-knee left: 4.1 x 3.3 Mid calf right: 2.4 x 1.5 mid calf left: 2.9 x 2.3 Ankle right: 2.2 x 1.9 ankle left: 3.1 x 2.5 Impression: Usable bilateral greater saphenous vein. Mid calf and below on the right is a bit small for use as conduit..
== END 2021-02-04 15:36 | disposition home or self-care (01) | DRG 286 ==
LOC: EC 07:52 → 3SCARD 09:57
PROVIDERS: ADMIT Internal Medicine; ATTEND Internal Medicine
PROC: B51D1ZZ Fluoroscopy of Bilateral Lower Extremity Veins using Low Osmolar Contrast (ICD-10-PCS; 2021-01-24)
PROC: B2111ZZ Fluoroscopy of Multiple Coronary Arteries using Low Osmolar Contrast (ICD-10-PCS; 2021-01-31)
PROC: 4A023N7 Measurement of Cardiac Sampling and Pressure, Left Heart, Percutaneous Approach (ICD-10-PCS; principal; 2021-01-31 07:30)
DX: I11.0 Hypertensive heart disease with heart failure (principal); I50.23 Acute on chronic systolic (congestive) heart failure; E87.1 Hypo-osmolality and hyponatremia; E03.9 Hypothyroidism, unspecified; E11.51 Type 2 diabetes mellitus with diabetic peripheral angiopathy without gangrene; E78.5 Hyperlipidemia, unspecified; F17.200 Nicotine dependence, unspecified, uncomplicated; I25.10 Atherosclerotic heart disease of native coronary artery without angina pectoris; I25.2 Old myocardial infarction; I25.5 Ischemic cardiomyopathy; I25.82 Chronic total occlusion of coronary artery; I34.0 Nonrheumatic mitral (valve) insufficiency; J44.9 Chronic obstructive pulmonary disease, unspecified; Z20.822 Contact with and (suspected) exposure to COVID-19; Z79.82 Long term (current) use of aspirin; Z79.84 Long term (current) use of oral hypoglycemic drugs; Z79.899 Other long term (current) drug therapy; Z80.1 Family history of malignant neoplasm of trachea, bronchus and lung; Z82.3 Family history of stroke; Z82.49 Family history of ischemic heart disease and other diseases of the circulatory system; Z86.718 Personal history of other venous thrombosis and embolism; Z95.820 Peripheral vascular angioplasty status with implants and grafts
CPT/HCPCS: 36415; 71046; 80048; 80053; 83605; 83735; 83880; 84443; 84484; 85025; 85610; 85730; 87635; 93005; 93306; 93458; 93880; 93970; 94150; 94640; 94760; 99285

== ENCOUNTER 2021-02-20 08:30 | Inpatient (IN) | payer MEDICARE ==
[~2021-02-20 08:30] MED LIST changes: +ALPRAZolam 0.25 MG TAB PO PRN; +ALPRAZolam 0.5 MG TAB PO PRN; +ASPIRIN 325 MG TAB PO STA; +ATORVASTATIN 80 MG TAB PO STA; +HEPARIN SODIUM,PORCINE 10,000 UNIT in SODIUM CHLORIDE 0.9% 1,000 ML IRRIGATION PRN; +HEPARIN SODIUM,PORCINE 2,500 UNIT in SODIUM CHLORIDE 0.9% 250 ML IRRIGATION PRN; -LACTATED RINGERS 1,000 ML IV SCH; +NITROGLYCERIN SL TABS 0.4 MG TAB SUBLINGUAL PRN; +SODIUM CHLORIDE 0.9% 1,000 ML in EMPTY BAG 1 BAG IV SCH
[2021-02-20] MEDS ORDERED: SODIUM CHLORIDE 0.9% 1,000 ML in EMPTY BAG 1 BAG IV ONE (11:00)
[2021-02-20] MEDS ORDERED: CLOPIDOGREL 75 MG TAB ONE (11:31)
[2021-02-20 11:47] LABS: Glucose,Whole Blood 135 mg/dL (75-99)
[2021-02-20] MEDS ORDERED: METOPROLOL SUCCINATE (ER) 25 MG TAB.ER.24H PO STA (12:04)
[2021-02-20] MEDS ORDERED: lisinopriL 5 MG TAB PO STA (12:04)
[2021-02-20 12:13] LABS: African American GFR (CKD) >90 (>60 ml/min/1.73 sqM); Anion Gap 11 mmol/L; Blood Urea Nitrogen 22 mg/dL (7-17); Carbon Dioxide 35 mmol/L (22-30); Chloride 91 mmol/L (98-107); Glucose 138 mg/dL (74-99); Non-African American GFR(CKD) 81 (>60 ml/min/1.73 sqM); Potassium 3.7 mmol/L (3.5-5.1); Sodium 137 mmol/L (137-145)
[2021-02-20] MEDS ORDERED: LIDOCAINE 1% INJ 10MG/ML (20 ML MDV) ONE (13:43)
[2021-02-20] MEDS ORDERED: MIDAZOLAM 2 MG/2 ML VIAL IVP ONE (14:00)
[2021-02-20] MEDS: LIDOCAINE 1% INJ 10MG/ML (20 ML MDV) SQ ONE ×2 (14:02→14:30)
[2021-02-20] MEDS ORDERED: HEPARIN SODIUM 1,000 UN/ML (10ML VL) ONE (14:03)
[2021-02-20] MEDS ORDERED: IOPAMIDOL-370 50ML BTL INJ ONE (14:36)
[2021-02-20] MEDS ORDERED: SODIUM CHLORIDE 0.9% 1,000 ML IV SCH (14:45)
[2021-02-20] MEDS ORDERED: RX INFO: IV CONTRAST WAS GIVEN 1 EACH MISC MISCELLANE PRN (14:45)
[2021-02-20 17:50] VITALS: PULSE 56
--- NOTE | 2021-02-20 17:52 | AN ---
ANGIOGRAPHY REPORT DATE OF SERVICE: 02/20/2021 PERFORMING PHYSICIAN: Zia Melton M.D. PROCEDURES PERFORMED: 1. Ultrasound-guided access of the right and left common femoral arteries. 2. Selective left common femoral artery and left external iliac artery angiogram. INDICATION: This is a 76-year-old female patient with coronary artery disease and lower extremity peripheral arterial disease who was admitted to the hospital recently with heart failure and she was diagnosed with cardiomyopathy. She underwent an echocardiogram which revealed severe cardiomyopathy. She underwent heart catheterization and that revealed severe triple-vessel CAD and she was deemed to be high risk for surgery. For that reason, she was referred for PCI with adjunctive use of Impella. APPROACH: Right common femoral artery and left common femoral artery. COMPLICATIONS: None. LEVEL OF SEDATION: Moderate, with sedation length of 36 minutes. PROCEDURE DESCRIPTION: After obtaining informed consent, the patient was brought to the cardiac denture laboratory technician. Initially I accessed the left common femoral artery using micropuncture technique under ultrasound sound guidance. The micropuncture wire passed easily. Then I did selective left common femoral artery angiogram using the micropuncture sheath and that revealed severe/critical disease involving the left external iliac artery with severe disease involving the profunda and SFA. At that point I decided to pull the sheath out. Subsequently the right common femoral artery was cannulated using micropuncture technique. The micropuncture wire passed easily, but I could not advance the sheath over the wire. For that reason, the sheath was pulled out. Given the severe lower extremity peripheral arterial disease, I decided to abort the procedure from the groins and do the procedure using Impella from left subclavian technique. That was discussed with the patient. The patient is going to be discharged home after undergoing a CTA of the chest today. MMODL / IJN: [id number] /
[2021-02-20 21:17] VITALS: BP 137/81; RESP 20; TEMP 98.4
--- NOTE | 2021-02-21 07:50 | CT ---
EXAMINATION TYPE: CT angio chest DATE OF EXAM: 02/20/2021 COMPARISON: None HISTORY: chest pain post cath-lab CT DLP: 904.6 mGycm CONTRAST: CTA thoracic aorta with 3-D reconstruction is performed and without and with IV Contrast, patient inj ected with 80cc mL of Isovue 370. Contrast CTA of the thoracic aorta was performed from the lung apex through the upper abdomen. 3D re construction imaging obtained at a separate workstation. CT Chest: THORACIC AORTA: No evidence for thoracic aortic aneurysm. Mild atheromatous changes seen. There is n o evidence for dissection or periaortic collection. LUNGS: The lungs are clear and free of infiltrate or atelectasis. No pulmonary nodule or mass is det ected. No pleural effusion or CT evidence of interstitial lung disease. MEDIASTINUM: No evidence for mediastinal hematoma. The heart is enlarged. No evidence for medias tinal mass or adenopathy. HILAR STRUCTURES: No evidence for mass. No hilar adenopathy is appreciated. OTHER: Layering gallstones incidentally noted. IMPRESSION- Atheromatous changes involving the thoracic aorta without evidence for aneurysm or dissection. Cardio megaly.
== END 2021-02-20 20:43 | disposition home or self-care (01) | DRG 286 ==
LOC: 2ORMAIN 11:01 → 6NMEDSUR 16:11
PROVIDERS: ADMIT Internal Medicine Interventional Cardiology; ATTEND Internal Medicine Interventional Cardiology
PROC: B2011ZZ Plain Radiography of Multiple Coronary Arteries using Low Osmolar Contrast (ICD-10-PCS; principal; 2021-02-20 08:30)
DX: I25.10 Atherosclerotic heart disease of native coronary artery without angina pectoris (principal); I50.23 Acute on chronic systolic (congestive) heart failure; I11.0 Hypertensive heart disease with heart failure; I25.5 Ischemic cardiomyopathy; I34.0 Nonrheumatic mitral (valve) insufficiency; Z20.822 Contact with and (suspected) exposure to COVID-19
CPT/HCPCS: 71275; 80048; 87635

== ENCOUNTER 2021-03-13 08:11 | Inpatient (IN) | payer MEDICARE ==
[~2021-03-13 08:11] MED LIST changes: +LACTATED RINGERS 1,000 ML IV SCH; +LIDOCAINE 1% (10MG/ML) FOR IV START INTRADERMA PRN; -SODIUM CHLORIDE 0.9% 1,000 ML in EMPTY BAG 1 BAG IV SCH
[2021-03-13] MEDS ORDERED: SODIUM CHLORIDE 0.9% 1,000 ML IV ONE ×2 (08:17→15:40)
[2021-03-13 08:31] LABS: Glucose,Whole Blood 123 mg/dL (75-99)
[2021-03-13] MEDS ORDERED: LIDOCAINE 1% INJ 10MG/ML (20 ML MDV) ONE ×2 (10:41→11:04)
[2021-03-13] MEDS ORDERED: HEPARIN SODIUM,PORCINE 10,000 UNIT/ML 1 ML VIAL ONE (11:04)
[2021-03-13] MEDS ORDERED: fentaNYL (PF) 50 MCG/ML 2 ML AMP ONE (11:04)
[2021-03-13] MEDS ORDERED: ROCURONIUM 10 MG/ML (5 ML VIAL) IV ONE (11:04)
[2021-03-13] MEDS ORDERED: HYDROmorphone (PF) 1 MG/ML ONE (11:04)
[2021-03-13] MEDS ORDERED: SUCCINYLCHOLINE CHLORIDE 100 MG/5 ML SYR IV ONE (11:04)
[2021-03-13] MEDS ORDERED: ETOMIDATE 2 MG/ML 10 ML VIAL ONE (11:04)
[2021-03-13] MEDS ORDERED: ePHEDrine 50 MG/ML 1 ML AMP ONE (11:04)
[2021-03-13] MEDS ORDERED: LIDOCAINE 1% INJ 10MG/ML (20 ML MDV) SQ ONE (13:10)
[2021-03-13] MEDS ORDERED: niCARdipine 25 MG/10 ML VIAL ONE (13:41)
[2021-03-13] MEDS ORDERED: IOPAMIDOL-370 125ML BTL INJ ONE (14:06)
[2021-03-13] MEDS ORDERED: ALBUTEROL NEBULIZED 2.5 MG/3 ML INHALATION PRN (14:18)
[2021-03-13] MEDS ORDERED: NITROGLYCERIN SL TABS 0.4 MG TAB SUBLINGUAL PRN (14:21)
[2021-03-13] MEDS ORDERED: ZOLPIDEM 5 MG TAB PO PRN (14:21)
[2021-03-13] MEDS ORDERED: ATROPINE SULFATE 0.1 MG/ML 10ML SYRINGE IV PRN (14:21)
[2021-03-13] MEDS ORDERED: RX INFO: IV CONTRAST WAS GIVEN 1 EACH MISC MISCELLANE PRN (14:21)
[2021-03-13] MEDS ORDERED: MAG HYDROX/AL HYDROX/SIMETH 30 ML CUP PO PRN (14:21)
[2021-03-13] MEDS ORDERED: SODIUM CHLORIDE 0.9% 1,000 ML in EMPTY BAG 1 BAG IV SCH (14:30)
[2021-03-13] MEDS ORDERED: GELATIN SPONGE,ABSORB (LARGE) 1 EACH SPONGE TOPICAL ONE (14:30)
[2021-03-13] MEDS ORDERED: THROMBIN (BOVINE) 5,000 UNIT VIAL TOPICAL ONE (14:30)
--- NOTE | 2021-03-13 14:32 | P.PCN ---
Date of Procedure: 03/13/21 Operative Findings: Percutaneous coronary intervention Performing physician Zia Melton M.D. Procedure performed #1 successful placement of Impella CP in the left ventricle from left subclavian approach #2 atherectomy of the proximal left anterior descending artery using the orbital atherectomy device #3 successful stenting of the proximal left anterior descending artery using 3.5 x 23 mm Xience drug-eluting stent with an excellent angiographic results #4 selective left common femoral artery angiogram #5 ultrasound guided access of the left common femoral artery Indication This is a pleasant 76-year-old female patient with known severe triple-vessel coronary artery disease as well as severe cardiomyopathy as well as lower extremities peripheral arterial disease and also hypertension and dyslipidemia and COPD who was admitted to the hospital recently with heart failure. She underwent an echo which revealed severe cardiomyopathy. Subsequently she underwent heart catheterization which revealed severe triple-vessel coronary artery disease. The patient was seen by cardiothoracic surgeon and she was deemed to be high risk for the surgery. In light of that the patient was brought today to undergo an intervention of the left anterior descending artery Approach Left common femoral artery Left subclavian artery Complication None Level of sedation The procedure was performed under general anesthesia. The patient was intubated throughout the case Procedure description After obtaining an informed consent the patient was brought to cardiac labor relations worker. The left subclavian artery was accessed using cutdown. Please refer to separate note by Dr. Forbes After a 14-Japanese sheath was placed in the left subclavian, my procedure was started. Anticoagulation was initiated using heparin and the patient was given a total of 6000 use of heparin at the beginning of the procedure with continuous ACT monitoring throughout the procedure. Subsequently I did advanced an 035 wire with a pigtail catheter to the ascending aorta. Subsequently across the aortic valve using the 035 wire and then I advanced the pigtail catheter over the wire. Subsequently the 035 wire was pulled out and I advanced an 018 wire through the pigtail catheter and then I pulled the pigtail catheter out and left the wire which was 018 wire in the LV. Subsequently, the Impella CP was advanced over the 018 wire to the left ventricle. Subsequently it was turned on. Then I did access the left common femoral artery using micropuncture technique under ultrasound guidance, the micropuncture wire passed easily then I placed a 6-Japanese sheath 11 cm at the left common femoral artery Then I did advanced an EBU guide over an 035 wire then the left main was engaged. Selective left coronary angiogram was performed and showed vertical disease involving the proximal left anterior descending artery by the bifurcation of the diagonal branch. I do the wire the LAD using a whisper wire. Subsequently I did exchange my wire over super cross catheter into the Viber wire. After that I did atherectomy of the LAD using 20 runs at low speed. Subsequently balloon angioplasty was performed using 3.25 mm balloon. After that I deployed 3.5 x 23 mm stent where the stent was positioned under fluoroscopy guidance and deployed under its nominal pressure. The following angiogram showed excellent angiographic results and the procedure was completed without any complication After that I pulled the Impella from the left ventricle. Then it was pulled completely out of the sheath. Subsequently Dr. Perla came into the room to close the incision. Then I did selective left common femoral artery angiogram by the end of the procedure. The procedure was completed without any complication Postprocedure management #1 dual antiplatelet therapy #2 risk factors modification #3 aggressive cholesterol control #4 standard groin care #5 follow-up with the patient
--- NOTE | 2021-03-13 16:00 | P.OP ---
Date of Procedure: 03/13/21 Preoperative Diagnosis: Severe triple vessel coronary artery disease Severe peripheral arterial disease Postoperative Diagnosis: Same Procedure(s) Performed: 1. Left subclavian artery cutdown and placement of Impella sheath 2. Selective left subclavian artery and arch angiogram Surgeon: Ashok Forbes Media Strategist #1: Nayla Perla Pathology: none sent Condition: stable Indications for Procedure: 76 year old female who presents today for cardiac catheterization and intervention for severe triple vessel coronary artery disease. She underwent attempt in the past and it was determined that she would need Impella placement but her femoral arteries were too calcified and diseased. Her brachial arteries were also diminutive and therefore we were asked to cutdown on the subclavian artery for access. Description of Procedure: After written and informed consent was obtained and all risks, benefits, and complications were discussed the patient was brought to the cook house laborer and laid in a supine position. The area of the neck and chest was prepped and draped in the usual sterile fashion. Time out was performed and patient was administered antibiotics prior to incision. A supraclavicular transverse incision was then created with a 10 blade scalpel and dissection was carried down to the ster nocleidomastoid musculature and retracted medially. The subclavian artery was located but was extremely deep and unsuitable for access and therefore an infraclavicular approach was performed. Approximately 2 finger breaths below the angle of the clavicle a transverse incision was created and extended laterally. Dissection was then carried down to the subclavian artery. The brachial plexus was located and inferiorly to this the subclavian artery was located and meticulous dissection was performed to dissect free the artery. Proximal and distal control was obtained with vessel loops. Patient was administered heparin and a purse string suture was placed on the anterior surface of the subclavian artery. Utilizing a multipurpose needle the artery was accessed and under fluoroscopy a guidwire was placed into the aorta. A retrograde angiogram was obtained demonstrating good access. The subclavian artery demonstrated an area of occlusive disease at the orifice as well. Serial dilation was performed and the Impella sheath was placed and secured. The cardiac cath and intervention was then performed by Dr. Melton- please see his dictation. Once completed the Impella was removed and sutures were secured for hemostasis. The areas were irrigated and closed in a multilayer fashion. A SUSIE drain was placed in the supraclavicular incision prior to closure. The skin was cleansed and dressings placed. Patient had doppler signals at the left radial artery and good signals at the subclavian prior to closure. She was then sent to recovery
[2021-03-13 16:28] LABS: Glucose,Whole Blood 127 mg/dL (75-99)
[2021-03-13] MEDS ORDERED: CLOPIDOGREL 75 MG TAB PO STA (18:17)
[2021-03-13] MEDS: SODIUM CHLORIDE 0.9% 1,000 ML in EMPTY BAG 1 BAG IV SCH (18:19)
[2021-03-13] MEDS: FUROSEMIDE 20 MG TAB PO SCH (20:35)
[2021-03-13] MEDS ORDERED: LINAGLIPTIN 5 MG TABLET PO SCH (21:00)
[2021-03-13] MEDS ORDERED: LATANOPROST 0.005% OPHTH DROPS 2.5 ML BTL RIGHT EYE SCH (21:00)
[2021-03-13] MEDS ORDERED: CHOLECALCIFEROL 25 MCG (1000 IU) TABLET PO SCH (21:00)
[2021-03-13] MEDS ORDERED: ATORVASTATIN 40 MG TAB PO SCH (21:00)
[2021-03-14 05:55] LABS: African American GFR (CKD) >90 (>60 ml/min/1.73 sqM); Non-African American GFR(CKD) 90 (>60 ml/min/1.73 sqM)
[2021-03-14] MEDS: FUROSEMIDE 20 MG TAB PO SCH (07:59)
[2021-03-14 08:43] LABS: Basophils % (A) 0 %; Eosinophils % (A) 0 %; HCT 36.7 % (34.0-46.0); HGB 11.3 gm/dL (11.4-16.0); Hypochromasia Moderate; Lymphocytes # (A) 0.6 k/uL (1.0-4.8); Lymphocytes % (A) 6 %; MCH 29.9 pg (25.0-35.0); MCHC 30.8 g/dL (31.0-37.0); MCV 97.2 fL (80.0-100.0); Monocytes # (A) 0.7 k/uL (0-1.0); Monocytes % (A) 7 %; Neutrophils # (A) 8.8 k/uL (1.3-7.7); Neutrophils % (A) 86 %; Platelet Count 146 k/uL (150-450); RBC 3.77 m/uL (3.80-5.40); RDW 14.6 % (11.5-15.5); WBC 10.3 k/uL (3.8-10.6)
[2021-03-14] MEDS ORDERED: ASPIRIN 81 MG PO SCH (09:00)
[2021-03-14] MEDS ORDERED: CLOPIDOGREL 75 MG TAB PO SCH (09:00)
[2021-03-14] MEDS ORDERED: lisinopriL 5 MG TAB PO SCH (09:00)
[2021-03-14] MEDS ORDERED: METOPROLOL SUCCINATE (ER) 25 MG TAB.ER.24H PO SCH (09:00)
--- NOTE | 2021-03-14 09:16 | P.DS ---
Providers Date of admission: 03/13/21 08:11 March 132021 Attending physician: Zia Melton Consults: 03/13/21 14:21 Consult Physician Routine Consulting Provider: [facility] Consult Reason/Comments: Post Interventional patient Do you want consulting provider notified?: Already Contacted 03/13/21 14:33 Consult Physician Routine Consulting Provider: Nayla Perla Consult Reason/Comments: Post Interventional patient Do you want consulting provider notified?: Already Contacted Primary care physician: Donya Payton [facility] Course: This is a 76-year-old female patient with severe triple-vessel coronary artery disease and ischemic cardiomyopathy as well as significant history of smoking who was brought yesterday to undergo percutaneous coronary intervention of the LAD with adjunctive use of support from Impella The device was placed from left subclavian approach by a vascular surgeon. Subsequently I did perform successful atherectomy and stenting of the LAD with an excellent angiographic results and without any complication. The procedure was performed from the left groin. The patient was seen this morning. She is stable hemodynamically. She is asymptomatic. She was sitting in the chair eating her breakfast. She reports no pain in the chest or shortness of breath or any dizziness or lightheadedness. She has been maintaining normal sinus mechanism. The incision above the left subclavian was evaluated by the surgeon earlier today and we given the green white for the patient to be discharged home. The left groin is soft and nontender and without any bruises. The left foot is warm as well. From the cardiovascular standpoint of view, the patient can be discharged home on dual antiplatelet therapy along with a statin. I will follow-up with the patient in a week and she's also going to be seen by the surgeon in a week as well. Plan - Discharge Summary Discharge Rx Participant: No New Discharge Prescriptions: Continue sitaGLIPtin PHOSPHATE [Januvia] 100 mg PO HS Aspirin 81 mg PO DAILY #30 tab Atorvastatin [Lipitor] 40 mg PO HS #30 tab Clopidogrel [Plavix] 75 mg PO DAILY #30 tab Metoprolol Succinate (ER) [Toprol XL] 25 mg PO DAILY #30 tablet Cholecalciferol [Vitamin D3 (25 Mcg = 1000 Iu)] 25 mcg PO HS Furosemide [Lasix] 20 mg PO BID@0900,1600 #60 tab Albuterol Inhaler [Ventolin Hfa Inhaler] 2 puff INHALATION RT-QID PRN #8 gm PRN Reason: Shortness Of Breath lisinopriL [Zestril] 5 mg PO DAILY #30 tab Latanoprost [Xalatan 0.005%] 1 drop RIGHT EYE HS Discharge Medication List sitaGLIPtin PHOSPHATE [Januvia] 100 mg PO HS 07/30/17 [History] Cholecalciferol [Vitamin D3 (25 Mcg = 1000 Iu)] 25 mcg PO HS 01/28/21 [History] Albuterol Inhaler [Ventolin Hfa Inhaler] 2 puff INHALATION RT-QID PRN #8 gm 02/04/21 [Rx] Aspirin 81 mg PO DAILY #30 tab 02/04/21 [Rx] Atorvastatin [Lipitor] 40 mg PO HS #30 tab 02/04/21 [Rx] Clopidogrel [Plavix] 75 mg PO DAILY #30 tab 02/04/21 [Rx] Furosemide [Lasix] 20 mg PO BID@0900,1600 #60 tab 02/04/21 [Rx] Metoprolol Succinate (ER) [Toprol XL] 25 mg PO DAILY #30 tablet 02/04/21 [Rx] lisinopriL [Zestril] 5 mg PO DAILY #30 tab 02/04/21 [Rx] Latanoprost [Xalatan 0.005%] 1 drop RIGHT EYE HS 03/11/21 [History] Follow up Appointment(s)/Referral(s): Zia Melton MD [STAFF PHYSICIAN] - 1 Week Ashok Forbes DO [STAFF PHYSICIAN] - 1 Week
[2021-03-14 10:08] VITALS: RESP 20
[2021-03-14 12:07] VITALS: TEMP 97.9
[2021-03-14 12:43] VITALS: BMI 30.5
[2021-03-14 13:08] VITALS: BP 130/75; PULSE 93
== END 2021-03-14 13:57 | disposition home or self-care (01) | DRG 221 ==
LOC: 2ORMAIN 08:11 → 2SICU 15:04
PROVIDERS: ADMIT Internal Medicine Interventional Cardiology; ATTEND Internal Medicine Interventional Cardiology
PROC: 02HA3RJ Insertion of Short-term External Heart Assist System into Heart, Intraoperative, Percutaneous Approach (ICD-10-PCS; 2021-03-13)
PROC: B41G1ZZ Fluoroscopy of Left Lower Extremity Arteries using Low Osmolar Contrast (ICD-10-PCS; 2021-03-13)
PROC: B3121ZZ Fluoroscopy of Left Subclavian Artery using Low Osmolar Contrast (ICD-10-PCS; 2021-03-13)
PROC: 02C03Z7 Extirpation of Matter from Coronary Artery, One Artery, Orbital Atherectomy Technique, Percutaneous Approach (ICD-10-PCS; principal; 2021-03-13 10:15)
PROC: 5A0221D Assistance with Cardiac Output using Impeller Pump, Continuous (ICD-10-PCS; 2021-03-13 10:15)
PROC: 0270346 Dilation of Coronary Artery, One Artery, Bifurcation, with Drug-eluting Intraluminal Device, Percutaneous Approach (ICD-10-PCS; 2021-03-13 10:15)
DX: I25.10 Atherosclerotic heart disease of native coronary artery without angina pectoris (principal); I11.0 Hypertensive heart disease with heart failure; J44.9 Chronic obstructive pulmonary disease, unspecified; I25.5 Ischemic cardiomyopathy; I50.9 Heart failure, unspecified; I73.9 Peripheral vascular disease, unspecified; E78.5 Hyperlipidemia, unspecified; Z87.891 Personal history of nicotine dependence
CPT/HCPCS: 82565; 85025; 87635

== ENCOUNTER 2021-06-10 06:07 | Inpatient (IN) | payer MEDICARE ==
[2021-06-10] MEDS ORDERED: IPRATROPIUM-ALBUTEROL 3 ML NEB INHALATION STA (06:19)
[2021-06-10] MEDS ORDERED: methylPREDNISolone SOD SUCCI 125 MG/2 ML VIAL IV STA (06:19)
[2021-06-10] MEDS ORDERED: FUROSEMIDE 10 MG/ML 4 ML VIAL IV STA (06:19)
--- NOTE | 2021-06-10 06:22 | ED ---
General Adult HPI - General Chief complaint: Shortness of Breath Stated complaint: AQUILES Time Seen by Provider: 06/10/21 06:07 Source: patient, EMS, RN notes reviewed Mode of arrival: EMS Limitations: no limitations - History of Present Illness Initial comments: Patient is a pleasant 76-year-old female presenting to the emergency department with difficulty breathing. Onset of symptoms was several days ago, symptoms worsen yesterday. Patient does not use her nebulizer treatments frequently at home. Patient recently had increase in her home oxygen and Lasix by her doctor. Patient states symptoms are somewhat similar to previous COPD. No fever. P atient does have dry cough. Patient has noticed some leg swelling. No calf pain. - Related Data Home Medications Medication Instructions Recorded Confirmed sitaGLIPtin PHOSPHATE [Januvia] 100 mg PO HS 07/30/17 03/13/21 Cholecalciferol [Vitamin D3 (25 25 mcg PO HS 01/28/21 03/13/21 Mcg = 1000 Iu)] Latanoprost [Xalatan 0.005%] 1 drop RIGHT EYE HS 03/11/21 03/13/21 Previous Rx's Medication Instructions Recorded Albuterol Inhaler [Ventolin Hfa 2 puff INHALATION RT-QID PRN #8 gm 02/04/21 Inhaler] Aspirin 81 mg PO DAILY #30 tab 02/04/21 Atorvastatin [Lipitor] 40 mg PO HS #30 tab 02/04/21 Clopidogrel [Plavix] 75 mg PO DAILY #30 tab 02/04/21 Furosemide [Lasix] 20 mg PO BID@0900,1600 #60 tab 02/04/21 Metoprolol Succinate (ER) [Toprol 25 mg PO DAILY #30 tablet 02/04/21 XL] lisinopriL [Zestril] 5 mg PO DAILY #30 tab 02/04/21 Allergies Allergy/AdvReac Type Severity Reaction Status Date / Time No Known Allergies Allergy Verified 03/13/21 08:27 Review of Systems ROS Statement: Those systems with pertinent positive or pertinent negative responses have been documented in the HPI. ROS Other: All systems not noted in ROS Statement are negative. Constitutional: Denies: fever Eyes: Denies: eye pain ENT: Denies: ear pain Respiratory: Reports: cough, dyspnea Cardiovascular: Denies: chest pain Endocrine: Reports: fatigue Gastrointestinal: Denies: abdominal pain Genitourinary: Denies: dysuria Musculoskeletal: Denies: back pain Skin: Denies: rash Neurological: Denies: weakness Past Medical History Past Medical History: Chest Pain / Angina, Heart Failure, COPD, Diabetes Mellitus, Deep Vein Thrombosis (DVT), Hyperlipidemia, Hypertension, Myocardial Infarction (NM), Osteoarthritis (OA), Thyroid Disorder Additional Past Medical History / Comment(s): ARTHRITIS WITH BACK PAIN. GLAUCOMA , DVT RIGHT LEG Last Myocardial Infarction Date:: 2000 POSSIBLE DATE History of Any Multi-Drug Resistant Organisms: None Reported Past Surgical History: Appendectomy, Heart Catheterization, Orthopedic Surgery, Tubal Ligation Additional Past Surgical History / Comment(s): LEFT WRIST SURGERY; right knee- ARTHROSCOPIC, Past Anesthesia/Blood Transfusion Reactions: No Reported Reaction Past Psychological History: No Psychological Hx Reported Smoking Status: Former smoker Past Alcohol Use History: None Reported Past Drug Use History: None Reported - Past Family History Mother Family Medical History: Cancer, Coronary Artery Disease (CAD) Additional Family Medical History / Comment(s): from LUNG CANCER Father Family Medical History: CVA/TIA Additional Family Medical History / Comment(s): from CVA General Exam Limitations: no limitations General appearance: alert Head exam: Present: normocephalic Eye exam: Present: normal appearance Neck exam: Present: normal inspection Respiratory exam: Present: wheezes, rales Cardiovascular Exam: Present: regular rate, normal rhythm GI/Abdominal exam: Present: soft. Absent: tenderness, guarding Extremities exam: Present: pedal edema (+1 bilateral). Absent: calf tenderness Neurological exam: Present: alert Psychiatric exam: Present: normal affect, normal mood Skin exam: Present: normal color Course Vital Signs 06/10/21 06/10/21 06/10/21 06:08 06:13 06:43 Temperature 98.2 F Pulse Rate 64 51 L Respiratory 18 22 Rate Blood Pressure 142/87 125/80 O2 Sat by Pulse 73 L 94 L 95 Oximetry 06/10/21 07:06 Temperature Pulse Rate 54 L Respiratory Rate Blood Pressure O2 Sat by Pulse 95 Oximetry - Reevaluation(s) Reevaluation #1: 06/10/21 07:12 Patient has questionable pneumonia. Blood cultures, lactic acid and IV antibiotics ordered. Patient has definite CHF. Patient does not need fluid bolus in addition fluid boluses felt to be detriment to patient's overall health. EKG Findings - EKG Comments: EKG Findings:: Sinus bradycardia 51. NH 150. QRS 84. QT 434. QTC 410. Right axis. Normal QRS. No acute ST change. Medical Decision Making - Medical Decision Making Patient reevaluated and updated. Case discussed with practitioner Shaina, who will admit for Dr. Perez. - Lab Data Result diagrams: 06/10/21 06:23 06/10/21 06:23 Lab Results 06/10/21 06/10/21 06/10/21 Range/Units 06:23 06:23 06:23 WBC 7.6 (3.8-10.6) k/uL RBC 4.03 (3.80-5.40) m/uL Hgb 12.1 (11.4-16.0) gm/dL Hct 40.4 (34.0-46.0) % MCV 100.2 H (80.0-100.0) fL MCH 29.9 (25.0-35.0) pg MCHC 29.8 L (31.0-37.0) g/dL RDW 15.1 (11.5-15.5) % Plt Count 194 (150-450) k/uL MPV 7.8 Neutrophils % 80 % Lymphocytes % 7 % Monocytes % 9 % Eosinophils % 1 % Basophils % 1 % Neutrophils # 6.1 (1.3-7.7) k/uL Lymphocytes # 0.6 L (1.0-4.8) k/uL Monocytes # 0.7 (0-1.0) k/uL Eosinophils # 0.1 (0-0.7) k/uL Basophils # 0.0 (0-0.2) k/uL Hypochromasia Marked Macrocytosis Slight PT 11.0 (9.0-12.0) sec INR 1.0 (<1.2) APTT 22.9 (22.0-30.0) sec Sodium 139 (137-145) mmol/L Potassium 4.1 (3.5-5.1) mmol/L Chloride 83 L (98-107) mmol/L Carbon Dioxide 51 H* (22-30) mmol/L Anion Gap 5 mmol/L BUN 40 H (7-17) mg/dL Creatinine 0.77 (0.52-1.04) mg/dL Est GFR (CKD-EPI)AfAm 87 (>60 ml/min/1.73 sqM) Est GFR (CKD-EPI)NonAf 76 (>60 ml/min/1.73 sqM) Glucose 139 H (74-99) mg/dL Plasma Lactic Acid Georgi (0.7-2.0) mmol/L Calcium 9.1 (8.4-10.2) mg/dL Total Bilirubin 1.1 (0.2-1.3) mg/dL AST 48 H (14-36) U/L ALT 42 H (4-34) U/L Alkaline Phosphatase 75 (38-126) U/L NT-Pro-B Natriuret Pep pg/mL Total Protein 7.2 (6.3-8.2) g/dL Albumin 3.6 (3.5-5.0) g/dL Coronavirus (PCR) (Not Detectd) 06/10/21 06/10/21 06/10/21 Range/Units 06:23 06:23 06:23 WBC (3.8-10.6) k/uL RBC (3.80-5.40) m/uL Hgb (11.4-16.0) gm/dL Hct (34.0-46.0) % MCV (80.0-100.0) fL MCH (25.0-35.0) pg MCHC (31.0-37.0) g/dL RDW (11.5-15.5) % Plt Count (150-450) k/uL MPV Neutrophils % % Lymphocytes % % Monocytes % % Eosinophils % % Basophils % % Neutrophils # (1.3-7.7) k/uL Lymphocytes # (1.0-4.8) k/uL Monocytes # (0-1.0) k/uL Eosinophils # (0-0.7) k/uL Basophils # (0-0.2) k/uL Hypochromasia Macrocytosis PT (9.0-12.0) sec INR (<1.2) APTT (22.0-30.0) sec Sodium (137-145) mmol/L Potassium (3.5-5.1) mmol/L Chloride (98-107) mmol/L Carbon Dioxide (22-30) mmol/L Anion Gap mmol/L BUN (7-17) mg/dL Creatinine (0.52-1.04) mg/dL Est GFR (CKD-EPI)AfAm (>60 ml/min/1.73 sqM) Est GFR (CKD-EPI)NonAf (>60 ml/min/1.73 sqM) Glucose (74-99) mg/dL Plasma Lactic Acid Georgi 0.9 (0.7-2.0) mmol/L Calcium (8.4-10.2) mg/dL Total Bilirubin (0.2-1.3) mg/dL AST (14-36) U/L ALT (4-34) U/L Alkaline Phosphatase (38-126) U/L NT-Pro-B Natriuret Pep 71571 pg/mL Total Protein (6.3-8.2) g/dL Albumin (3.5-5.0) g/dL Coronavirus (PCR) Not Detected (Not Detectd) - Radiology Data Radiology results: image reviewed (Chest x-ray shows large left effusion with associated consolidation and atelectasis. CHF possible.) Disposition Clinical Impression: CHF exacerbation, Acute exacerbation of chronic obstructive pulmonary disease Disposition: ADMITTED IP TO THIS HOSP Condition: Serious Is patient prescribed a controlled substance at d/c from ED?: No Time of Disposition: 07:08
[2021-06-10 06:36] LABS: Basophils % (A) 1 %; Eosinophils # (A) 0.1 k/uL (0-0.7); Eosinophils % (A) 1 %; HCT 40.4 % (34.0-46.0); HGB 12.1 gm/dL (11.4-16.0); Hypochromasia Marked; Lymphocytes # (A) 0.6 k/uL (1.0-4.8); Lymphocytes % (A) 7 %; MCH 29.9 pg (25.0-35.0); MCHC 29.8 g/dL (31.0-37.0); MCV 100.2 fL (80.0-100.0); Macrocytosis Slight; Mean Platelet Volume 7.8; Monocytes # (A) 0.7 k/uL (0-1.0); Monocytes % (A) 9 %; Neutrophils # (A) 6.1 k/uL (1.3-7.7); Neutrophils % (A) 80 %; Platelet Count 194 k/uL (150-450); RBC 4.03 m/uL (3.80-5.40); RDW 15.1 % (11.5-15.5); WBC 7.6 k/uL (3.8-10.6)
--- NOTE | 2021-06-10 06:39 | XR ---
EXAMINATION TYPE: XR chest 2V DATE OF EXAM: 06/10/2021 COMPARISON: 02/03/2021 HISTORY: Difficulty breathing TECHNIQUE: 2 views FINDINGS: There is complete opacification left hemithorax. Right lung shows pleural fluid. There is m ild pulmonary congestion. Trachea deviated slightly to the left side. IMPRESSION: There is combination of large pleural effusion with left-sided pulmonary consolidation an d mild atelectasis which is new compared to old exam. Small right pleural effusion. Congestive heart failure is possible.
[2021-06-10 06:45] LABS: Partial Thromboplastin Time 22.9 sec (22.0-30.0)
[2021-06-10] MEDS ORDERED: PNEUMONIA PROTOCOL UTILIZED 1 EACH MISC PO PRN (06:49)
[2021-06-10] MEDS ORDERED: AZITHROMYCIN 500 MG in SODIUM CHLORIDE 0.9% 250 ML IVPB STA (06:49)
[2021-06-10] MEDS ORDERED: IPRATROPIUM-ALBUTEROL 3 ML NEB INHALATION PRN (06:49)
[2021-06-10 06:50] LABS: Albumin 3.6 g/dL (3.5-5.0); Calcium 9.1 mg/dL (8.4-10.2); Total Bilirubin 1.1 mg/dL (0.2-1.3); Total Protein 7.2 g/dL (6.3-8.2)
[2021-06-10 07:07] LABS: Potassium 4.1 mmol/L (3.5-5.1)
[2021-06-10] MEDS ORDERED: ASPIRIN 325 MG TAB PO STA (07:10)
[2021-06-10] MEDS: IPRATROPIUM-ALBUTEROL 3 ML NEB INHALATION SCH ×4 (08:25→19:39)
[2021-06-10] MEDS: SPIRONOLACTONE 25 MG TAB PO SCH (08:41)
[2021-06-10] MEDS: lisinopriL 5 MG TAB PO SCH (08:41)
[2021-06-10] MEDS: CLOPIDOGREL 75 MG TAB PO SCH (08:41)
[2021-06-10] MEDS: METOPROLOL SUCCINATE (ER) 25 MG TAB.ER.24H PO SCH (08:41)
[2021-06-10] MEDS ORDERED: SERTRALINE 50 MG TAB PO SCH (09:00)
[2021-06-10] MEDS ORDERED: NITROGLYCERIN OINT 1 INCH/GM PACKET TOPICAL SCH (09:00)
[2021-06-10] MEDS: CLOTRIMAZOLE 1% CREAM 30 GM TUBE TOPICAL SCH (09:02)
--- NOTE | 2021-06-10 09:44 | US ---
EXAMINATION TYPE: US chest DATE OF EXAM: 06/10/2021 COMPARISON: Chest x-ray dated 06/10/2021 CLINICAL HISTORY: large left pleural effusion. TECHNIQUE: Targeted ultrasound of the posterior lower bilateral hemithoraces EXAM MEASUREMENTS: Right Pleural Effusion pocket size: 2.4 cm Right skin surface to fluid distance: 3.0 cm Left Pleural Effusion pocket size: 7.3 cm Left skin surface to fluid distance: 3.0 cm Right side not marked for possible thoracentesis outside the dept. Left side marked for possible thoracentesis outside the dept. Pulmonologists are able to review the images in the patient?s EMR. Minute scanning performed. IMPRESSIONS: Bilateral pleural effusions left greater than right
--- NOTE | 2021-06-10 10:17 | P.CNPUL ---
History of Present Illness Consult date: 06/10/21 Requesting physician: Sil Perez Reason for consult: dyspnea, cough, COPD, hypoxemia, pneumonia, pleural effusion, abnormal CXR/CT Chief complaint: Shortness of breath, cough. History of present illness: Pulmonary consult dated 06/10/2021. 76-year-old female who presented to the emergency department on June 10, complaining of shortness of breath and difficulty breathing. She has significa nt cough. She sees a physician out in [place], [place]. She hadn't been feeling well for a couple of days. She is a heavy smoker, started smoking at the age of 16. She quit January 2021. The patient apparently was in the hospital recently, and had stents placed in her heart. She been using her nebulizer treatments at home. She is on home O2 at 3 L/m, 15/09. The patient also complained of lower extremity edema. Currently, she is on 4 L. Not receiving any IV fluids. White count 7.6, hemoglobin 12.1, hematocrit 40.4, and platelet count 194,000. PT, INR, PTT were normal. Sodium 139, potassium 4.1, chlorides 83, CO2 51, anion gap 5, BUN 40, and creatinine 0.77. Her troponin was 0.104. N-terminal proBNP was 19,500. Testing for virgen virus was negative. Chest x- ray shows near complete opacification of the left hemithorax. Ultrasound of the chest shows a small right-sided pleural effusion, and a small to moderate left- sided pleural effusion, measuring 7.3 cm. Review of Systems REVIEW OF SYSTEMS: CONSTITUTIONAL: [Negative.] NEUROLOGIC: [ Negative.] HEENT: [ Negative.] CARDIAC: [Negative.] PULMONARY: Shortness of breath, and nonproductive cough. GI: [Negative.] : [Negative.] RHEUMATOLOGIC: [ Negative.] IMMUNOLOGIC: [ Negative.] ENDOCRINE: [Negative. ] DERMATOLOGIC: [Negative.] Past Medical History Past Medical History: Coronary Artery Disease (CAD), Chest Pain / Angina, Heart Failure, COPD, Diabetes Mellitus, Deep Vein Thrombosis (DVT), Hyperlipidemia, Hypertension, Myocardial Infarction (PA), Osteoarthritis (OA), Thyroid Disorder, Vascular Disorder Additional Past Medical History / Comment(s): Ischemic cardiomyopathy, home oxygen at 3L/NNC ATC, NIDDM type II, occasional neuropathy bilateral feet/toes, DVT R leg, PAD lower extremities, vertigo, lower back pain, diverticular disease, glaucoma bilateral eyes/now only treating R eye Last Myocardial Infarction Date:: 2000 POSSIBLE DATE History of Any Multi-Drug Resistant Organisms: None Reported Past Surgical History: Appendectomy, Heart Catheterization, Heart Catheterization With Stent, Orthopedic Surgery, Tubal Ligation Additional Past Surgical History / Comment(s): L wrist fracture/surgical repair, R knee arthroscopy, colonoscopy, bilateral cataract removals/lens implants. Past Anesthesia/Blood Transfusion Reactions: No Reported Reaction Date of Last Stent Placement:: 03/13/21 Smoking Status: Former smoker - Past Family History Mother Family Medical History: Cancer, Coronary Artery Disease (CAD) Additional Family Medical History / Comment(s): from LUNG CANCER Father Family Medical History: CVA/TIA Additional Family Medical History / Comment(s): from CVA Medications and Allergies Home Medications Medication Instructions Recorded Confirmed Type sitaGLIPtin PHOSPHATE [Januvia] 100 mg PO HS 07/30/17 06/10/21 History Cholecalciferol [Vitamin D3 (25 25 mcg PO HS 01/28/21 06/10/21 History Mcg = 1000 Iu)] Albuterol Inhaler [Ventolin Hfa 2 puff INHALATION RT-QID PRN #8 gm 02/04/21 06/10/21 Rx Inhaler] Atorvastatin [Lipitor] 40 mg PO HS #30 tab 02/04/21 06/10/21 Rx Clopidogrel [Plavix] 75 mg PO DAILY #30 tab 02/04/21 06/10/21 Rx Metoprolol Succinate (ER) [Toprol 25 mg PO DAILY #30 tablet 02/04/21 06/10/21 Rx XL] lisinopriL [Zestril] 5 mg PO DAILY #30 tab 02/04/21 06/10/21 Rx Latanoprost [Xalatan 0.005%] 1 drop RIGHT EYE HS 03/11/21 06/10/21 History Aspirin EC [Ecotrin Low Dose] 81 mg PO DAILY 06/10/21 06/10/21 History Furosemide [Lasix] 40 mg PO BID@0900,1600 06/10/21 06/10/21 History Ketoconazole 2% Cream [Nizoral 2%] 1 applic TOPICAL DAILY 06/10/21 06/10/21 History Sertraline [Zoloft] 50 mg PO HS 06/10/21 06/10/21 History Spironolactone [Aldactone] 25 mg PO DAILY 06/10/21 06/10/21 History Allergies Allergy/AdvReac Type Severity Reaction Status Date / Time No Known Allergies Allergy Verified 06/10/21 07:24 Physical Exam Osteopathic Statement: *. No significant issues noted on an osteopathic structural exam other than those noted in the History and Physical/Consult. Vitals: Vital Signs Temp Pulse Resp BP Pulse Ox 06/10/21 09:40 70 20 122/73 97 06/10/21 08:39 68 18 120/78 98 06/10/21 08:37 58 L 06/10/21 08:26 54 L 06/10/21 07:14 69 06/10/21 07:06 54 L 95 06/10/21 06:43 51 L 22 125/80 95 06/10/21 06:13 94 L 06/10/21 06:08 98.2 F 64 18 142/87 73 L Intake and Output 06/09/21 06/10/21 06/10/21 22:59 06:59 14:59 Other: Weight 73.028 kg 73.028 kg No acute distress, oriented 3. Currently on 4 L nasal cannula. No conversational dyspnea or use of accessory muscles noted. HEENT examination is grossly unremarkable. Neck supple. Full range of motion. No adenopathy thyromegaly or neck vein distention. Cardiovascular examination reveals regular rhythm rate. S1-S2 normal. No S3 or S4. No discernible murmur noted. Heart rate 70 bpm. Lungs reveal severely diminished breath sounds at the left side. Rhonchi noted on the right side. No wheezes. No crackles. Saturations 97% on 4 L. Abdomen soft bowel sounds are heard. No masses or tenderness. Extremities are intact. No cyanosis or clubbing. Mild lower extremity edema noted. Skin is without rash or lesion. Neurologic examination is brief but nonfocal. Results - Laboratory Findings CBC and BMP: 06/10/21 06:23 06/10/21 06:23 PT/INR, D-dimer PT 11.0 sec (9.0-12.0) 06/10/21 06:23 INR 1.0 (<1.2) 06/10/21 06:23 Abnormal lab findings: Abnormal Labs 06/10/21 06/10/21 06/10/21 06:23 06:23 06:23 MCV 100.2 H MCHC 29.8 L Lymphocytes # 0.6 L Chloride 83 L Carbon Dioxide 51 H* BUN 40 H Glucose 139 H AST 48 H ALT 42 H Troponin I 0.104 H* - Diagnostic Findings Chest x-ray: image reviewed Assessment and Plan Assessment: Acute hypoxemic respiratory failure secondary to left-sided pneumonia, as well as left-sided pleural effusion. Acute exacerbation of COPD. History of heavy tobacco use, for at least 60 years. History of diabetes mellitus. History of hyperlipidemia. CAD with previous and recent stent placement. History of hypertension. History of DVT. History of myocardial infarction. Plan: Plan dated 06/10/2021. The patient is seen in the emergency department, room 9. The patient will have an ultrasound of the chest. The ultrasound shows a small right-sided pleural effusion, and a moderate sized left pleural effusion. The patient will probably benefit from thoracentesis, and bronchoscopy. We'll get her on the schedule for that. Additional recommendations and suggestions are forthcoming. We will have to hold her blood thinner. Additional recommendations and suggestions are forthcoming. Prognosis is guarded. Time with Patient: Greater than 30
[2021-06-10 11:54] LABS: Glucose,Whole Blood 185 mg/dL (75-99)
[2021-06-10] MEDS: INSULIN ASPART (NovoLOG) 100 UNIT/ML VIAL SQ SCH ×3 (12:33→21:36)
[2021-06-10] MEDS: methylPREDNISolone SOD SUCCI 125 MG/2 ML VIAL IV SCH ×3 (12:33→23:32)
--- NOTE | 2021-06-10 13:29 | P.CRDCN ---
History of Present Illness Consult date: 06/10/21 History of present illness: HISTORY OF PRESENT ILLNESS: This is a 76 year old female with a past medical history significant for coronary artery disease with previous PCI, COPD with home O2, former nicotine dependence, peripheral arterial disease, ischemic cardiomyopathy, hypertension, and hyperlipidemia. Patient follows in the office with Dr. Melton. We have been asked to see the patient in consultation for CHF. Patient examined at the bedside. Patient presented to the hospital with a chief complaint of shortness of breath. Patient states that she has been feeling short of breath for the past couple days but it got worse yesterday. She reports a nonproductive cough. She reports that she is feeling short of breath at rest and also with exertion. She denies any chest pain or pressure. The patient was found to be in congestive heart failure was started on IV Lasix in the emergency room. * EKG reveals sinus mechanism with no signs of acute ischemia * Chest xray there is a combination of large pleural effusion with left-sided pulmonary consolidation and mild atelectasis which is new compared to old exam. Small right pleural effusion. Congestive heart failure is possible. * Laboratory data: * Current home cardiac medications include aspirin 81 mg daily, Lipitor 40 mg daily, Plavix 75 mg daily, lisinopril 5 mg daily, Aldactone 25 mg daily, Lasix 40 mg twice a day, metoprolol succinate 25 mg daily * Most recent echocardiogram obtained on 05/30/2021 revealed ejection fraction 35%, moderate to severe TR, moderate to severe MR * Cardiac catheterization history: February 2021 with stenting to the mid LAD REVIEW OF SYSTEMS: At the time of my exam: CONSTITUTIONAL: Denies fever or chills. HEENT: Denies blurred vision, vision changes, or eye pain. Denies hemoptysis CARDIOVASCULAR: Denies chest pain. Denies orthopnea. Denies PND. Denies palpitations RESPIRATORY: Denies shortness of breath. GASTROINTESTINAL: Denies abdominal pain. Denies nausea or vomiting. HEMATOLOGIC: Denies bleeding disorders. GENITOURINARY: Denies any blood in urine. SKIN: Denies pruitis. Denies rash. PHYSICAL EXAM: VITAL SIGNS: Reviewed. GENERAL: Well-developed in no acute distress. HEENT: Head is normocephalic. Pupils are equal, round. Sclerae anicteric. Mucous membranes of the mouth are moist. Neck supple. No JVD or thyromegaly LUNGS: Respirations even and unlabored. Lungs diminished, left greater than right, with bilateral rhonchi. HEART: Regular rate and rhythm. S1 and S2 heard. ABDOMEN: Soft. Nondistended. Nontender. EXTREMITIES: Normal range of motion. No clubbing or cyanosis. Peripheral pulses intact. No lower extremity edema NEUROLOGIC: Awake and alert. Oriented x 3. ASSESSMENT: Shortness of breath Acute on chronic congestive heart failure with reduced ejection fraction Bilateral pleural effusions, Left greater than right Left sided pneumonia Acute COPD exacerbation Coronary artery disease with previous PCI to the LAD, February 2021 and known severe disease involving the RCA and circumflex, deemed too high risk for CABG in the past Hypertension Hyperlipidemia Ischemic cardiomyopathy Peripheral arterial disease Former nicotine dependence PLAN: Continue current cardiac medications Continue IV lasix Monitor kidney function Daily weights Accurate I&O Pulmonary following. Possible thoracentesis. Further recommendations pending patient's course Nurse practitioner note has been reviewed by physician. Signing provider agrees with the documented findings, assessment, and plan of care. Past Medical History Past Medical History: Chest Pain / Angina, Heart Failure, COPD, Diabetes Mellitus, Deep Vein Thrombosis (DVT), Hyperlipidemia, Hypertension, Myocardial Infarction ([place]), Osteoarthritis (OA), Thyroid Disorder Additional Past Medical History / Comment(s): ARTHRITIS WITH BACK PAIN. GLAUCOMA , DVT RIGHT LEG Last Myocardial Infarction Date:: 2000 POSSIBLE DATE History of Any Multi-Drug Resistant Organisms: None Reported Past Surgical History: Appendectomy, Heart Catheterization, Orthopedic Surgery, Tubal Ligation Additional Past Surgical History / Comment(s): LEFT WRIST SURGERY; right knee- ARTHROSCOPIC, Past Anesthesia/Blood Transfusion Reactions: No Reported Reaction Past Psychological History: No Psychological Hx Reported Smoking Status: Former smoker Past Alcohol Use History: None Reported Past Drug Use History: None Reported - Past Family History Mother Family Medical History: Cancer, Coronary Artery Disease (CAD) Additional Family Medical History / Comment(s): from LUNG CANCER Father Family Medical History: CVA/TIA Additional Family Medical History / Comment(s): from CVA Medications and Allergies Home Medications Medication Instructions Recorded Confirmed Type sitaGLIPtin PHOSPHATE [Januvia] 100 mg PO HS 07/30/17 06/10/21 History Cholecalciferol [Vitamin D3 (25 25 mcg PO HS 01/28/21 06/10/21 History Mcg = 1000 Iu)] Albuterol Inhaler [Ventolin Hfa 2 puff INHALATION RT-QID PRN #8 gm 02/04/21 06/10/21 Rx Inhaler] Atorvastatin [Lipitor] 40 mg PO HS #30 tab 02/04/21 06/10/21 Rx Clopidogrel [Plavix] 75 mg PO DAILY #30 tab 02/04/21 06/10/21 Rx Metoprolol Succinate (ER) [Toprol 25 mg PO DAILY #30 tablet 02/04/21 06/10/21 Rx XL] lisinopriL [Zestril] 5 mg PO DAILY #30 tab 02/04/21 06/10/21 Rx Latanoprost [Xalatan 0.005%] 1 drop RIGHT EYE HS 03/11/21 06/10/21 History Aspirin EC [Ecotrin Low Dose] 81 mg PO DAILY 06/10/21 06/10/21 History Furosemide [Lasix] 40 mg PO BID@0900,1600 06/10/21 06/10/21 History Ketoconazole 2% Cream [Nizoral 2%] 1 applic TOPICAL DAILY 06/10/21 06/10/21 History Sertraline [Zoloft] 50 mg PO HS 06/10/21 06/10/21 History Spironolactone [Aldactone] 25 mg PO DAILY 06/10/21 06/10/21 History Allergies Allergy/AdvReac Type Severity Reaction Status Date / Time No Known Allergies Allergy Verified 06/10/21 07:24 Physical Exam Vitals: Vital Signs Temp Pulse Resp BP Pulse Ox 06/10/21 08:26 54 L 06/10/21 07:14 69 06/10/21 07:06 54 L 95 06/10/21 06:43 51 L 22 125/80 95 06/10/21 06:13 94 L 06/10/21 06:08 98.2 F 64 18 142/87 73 L Intake and Output 06/09/21 06/10/21 06/10/21 22:59 06:59 14:59 Other: Weight 73.028 kg Results 06/10/21 06:23 06/10/21 06:23 Cardiac Enzymes 06/10/21 06/10/21 Range/Units 06:23 06:23 AST 48 H (14-36) U/L Troponin I 0.104 H* (0.000-0.034) ng/mL Coagulation 06/10/21 Range/Units 06:23 PT 11.0 (9.0-12.0) sec APTT 22.9 (22.0-30.0) sec CBC 06/10/21 Range/Units 06:23 WBC 7.6 (3.8-10.6) k/uL RBC 4.03 (3.80-5.40) m/uL Hgb 12.1 (11.4-16.0) gm/dL Hct 40.4 (34.0-46.0) % Plt Count 194 (150-450) k/uL Comprehensive Metabolic Panel 06/10/21 Range/Units 06:23 Sodium 139 (137-145) mmol/L Potassium 4.1 (3.5-5.1) mmol/L Chloride 83 L (98-107) mmol/L Carbon Dioxide 51 H* (22-30) mmol/L BUN 40 H (7-17) mg/dL Creatinine 0.77 (0.52-1.04) mg/dL Glucose 139 H (74-99) mg/dL Calcium 9.1 (8.4-10.2) mg/dL AST 48 H (14-36) U/L ALT 42 H (4-34) U/L Alkaline Phosphatase 75 (38-126) U/L Total Protein 7.2 (6.3-8.2) g/dL Albumin 3.6 (3.5-5.0) g/dL Current Medications Generic Name Dose Route Start Last Admin Trade Name Freq PRN Reason Stop Dose Admin Albuterol/Ipratropium 3 ml 06/10/21 08:00 06/10/21 08:25 Ipratropium-Albuterol 3 Ml Neb INHALATION 3 ml RT-QID [facility] Administration Albuterol/Ipratropium 3 ml 06/10/21 06:49 Ipratropium-Albuterol 3 Ml Neb INHALATION RT-Q4H PRN shortness of breath Aspirin 325 mg 06/11/21 09:00 Aspirin 325 Mg Tab PO DAILY [facility] Atorvastatin Calcium 40 mg 06/10/21 21:00 Atorvastatin 40 Mg Tab PO HS [facility] Azithromycin 500 mg 06/11/21 09:00 Azithromycin 500 Mg Tab PO 06/12/21 09:01 DAILY [facility] Protocol Clopidogrel Bisulfate 75 mg 06/10/21 09:00 Clopidogrel 75 Mg Tab PO DAILY [facility] Clotrimazole 1 applic 06/10/21 09:00 Clotrimazole 1% Cream 30 Gm Tube TOPICAL DAILY [facility] Furosemide 40 mg 06/10/21 16:00 Furosemide 10 Mg/Ml 4 Ml Vial IV Q12H [facility] Ceftriaxone Sodium 2 gm/ 50 mls @ 100 mls/hr 06/11/21 09:00 Sodium Chloride IVPB 06/14/21 09:29 Q24HR [facility] Protocol Latanoprost 1 drops 06/10/21 21:00 Latanoprost 0.005% Ophth Drops 2.5 Ml Btl RIGHT EYE HS [facility] Linagliptin 5 mg 06/10/21 21:00 Linagliptin 5 Mg Tablet PO HS [facility] Lisinopril 5 mg 06/10/21 09:00 Lisinopril 5 Mg Tab PO DAILY [facility] Methylprednisolone Sodium Succinate 60 mg 06/10/21 12:00 Methylprednisolone Sod Succi 125 Mg/2 Ml Vial IV Q6HR [facility] Metoprolol Succinate 25 mg 06/10/21 09:00 Metoprolol Succinate (Er) 25 Mg Tab.Er.24h PO DAILY [facility] Miscellaneous Information 1 each 06/10/21 06:49 Pneumonia Protocol Utilized 1 Each Misc PO ONCE PRN Per Protocol Nitroglycerin 1 inch 06/10/21 09:00 Nitroglycerin Oint 1 Inch/Gm Packet TOPICAL QID [facility] Sertraline HCl 50 mg 06/10/21 09:00 Sertraline 50 Mg Tab PO DAILY [facility] Sodium Chloride 10 ml 06/10/21 09:00 Sodium Chloride 0.9% Flush 10 Ml Syringe IV BID [facility] Spironolactone 25 mg 06/10/21 09:00 Spironolactone 25 Mg Tab PO DAILY [facility] Intake and Output 06/09/21 06/10/21 06/10/21 22:59 06:59 14:59 Other: Weight 73.028 kg 06/10/21 06:23 06/10/21 06:23
--- NOTE | 2021-06-10 14:12 | P.HPIM ---
History of Present Illness H&P Date: 06/10/21 Chief Complaint: SOB Patient is a 76-year-old female with a known history of coronary artery disease and stent placement in February 2021, COPD on home oxygen, peripheral vascular disease, ischemic cardiomyopathy ejection fraction 35%, presents to ER with complaints of worsening shortness of breath and leg swelling for the past 2 days. She does have cough with whitish sputum production. No complaints of fever or chills. No nausea vomiting. No chest pain. Chest x-ray showed there is a combination of large pleural effusion with left- sided pulmonary consolidation and mild atelectasis which is new compared to old exam. Small right pleural effusion. Congestive heart failure is possible. EKG showed sinus bradycardia WBC 7.6 hemoglobin 12.1 and Laboratory data showed platelets 194 Sodium 139 potassium 4.1 chloride 83 bicarb is 51 BUN 14 creatinine 0.7 troponin 0.104 andAlbumin 3.6 Pro BNP Review of Systems Constitutional: Patient denies any fever or chills . No generalized weakness or weight loss. Abdomen: Patient denied nausea vomiting and diarrhea and abdominal pain. Cardiovascular: Patient denies any chest pain. Does have short of breath no palpitations. Does have leg swelling. Respiratory: patient denied any cough is from production. Positive shortness of breath Neurologic: Patient denied any numbness or tingling headache. Musculoskeletal: Patient denies any complaints of joint swelling or deformity. Skin: Negative Psychiatric: Negative Endocrine: No heat or cold intolerance. No recent weight gain. Genitourinary: No dysuria or hematuria. All other 14 point ROS negative except the above Past Medical History Past Medical History: Chest Pain / Angina, Heart Failure, COPD, Diabetes Mellitus, Deep Vein Thrombosis (DVT), Hyperlipidemia, Hypertension, Myocardial Infarction ([place]), Osteoarthritis (OA), Thyroid Disorder Additional Past Medical History / Comment(s): ARTHRITIS WITH BACK PAIN. GLAUCOMA , DVT RIGHT LEG Last Myocardial Infarction Date:: 2000 POSSIBLE DATE History of Any Multi-Drug Resistant Organisms: None Reported Past Surgical History: Appendectomy, Heart Catheterization, Orthopedic Surgery, Tubal Ligation Additional Past Surgical History / Comment(s): LEFT WRIST SURGERY; right knee-ARTHROSCOPIC, Past Anesthesia/Blood Transfusion Reactions: No Reported Reaction Date of Last Stent Placement:: 03/13/21 Past Psychological History: No Psychological Hx Reported Smoking Status: Former smoker Past Alcohol Use History: None Reported Past Drug Use History: None Reported - Past Family History Mother Family Medical History: Cancer, Coronary Artery Disease (CAD) Additional Family Medical History / Comment(s): from LUNG CANCER Father Family Medical History: CVA/TIA Additional Family Medical History / Comment(s): from CVA Medications and Allergies Home Medications Medication Instructions Recorded Confirmed Type sitaGLIPtin PHOSPHATE [Januvia] 100 mg PO HS 07/30/17 06/10/21 History Cholecalciferol [Vitamin D3 (25 25 mcg PO HS 01/28/21 06/10/21 History Mcg = 1000 Iu)] Albuterol Inhaler [Ventolin Hfa 2 puff INHALATION RT-QID PRN #8 gm 02/04/21 06/10/21 Rx Inhaler] Atorvastatin [Lipitor] 40 mg PO HS #30 tab 02/04/21 06/10/21 Rx Clopidogrel [Plavix] 75 mg PO DAILY #30 tab 02/04/21 06/10/21 Rx Metoprolol Succinate (ER) [Toprol 25 mg PO DAILY #30 tablet 02/04/21 06/10/21 Rx XL] lisinopriL [Zestril] 5 mg PO DAILY #30 tab 02/04/21 06/10/21 Rx Latanoprost [Xalatan 0.005%] 1 drop RIGHT EYE HS 03/11/21 06/10/21 History Aspirin EC [Ecotrin Low Dose] 81 mg PO DAILY 06/10/21 06/10/21 History Furosemide [Lasix] 40 mg PO BID@0900,1600 06/10/21 06/10/21 History Ketoconazole 2% Cream [Nizoral 2%] 1 applic TOPICAL DAILY 06/10/21 06/10/21 History Sertraline [Zoloft] 50 mg PO HS 06/10/21 06/10/21 History Spironolactone [Aldactone] 25 mg PO DAILY 06/10/21 06/10/21 History Allergies Allergy/AdvReac Type Severity Reaction Status Date / Time No Known Allergies Allergy Verified 06/10/21 07:24 Physical Exam Vitals: Vital Signs Temp Pulse Resp BP Pulse Ox 06/10/21 13:19 65 16 06/10/21 13:08 63 16 06/10/21 09:40 70 20 122/73 97 06/10/21 08:39 68 18 120/78 98 06/10/21 08:37 58 L 06/10/21 08:26 54 L 06/10/21 07:14 69 06/10/21 07:06 54 L 95 06/10/21 06:43 51 L 22 125/80 95 06/10/21 06:13 94 L 06/10/21 06:08 98.2 F 64 18 142/87 73 L Intake and Output 06/09/21 06/10/21 06/10/21 22:59 06:59 14:59 Other: Weight 73.028 kg 73.028 kg PHYSICAL EXAMINATION: Patient is lying in the bed comfortably, no acute distress, awake alert and oriented.. HEENT: Normocephalic. Neck is supple. Pupils reactive. Nostrils clear. Oral cavity is moist. Neck reveals no JVD, carotid bruits, or thyromegaly. CHEST EXAMINATION: Trachea is central. Symmetrical expansion. Left-sided basilar diminished sounds.. Mild expiratory wheezing. Nonlabored breathing. CARDIAC: Normal S1, S2 with no gallops. No murmurs ABDOMEN: Soft. Bowel sounds normal. No organomegaly. No abdominal bruits. Extremities: 2+ bilateral pedal edema. No clubbing or cyanosis Neurologically awake, alert, oriented x3 with well-coordinated movements. No focal deficits noted Skin: No rash or skin lesions. Psychiatric: Coperative. Nonsuicidal Musculoskeletal: No joint swelling or deformity. Normal range of motion. Results CBC & Chem 7: 06/10/21 06:23 06/10/21 06:23 Labs: Abnormal Lab Results - Last 24 Hours (Table) 06/10/21 06/10/21 06/10/21 Range/Units 06:23 06:23 06:23 MCV 100.2 H (80.0-100.0) fL MCHC 29.8 L (31.0-37.0) g/dL Lymphocytes # 0.6 L (1.0-4.8) k/uL Chloride 83 L (98-107) mmol/L Carbon Dioxide 51 H* (22-30) mmol/L BUN 40 H (7-17) mg/dL Glucose 139 H (74-99) mg/dL POC Glucose (mg/dL) (75-99) mg/dL AST 48 H (14-36) U/L ALT 42 H (4-34) U/L Troponin I 0.104 H* (0.000-0.034) ng/mL 06/10/21 06/10/21 Range/Units 11:06 11:35 MCV (80.0-100.0) fL MCHC (31.0-37.0) g/dL Lymphocytes # (1.0-4.8) k/uL Chloride (98-107) mmol/L Carbon Dioxide (22-30) mmol/L BUN (7-17) mg/dL Glucose (74-99) mg/dL POC Glucose (mg/dL) 185 H (75-99) mg/dL AST (14-36) U/L ALT (4-34) U/L Troponin I 0.085 H* (0.000-0.034) ng/mL Thrombosis Risk Factor Assmnt - DVT/VTE Prophylaxis DVT/VTE Prophylaxis: Pharmacologic Prophylaxis ordered - Choose All That Apply Any of the Below Risk Factors Present?: Yes Each Factor Represents 1 point: Abnormal pulmonary function (COPD), Heart fa ilure (<1month), Swollen legs (current) Other Risk Factors: Yes Each Risk Factor Represents 3 Points: Age 75 years or older, History of DVT/PE Other congenital or acquired thrombophilia - If yes, enter type in comment: No Thrombosis Risk Factor Assessment Total Risk Factor Score: 9 Thrombosis Risk Factor Assessment Level: High Risk Assessment and Plan Assessment: Acute on chronic CHF with systolic dysfunction ejection fraction 30%. Large left pleural effusion and right small pleural effusion. Left-sided pneumonia Acute COPD exacerbation Coronary artery disease with history of stent placement in February 2021 Severe coronary artery disease involving RCA and circumflex, deemed high risk for CABG Ischemic cardiomyopathy ejection fraction 35% Peripheral vascular disease Hypertension Hyperlipidemia Chronic hypoxic respiratory failure on oxygen via nasal cannula at home. Previous history of smoking DVT prophylaxis. Plan: Patient will be continued on IV Lasix 40 mg to 12 and continue with oxygen supplementation. Patient was also started on antibiotics and Solu-Medrol IV and breathing treatments and be continued. Pulmonary is planning for left thoracentesis. Cardiology is on board. Continue with daily weights and strict I&O's. Continue with home medications and follow closely. Prognosis is guarded. Time with Patient: Greater than 30
[2021-06-10 16:46] LABS: Glucose,Whole Blood 236 mg/dL (75-99)
[2021-06-10] MEDS: FUROSEMIDE 10 MG/ML 4 ML VIAL IV SCH (17:49)
[2021-06-10] MEDS: HEPARIN SODIUM,PORCINE/PF 5,000 UNIT/0.5 ML SYRINGE SQ SCH ×2 (17:50→19:01)
[2021-06-10 19:11] LABS: Glucose,Whole Blood 209 mg/dL (75-99)
[2021-06-10] MEDS: LINAGLIPTIN 5 MG TABLET PO SCH (21:36)
[2021-06-10] MEDS: ATORVASTATIN 40 MG TAB PO SCH (21:36)
[2021-06-10] MEDS: SERTRALINE 50 MG TAB PO SCH (21:36)
[2021-06-10] MEDS: LATANOPROST 0.005% OPHTH DROPS 2.5 ML BTL RIGHT EYE SCH (21:36)
[2021-06-11 05:44] LABS: Glucose,Whole Blood 140 mg/dL (75-99)
[2021-06-11] MEDS: methylPREDNISolone SOD SUCCI 125 MG/2 ML VIAL IV SCH ×4 (06:50→23:30)
[2021-06-11 07:32] LABS: Calcium 9.3 mg/dL (8.4-10.2); Potassium 3.9 mmol/L (3.5-5.1)
[2021-06-11] MEDS: FUROSEMIDE 10 MG/ML 4 ML VIAL IV SCH ×2 (07:48→17:11)
[2021-06-11] MEDS: INSULIN ASPART (NovoLOG) 100 UNIT/ML VIAL SQ SCH ×4 (07:52→21:15)
[2021-06-11] MEDS: CLOTRIMAZOLE 1% CREAM 30 GM TUBE TOPICAL SCH (08:31)
--- NOTE | 2021-06-11 08:31 | XR ---
EXAMINATION TYPE: XR chest 2V DATE OF EXAM: 06/11/2021 COMPARISON: 06/10/2021 TECHNIQUE: PA and lateral views submitted. HISTORY: Abnormal x-ray FINDINGS: There remains complete opacification of the left hemithorax. There does appear to be a lucent level a long the posterior margin of the lateral view. Bilateral pleural effusions, cardiomegaly, atheroscler otic change aorta, diffuse interstitial pattern suspected. Suspect COPD. IMPRESSION: 1. Persistent near complete opacification of the left hemithorax likely representing a combination of airspace disease and pleural effusion. Lateral view shows a lucency posteriorly which may represent a loculated air collection or pneumothorax. 2. Right-sided small effusion correlate for underlying CHF with chronic interstitial lung disease sup erimposed on a background COPD.
[2021-06-11] MEDS: IPRATROPIUM-ALBUTEROL 3 ML NEB INHALATION SCH ×4 (08:51→20:59)
[2021-06-11] MEDS ORDERED: ASPIRIN 325 MG TAB PO SCH (09:00)
[2021-06-11] MEDS ORDERED: ASPIRIN 81 MG PO SCH (09:00)
--- NOTE | 2021-06-11 11:02 | P.PN ---
Subjective Progress Note Date: 06/11/21 Principal diagnosis: Shortness of breath. Pulmonary consult dated 06/10/2021. 76-year-old female who presented to the emergency department on June 10, complaining of shortness of breath and difficulty breathing. She has significant cough. She sees a physician out in [place], [place]. She hadn't been feeling well for a couple of days. She is a heavy smoker, started smoking at the age of 16. She quit January 2021. The patient apparently was in the hospital recently, and had stents placed in her heart. She been using her nebulizer treatments at home. She is on home O2 at 3 L/m, 24/7. The patient also complained of lower extremity edema. Currently, she is on 4 L. Not receiving any IV fluids. White count 7.6, hemoglobin 12.1, hematocrit 40.4, and platelet count 194,000. PT, INR, PTT were normal. Sodium 139, potassium 4.1, chlorides 83, CO2 51, anion gap 5, BUN 40, and creatinine 0.77. Her troponin was 0.104. N-terminal proBNP was 19,500. Testing for virgen virus was negative. Chest x-ray shows near complete opacification of the left hemithorax. Ultrasound of the chest shows a small right-sided pleural effusion, and a small to moderate left-sided pleural effusion, measuring 7.3 cm. Progress note dated 06/11/2021. 76-year-old female seen yesterday in the emergency department. We saw her in consultation for increasing shortness of breath. The patient has significant opacification of the left lung, and moderate sized left-sided pleural effusion. The patient is on the bronchoscopy scheduled today. Currently, she's feeling about the same today as she did yesterday. May be a bit better. The patient's on O2 at 4 L. She uses home oxygen at 3 L, 24/7. Labs today include a sodium 135, potassium 3.9, chlorides 81, CO2 44, a normal anion gap, BUN 32, and creatinine 0.78. Microbiologic studies are currently pending or negative. The chest x-ray continues to show a near complete opacification of the left lung, with a left-sided pleural effusion. Objective - Vital Signs Vital signs: Vital Signs Temp 97.9 F 06/11/21 09:05 Pulse 81 06/11/21 09:05 Resp 20 06/11/21 09:05 BP 128/86 06/11/21 09:05 Pulse Ox 94 L 06/11/21 09:05 Intake & Output 06/10/21 06/11/21 06/11/21 18:59 06:59 18:59 Intake Total 720 Output Total 1000 Balance 720 -1000 Weight 73.028 kg 77.7 kg Intake: Oral 720 Output: Urine 1000 Other: Voiding Method Bedside Commode Bedside Commode - Exam No acute distress, oriented 3. Currently on 4 L nasal cannula. No conversa tional dyspnea or use of accessory muscles noted. HEENT examination is grossly unremarkable. Neck supple. Full range of motion. No adenopathy thyromegaly or neck vein distention. Cardiovascular examination reveals regular rhythm rate. S1-S2 normal. No S3 or S4. No discernible murmur noted. Heart rate 81 bpm. Lungs reveal severely diminished breath sounds at the left side. Rhonchi noted on the right side. No wheezes. No crackles. Saturations 94% on 4 L. Abdomen soft bowel sounds are heard. No masses or tenderness. Extremities are intact. No cyanosis or clubbing. Mild lower extremity edema noted. Skin is without rash or lesion. Neurologic examination is brief but nonfocal. - Labs CBC & Chem 7: 06/10/21 06:23 06/11/21 06:36 Labs: Abnormal Lab Results - Last 24 Hours (Table) 06/10/21 06/10/21 06/10/21 Range/Units 11:06 11:35 14:31 Sodium (137-145) mmol/L Chloride (98-107) mmol/L Carbon Dioxide (22-30) mmol/L BUN (7-17) mg/dL Glucose (74-99) mg/dL POC Glucose (mg/dL) 185 H (75-99) mg/dL Troponin I 0.085 H* 0.083 H* (0.000-0.034) ng/mL 06/10/21 06/10/21 06/11/21 Range/Units 16:38 19:10 05:43 Sodium (137-145) mmol/L Chloride (98-107) mmol/L Carbon Dioxide (22-30) mmol/L BUN (7-17) mg/dL Glucose (74-99) mg/dL POC Glucose (mg/dL) 236 H 209 H 140 H (75-99) mg/dL Troponin I (0.000-0.034) ng/mL 06/11/21 Range/Units 06:36 Sodium 135 L (137-145) mmol/L Chloride 81 L (98-107) mmol/L Carbon Dioxide 44 H* (22-30) mmol/L BUN 32 H (7-17) mg/dL Glucose 161 H (74-99) mg/dL POC Glucose (mg/dL) (75-99) mg/dL Troponin I (0.000-0.034) ng/mL Microbiology - Last 24 Hours (Table) 06/10/21 06:59 Blood Culture - Preliminary Blood No Growth after 24 hours 06/10/21 06:59 Blood Culture - Preliminary Blood No Growth after 24 hours 06/10/21 13:20 Gram Stain - Preliminary Sputum Sputum Culture - Preliminary Assessment and Plan Assessment: Acute hypoxemic respiratory failure secondary to left-sided pneumonia, as well as left-sided pleural effusion. Bronchoscopy, with airway examination, scheduled for 06/11/2021. Acute exacerbation of COPD. History of heavy tobacco use, for at least 60 years. History of diabetes mellitus. History of hyperlipidemia. CAD with previous and recent stent placement. History of hypertension. History of DVT. History of myocardial infarction. Plan: Plan dated 06/10/2021. The patient is seen in the emergency department, room 9. The patient will have an ultrasound of the chest. The ultrasound shows a small right-sided pleural effusion, and a moderate sized left pleural effusion. The patient will probably benefit from thoracentesis, and bronchoscopy. We'll get her on the schedule for that. Additional recommendations and suggestions are forthcoming. We will have to hold her blood thinner. Additional recommendations and suggestions are forthcoming. Prognosis is guarded. Plan dated 06/11/2021. The patient is seen today in room 362. Yesterday, we saw in consultation in the emergency department. She remains on 4 L of oxygen. I held the aspirin. We'll do the bronchoscopy today, and asked for a chest x-ray in the morning. She may benefit from thoracentesis. If that's the case, we would have to hold the Plavix. Additional recommendations and suggestions are forthcoming. Clinically she is about the same or minimally better today than she was yesterday. Additional recommendations and suggestions are forthcoming. Prognosis is guarded. Time with Patient: Less than 30
[2021-06-11 11:46] LABS: Glucose,Whole Blood 116 mg/dL (75-99)
[2021-06-11] MEDS ORDERED: IV FLUID CONTINUATION 900 ML IV ONE (13:16)
[2021-06-11] MEDS ORDERED: KETAMINE 10 MG/ML 20 ML VIAL ONE (13:20)
[2021-06-11] MEDS ORDERED: PROPOFOL 10 MG/ML 20 ML VIAL IV ONE (13:20)
[2021-06-11] MEDS ORDERED: MIDAZOLAM 2 MG/2 ML VIAL ONE (13:20)
[2021-06-11] MEDS ORDERED: fentaNYL (PF) 50 MCG/ML 2 ML AMP ONE (13:20)
[2021-06-11] MEDS ORDERED: LIDOCAINE 2% INJ 20 MG/ML (2 ML VIAL) ONE (13:20)
[2021-06-11] MEDS ORDERED: RX INFO: IV CONTRAST WAS GIVEN 1 EACH MISC MISCELLANE PRN (13:53)
--- NOTE | 2021-06-11 14:36 | PCN ---
PROCEDURE NOTE PULMONARY/CRITICAL CARE PROCEDURE NOTE: PROCEDURE: Bronchoscopy, airway examination, therapeutic lavage, pool washings, left lung. PREOPERATIVE DIAGNOSIS: Left lung collapse. POSTOPERATIVE DIAGNOSIS: Left lung collapse. OPERATORS: 1. Dr. Pacheco. 2. Dr. Beauchamp. 3. Dr. Rodriguez. DESCRIPTION OF PROCEDURE: There was informed consent and universal timeout. Anesthesia provided general anesthesia. The patient's procedure was to place in room #1 [facility]. After the patient was adequately sedated and being fully monitored, the bronchoscope was inserted through the right nostril. It passed through the right nasopharynx into the oropharynx. The hypopharynx was identified and topicalized. The structures appeared normal, including anterior commissure, true cords, false cords, arytenoids, piriform sinuses, right and left valleculae and epiglottis. The glottic opening was topicalized. The bronchoscope was pushed through the glottic opening into the trachea. There were some secretions noted in the trachea. Tracheal avtar was sharp. There were secretions noted to be saddling over the tracheal avtar. The right side was evaluated first. The right upper lobe and its 3 segments, the right middle lobe and its 2 segments and the right lower lobe and its 5 segments were all found to be relatively normal once secretions were removed. There were thick secretions noted throughout the right lung, but they were suctioned relatively easily. On the left side, there was a greater quantity of secretions. They were more difficult to suction. The mucosa was erythematous and hyperemic. There was some mucosal friability and the mucosa bled easily. There was some vascular prominence. There was no distinct mass or tumor, although quite honestly, once the patient started having some mucosal bleeding it was difficult to really truly evaluate the airways. At this point, because the patient was desaturating, we went ahead and just did pool washings of the left lung. They will be sent for microbiology and cytology. The patient tolerated the procedure relatively well, although after the procedure the patient was slow to recover from the anesthetic. The patient was maintained on oxygen and will be transferred to phase 1 to be watched more carefully. In addition, we asked that her BiPAP device be moved up to the phase 1 area that she be placed on BiPAP until she fully recovers. There was no immediate complication. The patient tolerated the procedure relatively well save for the low saturations. The fluid will be sent for analysis. MMODL / IJN: [id number] /
[2021-06-11 16:42] LABS: Glucose,Whole Blood 126 mg/dL (75-99)
[2021-06-11] MEDS: HEPARIN SODIUM,PORCINE/PF 5,000 UNIT/0.5 ML SYRINGE SQ SCH ×2 (16:58→23:30)
[2021-06-11] MEDS: SPIRONOLACTONE 25 MG TAB PO SCH (17:10)
[2021-06-11] MEDS: METOPROLOL SUCCINATE (ER) 25 MG TAB.ER.24H PO SCH (17:10)
[2021-06-11] MEDS: lisinopriL 5 MG TAB PO SCH (17:10)
[2021-06-11] MEDS: CLOPIDOGREL 75 MG TAB PO SCH (17:10)
[2021-06-11] MEDS: AZITHROMYCIN 500 MG TAB PO SCH (17:10)
[2021-06-11] MEDS: ATORVASTATIN 40 MG TAB PO SCH (20:25)
[2021-06-11] MEDS: SERTRALINE 50 MG TAB PO SCH (20:25)
[2021-06-11] MEDS: LINAGLIPTIN 5 MG TABLET PO SCH (20:25)
[2021-06-11] MEDS: LATANOPROST 0.005% OPHTH DROPS 2.5 ML BTL RIGHT EYE SCH (20:26)
[2021-06-11 20:46] LABS: Glucose,Whole Blood 208 mg/dL (75-99)
[2021-06-12] MEDS: FUROSEMIDE 10 MG/ML 4 ML VIAL IV SCH ×2 (04:06→15:23)
[2021-06-12 06:09] LABS: Glucose,Whole Blood 122 mg/dL (75-99)
[2021-06-12] MEDS: INSULIN ASPART (NovoLOG) 100 UNIT/ML VIAL SQ SCH ×4 (06:11→21:28)
[2021-06-12] MEDS: methylPREDNISolone SOD SUCCI 125 MG/2 ML VIAL IV SCH ×3 (06:19→17:20)
[2021-06-12 07:15] LABS: Basophils % (A) 0 %; Eosinophils % (A) 0 %; HCT 41.2 % (34.0-46.0); HGB 12.2 gm/dL (11.4-16.0); Hypochromasia Marked; Lymphocytes # (A) 0.3 k/uL (1.0-4.8); Lymphocytes % (A) 3 %; MCH 29.4 pg (25.0-35.0); MCHC 29.5 g/dL (31.0-37.0); MCV 99.6 fL (80.0-100.0); Macrocytosis Slight; Mean Platelet Volume 7.4; Monocytes # (A) 0.4 k/uL (0-1.0); Monocytes % (A) 4 %; Neutrophils # (A) 9.2 k/uL (1.3-7.7); Neutrophils % (A) 93 %; Platelet Count 170 k/uL (150-450); RBC 4.14 m/uL (3.80-5.40); RDW 15.1 % (11.5-15.5); WBC 9.9 k/uL (3.8-10.6)
[2021-06-12 07:41] LABS: Albumin 3.5 g/dL (3.5-5.0); Calcium 8.8 mg/dL (8.4-10.2); Total Bilirubin 0.8 mg/dL (0.2-1.3); Total Protein 6.8 g/dL (6.3-8.2)
[2021-06-12] MEDS: HEPARIN SODIUM,PORCINE/PF 5,000 UNIT/0.5 ML SYRINGE SQ SCH ×2 (09:00→17:19)
[2021-06-12] MEDS: SPIRONOLACTONE 25 MG TAB PO SCH (09:00)
[2021-06-12] MEDS: METOPROLOL SUCCINATE (ER) 25 MG TAB.ER.24H PO SCH (09:00)
[2021-06-12] MEDS: AZITHROMYCIN 500 MG TAB PO SCH (09:00)
[2021-06-12] MEDS: lisinopriL 5 MG TAB PO SCH (09:01)
[2021-06-12] MEDS: CLOTRIMAZOLE 1% CREAM 30 GM TUBE TOPICAL SCH (09:02)
[2021-06-12] MEDS: IPRATROPIUM-ALBUTEROL 3 ML NEB INHALATION SCH ×5 (09:07→19:02)
--- NOTE | 2021-06-12 09:12 | XR ---
EXAMINATION TYPE: XR chest 2V DATE OF EXAM: 06/12/2021 COMPARISON: Chest x-ray 06/11/2021, CT 06/12/2021 HISTORY: Pneumonia TECHNIQUE: Frontal and lateral views of the chest are obtained. FINDINGS: No evident pneumothorax. Near complete opacification of left hemithorax is again noted. Ao rta is dense. Heart is obscured but may be enlarged. Patchy basilar density noted on the right. Inter stitium appears increased. Prominent lung volumes suggest underlying COPD, enlarged pulmonary artery may be due to pulmonary artery hypertension. There are coronary artery calcifications. IMPRESSION: Findings are similar, bilateral pleural effusions left greater than right and associated atelectasis, correlate to exclude pneumonia. Cardiomegaly and coronary artery disease. Difficult to exclude congestive heart failure, interstitial edema in a patient with pre-existing COPD. Additional findings above.
--- NOTE | 2021-06-12 09:19 | CT ---
EXAMINATION TYPE: CT chest w con DATE OF EXAM: 06/12/2021 COMPARISON: CT dated 02/20/2021 HISTORY: Shortness of breath CT DLP: 391.4 mGycm Automated exposure control for dose reduction was used. TECHNIQUE: CT scan of the chest is performed with IV Contrast, patient injected with 100 ml mL of Isovue 300. FINDINGS: LUNGS: Large bilateral pleural effusions associated with complete collapse of the left upper lobe and to a lesser extent left lower lobe. There is apparent partial obstruction of the left upper lobe bro nchus as well as the left lower lobe bronchus. The previously seen spiculated suspicious lesion in th e left lower lobe measuring 15 mm is not appreciated due to the collapse of the left lung. Lung cance r cannot be excluded. Partial collapse of the right lower lobe. Minimal infiltration is seen in the r ight lung, possibly inflammatory/infectious in etiology. Suspected COPD changes. MEDIASTINUM: Severe cardiomegaly. Extensive arterial atherosclerotic calcifications and atheromatous plaques. The pulmonary trunk measures 2.9 cm. Small pericardial effusion. No major or central pulmona ry embolism. Subcentimeter mediastinal lymph nodes. No pathologically enlarged lymph nodes in the [address]. OTHER: Scattered tiny hepatic calcifications. Heterogeneous left adrenal lesion measuring 2.8 cm, kulkarni boptimally assessed by this CT scan. Bilateral body wall subcutaneous edema. Suspected left upper eric e renal cyst, suboptimally assessed. Severe degenerative changes of the lower thoracic and upper lumb ar spine. Osteopenia. IMPRESSION: 1. Severe cardiomegaly with large bilateral pleural effusions and almost complete collapse of the lef t lung as detailed above. Please correlate clinically for congestive heart failure. 2. On retrospect review of the previous CT scan, there is apparent spiculated suspicious lesion in th e left lower lobe, not identified today due to the collapse of the left lung. Recommend follow-up CT or PET scan assessment after resolution of the lung collapse and pleural effusions to rule out neopla stic process. 3. Indeterminate left adrenal lesion which can be assessed by elective dedicated adrenal CT scan. Ot er findings as described above.
--- NOTE | 2021-06-12 11:27 | P.PN ---
Subjective Progress Note Date: 06/12/21 76-year-old female who presented to the emergency department on June 10, complaining of shortness of breath and difficulty breathing. She has significant cough. She sees a physician out in [place], [place]. She hadn't been feeling well for a couple of days. She is a heavy smoker, started smoking at the age of 16. She quit January 2021. The patient apparently was in the hospital recently, and had stents placed in her heart. She been using her nebulizer treatments at home. She is on home O2 at 3 L/m, 24/7. The patient also complained of lower extremity edema. Currently, she is on 4 L. Not receiving any IV fluids. White count 7.6, hemoglobin 12.1, hematocrit 40.4, and platelet count 194,000. PT, INR, PTT were normal. Sodium 139, potassium 4.1, chlorides 83, CO2 51, anion gap 5, BUN 40, and creatinine 0.77. Her troponin was 0.104. N-terminal proBNP was 19,500. Testing for virgen virus was negative. Chest x-ray shows near complete opacification of the left hemithorax. Ultrasound of the chest shows a small right-sided pleural effusion, and a small to moderate left-sided pleural effusion, measuring 7.3 cm. Progress note dated 06/11/2021. 76-year-old female seen yesterday in the emergency department. We saw her in consultation for increasing shortness of breath. The patient has significant opacification of the left lung, and moderate sized left-sided pleural effusion. The patient is on the bronchoscopy scheduled today. Currently, she's feeling about the same today as she did yesterday. May be a bit better. The patient's on O2 at 4 L. She uses home oxygen at 3 L, 24/7. Labs today include a sodium 135, potassium 3.9, chlorides 81, CO2 44, a normal anion gap, BUN 32, and creatinine 0.78. Microbiologic studies are currently pending or negative. The chest x-ray continues to show a near complete opacification of the left lung, with a left-sided pleural effusion. The patient is seen today 06/12/2021 in follow-up on the selective care unit. She is currently sitting up in bed. Awake and alert in no acute distress. She is on 4 L nasal cannula with O2 saturations in the mid 90s. She's been afebrile. CAT scan of the chest reveals severe cardiomegaly with a large bilateral pleural effusions and near complete collapse of the left lung. There is also a spiculated suspicious lesion in the left lower lobe. Indeterminate left adrenal lesion. His x-ray continues to show near complete opacification of left hemithorax. Sputum culture positive for Proteus mirabilis. She did undergo bronchoscopy with BAL yesterday. Cytology pending. White count 9.9. Hemoglobin 12.2. Platelet count 170,000. Sodium 133. Potassium 4.0. Bicarb 46. BUN 38. Creatinine 0.8. Glucose 134. Continue on DuoNeb inhalations, IV Solu-Medrol, IV diuretics. Remains on antibiotics in the form of ceftriaxone. Heparin for DVT prophylaxis. Currently in a -450 ML balance. Objective - Vital Signs Vital signs: Vital Signs Temp 97.0 F L 06/12/21 11:13 Pulse 107 H 06/12/21 11:13 Resp 20 06/12/21 11:13 BP 106/69 06/12/21 11:13 Pulse Ox 96 06/12/21 11:13 Intake & Output 06/11/21 06/12/21 06/12/21 18:59 06:59 18:59 Intake Total 150 Output Total 600 Balance 150 -600 Weight 77.7 kg Intake: IV 100 Intake, IV Titration 50 Amount cefTRIAXone 2 gm In 50 Sodium Chloride 0.9% 50 ml @ 100 mls/hr IVPB Q24HR [facility] Rx#:[id number] Output: Urine 600 Other: Voiding Method External Catheter External Catheter - Exam GENERAL EXAM: Alert, pleasant 76-year-old female patient, on 4 L nasal cannula, comfortable in no apparent distress. HEAD: Normocephalic. EYES: Normal reaction of pupils, equal size. NOSE: Clear with pink turbinates. THROAT: No erythema or exudates. NECK: No masses, no JVD. CHEST: No chest wall deformity. LUNGS: Equal air entry with crackles in bilateral bases left greater than right. Diminished in the left lung. CVS: S1 and S2 normal with no audible murmur, regular rhythm. ABDOMEN: No hepatosplenomegaly, normal bowel sounds, no guarding or rigidity. SPINE: No scoliosis or deformity SKIN: No rashes CENTRAL NERVOUS SYSTEM: No focal deficits, tone is normal in all 4 extremities. EXTREMITIES: There is no peripheral edema. No clubbing, no cyanosis. Peripheral pulses are intact. - Labs CBC & Chem 7: 06/12/21 06:45 06/12/21 06:45 Labs: Abnormal Lab Results - Last 24 Hours (Table) 06/11/21 06/11/21 06/11/21 Range/Units 11:44 16:18 20:43 MCHC (31.0-37.0) g/dL Neutrophils # (1.3-7.7) k/uL Lymphocytes # (1.0-4.8) k/uL Sodium (137-145) mmol/L Chloride (98-107) mmol/L Carbon Dioxide (22-30) mmol/L BUN (7-17) mg/dL Glucose (74-99) mg/dL POC Glucose (mg/dL) 116 H 126 H 208 H (75-99) mg/dL 06/12/21 06/12/21 06/12/21 Range/Units 06:06 06:45 06:45 MCHC 29.5 L (31.0-37.0) g/dL Neutrophils # 9.2 H (1.3-7.7) k/uL Lymphocytes # 0.3 L (1.0-4.8) k/uL Sodium 133 L (137-145) mmol/L Chloride 81 L (98-107) mmol/L Carbon Dioxide 46 H* (22-30) mmol/L BUN 38 H (7-17) mg/dL Glucose 134 H (74-99) mg/dL POC Glucose (mg/dL) 122 H (75-99) mg/dL Microbiology - Last 24 Hours (Table) 06/10/21 06:59 Blood Culture - Preliminary Blood No Growth after 48 hours 06/10/21 06:59 Blood Culture - Preliminary Blood No Growth after 48 hours 06/10/21 13:20 Gram Stain - Final Sputum Sputum Culture - Final Proteus mirabilis Assessment and Plan Assessment: 1 Acute hypoxemic respiratory failure secondary to left-sided pneumonia, as well as left-sided pleural effusion. Bronchoscopy, with airway examination, performed 06/11/2021. Cytology pending 2 Acute exacerbation of COPD. 3 History of heavy tobacco use, for at least 60 years. 4 History of diabetes mellitus. 5 History of hyperlipidemia. 6 CAD with previous and recent stent placement. 7 History of hypertension. 8 History of DVT. 9 History of myocardial infarction. Plan: The patient was seen and evaluated CAT scan of the chest, chest x-ray and labs reviewed We'll plan to hold the Plavix and aspirin Possible thoracentesis on 06/14/2021 Continue bronchodilators, Solu-Medrol, antibiotics Continue diuretics Prognosis is guarded We will continue to follow I have personally seen and examined the patient, performed the documentation and the assessment and plan as written. Number of minutes spent on the visit: 10.
[2021-06-12 12:13] LABS: Glucose,Whole Blood 136 mg/dL (75-99)
[2021-06-12] MEDS: METOPROLOL TARTRATE 25 MG TAB PO SCH (15:23)
[2021-06-12 16:33] LABS: Glucose,Whole Blood 196 mg/dL (75-99)
[2021-06-12 20:41] LABS: Glucose,Whole Blood 210 mg/dL (75-99)
[2021-06-12] MEDS: LATANOPROST 0.005% OPHTH DROPS 2.5 ML BTL RIGHT EYE SCH (21:28)
[2021-06-12] MEDS: ATORVASTATIN 40 MG TAB PO SCH (21:28)
[2021-06-12] MEDS: LINAGLIPTIN 5 MG TABLET PO SCH (21:28)
[2021-06-12] MEDS: SERTRALINE 50 MG TAB PO SCH (21:28)
[2021-06-12 23:13] LABS: Appearance,BF Bloody
--- NOTE | 2021-06-12 23:49 | P.PN ---
Subjective Progress Note Date: 06/11/21 Patient is a 76-year-old female with a known history of coronary artery disease and stent placement in February 2021, COPD on home oxygen, peripheral vascular disease, ischemic cardiomyopathy ejection fraction 35%, presents to ER with complaints of worsening shortness of breath and leg swelling for the past 2 days. She does have cough with whitish sputum production. No complaints of fever or chills. No nausea vomiting. No chest pain. Chest x-ray showed there is a combination of large pleural effusion with left- sided pulmonary consolidation and mild atelectasis which is new compared to old exam. Small right pleural effusion. Congestive heart failure is possible. EKG showed sinus bradycardia WBC 7.6 hemoglobin 12.1 and Laboratory data showed platelets 194 Sodium 139 potassium 4.1 chloride 83 bicarb is 51 BUN 14 creatinine 0.7 troponin 0.104 andAlbumin 3.6 Pro BNP 2021 Patient is awake alert and oriented. States that his breathing is little better today. No complaints of chest pain. Chest x-ray today showed persistent near complete opacification of the left hemithorax likely representing combination of airspace disease and pleural effusion. Possible loculated air collection or pneumothorax. Right-sided small effusion correlate for underlying CHF with chronic interstit ial lung disease superimposed on background of COPD. Pulmonary is planning for bronchoscopy today. Laboratory data showed sodium 135 potassium 3.9 chloride 81 bicarb is 844 BUN 32 and creatinine 0.78 and blood sugar is 161. Patient is being continued IV Solu-Medrol, duo nebs and Lasix 40 mg every 12. Also on antibiotics of ceftriaxone. Current medications reviewed. Objective - Vital Signs Vital signs: Vital Signs Temp 97.5 F L 06/11/21 13:57 Pulse 73 06/11/21 14:13 Resp 22 06/11/21 14:13 BP 133/79 06/11/21 14:13 Pulse Ox 95 06/11/21 14:13 Intake & Output 06/10/21 06/11/21 06/11/21 18:59 06:59 18:59 Intake Total 720 100 Output Total 1000 Balance 720 -1000 100 Weight 73.028 kg 77.7 kg 77.7 kg Intake: IV 100 Oral 720 Output: Urine 1000 Other: Voiding Method Bedside Commode Bedside Commode - Exam PHYSICAL EXAMINATION: Patient is lying in the bed comfortably, no acute distress, awake alert and oriented.. HEENT: Normocephalic. Neck is supple. Pupils reactive. Nostrils clear. Oral cavity is moist. Neck reveals no JVD, carotid bruits, or thyromegaly. CHEST EXAMINATION: Trachea is central. Symmetrical expansion. Left-sided basilar diminished sounds.. expiratory wheezing. Nonlabored breathing. CARDIAC: Normal S1, S2 with no gallops. No murmurs ABDOMEN: Soft. Bowel sounds normal. No organomegaly. No abdominal bruits. Extremities: 2+ bilateral pedal edema. No clubbing or cyanosis Neurologically awake, alert, oriented x3 with well-coordinated movements. No focal deficits noted Skin: No rash or skin lesions. Psychiatric: Coperative. Nonsuicidal Musculoskeletal: No joint swelling or deformity. Normal range of motion. - Labs CBC & Chem 7: 06/12/21 06:45 06/12/21 06:45 Labs: Abnormal Lab Results - Last 24 Hours (Table) 06/10/21 06/10/21 06/10/21 Range/Units 14:31 16:38 19:10 Sodium (137-145) mmol/L Chloride (98-107) mmol/L Carbon Dioxide (22-30) mmol/L BUN (7-17) mg/dL Glucose (74-99) mg/dL POC Glucose (mg/dL) 236 H 209 H (75-99) mg/dL Troponin I 0.083 H* (0.000-0.034) ng/mL 06/11/21 06/11/21 06/11/21 Range/Units 05:43 06:36 11:44 Sodium 135 L (137-145) mmol/L Chloride 81 L (98-107) mmol/L Carbon Dioxide 44 H* (22-30) mmol/L BUN 32 H (7-17) mg/dL Glucose 161 H (74-99) mg/dL POC Glucose (mg/dL) 140 H 116 H (75-99) mg/dL Troponin I (0.000-0.034) ng/mL Microbiology - Last 24 Hours (Table) 06/10/21 13:20 Gram Stain - Preliminary Sputum Sputum Culture - Preliminary Gram Neg Bacilli 06/10/21 06:59 Blood Culture - Preliminary Blood No Growth after 24 hours 06/10/21 06:59 Blood Culture - Preliminary Blood No Growth after 24 hours Assessment and Plan Assessment: Acute on chronic CHF with systolic dysfunction ejection fraction 30%. Large left pleural effusion With complete opacification.and right small pleural effusion. Left-sided pneumonia Acute COPD exacerbation Coronary artery disease with history of stent placement in February 2021 Severe coronary artery disease involving RCA and circumflex, deemed high risk for CABG Ischemic cardiomyopathy ejection fraction 35% Peripheral vascular disease Hypertension Hyperlipidemia Chronic hypoxic respiratory failure on oxygen via nasal cannula at home. Previous history of smoking DVT prophylaxis. Plan: Patient will be continued on IV Lasix 40 mg to 12 and continue with oxygen supplementation. Patient was also started on antibiotics and Solu-Medrol IV and breathing treatments and be continued. Patient is scheduled for bronchoscopy today due to left lung complete opacification.. Cardiology and pulmonary is on board. Continue with daily weights and strict I&O's. Continue with home medications and follow closely. Prognosis is guarded. Time with Patient: Greater than 30
--- NOTE | 2021-06-12 23:53 | P.PN ---
Subjective Progress Note Date: 06/12/21 Patient is a 76-year-old female with a known history of coronary artery disease and stent placement in February 2021, COPD on home oxygen, peripheral vascular disease, ischemic cardiomyopathy ejection fraction 35%, presents to ER with complaints of worsening shortness of breath and leg swelling for the past 2 days. She does have cough with whitish sputum production. No complaints of fever or chills. No nausea vomiting. No chest pain. Chest x-ray showed there is a combination of large pleural effusion with left- sided pulmonary consolidation and mild atelectasis which is new compared to old exam. Small right pleural effusion. Congestive heart failure is possible. EKG showed sinus bradycardia WBC 7.6 hemoglobin 12.1 and Laboratory data showed platelets 194 Sodium 139 potassium 4.1 chloride 83 bicarb is 51 BUN 14 creatinine 0.7 troponin 0.104 andAlbumin 3.6 Pro BNP 2021 Patient is awake alert and oriented. States that his breathing is little better today. No complaints of chest pain. Chest x-ray today showed persistent near complete opacification of the left hemithorax likely representing combination of airspace disease and pleural effusion. Possible loculated air collection or pneumothorax. Right-sided small effusion correlate for underlying CHF with chronic interstit ial lung disease superimposed on background of COPD. Pulmonary is planning for bronchoscopy today. Laboratory data showed sodium 135 potassium 3.9 chloride 81 bicarb is 844 BUN 32 and creatinine 0.78 and blood sugar is 161. Patient is being continued IV Solu-Medrol, duo nebs and Lasix 40 mg every 12. Also on antibiotics of ceftriaxone. 06/12/2021 Patient is currently sitting in the chair. Patient states that her breathing is little better today. Requiring oxygen at 4 L via nasal cannula. Patient is status post bronchoscopy and follow-up BAL fluid cultures. Bronchoscopy done on 06/11/2021. CT chest done this morning showed severe cardiomegaly with large bilateral pleural effusions and almost complete collapse of the left lung as detailed. On retrospective review of the previous CT scan there is an apparent spiculated suspicious lesion in the left lower lobe not identified today due to collapse of the left lung. Recommend CT or PET scan. Intermediate left adrenal lesion.. Current medications reviewed. Objective - Vital Signs Vital signs: Vital Signs Temp 97.8 F 06/12/21 21:26 Pulse 86 06/12/21 21:26 Resp 20 06/12/21 16:00 BP 98/53 06/12/21 21:26 Pulse Ox 98 06/12/21 21:26 Intake & Output 06/12/21 06/12/21 06/13/21 06:59 18:59 06:59 Intake Total 718 Output Total 600 750 Balance -600 -32 Intake: Oral 718 Output: Urine 600 750 Other: Voiding Method External Catheter External Catheter - Exam PHYSICAL EXAMINATION: Patient is lying in the bed comfortably, no acute distress, awake alert and oriented.. HEENT: Normocephalic. Neck is supple. Pupils reactive. Nostrils clear. Oral cavity is moist. Neck reveals no JVD, carotid bruits, or thyromegaly. CHEST EXAMINATION: Trachea is central. Symmetrical expansion. Left-sided basilar diminished sounds.. expiratory wheezing. Nonlabored breathing. CARDIAC: Normal S1, S2 with no gallops. No murmurs ABDOMEN: Soft. Bowel sounds normal. No organomegaly. No abdominal bruits. Extremities: 2+ bilateral pedal edema. No clubbing or cyanosis Neurologically awake, alert, oriented x3 with well-coordinated movements. No focal deficits noted Skin: No rash or skin lesions. Psychiatric: Coperative. Nonsuicidal Musculoskeletal: No joint swelling or deformity. Normal range of motion. - Labs CBC & Chem 7: 06/12/21 06:45 06/12/21 06:45 Labs: Abnormal Lab Results - Last 24 Hours (Table) 06/12/21 06/12/21 06/12/21 Range/Units 06:06 06:45 06:45 MCHC 29.5 L (31.0-37.0) g/dL Neutrophils # 9.2 H (1.3-7.7) k/uL Lymphocytes # 0.3 L (1.0-4.8) k/uL Sodium 133 L (137-145) mmol/L Chloride 81 L (98-107) mmol/L Carbon Dioxide 46 H* (22-30) mmol/L BUN 38 H (7-17) mg/dL Glucose 134 H (74-99) mg/dL POC Glucose (mg/dL) 122 H (75-99) mg/dL 06/12/21 06/12/21 06/12/21 Range/Units 11:55 16:18 20:35 MCHC (31.0-37.0) g/dL Neutrophils # (1.3-7.7) k/uL Lymphocytes # (1.0-4.8) k/uL Sodium (137-145) mmol/L Chloride (98-107) mmol/L Carbon Dioxide (22-30) mmol/L BUN (7-17) mg/dL Glucose (74-99) mg/dL POC Glucose (mg/dL) 136 H 196 H 210 H (75-99) mg/dL Microbiology - Last 24 Hours (Table) 06/11/21 13:30 Fungal Culture - Preliminary Bronchial Washings - Left 06/11/21 13:30 Acid Fast Bacilli Culture - Preliminary Bronchial Washings - Left 06/11/21 13:30 Bronchial Washings Culture - Preliminary Bronchial Washings - Left 06/10/21 06:59 Blood Culture - Preliminary Blood No Growth after 48 hours 06/10/21 06:59 Blood Culture - Preliminary Blood No Growth after 48 hours 06/10/21 13:20 Gram Stain - Final Sputum Sputum Culture - Final Proteus mirabilis Assessment and Plan Assessment: Left lower lobe spiculated lesion. Large left pleural effusion With complete opacification.and right small pleural effusion.s./p bronchoscopy on 06/11 Left-sided pneumonia Acute COPD exacerbation Acute on chronic CHF with systolic dysfunction ejection fraction 30%. Coronary artery disease with history of stent placement in February 2021 Severe coronary artery disease involving RCA and circumflex, deemed high risk for CABG Ischemic cardiomyopathy ejection fraction 35% Peripheral vascular disease Hypertension Hyperlipidemia Chronic hypoxic respiratory failure on oxygen via nasal cannula at home. Previous history of smoking DVT prophylaxis. Plan: Patient will be continued on IV Lasix 40 mg to 12 and continue with oxygen supplementation. Patient was also started on antibiotics and Solu-Medrol IV and breathing treatments and be continued. Patient is s./p bronchoscopy on 06/11 due to left lung complete opacification.. Follow-up BAL culture. Pulmonary is also planning for thoracentesis. Cardiology and pulmonary is on board. Continue with daily weights and strict I&O's. Continue with home medications and follow closely. Prognosis is guarded. Time with Patient: Greater than 30
[2021-06-13] MEDS: methylPREDNISolone SOD SUCCI 125 MG/2 ML VIAL IV SCH ×4 (00:32→18:08)
[2021-06-13] MEDS: HEPARIN SODIUM,PORCINE/PF 5,000 UNIT/0.5 ML SYRINGE SQ SCH ×3 (00:32→15:54)
[2021-06-13] MEDS: FUROSEMIDE 10 MG/ML 4 ML VIAL IV SCH ×2 (04:44→16:27)
[2021-06-13 05:06] LABS: Glucose,Whole Blood 134 mg/dL (75-99)
[2021-06-13] MEDS: INSULIN ASPART (NovoLOG) 100 UNIT/ML VIAL SQ SCH ×4 (06:02→20:53)
[2021-06-13] MEDS: IPRATROPIUM-ALBUTEROL 3 ML NEB INHALATION SCH ×4 (07:08→19:41)
[2021-06-13] MEDS: SPIRONOLACTONE 25 MG TAB PO SCH (08:02)
[2021-06-13] MEDS: METOPROLOL TARTRATE 25 MG TAB PO SCH ×2 (08:02→20:54)
[2021-06-13] MEDS: CLOTRIMAZOLE 1% CREAM 30 GM TUBE TOPICAL SCH (08:02)
[2021-06-13] MEDS: lisinopriL 5 MG TAB PO SCH (08:02)
--- NOTE | 2021-06-13 11:11 | P.PN ---
Subjective Progress Note Date: 06/13/21 Principal diagnosis: Shortness of breath. Pulmonary consult dated 06/10/2021. 76-year-old female who presented to the emergency department on June 10, complaining of shortness of breath and difficulty breathing. She has significant cough. She sees a physician out in [place], [place]. She hadn't been feeling well for a couple of days. She is a heavy smoker, started smoking at the age of 16. She quit January 2021. The patient apparently was in the hospital recently, and had stents placed in her heart. She been using her nebulizer treatments at home. She is on home O2 at 3 L/m, 24/7. The patient also complained of lower extremity edema. Currently, she is on 4 L. Not receiving any IV fluids. White count 7.6, hemoglobin 12.1, hematocrit 40.4, and platelet count 194,000. PT, INR, PTT were normal. Sodium 139, potassium 4.1, chlorides 83, CO2 51, anion gap 5, BUN 40, and creatinine 0.77. Her troponin was 0.104. N-terminal proBNP was 19,500. Testing for virgen virus was negative. Chest x-ray shows near complete opacification of the left hemithorax. Ultrasound of the chest shows a small right-sided pleural effusion, and a small to moderate left-sided pleural effusion, measuring 7.3 cm. Progress note dated 06/11/2021. 76-year-old female seen yesterday in the emergency department. We saw her in consultation for increasing shortness of breath. The patient has significant opacification of the left lung, and moderate sized left-sided pleural effusion. The patient is on the bronchoscopy scheduled today. Currently, she's feeling about the same today as she did yesterday. May be a bit better. The patient's on O2 at 4 L. She uses home oxygen at 3 L, 24/7. Labs today include a sodium 135, potassium 3.9, chlorides 81, CO2 44, a normal anion gap, BUN 32, and creatinine 0.78. Microbiologic studies are currently pending or negative. The chest x-ray continues to show a near complete opacification of the left lung, with a left-sided pleural effusion. Progress note dated 06/13/2021. 76-year-old female seen a couple days ago in consultation. She came into the hospital with significant opacification of the left lung. She also had a m oderate sized left-sided pleural effusion. The patient had bronchoscopy on June 11, and we primarily remove secretions from her lungs, more left-sided than right-sided. The plan is to do a left-sided thoracentesis tomorrow. Her aspirin and Plavix is currently on hold. There are no new labs today. Sputum sampling from June 10 did show evidence of Proteus mirabilis. Cytology from the bronchoscopy is currently pending. Computed tomography scan and chest x-ray from June 12 was reviewed. The patient is currently on ceftriaxone, and the Proteus, is sensitive to it. Objective - Vital Signs Vital signs: Vital Signs Temp 97.9 F 06/13/21 08:11 Pulse 61 06/13/21 08:11 Resp 18 06/13/21 08:11 BP 109/70 06/13/21 08:11 Pulse Ox 93 L 06/13/21 08:11 Intake & Output 06/12/21 06/13/21 06/13/21 18:59 06:59 18:59 Intake Total 718 400 220 Output Total 750 750 800 Balance -32 -350 -580 Weight 77.5 kg Intake: Oral 718 400 220 Output: Urine 750 750 800 Other: Voiding Method External Catheter External Catheter External Catheter - Exam No acute distress, oriented 3. Currently on 4 L nasal cannula. No convers ational dyspnea or use of accessory muscles noted. HEENT examination is grossly unremarkable. Neck supple. Full range of motion. No adenopathy thyromegaly or neck vein distention. Cardiovascular examination reveals regular rhythm rate. S1-S2 normal. No S3 or S4. No discernible murmur noted. Heart rate 61 bpm. Lungs reveal severely diminished breath sounds at the left side. Rhonchi noted on the right side. No wheezes. No crackles. Saturations 93% on 4 L. Abdomen soft bowel sounds are heard. No masses or tenderness. Extremities are intact. No cyanosis or clubbing. Mild lower extremity edema noted. Skin is without rash or lesion. Neurologic examination is brief but nonfocal. - Labs CBC & Chem 7: 06/12/21 06:45 06/12/21 06:45 Labs: Abnormal Lab Results - Last 24 Hours (Table) 06/12/21 06/12/21 06/12/21 Range/Units 11:55 16:18 20:35 POC Glucose (mg/dL) 136 H 196 H 210 H (75-99) mg/dL 06/13/21 Range/Units 04:44 POC Glucose (mg/dL) 134 H (75-99) mg/dL Microbiology - Last 24 Hours (Table) 06/10/21 13:20 Gram Stain - Final Sputum Sputum Culture - Final Proteus mirabilis 06/10/21 06:59 Blood Culture - Preliminary Blood No Growth after 72 hours 06/10/21 06:59 Blood Culture - Preliminary Blood No Growth after 72 hours 06/11/21 13:30 Gram Stain - Preliminary Bronchial Washings - Left Bronchial Washings Culture - Preliminary 06/11/21 13:30 Fungal Culture - Preliminary Bronchial Washings - Left 06/11/21 13:30 Acid Fast Bacilli Culture - Preliminary Bronchial Washings - Left Assessment and Plan Assessment: Acute hypoxemic respiratory failure secondary to left-sided pneumonia, as well as left-sided pleural effusion. Sputum positive for Proteus mirabilis, and the patient remains on ceftriaxone. Bronchoscopy, with airway examination, scheduled for 06/11/2021. Acute exacerbation of COPD. History of heavy tobacco use, for at least 60 years. History of diabetes mellitus. History of hyperlipidemia. CAD with previous and recent stent placement. History of hypertension. History of DVT. History of myocardial infarction. Plan: Plan dated 06/10/2021. The patient is seen in the emergency department, room 9. The patient will have an ultrasound of the chest. The ultrasound shows a small right-sided pleural effusion, and a moderate sized left pleural effusion. The patient will probably benefit from thoracentesis, and bronchoscopy. We'll get her on the schedule for that. Additional recommendations and suggestions are forthcoming. We will have to hold her blood thinner. Additional recommendations and suggestions are forthcoming. Prognosis is guarded. Plan dated 06/11/2021. The patient is seen today in room 362. Yesterday, we saw in consultation in the emergency department. She remains on 4 L of oxygen. I held the aspirin. We'll do the bronchoscopy today, and asked for a chest x-ray in the morning. She may benefit from thoracentesis. If that's the case, we would have to hold the Plavix. Additional recommendations and suggestions are forthcoming. Clinically she is about the same or minimally better today than she was yesterday. Additional recommendations and suggestions are forthcoming. Prognosis is guarded. Plan dated 06/13/2021. The patient's sputum was positive for Proteus. The patient is currently on Rocephin, which is effective against this bacteria. The plan is to do a thoracentesis tomorrow. She remains on 4 L nasal cannula. Aspirin and Plavix are currently on hold. The patient appears to be relatively comfortable. She d oes not appear to be short of breath. We did explain to her that we are planning to do a thoracentesis tomorrow. She does agree. Time with Patient: Less than 30
[2021-06-13 11:47] LABS: Glucose,Whole Blood 121 mg/dL (75-99)
[2021-06-13 12:19] LABS: Calcium 8.8 mg/dL (8.4-10.2)
--- NOTE | 2021-06-13 13:50 | P.PN ---
Subjective Progress Note Date: 06/13/21 HISTORY OF PRESENT ILLNESS: This is a 76 year old female with a past medical history significant for coronary artery disease with previous PCI, COPD with home O2, former nicotine de pendence, peripheral arterial disease, ischemic cardiomyopathy, hypertension, and hyperlipidemia. Patient follows in the office with Dr. Melton. We have been asked to see the patient in consultation for CHF. Patient examined at the bedside. Patient presented to the hospital with a chief complaint of shortness of breath. Patient states that she has been feeling short of breath for the past couple days but it got worse yesterday. She reports a nonproductive cough. She reports that she is feeling short of breath at rest and also with exertion. She denies any chest pain or pressure. The patient was found to be in congestive heart failure was started on IV Lasix in the emergency room. * EKG reveals sinus mechanism with no signs of acute ischemia * Chest xray there is a combination of large pleural effusion with left-sided pulmonary consolidation and mild atelectasis which is new compared to old exam. Small right pleural effusion. Congestive heart failure is possible. * Laboratory data: * Current home cardiac medications include aspirin 81 mg daily, Lipitor 40 mg daily, Plavix 75 mg daily, lisinopril 5 mg daily, Aldactone 25 mg daily, Lasix 40 mg twice a day, metoprolol succinate 25 mg daily * Most recent echocardiogram obtained on 05/30/2021 revealed ejection fraction 35%, moderate to severe TR, moderate to severe MR * Cardiac catheterization history: February 2021 with stenting to the mid LAD 06/13/2021 Patient examined this morning at the bedside. Patient denies chest pain or pressure. She denies shortness breath. She remains on IV diuretics. Patient is scheduled for thoracentesis tomorrow. Her aspirin and Plavix are been on hold. The patient went into atrial fibrillation overnight. Her heart rates are controlled. PHYSICAL EXAM: VITAL SIGNS: Reviewed. GENERAL: Well-developed in no acute distress. HEENT: Head is normocephalic. Pupils are equal, round. Sclerae anicteric. Mucous membranes of the mouth are moist. Neck supple. No JVD or thyromegaly LUNGS: Respirations even and unlabored. Lungs diminished, left greater than right, with bilateral rhonchi. HEART: Irregular rate and rhythm. S1 and S2 heard. ABDOMEN: Soft. Nondistended. Nontender. EXTREMITIES: Normal range of motion. No clubbing or cyanosis. Peripheral pulses intact. No lower extremity edema NEUROLOGIC: Awake and alert. Oriented x 3. ASSESSMENT: Shortness of breath Acute on chronic congestive heart failure with reduced ejection fraction Bilateral pleural effusions, Left greater than right Left sided pneumonia Acute COPD exacerbation Coronary artery disease with previous PCI to the LAD, February 2021 and known severe disease involving the RCA and circumflex, deemed too high risk for CABG in the past Hypertension Hyperlipidemia Ischemic cardiomyopathy Peripheral arterial disease Former nicotine dependence New-onset atrial fibrillation PLAN: Continue current cardiac medications Continue IV lasix Monitor kidney function Daily weights Accurate I&O Pulmonary following. She is scheduled for thoracentesis tomorrow. Post thoracentesis will begin patient on Eliquis. She was previously taking asp irin and Plavix which are on hold for her thoracentesis. Post procedure, we will resume Plavix and discontinue aspirin. Further recommendations pending patient's course Nurse practitioner note has been reviewed by physician. Signing provider agrees with the documented findings, assessment, and plan of care. Objective - Vital Signs Vital signs: Vital Signs Temp 97.9 F 06/13/21 08:11 Pulse 78 06/13/21 12:00 Resp 18 06/13/21 12:00 BP 111/81 06/13/21 12:00 Pulse Ox 95 06/13/21 12:00 Intake & Output 06/12/21 06/13/21 06/13/21 18:59 06:59 18:59 Intake Total 718 400 220 Output Total 750 750 800 Balance -32 -350 -580 Weight 77.5 kg Intake: Oral 718 400 220 Output: Urine 750 750 800 Other: Voiding Method External Catheter External Catheter External Catheter - Labs CBC & Chem 7: 06/12/21 06:45 06/13/21 11:53 Labs: Abnormal Lab Results - Last 24 Hours (Table) 06/12/21 06/12/21 06/13/21 Range/Units 16:18 20:35 04:44 Sodium (137-145) mmol/L Chloride (98-107) mmol/L Carbon Dioxide (22-30) mmol/L BUN (7-17) mg/dL Glucose (74-99) mg/dL POC Glucose (mg/dL) 196 H 210 H 134 H (75-99) mg/dL 06/13/21 06/13/21 Range/Units 11:45 11:53 Sodium 129 L (137-145) mmol/L Chloride 78 L (98-107) mmol/L Carbon Dioxide 43 H* (22-30) mmol/L BUN 50 H (7-17) mg/dL Glucose 104 H (74-99) mg/dL POC Glucose (mg/dL) 121 H (75-99) mg/dL Microbiology - Last 24 Hours (Table) 06/10/21 13:20 Gram Stain - Final Sputum Sputum Culture - Final Proteus mirabilis 06/10/21 06:59 Blood Culture - Preliminary Blood No Growth after 72 hours 06/10/21 06:59 Blood Culture - Preliminary Blood No Growth after 72 hours 06/11/21 13:30 Gram Stain - Preliminary Bronchial Washings - Left Bronchial Washings Culture - Preliminary 06/11/21 13:30 Fungal Culture - Preliminary Bronchial Washings - Left 06/11/21 13:30 Acid Fast Bacilli Culture - Preliminary Bronchial Washings - Left
[2021-06-13 14:04] VITALS: BMI 31.2
[2021-06-13 16:11] LABS: Glucose,Whole Blood 235 mg/dL (75-99)
[2021-06-13 19:53] LABS: Glucose,Whole Blood 190 mg/dL (75-99)
[2021-06-13] MEDS ORDERED: ACETAMINOPHEN TAB 325 MG TAB PO PRN (20:09)
[2021-06-13] MEDS: LINAGLIPTIN 5 MG TABLET PO SCH (20:54)
[2021-06-13] MEDS: ATORVASTATIN 40 MG TAB PO SCH (20:55)
[2021-06-13] MEDS: SERTRALINE 50 MG TAB PO SCH (20:55)
[2021-06-13] MEDS: LATANOPROST 0.005% OPHTH DROPS 2.5 ML BTL RIGHT EYE SCH (20:55)
[2021-06-13] MEDS: ACETAMINOPHEN TAB 325 MG TAB PO PRN (21:57)
[2021-06-14] MEDS: HEPARIN SODIUM,PORCINE/PF 5,000 UNIT/0.5 ML SYRINGE SQ SCH ×4 (00:52→23:09)
[2021-06-14] MEDS: methylPREDNISolone SOD SUCCI 125 MG/2 ML VIAL IV SCH ×5 (00:52→23:09)
[2021-06-14] MEDS: FUROSEMIDE 10 MG/ML 4 ML VIAL IV SCH ×2 (04:30→15:59)
[2021-06-14 06:16] LABS: Glucose,Whole Blood 113 mg/dL (75-99)
[2021-06-14] MEDS: INSULIN ASPART (NovoLOG) 100 UNIT/ML VIAL SQ SCH ×5 (06:33→20:45)
[2021-06-14] MEDS: IPRATROPIUM-ALBUTEROL 3 ML NEB INHALATION SCH ×5 (08:01→20:00)
[2021-06-14] MEDS: CLOTRIMAZOLE 1% CREAM 30 GM TUBE TOPICAL SCH (08:47)
[2021-06-14] MEDS: METOPROLOL TARTRATE 25 MG TAB PO SCH ×2 (08:47→20:44)
[2021-06-14] MEDS: lisinopriL 5 MG TAB PO SCH (08:47)
[2021-06-14] MEDS: SPIRONOLACTONE 25 MG TAB PO SCH (08:47)
[2021-06-14 09:39] LABS: Basophils % (A) 0 %; Eosinophils % (A) 0 %; HCT 41.2 % (34.0-46.0); HGB 12.7 gm/dL (11.4-16.0); Hypochromasia Marked; Lymphocytes # (A) 0.2 k/uL (1.0-4.8); Lymphocytes % (A) 3 %; MCH 30.1 pg (25.0-35.0); MCHC 30.9 g/dL (31.0-37.0); MCV 97.2 fL (80.0-100.0); Mean Platelet Volume 7.8; Monocytes # (A) 0.4 k/uL (0-1.0); Monocytes % (A) 6 %; Neutrophils % (A) 90 %; Platelet Count 156 k/uL (150-450); RBC 4.24 m/uL (3.80-5.40); RDW 15.2 % (11.5-15.5); WBC 6.7 k/uL (3.8-10.6)
[2021-06-14 10:07] LABS: Calcium 8.7 mg/dL (8.4-10.2); Potassium 4.8 mmol/L (3.5-5.1)
--- NOTE | 2021-06-14 10:17 | XR ---
EXAMINATION TYPE: XR chest 1V portable DATE OF EXAM: 06/14/2021 COMPARISON: 06/12/2021 HISTORY: Abnormal x-ray. TECHNIQUE: Single frontal view of the chest is obtained. FINDINGS: Complete opacification left hemithorax with abrupt cut off the left mainstem bronchus. Rig ht-sided consolidation and pleural effusion seen and there are diffuse interstitial pattern. Atherosc lerotic change aorta. Diffuse osteopenia arthropathy of the AC joints. Hypertrophic and degenerative changes of the spine. IMPRESSION: 1. Complete opacification of the left hemithorax with abrupt termination the left mainstem bronchus. Endobronchial lesion or mucous plug in the differential diagnosis. Left hemithoracic opacification ma y been the basis of a combination of pleural fluid and consolidation including pneumonia or mass. 2. right-sided consolidation and pleural effusion correlate for underlying venous congestion.
[2021-06-14 11:23] LABS: Glucose,Whole Blood 94 mg/dL (75-99)
--- NOTE | 2021-06-14 12:18 | P.PN ---
Subjective Progress Note Date: 06/14/21 Principal diagnosis: Shortness of breath. Pulmonary consult dated 06/10/2021. 76-year-old female who presented to the emergency department on June 10, complaining of shortness of breath and difficulty breathing. She has significant cough. She sees a physician out in [place], [place]. She hadn't been feeling well for a couple of days. She is a heavy smoker, started smoking at the age of 16. She quit January 2021. The patient apparently was in the hospital recently, and had stents placed in her heart. She been using her nebulizer treatments at home. She is on home O2 at 3 L/m, 24/7. The patient also complained of lower extremity edema. Currently, she is on 4 L. Not receiving any IV fluids. White count 7.6, hemoglobin 12.1, hematocrit 40.4, and platelet count 194,000. PT, INR, PTT were normal. Sodium 139, potassium 4.1, chlorides 83, CO2 51, anion gap 5, BUN 40, and creatinine 0.77. Her troponin was 0.104. N-terminal proBNP was 19,500. Testing for virgen virus was negative. Chest x-ray shows near complete opacification of the left hemithorax. Ultrasound of the chest shows a small right-sided pleural effusion, and a small to moderate left-sided pleural effusion, measuring 7.3 cm. Progress note dated 06/11/2021. 76-year-old female seen yesterday in the emergency department. We saw her in consultation for increasing shortness of breath. The patient has significant opacification of the left lung, and moderate sized left-sided pleural effusion. The patient is on the bronchoscopy scheduled today. Currently, she's feeling about the same today as she did yesterday. May be a bit better. The patient's on O2 at 4 L. She uses home oxygen at 3 L, 24/7. Labs today include a sodium 135, potassium 3.9, chlorides 81, CO2 44, a normal anion gap, BUN 32, and creatinine 0.78. Microbiologic studies are currently pending or negative. The chest x-ray continues to show a near complete opacification of the left lung, with a left-sided pleural effusion. Progress note dated 06/13/2021. 76-year-old female seen a couple days ago in consultation. She came into the hospital with significant opacification of the left lung. She also had a m oderate sized left-sided pleural effusion. The patient had bronchoscopy on June 11, and we primarily remove secretions from her lungs, more left-sided than right-sided. The plan is to do a left-sided thoracentesis tomorrow. Her aspirin and Plavix is currently on hold. There are no new labs today. Sputum sampling from June 10 did show evidence of Proteus mirabilis. Cytology from the bronchoscopy is currently pending. Computed tomography scan and chest x-ray from June 12 was reviewed. The patient is currently on ceftriaxone, and the Proteus, is sensitive to it. Progress note dated 06/14/2021. 76-year-old female, who had a left-sided thoracentesis performed today. 1 L of fluid was removed. The patient had constipation June 11, for removal of significant airway secretions. Most recent chest x-ray continues to show significant opacification of the left lung. The patient is currently on 4 L nasal cannula. Laboratory data includes a white count 6.7, hemoglobin 12.7, and platelet count 156,000. Sodium 127, potassium 4.8, chlorides 75, CO2 49, anion gap 3, BUN 63, and creatinine 1.27. The patient is a DO NOT RESUSCITATE patient. She is profoundly weak and could not even sit up at the bedside on her own for the procedure. The left pleural effusion with left for cytology, chemistry, and microbiology. Washings from the left lung, performed the other day, did not reveal any malignant cells. Objective - Vital Signs Vital signs: Vital Signs Temp 97.7 F 06/14/21 07:50 Pulse 83 06/14/21 07:50 Resp 18 06/14/21 07:50 BP 135/85 06/14/21 07:50 Pulse Ox 96 06/14/21 07:50 Intake & Output 06/13/21 06/14/21 06/14/21 18:59 06:59 18:59 Intake Total 820 120 Output Total 800 Balance 20 120 Weight 77.5 kg 79 kg Intake: Oral 820 120 Output: Urine 800 Other: Voiding Method External Catheter External Catheter - Exam No acute distress, oriented 3. Currently on 4 L nasal cannula. No conversational dyspnea or use of accessory muscles noted. Saturations are 96%. HEENT examination is grossly unremarkable. Neck supple. Full range of motion. No adenopathy thyromegaly or neck vein distention. Cardiovascular examination reveals regular rhythm rate. S1-S2 normal. No S3 or S4. No discernible murmur noted. Heart rate 83 bpm. Heart sounds are distant. Lungs reveal severely diminished breath sounds at the left side. Rhonchi noted on the right side. No wheezes. No crackles. Saturations 96 % on 4 L. Abdomen soft bowel sounds are heard. No masses or tenderness. Extremities are intact. No cyanosis or clubbing. Mild lower extremity edema noted. Skin is without rash or lesion. Neurologic examination is brief but nonfocal. - Labs CBC & Chem 7: 06/14/21 09:06 06/14/21 09:06 Labs: Abnormal Lab Results - Last 24 Hours (Table) 06/13/21 06/13/21 06/13/21 Range/Units 11:53 16:06 19:24 MCHC (31.0-37.0) g/dL Lymphocytes # (1.0-4.8) k/uL Sodium 129 L (137-145) mmol/L Chloride 78 L (98-107) mmol/L Carbon Dioxide 43 H* (22-30) mmol/L BUN 50 H (7-17) mg/dL Creatinine (0.52-1.04) mg/dL Glucose 104 H (74-99) mg/dL POC Glucose (mg/dL) 235 H 190 H (75-99) mg/dL 06/14/21 06/14/21 06/14/21 Range/Units 05:50 09:06 09:06 MCHC 30.9 L (31.0-37.0) g/dL Lymphocytes # 0.2 L (1.0-4.8) k/uL Sodium 127 L (137-145) mmol/L Chloride 75 L (98-107) mmol/L Carbon Dioxide 49 H* (22-30) mmol/L BUN 63 H (7-17) mg/dL Creatinine 1.27 H (0.52-1.04) mg/dL Glucose 100 H (74-99) mg/dL POC Glucose (mg/dL) 113 H (75-99) mg/dL Microbiology - Last 24 Hours (Table) 06/11/21 13:30 Gram Stain - Final Bronchial Washings - Left Bronchial Washings Culture - Final 06/10/21 06:59 Blood Culture - Preliminary Blood No Growth after 96 hours 06/10/21 06:59 Blood Culture - Preliminary Blood No Growth after 96 hours 06/11/21 13:30 Acid Fast Bacilli Smear - Final Bronchial Washings - Left Acid Fast Bacilli Culture - Preliminary 06/10/21 13:20 Gram Stain - Final Sputum Sputum Culture - Final Proteus mirabilis Assessment and Plan Assessment: Acute hypoxemic respiratory failure secondary to left-sided pneumonia, as well as left-sided pleural effusion. Sputum positive for Proteus mirabilis, and the patient remains on ceftriaxone. Bronchoscopy, with airway examination, 06/11/2021. Status post left thoracentesis, 06/14/2021, with 1 L removed. Acute exacerbation of COPD. History of heavy tobacco use, for at least 60 years. History of diabetes mellitus. History of hyperlipidemia. CAD with previous and recent stent placement. History of hypertension. History of DVT. History of myocardial infarction. Plan: Plan dated 06/10/2021. The patient is seen in the emergency department, room 9. The patient will have an ultrasound of the chest. The ultrasound shows a small right-sided pleural effusion, and a moderate sized left pleural effusion. The patient will probably benefit from thoracentesis, and bronchoscopy. We'll get her on the schedule for that. Additional recommendations and suggestions are forthcoming. We will have to hold her blood thinner. Additional recommendations and suggestions are forthcoming. Prognosis is guarded. Plan dated 06/11/2021. The patient is seen today in room 362. Yesterday, we saw in consultation in the emergency department. She remains on 4 L of oxygen. I held the aspirin. We'll do the bronchoscopy today, and asked for a chest x-ray in the morning. She may benefit from thoracentesis. If that's the case, we would have to hold the Plavix. Additional recommendations and suggestions are forthcoming. Clinically she is about the same or minimally better today than she was yesterday. Additional recommendations and suggestions are forthcoming. Prognosis is guarded. Plan dated 06/13/2021. The patient's sputum was positive for Proteus. The patient is currently on Rocephin, which is effective against this bacteria. The plan is to do a thoracentesis tomorrow. She remains on 4 L nasal cannula. Aspirin and Plavix are currently on hold. The patient appears to be relatively comfortable. She does not appear to be short of breath. We did explain to her that we are planning to do a thoracentesis tomorrow. She does agree. Plan dated 06/14/2021. The patient is currently on antibiotics for Proteus, in the patient's sputum. The cytology on the recent bronchoscopy, was negative for malignant cells. Today, she underwent a left-sided thoracentesis, and 1 L of fluid was removed. It will be sent for chemistry, cytology, and microbiology. The patient is profoundly weak. The patient's aspirin and Plavix can be resumed. Additional recommendations and suggestions are forthcoming. Some consideration should be given to palliative care consult, or hospice consultation. Additional recommendations and suggestions are forthcoming. Prognosis is poor. Time with Patient: Less than 30
--- NOTE | 2021-06-14 13:02 | P.PN ---
Subjective Progress Note Date: 06/14/21 HISTORY OF PRESENT ILLNESS: This is a 76 year old female with a past medical history significant for coronary artery disease with previous PCI, COPD with home O2, former nicotine de pendence, peripheral arterial disease, ischemic cardiomyopathy, hypertension, and hyperlipidemia. Patient follows in the office with Dr. Melton. We have been asked to see the patient in consultation for CHF. Patient examined at the bedside. Patient presented to the hospital with a chief complaint of shortness of breath. Patient states that she has been feeling short of breath for the past couple days but it got worse yesterday. She reports a nonproductive cough. She reports that she is feeling short of breath at rest and also with exertion. She denies any chest pain or pressure. The patient was found to be in congestive heart failure was started on IV Lasix in the emergency room. * EKG reveals sinus mechanism with no signs of acute ischemia * Chest xray there is a combination of large pleural effusion with left-sided pulmonary consolidation and mild atelectasis which is new compared to old exam. Small right pleural effusion. Congestive heart failure is possible. * Laboratory data: * Current home cardiac medications include aspirin 81 mg daily, Lipitor 40 mg daily, Plavix 75 mg daily, lisinopril 5 mg daily, Aldactone 25 mg daily, Lasix 40 mg twice a day, metoprolol succinate 25 mg daily * Most recent echocardiogram obtained on 05/30/2021 revealed ejection fraction 35%, moderate to severe TR, moderate to severe MR * Cardiac catheterization history: February 2021 with stenting to the mid LAD 06/13/2021 Patient examined this morning at the bedside. Patient denies chest pain or pressure. She denies shortness breath. She remains on IV diuretics. Patient is scheduled for thoracentesis tomorrow. Her aspirin and Plavix are been on hold. The patient went into atrial fibrillation overnight. Her heart rates are controlled. 06/14/2021 Patient examined this point the bedside. She denies chest pain or pressure. She is scheduled to undergo thoracentesis today. Patient remains in atrial fibrillation with a heart rate around 104. It is noted that when the patient was in sinus rhythm she was bradycardic with a heart rate in the low 50s. PHYSICAL EXAM: VITAL SIGNS: Reviewed. GENERAL: Well-developed in no acute distress. HEENT: Head is normocephalic. Pupils are equal, round. Sclerae anicteric. Mucous membranes of the mouth are moist. Neck supple. No JVD or thyromegaly LUNGS: Respirations even and unlabored. Lungs diminished, left greater than right, with bilateral rhonchi. HEART: Irregular rate and rhythm. S1 and S2 heard. ABDOMEN: Soft. Nondistended. Nontender. EXTREMITIES: Normal range of motion. No clubbing or cyanosis. Peripheral pulses intact. No lower extremity edema NEUROLOGIC: Awake and alert. Oriented x 3. ASSESSMENT: Shortness of breath Acute on chronic congestive heart failure with reduced ejection fraction Bilateral pleural effusions, Left greater than right Left sided pneumonia Acute COPD exacerbation Coronary artery disease with previous PCI to the LAD, February 2021 and known severe disease involving the RCA and circumflex, deemed too high risk for CABG in the past Hypertension Hyperlipidemia Ischemic cardiomyopathy Peripheral arterial disease Former nicotine dependence New-onset atrial fibrillation PLAN: Continue current cardiac medications Continue IV lasix Monitor kidney function Daily weights Accurate I&O Pulmonary following. She is scheduled for thoracentesis today. Post thoracentesis will begin patient on Eliquis. She was previously taking aspirin and Plavix which are on hold for her thoracentesis. Post procedure, we will resume Plavix and discontinue aspirin. Further recommendations pending patient's course Nurse practitioner note has been reviewed by physician. Signing provider agrees with the documented findings, assessment, and plan of care. Objective - Vital Signs Vital signs: Vital Signs Temp 97.5 F L 06/14/21 12:00 Pulse 88 06/14/21 12:00 Resp 18 06/14/21 12:00 BP 102/68 06/14/21 12:00 Pulse Ox 100 06/14/21 12:00 Intake & Output 06/13/21 06/14/21 06/14/21 18:59 06:59 18:59 Intake Total 820 120 Output Total 800 Balance 20 120 Weight 77.5 kg 79 kg Intake: Oral 820 120 Output: Urine 800 Other: Voiding Method External Catheter External Catheter - Labs CBC & Chem 7: 06/14/21 09:06 06/14/21 09:06 Labs: Abnormal Lab Results - Last 24 Hours (Table) 06/13/21 06/13/21 06/14/21 Range/Units 16:06 19:24 05:50 MCHC (31.0-37.0) g/dL Lymphocytes # (1.0-4.8) k/uL Sodium (137-145) mmol/L Chloride (98-107) mmol/L Carbon Dioxide (22-30) mmol/L BUN (7-17) mg/dL Creatinine (0.52-1.04) mg/dL Glucose (74-99) mg/dL POC Glucose (mg/dL) 235 H 190 H 113 H (75-99) mg/dL 06/14/21 06/14/21 Range/Units 09:06 09:06 MCHC 30.9 L (31.0-37.0) g/dL Lymphocytes # 0.2 L (1.0-4.8) k/uL Sodium 127 L (137-145) mmol/L Chloride 75 L (98-107) mmol/L Carbon Dioxide 49 H* (22-30) mmol/L BUN 63 H (7-17) mg/dL Creatinine 1.27 H (0.52-1.04) mg/dL Glucose 100 H (74-99) mg/dL POC Glucose (mg/dL) (75-99) mg/dL Microbiology - Last 24 Hours (Table) 06/11/21 13:30 Gram Stain - Final Bronchial Washings - Left Bronchial Washings Culture - Final 06/10/21 06:59 Blood Culture - Preliminary Blood No Growth after 96 hours 06/10/21 06:59 Blood Culture - Preliminary Blood No Growth after 96 hours 06/11/21 13:30 Acid Fast Bacilli Smear - Final Bronchial Washings - Left Acid Fast Bacilli Culture - Preliminary 06/10/21 13:20 Gram Stain - Final Sputum Sputum Culture - Final Proteus mirabilis
--- NOTE | 2021-06-14 13:08 | PCN ---
PROCEDURE NOTE PULMONARY/CRITICAL CARE PROCEDURE NOTE: Left-sided thoracentesis. PREOPERATIVE DIAGNOSIS: Left pleural effusion. POSTOPERATIVE DIAGNOSIS: Left pleural effusion. OPERATORS: 1. Dr. Pacheco. 2. Dr. Beauchamp. PROCEDURE DESCRIPTION: There was informed consent and universal timeout, verifying correct patient, procedure, site, positioning , and implant (s) or special equipment if applicable. Ultrasound guidance was used to jayme the posterior chest and appropriate fluid pocket was identified and marked. Patient was positioned, prepped and draped in usual sterile fashion. Lidocaine was used to anesthetize the area. A thoracentesis catheter was introduced into the pleural space and roughly one liter of yellow fluid was removed from the left pleural space. Blood loss was none. A repeat chest x-ray will be done to rule out pneumothorax. The fluid will be send for analysis, including cytology, microbiology and chemistry. The patient tolerated the procedure well and there were no additional complications noted. MMODL / IJN: [id number] /
[2021-06-14 16:50] LABS: Glucose,Whole Blood 263 mg/dL (75-99)
[2021-06-14 18:37] LABS: Appearance,BF Hazy
[2021-06-14 20:01] LABS: Glucose,Whole Blood 189 mg/dL (75-99)
[2021-06-14 20:23] LABS: Glucose, BF Source Pleural Fluid; Glucose, Body Fluid 114 mg/dL; LDH, Body Fluid Source Pleural Fluid; T. Protein, Body Fluid Source Pleural Fluid; Total Protein, Body Fluid 1550 mg/dL
[2021-06-14] MEDS: LINAGLIPTIN 5 MG TABLET PO SCH (20:44)
[2021-06-14] MEDS: LATANOPROST 0.005% OPHTH DROPS 2.5 ML BTL RIGHT EYE SCH (20:44)
[2021-06-14] MEDS: ATORVASTATIN 40 MG TAB PO SCH (20:44)
[2021-06-14] MEDS: SERTRALINE 50 MG TAB PO SCH (20:44)
[2021-06-14] MEDS: ACETAMINOPHEN TAB 325 MG TAB PO PRN (23:08)
[2021-06-15] MEDS: FUROSEMIDE 10 MG/ML 4 ML VIAL IV SCH ×2 (05:12→17:38)
[2021-06-15] MEDS: methylPREDNISolone SOD SUCCI 125 MG/2 ML VIAL IV SCH ×4 (05:12→23:29)
[2021-06-15 06:02] LABS: Glucose,Whole Blood 105 mg/dL (75-99)
[2021-06-15] MEDS: INSULIN ASPART (NovoLOG) 100 UNIT/ML VIAL SQ SCH ×7 (06:04→21:09)
[2021-06-15] MEDS: IPRATROPIUM-ALBUTEROL 3 ML NEB INHALATION SCH ×4 (08:20→20:31)
[2021-06-15 08:29] LABS: Basophils % (A) 0 %; Eosinophils % (A) 0 %; HGB 12.7 gm/dL (11.4-16.0); Hypochromasia Marked; Lymphocytes # (A) 0.2 k/uL (1.0-4.8); Lymphocytes % (A) 2 %; MCH 29.2 pg (25.0-35.0); MCHC 30.2 g/dL (31.0-37.0); MCV 96.5 fL (80.0-100.0); Mean Platelet Volume 7.8; Monocytes # (A) 0.2 k/uL (0-1.0); Monocytes % (A) 3 %; Neutrophils % (A) 93 %; Platelet Count 165 k/uL (150-450); RBC 4.35 m/uL (3.80-5.40); WBC 6.4 k/uL (3.8-10.6)
[2021-06-15 08:40] LABS: Calcium 8.7 mg/dL (8.4-10.2); Potassium 4.2 mmol/L (3.5-5.1)
--- NOTE | 2021-06-15 09:34 | P.PN ---
Subjective Progress Note Date: 06/13/21 Patient is a 76-year-old female with a known history of coronary artery disease and stent placement in February 2021, COPD on home oxygen, peripheral vascular disease, ischemic cardiomyopathy ejection fraction 35%, presents to ER with complaints of worsening shortness of breath and leg swelling for the past 2 days. She does have cough with whitish sputum production. No complaints of fever or chills. No nausea vomiting. No chest pain. Chest x-ray showed there is a combination of large pleural effusion with left- sided pulmonary consolidation and mild atelectasis which is new compared to old exam. Small right pleural effusion. Congestive heart failure is possible. EKG showed sinus bradycardia WBC 7.6 hemoglobin 12.1 and Laboratory data showed platelets 194 Sodium 139 potassium 4.1 chloride 83 bicarb is 51 BUN 14 creatinine 0.7 troponin 0.104 andAlbumin 3.6 Pro BNP 2021 Patient is awake alert and oriented. States that his breathing is little better today. No complaints of chest pain. Chest x-ray today showed persistent near complete opacification of the left hemithorax likely representing combination of airspace disease and pleural effusion. Possible loculated air collection or pneumothorax. Right-sided small effusion correlate for underlying CHF with chronic interstit ial lung disease superimposed on background of COPD. Pulmonary is planning for bronchoscopy today. Laboratory data showed sodium 135 potassium 3.9 chloride 81 bicarb is 844 BUN 32 and creatinine 0.78 and blood sugar is 161. Patient is being continued IV Solu-Medrol, duo nebs and Lasix 40 mg every 12. Also on antibiotics of ceftriaxone. 06/12/2021 Patient is currently sitting in the chair. Patient states that her breathing is little better today. Requiring oxygen at 4 L via nasal cannula. Patient is status post bronchoscopy and follow-up BAL fluid cultures. Bronchoscopy done on 06/11/2021. CT chest done this morning showed severe cardiomegaly with large bilateral pleural effusions and almost complete collapse of the left lung as detailed. On retrospective review of the previous CT scan there is an apparent spiculated suspicious lesion in the left lower lobe not identified today due to collapse of the left lung. Recommend CT or PET scan. Intermediate left adrenal lesion.. 06/13/2021 Patient is currently lying in the bed. Patient states that her breathing is slightly better. Patient was found to have left-sided complete opacification and moderate left-sided pleural effusion. Status post bronchoscopy on 06/11/2021. Pulmonary is planning for left thoracentesis tomorrow. Aspirin and Plavix on hold. Sputum culture showed Proteus mirabilis. Patient is on antibiotics in the form of ceftriaxone. Bowel fluid cultures are pending. Laboratory data showed sodium 129 potassium 4.0 chloride 78 bicarb is 43 BUN 15 creatinine 2.90 and blood sugar is 121 Current medications reviewed. Objective - Vital Signs Vital signs: Vital Signs Temp 97.9 F 06/13/21 08:11 Pulse 78 06/13/21 14:00 Resp 18 06/13/21 14:00 BP 111/81 06/13/21 12:00 Pulse Ox 95 06/13/21 12:00 Intake & Output 06/12/21 06/13/21 06/13/21 18:59 06:59 18:59 Intake Total 718 400 460 Output Total 750 750 800 Balance -32 -350 -340 Weight 77.5 kg 77.5 kg Intake: Oral 718 400 460 Output: Urine 750 750 800 Other: Voiding Method External Catheter External Catheter External Catheter - Exam PHYSICAL EXAMINATION: Patient is lying in the bed comfortably, no acute distress, awake alert and oriented.. HEENT: Normocephalic. Neck is supple. Pupils reactive. Nostrils clear. Oral cavity is moist. Neck reveals no JVD, carotid bruits, or thyromegaly. CHEST EXAMINATION: Trachea is central. Symmetrical expansion. Left-sided diminished and coarse sounds.. expiratory wheezing. Nonlabored breathing. CARDIAC: Normal S1, S2 with no gallops. No murmurs ABDOMEN: Soft. Bowel sounds normal. No organomegaly. No abdominal bruits. Extremities: 2+ bilateral pedal edema. No clubbing or cyanosis Neurologically awake, alert, oriented x3 with well-coordinated movements. No focal deficits noted Skin: No rash or skin lesions. Psychiatric: Coperative. Nonsuicidal Musculoskeletal: No joint swelling or deformity. Normal range of motion. - Labs CBC & Chem 7: 06/15/21 08:05 06/15/21 08:05 Labs: Abnormal Lab Results - Last 24 Hours (Table) 06/12/21 06/12/21 06/13/21 Range/Units 16:18 20:35 04:44 Sodium (137-145) mmol/L Chloride (98-107) mmol/L Carbon Dioxide (22-30) mmol/L BUN (7-17) mg/dL Glucose (74-99) mg/dL POC Glucose (mg/dL) 196 H 210 H 134 H (75-99) mg/dL 06/13/21 06/13/21 Range/Units 11:45 11:53 Sodium 129 L (137-145) mmol/L Chloride 78 L (98-107) mmol/L Carbon Dioxide 43 H* (22-30) mmol/L BUN 50 H (7-17) mg/dL Glucose 104 H (74-99) mg/dL POC Glucose (mg/dL) 121 H (75-99) mg/dL Microbiology - Last 24 Hours (Table) 06/10/21 13:20 Gram Stain - Final Sputum Sputum Culture - Final Proteus mirabilis 06/10/21 06:59 Blood Culture - Preliminary Blood No Growth after 72 hours 06/10/21 06:59 Blood Culture - Preliminary Blood No Growth after 72 hours 06/11/21 13:30 Gram Stain - Preliminary Bronchial Washings - Left Bronchial Washings Culture - Preliminary 06/11/21 13:30 Fungal Culture - Preliminary Bronchial Washings - Left 06/11/21 13:30 Acid Fast Bacilli Culture - Preliminary Bronchial Washings - Left Assessment and Plan Assessment: Left lower lobe spiculated lesion. Large left pleural effusion With complete opacification.and right small pleural effusion.s./p bronchoscopy on 06/11 Left-sided pneumonia Acute COPD exacerbation Acute on chronic CHF with systolic dysfunction ejection fraction 30%. Coronary artery disease with history of stent placement in February 2021 Severe coronary artery disease involving RCA and circumflex, deemed high risk for CABG Ischemic cardiomyopathy ejection fraction 35% Peripheral vascular disease Hypertension Hyperlipidemia Chronic hypoxic respiratory failure on oxygen via nasal cannula at home. Previous history of smoking DVT prophylaxis. Plan: Patient will be continued on IV Lasix 40 mg to 12 and continue with oxygen supplementation. Patient was also started on antibiotics and Solu-Medrol IV and breathing tr eatments and be continued. Patient is s./p bronchoscopy on 06/11 due to left lung complete opacification.. Follow-up BAL culture. Pulmonary is also planning for thoracentesis. Cardiology and pulmonary is on board. Continue with daily weights and strict I&O's. Continue with home medications and follow closely. Prognosis is guarded. Time with Patient: Greater than 30
--- NOTE | 2021-06-15 09:38 | P.PN ---
Subjective Progress Note Date: 06/14/21 Patient is a 76-year-old female with a known history of coronary artery disease and stent placement in February 2021, COPD on home oxygen, peripheral vascular disease, ischemic cardiomyopathy ejection fraction 35%, presents to ER with complaints of worsening shortness of breath and leg swelling for the past 2 days. She does have cough with whitish sputum production. No complaints of fever or chills. No nausea vomiting. No chest pain. Chest x-ray showed there is a combination of large pleural effusion with left- sided pulmonary consolidation and mild atelectasis which is new compared to old exam. Small right pleural effusion. Congestive heart failure is possible. EKG showed sinus bradycardia WBC 7.6 hemoglobin 12.1 and Laboratory data showed platelets 194 Sodium 139 potassium 4.1 chloride 83 bicarb is 51 BUN 14 creatinine 0.7 troponin 0.104 andAlbumin 3.6 Pro BNP 2021 Patient is awake alert and oriented. States that his breathing is little better today. No complaints of chest pain. Chest x-ray today showed persistent near complete opacification of the left hemithorax likely representing combination of airspace disease and pleural effusion. Possible loculated air collection or pneumothorax. Right-sided small effusion correlate for underlying CHF with chronic interstit ial lung disease superimposed on background of COPD. Pulmonary is planning for bronchoscopy today. Laboratory data showed sodium 135 potassium 3.9 chloride 81 bicarb is 844 BUN 32 and creatinine 0.78 and blood sugar is 161. Patient is being continued IV Solu-Medrol, duo nebs and Lasix 40 mg every 12. Also on antibiotics of ceftriaxone. 06/12/2021 Patient is currently sitting in the chair. Patient states that her breathing is little better today. Requiring oxygen at 4 L via nasal cannula. Patient is status post bronchoscopy and follow-up BAL fluid cultures. Bronchoscopy done on 06/11/2021. CT chest done this morning showed severe cardiomegaly with large bilateral pleural effusions and almost complete collapse of the left lung as detailed. On retrospective review of the previous CT scan there is an apparent spiculated suspicious lesion in the left lower lobe not identified today due to collapse of the left lung. Recommend CT or PET scan. Intermediate left adrenal lesion.. 06/13/2021 Patient is currently lying in the bed. Patient states that her breathing is slightly better. Patient was found to have left-sided complete opacification and moderate left-sided pleural effusion. Status post bronchoscopy on 06/11/2021. Pulmonary is planning for left thoracentesis tomorrow. Aspirin and Plavix on hold. Sputum culture showed Proteus mirabilis. Patient is on antibiotics in the form of ceftriaxone. Bowel fluid cultures are pending. Laboratory data showed sodium 129 potassium 4.0 chloride 78 bicarb is 43 BUN 15 creatinine 2.90 and blood sugar is 121 06/14/2021 Patient is lying in the bed. Awake alert and oriented 3. Breathing status remains the same. Patient is status post thoracentesis with 1 L fluid removal. Patient is on oxygen with nasal cannula 4 L. No complaints of chest pain.. No fever no chills. Patient remains on antibiotics on ceftriaxone for Proteus mirabilis in the sputum cultures. No complaints of headache or dizziness or lightheadedness. Pleural fluid cultures are negative so far. Fluid cytology is also pending. Laboratory data showed sodium 127 potassium 4.8 chloride 75 bicarb is 49 BUN 63 and creatinine 1.27 WBC 6.7 hemoglobin 12.7 and platelets 156 and calcium 8.7. Pulmonary and cardiology is on board. Current medications reviewed. Objective - Vital Signs Vital signs: Vital Signs Temp 97.8 F 06/14/21 19:52 Pulse 76 06/14/21 19:52 Resp 18 06/14/21 19:52 BP 111/73 06/14/21 19:52 Pulse Ox 95 06/14/21 19:52 Intake & Output 06/14/21 06/14/21 06/15/21 06:59 18:59 06:59 Intake Total 120 Balance 120 Weight 79 kg Intake: Oral 120 Other: Voiding Method External Catheter External Catheter - Exam PHYSICAL EXAMINATION: Patient is lying in the bed comfortably, no acute distress, awake alert and oriented.. HEENT: Normocephalic. Neck is supple. Pupils reactive. Nostrils clear. Oral cavity is moist. Neck reveals no JVD, carotid bruits, or thyromegaly. CHEST EXAMINATION: Trachea is central. Symmetrical expansion. Left-sided diminished and coarse sounds.. expiratory wheezing. Nonlabored breathing. CARDIAC: Normal S1, S2 with no gallops. No murmurs ABDOMEN: Soft. Bowel sounds normal. No organomegaly. No abdominal bruits. Extremities: 2+ bilateral pedal edema. No clubbing or cyanosis Neurologically awake, alert, oriented x3 with well-coordinated movements. No focal deficits noted Skin: No rash or skin lesions. Psychiatric: Coperative. Nonsuicidal Musculoskeletal: No joint swelling or deformity. Normal range of motion. - Labs CBC & Chem 7: 06/15/21 08:05 06/15/21 08:05 Labs: Abnormal Lab Results - Last 24 Hours (Table) 06/11/21 06/14/21 06/14/21 Range/Units 13:30 05:50 09:06 MCHC 30.9 L (31.0-37.0) g/dL Lymphocytes # 0.2 L (1.0-4.8) k/uL Sodium (137-145) mmol/L Chloride (98-107) mmol/L Carbon Dioxide (22-30) mmol/L BUN (7-17) mg/dL Creatinine (0.52-1.04) mg/dL Glucose (74-99) mg/dL POC Glucose (mg/dL) 113 H (75-99) mg/dL Viral Test See Below A 06/14/21 06/14/21 06/14/21 Range/Units 09:06 16:48 19:59 MCHC (31.0-37.0) g/dL Lymphocytes # (1.0-4.8) k/uL Sodium 127 L (137-145) mmol/L Chloride 75 L (98-107) mmol/L Carbon Dioxide 49 H* (22-30) mmol/L BUN 63 H (7-17) mg/dL Creatinine 1.27 H (0.52-1.04) mg/dL Glucose 100 H (74-99) mg/dL POC Glucose (mg/dL) 263 H 189 H (75-99) mg/dL Viral Test Microbiology - Last 24 Hours (Table) 06/14/21 09:30 Acid Fast Bacilli Culture - Preliminary Pleural Fluid 06/14/21 09:30 Fungal Culture - Preliminary Pleural Fluid 06/14/21 09:30 Body Fluid Culture - Preliminary Pleural Fluid 06/11/21 13:30 Gram Stain - Final Bronchial Washings - Left Bronchial Washings Culture - Final 06/10/21 06:59 Blood Culture - Preliminary Blood No Growth after 96 hours 06/10/21 06:59 Blood Culture - Preliminary Blood No Growth after 96 hours 06/11/21 13:30 Acid Fast Bacilli Smear - Final Bronchial Washings - Left Acid Fast Bacilli Culture - Preliminary Assessment and Plan Assessment: Left lower lobe spiculated lesion. Large left pleural effusion With complete opacification.and right small pleural effusion.s./p bronchoscopy on 06/11 Left-sided pneumonia Acute COPD exacerbation Acute on chronic CHF with systolic dysfunction ejection fraction 30%. Hyponatremia likely hypovolemic and diuresis.. Coronary artery disease with history of stent placement in February 2021 Severe coronary artery disease involving RCA and circumflex, deemed high risk for CABG Ischemic cardiomyopathy ejection fraction 35% Peripheral vascular disease Hypertension Hyperlipidemia Chronic hypoxic respiratory failure on oxygen via nasal cannula at home. Previous history of smoking DVT prophylaxis. Plan: Patient remains on IV Lasix 40 mg to 12 and continue with oxygen supplementation. Patient was also started on antibiotics and Solu-Medrol IV and breathing treatments and be continued. Patient is s./p bronchoscopy on 06/11 due to left lung complete opacification.. Follow-up BAL culture. Patient is status post thoracentesis on 06/14/2021.. Cardiology and pulmonary is on board. Continue with daily weights and strict I&O's. Continue with home medications and follow closely. Prognosis is guarded. Time with Patient: Greater than 30
[2021-06-15] MEDS: SPIRONOLACTONE 25 MG TAB PO SCH (10:12)
[2021-06-15] MEDS: METOPROLOL TARTRATE 25 MG TAB PO SCH ×2 (10:12→20:12)
[2021-06-15] MEDS: lisinopriL 5 MG TAB PO SCH (10:12)
[2021-06-15] MEDS: HEPARIN SODIUM,PORCINE/PF 5,000 UNIT/0.5 ML SYRINGE SQ SCH ×3 (10:12→23:26)
[2021-06-15] MEDS: CLOTRIMAZOLE 1% CREAM 30 GM TUBE TOPICAL SCH (10:13)
--- NOTE | 2021-06-15 11:10 | P.NPCON ---
History of Present Illness - Reason for Consult Consult date: 06/15/21 acute renal failure - Chief Complaint Shortness of breath - History of Present Illness This is a 76-year-old female seen in consultation because of acute kidney injury, and severe metabolic alkalosis bicarb 47 currently but was 51 on 06/10/2021 She came in because of shortness of breath, as well as increasing edema. She was coughing. Her creatinine on admission on 06/10/2021 was 0.7 went up to 0.9 to 02/27/2020, 1.7 and then 1.41 as of this morning. She is on diuretics and in her blood pressures are 96/68-109/87. 24-hour intake is not accurately represented, documented at 120 and output about 300 mL. Patient does have some nausea but no vomiting or abdominal pain no diarrhea. She had Done yesterday on the left side and a liter of fluid was removed She is known with coronary artery disease status post recent PCI and stenting February 2021, cardiomyopathy, COPD on home oxygen peripheral vascular disease. Workup here shows a collapsed left lung on the computed tomography scan as well as pleural fluid. Past Medical History Past Medical History: Chest Pain / Angina, Heart Failure, COPD, Diabetes Mellitus, Deep Vein Thrombosis (DVT), Hyperlipidemia, Hypertension, Myocardial Infarction ([place]), Osteoarthritis (OA), Thyroid Disorder Additional Past Medical History / Comment(s): ARTHRITIS WITH BACK PAIN. GLAUCOMA , DVT RIGHT LEG Last Myocardial Infarction Date:: 2000 POSSIBLE DATE History of Any Multi-Drug Resistant Organisms: None Reported Past Surgical History: Appendectomy, Heart Catheterization, Orthopedic Surgery, Tubal Ligation Additional Past Surgical History / Comment(s): LEFT WRIST SURGERY; right knee- ARTHROSCOPIC, Past Anesthesia/Blood Transfusion Reactions: No Reported Reaction Date of Last Stent Placement:: 03/13/21 Past Psychological History: No Psychological Hx Reported Smoking Status: Former smoker Past Alcohol Use History: None Reported Past Drug Use History: None Reported - Past Family History Mother Family Medical History: Cancer, Coronary Artery Disease (CAD) Additional Family Medical History / Comment(s): from LUNG CANCER Father Family Medical History: CVA/TIA Additional Family Medical History / Comment(s): from CVA Medications and Allergies Home Medications Medication Instructions Recorded Confirmed Type sitaGLIPtin PHOSPHATE [Januvia] 100 mg PO HS 07/30/17 06/10/21 History Cholecalciferol [Vitamin D3 (25 25 mcg PO HS 01/28/21 06/10/21 History Mcg = 1000 Iu)] Albuterol Inhaler [Ventolin Hfa 2 puff INHALATION RT-QID PRN #8 gm 02/04/21 06/10/21 Rx Inhaler] Atorvastatin [Lipitor] 40 mg PO HS #30 tab 02/04/21 06/10/21 Rx Clopidogrel [Plavix] 75 mg PO DAILY #30 tab 02/04/21 06/10/21 Rx Metoprolol Succinate (ER) [Toprol 25 mg PO DAILY #30 tablet 02/04/21 06/10/21 Rx XL] lisinopriL [Zestril] 5 mg PO DAILY #30 tab 02/04/21 06/10/21 Rx Latanoprost [Xalatan 0.005%] 1 drop RIGHT EYE HS 03/11/21 06/10/21 History Aspirin EC [Ecotrin Low Dose] 81 mg PO DAILY 06/10/21 06/10/21 History Furosemide [Lasix] 40 mg PO BID@0900,1600 06/10/21 06/10/21 History Ketoconazole 2% Cream [Nizoral 2%] 1 applic TOPICAL DAILY 06/10/21 06/10/21 History Sertraline [Zoloft] 50 mg PO HS 06/10/21 06/10/21 History Spironolactone [Aldactone] 25 mg PO DAILY 06/10/21 06/10/21 History Allergies Allergy/AdvReac Type Severity Reaction Status Date / Time No Known Allergies Allergy Verified 06/10/21 07:24 Physical Exam Vitals: Vital Signs Temp Pulse Resp BP Pulse Ox 06/15/21 05:11 109/87 06/15/21 03:59 98.3 F 72 18 96/68 95 06/15/21 02:00 18 06/15/21 00:00 97.6 F 73 18 111/78 97 06/14/21 20:00 18 06/14/21 19:52 97.8 F 76 18 111/73 95 06/14/21 15:48 98.4 F 74 18 116/80 98 06/14/21 12:00 97.5 F L 88 18 102/68 100 Intake and Output 06/14/21 06/15/21 06/15/21 22:59 06:59 14:59 Intake Total 100 Output Total 300 Balance -300 100 Intake: Oral 100 Output: Urine 300 Other: Voiding Method External Catheter External Catheter On examination she is awake alert but profoundly weak. HEENT exam JVP is elevated about 6-8 cm about sternal angle. Lungs are significant for diminished breath sounds especially on the left side with an occasional coarse crackle Heart sounds unremarkable for any murmur rub gallop Abdomen soft nontender obese Extremity exam was 1-2+ edema Neurologically awake alert oriented profoundly weak Results - Lab Results Most recent lab results Calcium 8.7 mg/dL (8.4-10.2) 06/15/21 08:05 06/15/21 08:05 06/15/21 08:05 Assessment and Plan Plan: Impression 1. Acute kidney injury secondary to prerenal and cardiorenal syndrome. On diuretics Creatinine went up from 0.7 on admission to 1.41 this morning. 2. Severe alkalosis with bicarb 51 on admission and 47 this morning, etiology is diuresis, prednisone as well as possibly an element of respiratory acidosis with compensatory additional metabolic alkalosis. Will need a blood gas to further define this. 3. Left-sided lung collapse with pleural effusion status post tap 1 L yesterday 06/14/2021 4. Ischemic cardiopathy myopathy, echocardiogram January 2021 shows 30-35% ejection fraction, 30 cath January 2021 advised to seek surgical consultation because of an inability to stand. Recommendation 1. Will add Diamox 250 3 times a day for 3 days to improve the alkalosis 2. Obtain arterial blood gases to further delineate the exact acid-base issue 3. Maintain Lasix for right now. 4. May need dobutamine drip if she does not respond Thank you for this consultation, we'll follow the patient closely
[2021-06-15 11:29] LABS: Glucose,Whole Blood 128 mg/dL (75-99)
[2021-06-15 12:13] LABS: VBG PH 7.4 (7.31-7.41)
--- NOTE | 2021-06-15 12:37 | P.PN ---
Subjective Progress Note Date: 06/15/21 The patient is a 76-year-old female with multiple comorbid conditions who follows with Dr. Worley in the office. The patient is currently admitted to the hospital with congestive heart failure and left-sided pneumonia. She underwent thoracentesis on 06/14/[address] Pacheco, where approximately 1 L of fluid was removed. The patient states she is doing well this morning resting in bed. She is mildly labored, however appears improved from yesterday. No chest pain or chest pressure. No heart racing or fluttering. She has not been up ambulating to assess for dizziness or lightheadedness. GENERAL: Well-appearing, well-nourished and in no acute distress. NECK: Supple without JVD or thyromegaly. LUNGS: Breath sounds are coarse to auscultation bilaterally. Respiration equal and unlabored. No wheezes. Bilateral rhonchi. HEART: Regular rate and rhythm. No rubs or gallops. S1 and S2 heard. EXTREMITIES: Normal range of motion, no edema. No clubbing or cyanosis. Peripheral pulses intact. VITALS: Blood pressure 101/63, respiratory rate 18, pulse 96, SpO2 95% on 4 L is cannula, temp 97.6F TELEMETRY: Sinus rhythm with episodes of tachycardia in the low 100s LABS: WBC 6.4, hemoglobin 12.7, hematocrit 42.0, platelet 165, sodium 126, BUN 69, creatinine 1.4 IMPRESSION: Acute on chronic congestive heart failure with reduced ejection fraction Bilateral pleural effusions, left greater than right Left-sided pneumonia Acute COPD exacerbation Paroxysmal atrial fibrillation, new onset Coronary artery disease Hypertension Ischemic cardiomyopathy PAD PLAN: Start Eliquis 2-1/2 mg daily Continue Plavix No further recommendations from the cardiac standpoint We will sign off on this patient in follow-up on an as-needed basis I am dictating on behalf of Dr Slava Pérez's history/physical and assessment/plan. Objective - Vital Signs Vital signs: Vital Signs Temp 98.3 F 06/15/21 03:59 Pulse 72 06/15/21 03:59 Resp 18 06/15/21 03:59 BP 109/87 06/15/21 05:11 Pulse Ox 95 06/15/21 03:59 Intake & Output 06/14/21 06/15/21 06/15/21 18:59 06:59 18:59 Intake Total 120 100 Output Total 300 Balance 120 -300 100 Weight 79 kg Intake: Oral 120 100 Output: Urine 300 Other: Voiding Method External Catheter External Catheter - Labs CBC & Chem 7: 06/15/21 08:05 06/15/21 08:05 Labs: Abnormal Lab Results - Last 24 Hours (Table) 06/11/21 06/14/21 06/14/21 Range/Units 13:30 16:48 19:59 MCHC (31.0-37.0) g/dL Lymphocytes # (1.0-4.8) k/uL Sodium (137-145) mmol/L Chloride (98-107) mmol/L Carbon Dioxide (22-30) mmol/L BUN (7-17) mg/dL Creatinine (0.52-1.04) mg/dL Glucose (74-99) mg/dL POC Glucose (mg/dL) 263 H 189 H (75-99) mg/dL Viral Test See Below A 06/15/21 06/15/21 06/15/21 Range/Units 06:01 08:05 08:05 MCHC 30.2 L (31.0-37.0) g/dL Lymphocytes # 0.2 L (1.0-4.8) k/uL Sodium 126 L (137-145) mmol/L Chloride 74 L* (98-107) mmol/L Carbon Dioxide 47 H* (22-30) mmol/L BUN 69 H (7-17) mg/dL Creatinine 1.41 H (0.52-1.04) mg/dL Glucose 116 H (74-99) mg/dL POC Glucose (mg/dL) 105 H (75-99) mg/dL Viral Test Microbiology - Last 24 Hours (Table) 06/10/21 06:59 Blood Culture - Preliminary Blood No Growth after 120 hours 06/10/21 06:59 Blood Culture - Preliminary Blood No Growth after 120 hours 06/14/21 09:30 Gram Stain - Preliminary Pleural Fluid Body Fluid Culture - Preliminary 06/14/21 09:30 Acid Fast Bacilli Culture - Preliminary Pleural Fluid 06/14/21 09:30 Fungal Culture - Preliminary Pleural Fluid 06/11/21 13:30 Gram Stain - Final Bronchial Washings - Left Bronchial Washings Culture - Final
--- NOTE | 2021-06-15 14:41 | P.PN ---
Subjective Progress Note Date: 06/15/21 Principal diagnosis: Shortness of breath. Pulmonary consult dated 06/10/2021. 76-year-old female who presented to the emergency department on June 10, complaining of shortness of breath and difficulty breathing. She has significant cough. She sees a physician out in [place], [place]. She hadn't been feeling well for a couple of days. She is a heavy smoker, started smoking at the age of 16. She quit January 2021. The patient apparently was in the hospital recently, and had stents placed in her heart. She been using her nebulizer treatments at home. She is on home O2 at 3 L/m, 24/7. The patient also complained of lower extremity edema. Currently, she is on 4 L. Not receiving any IV fluids. White count 7.6, hemoglobin 12.1, hematocrit 40.4, and platelet count 194,000. PT, INR, PTT were normal. Sodium 139, potassium 4.1, chlorides 83, CO2 51, anion gap 5, BUN 40, and creatinine 0.77. Her troponin was 0.104. N-terminal proBNP was 19,500. Testing for virgen virus was negative. Chest x-ray shows near complete opacification of the left hemithorax. Ultrasound of the chest shows a small right-sided pleural effusion, and a small to moderate left-sided pleural effusion, measuring 7.3 cm. Progress note dated 06/11/2021. 76-year-old female seen yesterday in the emergency department. We saw her in consultation for increasing shortness of breath. The patient has significant opacification of the left lung, and moderate sized left-sided pleural effusion. The patient is on the bronchoscopy scheduled today. Currently, she's feeling about the same today as she did yesterday. May be a bit better. The patient's on O2 at 4 L. She uses home oxygen at 3 L, 24/7. Labs today include a sodium 135, potassium 3.9, chlorides 81, CO2 44, a normal anion gap, BUN 32, and creatinine 0.78. Microbiologic studies are currently pending or negative. The chest x-ray continues to show a near complete opacification of the left lung, with a left-sided pleural effusion. Progress note dated 06/13/2021. 76-year-old female seen a couple days ago in consultation. She came into the hospital with significant opacification of the left lung. She also had a m oderate sized left-sided pleural effusion. The patient had bronchoscopy on June 11, and we primarily remove secretions from her lungs, more left-sided than right-sided. The plan is to do a left-sided thoracentesis tomorrow. Her aspirin and Plavix is currently on hold. There are no new labs today. Sputum sampling from June 10 did show evidence of Proteus mirabilis. Cytology from the bronchoscopy is currently pending. Computed tomography scan and chest x-ray from June 12 was reviewed. The patient is currently on ceftriaxone, and the Proteus, is sensitive to it. Progress note dated 06/14/2021. 76-year-old female, who had a left-sided thoracentesis performed today. 1 L of fluid was removed. The patient had constipation June 11, for removal of significant airway secretions. Most recent chest x-ray continues to show significant opacification of the left lung. The patient is currently on 4 L nasal cannula. Laboratory data includes a white count 6.7, hemoglobin 12.7, and platelet count 156,000. Sodium 127, potassium 4.8, chlorides 75, CO2 49, anion gap 3, BUN 63, and creatinine 1.27. The patient is a DO NOT RESUSCITATE patient. She is profoundly weak and could not even sit up at the bedside on her own for the procedure. The left pleural effusion with left for cytology, chemistry, and microbiology. Washings from the left lung, performed the other day, did not reveal any malignant cells. Progress note dated 06/15/2021. 76-year-old female status post left-sided thoracentesis. 1 L of fluid was removed. The patient had a bronchoscopy performed on June 11, for airway secretion removal. The patient is a DO NOT RESUSCITATE patient. She is not receiving any IV fluids. She is on Rocephin. White count is 6.4, hemoglobin 12.7, hematocrit 42, and platelet count 165,000. The venous CO2 was 86 with a normal pH. Sodium 126, potassium 4.2, chloride 74, CO2 47, BUN 69, and creatinine 1.41. Sputum from June 10 was positive for Proteus mirabilis. It was sensitive to ceftriaxone.. Chest x-ray from yesterday shows opacification of the left hemithorax, and abrupt termination of the left mainstem bronchus. Objective - Vital Signs Vital signs: Vital Signs Temp 97.6 F 06/15/21 08:00 Pulse 103 H 06/15/21 08:00 Resp 18 06/15/21 08:00 BP 101/68 06/15/21 08:00 Pulse Ox 95 06/15/21 08:00 Intake & Output 06/14/21 06/15/21 06/15/21 18:59 06:59 18:59 Intake Total 120 100 Output Total 300 Balance 120 -300 100 Weight 79 kg Intake: Oral 120 100 Output: Urine 300 Other: Voiding Method External Catheter External Catheter - Exam No acute distress, oriented 3. Currently on 4 L nasal cannula. No conversational dyspnea or use of accessory muscles noted. Saturations are 95 %. HEENT examination is grossly unremarkable. Neck supple. Full range of motion. No adenopathy thyromegaly or neck vein distention. Cardiovascular examination reveals regular rhythm rate. S1-S2 normal. No S3 or S4. No discernible murmur noted. Heart rate 97 bpm. Heart sounds are distant. Lungs reveal severely diminished breath sounds at the left side. Rhonchi noted on the right side. No wheezes. No crackles. Abdomen soft bowel sounds are heard. No masses or tenderness. Extremities are intact. No cyanosis or clubbing. Mild lower extremity edema noted. Skin is without rash or lesion. Neurologic examination is brief but nonfocal. - Labs CBC & Chem 7: 06/15/21 08:05 06/15/21 08:05 Labs: Abnormal Lab Results - Last 24 Hours (Table) 06/14/21 06/14/21 06/15/21 Range/Units 16:48 19:59 06:01 MCHC (31.0-37.0) g/dL Lymphocytes # (1.0-4.8) k/uL VBG pCO2 (37-51) mmHg VBG HCO3 (24-28) mmol/L Sodium (137-145) mmol/L Chloride (98-107) mmol/L Carbon Dioxide (22-30) mmol/L BUN (7-17) mg/dL Creatinine (0.52-1.04) mg/dL Glucose (74-99) mg/dL POC Glucose (mg/dL) 263 H 189 H 105 H (75-99) mg/dL 06/15/21 06/15/21 06/15/21 Range/Units 08:05 08:05 11:28 MCHC 30.2 L (31.0-37.0) g/dL Lymphocytes # 0.2 L (1.0-4.8) k/uL VBG pCO2 (37-51) mmHg VBG HCO3 (24-28) mmol/L Sodium 126 L (137-145) mmol/L Chloride 74 L* (98-107) mmol/L Carbon Dioxide 47 H* (22-30) mmol/L BUN 69 H (7-17) mg/dL Creatinine 1.41 H (0.52-1.04) mg/dL Glucose 116 H (74-99) mg/dL POC Glucose (mg/dL) 128 H (75-99) mg/dL 06/15/21 Range/Units 11:51 MCHC (31.0-37.0) g/dL Lymphocytes # (1.0-4.8) k/uL VBG pCO2 86 H* (37-51) mmHg VBG HCO3 52 H (24-28) mmol/L Sodium (137-145) mmol/L Chloride (98-107) mmol/L Carbon Dioxide (22-30) mmol/L BUN (7-17) mg/dL Creatinine (0.52-1.04) mg/dL Glucose (74-99) mg/dL POC Glucose (mg/dL) (75-99) mg/dL Microbiology - Last 24 Hours (Table) 06/10/21 06:59 Blood Culture - Preliminary Blood No Growth after 120 hours 06/10/21 06:59 Blood Culture - Preliminary Blood No Growth after 120 hours 06/14/21 09:30 Gram Stain - Preliminary Pleural Fluid Body Fluid Culture - Preliminary 06/14/21 09:30 Acid Fast Bacilli Culture - Preliminary Pleural Fluid 06/14/21 09:30 Fungal Culture - Preliminary Pleural Fluid Assessment and Plan Assessment: Acute hypoxemic respiratory failure secondary to left-sided pneumonia, as well as left-sided pleural effusion. Sputum positive for Proteus mirabilis, and the patient remains on ceftriaxone. Bronchoscopy, with airway examination, 06/11/2021. Status post left thoracentesis, 06/14/2021, with 1 L removed. Acute exacerbation of COPD. History of heavy tobacco use, for at least 60 years. History of diabetes mellitus. History of hyperlipidemia. CAD with previous and recent stent placement. History of hypertension. History of DVT. History of myocardial infarction. Plan: Plan dated 06/10/2021. The patient is seen in the emergency department, room 9. The patient will have an ultrasound of the chest. The ultrasound shows a small right-sided pleural effusion, and a moderate sized left pleural effusion. The patient will probably benefit from thoracentesis, and bronchoscopy. We'll get her on the schedule for that. Additional recommendations and suggestions are forthcoming. We will have to hold her blood thinner. Additional recommendations and suggestions are forthcoming. Prognosis is guarded. Plan dated 06/11/2021. The patient is seen today in room 362. Yesterday, we saw in consultation in the emergency department. She remains on 4 L of oxygen. I held the aspirin. We'll do the bronchoscopy today, and asked for a chest x-ray in the morning. She may benefit from thoracentesis. If that's the case, we would have to hold the Pl avix. Additional recommendations and suggestions are forthcoming. Clinically she is about the same or minimally better today than she was yesterday. Additional recommendations and suggestions are forthcoming. Prognosis is guarded. Plan dated 06/13/2021. The patient's sputum was positive for Proteus. The patient is currently on Rocephin, which is effective against this bacteria. The plan is to do a thoracentesis tomorrow. She remains on 4 L nasal cannula. Aspirin and Plavix are currently on hold. The patient appears to be relatively comfortable. She does not appear to be short of breath. We did explain to her that we are planning to do a thoracentesis tomorrow. She does agree. Plan dated 06/14/2021. The patient is currently on antibiotics for Proteus, in the patient's sputum. The cytology on the recent bronchoscopy, was negative for malignant cells. Today, she underwent a left-sided thoracentesis, and 1 L of fluid was removed. It will be sent for chemistry, cytology, and microbiology. The patient is profoundly weak. The patient's aspirin and Plavix can be resumed. Additional recommendations and suggestions are forthcoming. Some consideration should be given to palliative care consult, or hospice consultation. Additional recommendations and suggestions are forthcoming. Prognosis is poor. Plan dated 06/15/2021. Currently, the patient appears to be relatively stable. She remains on 4 L. She is a DO NOT RESUSCITATE patient. Sampling from the thoracentesis is currently pending. The patient remains on Rocephin for her Proteus mirabilis infection. Additional recommendations and suggestions are forthcoming. Prognosis is certainly guarded. We will continue to follow the patient and make recommendations where appropriate. As mentioned over the last couple of days, the patient should be considered for possible palliative care consultation or hospice consultation. Time with Patient: Less than 30
[2021-06-15 16:24] LABS: Glucose,Whole Blood 174 mg/dL (75-99)
[2021-06-15] MEDS: acetaZOLAMIDE 250 MG TAB PO SCH (20:12)
[2021-06-15] MEDS: APIXABAN 2.5 MG TABLET PO SCH (20:12)
[2021-06-15] MEDS: SERTRALINE 50 MG TAB PO SCH (20:12)
[2021-06-15] MEDS: LATANOPROST 0.005% OPHTH DROPS 2.5 ML BTL RIGHT EYE SCH (20:12)
[2021-06-15] MEDS: ATORVASTATIN 40 MG TAB PO SCH (20:12)
[2021-06-15 20:55] LABS: Glucose,Whole Blood 180 mg/dL (75-99)
[2021-06-15] MEDS: LINAGLIPTIN 5 MG TABLET PO SCH (21:09)
[2021-06-15] MEDS: ACETAMINOPHEN TAB 325 MG TAB PO PRN (21:19)
[2021-06-16] MEDS: FUROSEMIDE 10 MG/ML 4 ML VIAL IV SCH ×2 (04:35→17:50)
[2021-06-16] MEDS: methylPREDNISolone SOD SUCCI 125 MG/2 ML VIAL IV SCH ×4 (04:35→23:08)
[2021-06-16] MEDS: INSULIN ASPART (NovoLOG) 100 UNIT/ML VIAL SQ SCH ×7 (06:27→21:26)
[2021-06-16 06:37] LABS: Glucose,Whole Blood 111 mg/dL (75-99)
[2021-06-16] MEDS: IPRATROPIUM-ALBUTEROL 3 ML NEB INHALATION SCH ×4 (08:31→20:25)
[2021-06-16] MEDS ORDERED: CLOPIDOGREL 75 MG TAB PO SCH (09:00)
[2021-06-16] MEDS: APIXABAN 2.5 MG TABLET PO SCH ×2 (09:33→21:26)
[2021-06-16] MEDS: acetaZOLAMIDE 250 MG TAB PO SCH ×2 (09:33→21:26)
[2021-06-16] MEDS: CLOTRIMAZOLE 1% CREAM 30 GM TUBE TOPICAL SCH (09:34)
[2021-06-16] MEDS: METOPROLOL TARTRATE 25 MG TAB PO SCH ×2 (09:34→21:26)
[2021-06-16] MEDS: lisinopriL 5 MG TAB PO SCH (09:34)
[2021-06-16] MEDS: HEPARIN SODIUM,PORCINE/PF 5,000 UNIT/0.5 ML SYRINGE SQ SCH ×3 (09:34→23:08)
[2021-06-16] MEDS: SPIRONOLACTONE 25 MG TAB PO SCH (09:34)
--- NOTE | 2021-06-16 10:49 | P.PN ---
Subjective Progress Note Date: 06/15/21 Patient is a 76-year-old female with a known history of coronary artery disease and stent placement in February 2021, COPD on home oxygen, peripheral vascular disease, ischemic cardiomyopathy ejection fraction 35%, presents to ER with complaints of worsening shortness of breath and leg swelling for the past 2 days. She does have cough with whitish sputum production. No complaints of fever or chills. No nausea vomiting. No chest pain. Chest x-ray showed there is a combination of large pleural effusion with left- sided pulmonary consolidation and mild atelectasis which is new compared to old exam. Small right pleural effusion. Congestive heart failure is possible. EKG showed sinus bradycardia WBC 7.6 hemoglobin 12.1 and Laboratory data showed platelets 194 Sodium 139 potassium 4.1 chloride 83 bicarb is 51 BUN 14 creatinine 0.7 troponin 0.104 andAlbumin 3.6 Pro BNP 2021 Patient is awake alert and oriented. States that his breathing is little better today. No complaints of chest pain. Chest x-ray today showed persistent near complete opacification of the left hemithorax likely representing combination of airspace disease and pleural effusion. Possible loculated air collection or pneumothorax. Right-sided small effusion correlate for underlying CHF with chronic interstit ial lung disease superimposed on background of COPD. Pulmonary is planning for bronchoscopy today. Laboratory data showed sodium 135 potassium 3.9 chloride 81 bicarb is 844 BUN 32 and creatinine 0.78 and blood sugar is 161. Patient is being continued IV Solu-Medrol, duo nebs and Lasix 40 mg every 12. Also on antibiotics of ceftriaxone. 06/12/2021 Patient is currently sitting in the chair. Patient states that her breathing is little better today. Requiring oxygen at 4 L via nasal cannula. Patient is status post bronchoscopy and follow-up BAL fluid cultures. Bronchoscopy done on 06/11/2021. CT chest done this morning showed severe cardiomegaly with large bilateral pleural effusions and almost complete collapse of the left lung as detailed. On retrospective review of the previous CT scan there is an apparent spiculated suspicious lesion in the left lower lobe not identified today due to collapse of the left lung. Recommend CT or PET scan. Intermediate left adrenal lesion.. 06/13/2021 Patient is currently lying in the bed. Patient states that her breathing is slightly better. Patient was found to have left-sided complete opacification and moderate left-sided pleural effusion. Status post bronchoscopy on 06/11/2021. Pulmonary is planning for left thoracentesis tomorrow. Aspirin and Plavix on hold. Sputum culture showed Proteus mirabilis. Patient is on antibiotics in the form of ceftriaxone. Bowel fluid cultures are pending. Laboratory data showed sodium 129 potassium 4.0 chloride 78 bicarb is 43 BUN 15 creatinine 2.90 and blood sugar is 121 06/14/2021 Patient is lying in the bed. Awake alert and oriented 3. Breathing status remains the same. Patient is status post thoracentesis with 1 L fluid removal. Patient is on oxygen with nasal cannula 4 L. No complaints of chest pain.. No fever no chills. Patient remains on antibiotics on ceftriaxone for Proteus mirabilis in the sputum cultures. No complaints of headache or dizziness or lightheadedness. Pleural fluid cultures are negative so far. Fluid cytology is also pending. Laboratory data showed sodium 127 potassium 4.8 chloride 75 bicarb is 49 BUN 63 and creatinine 1.27 WBC 6.7 hemoglobin 12.7 and platelets 156 and calcium 8.7. Pulmonary and cardiology is on board. 06/15/2021 Patient is currently lying in the bed. Awake alert and oriented. Lethargic and weak. No complaints of chest pain. Does have shortness of breath. Patient is status post left-sided thoracentesis with 1 L fluid removal. BAL cultures have been negative. Cytology is pending. Sputum culture showed Proteus mirabilis. Patient is being continued on antibiotics in the form of ceftriaxone. Next and chest x-ray showed opacification of the left hemithorax and abrupt termination of the left mainstem bronchus.. Otherwise laboratory data showed a sodium level CXXVI, potassium 4.2 chloride 74 bicarb is 47 and BUN 16 and creatinine 1.41. Nephrology was consulted. Patient was started on his it is undermined. Pulmonary is on board. Patient is be continued on Lasix IV 40 mg twice daily. Current medications reviewed. Objective - Vital Signs Vital signs: Vital Signs Temp 97.6 F 06/15/21 20:00 Pulse 85 06/15/21 20:00 Resp 16 06/15/21 20:00 BP 104/73 06/15/21 20:00 Pulse Ox 97 06/15/21 20:00 Intake & Output 06/15/21 06/15/2122 06:59 18:59 06:59 Intake Total 100 Output Total 300 Balance -300 100 Intake: Oral 100 Output: Urine 300 Other: Voiding Method External Catheter External Catheter - Exam PHYSICAL EXAMINATION: Patient is lying in the bed comfortably, no acute distress, awake alert and oriented.. HEENT: Normocephalic. Neck is supple. Pupils reactive. Nostrils clear. Oral cavity is moist. Neck reveals no JVD, carotid bruits, or thyromegaly. CHEST EXAMINATION: Trachea is central. Symmetrical expansion. Left-sided dim inished and coarse sounds.. expiratory wheezing. Nonlabored breathing. CARDIAC: Normal S1, S2 with no gallops. No murmurs ABDOMEN: Soft. Bowel sounds normal. No organomegaly. No abdominal bruits. Extremities: 2+ bilateral pedal edema. No clubbing or cyanosis Neurologically awake, alert, oriented x3 with well-coordinated movements. No focal deficits noted Skin: No rash or skin lesions. Psychiatric: Coperative. Nonsuicidal Musculoskeletal: No joint swelling or deformity. Normal range of motion. - Labs CBC & Chem 7: 06/15/21 08:05 06/15/21 08:05 Labs: Abnormal Lab Results - Last 24 Hours (Table) 06/15/21 06/15/21 06/15/21 Range/Units 06:01 08:05 08:05 MCHC 30.2 L (31.0-37.0) g/dL Lymphocytes # 0.2 L (1.0-4.8) k/uL VBG pCO2 (37-51) mmHg VBG HCO3 (24-28) mmol/L Sodium 126 L (137-145) mmol/L Chloride 74 L* (98-107) mmol/L Carbon Dioxide 47 H* (22-30) mmol/L BUN 69 H (7-17) mg/dL Creatinine 1.41 H (0.52-1.04) mg/dL Glucose 116 H (74-99) mg/dL POC Glucose (mg/dL) 105 H (75-99) mg/dL 06/15/21 06/15/21 06/15/21 Range/Units 11:28 11:51 16:22 MCHC (31.0-37.0) g/dL Lymphocytes # (1.0-4.8) k/uL VBG pCO2 86 H* (37-51) mmHg VBG HCO3 52 H (24-28) mmol/L Sodium (137-145) mmol/L Chloride (98-107) mmol/L Carbon Dioxide (22-30) mmol/L BUN (7-17) mg/dL Creatinine (0.52-1.04) mg/dL Glucose (74-99) mg/dL POC Glucose (mg/dL) 128 H 174 H (75-99) mg/dL 06/15/21 Range/Units 20:47 MCHC (31.0-37.0) g/dL Lymphocytes # (1.0-4.8) k/uL VBG pCO2 (37-51) mmHg VBG HCO3 (24-28) mmol/L Sodium (137-145) mmol/L Chloride (98-107) mmol/L Carbon Dioxide (22-30) mmol/L BUN (7-17) mg/dL Creatinine (0.52-1.04) mg/dL Glucose (74-99) mg/dL POC Glucose (mg/dL) 180 H (75-99) mg/dL Microbiology - Last 24 Hours (Table) 06/10/21 06:59 Blood Culture - Preliminary Blood No Growth after 120 hours 06/10/21 06:59 Blood Culture - Preliminary Blood No Growth after 120 hours 06/14/21 09:30 Gram Stain - Preliminary Pleural Fluid Body Fluid Culture - Preliminary Assessment and Plan Assessment: Left lower lobe spiculated lesion. Large left pleural effusion With complete opacification.and right small pleural effusion.s./p bronchoscopy on 06/11. Status post thoracentesis on 06/14/21 Left-sided pneumonia Acute COPD exacerbation Acute on chronic CHF with systolic dysfunction ejection fraction 30%. Hyponatremia likely hypovolemic and diuresis.. Coronary artery disease with history of stent placement in February 2021 Severe coronary artery disease involving RCA and circumflex, deemed high risk for CABG Ischemic cardiomyopathy ejection fraction 35% Peripheral vascular disease Hypertension Hyperlipidemia Chronic hypoxic respiratory failure on oxygen via nasal cannula at home. Previous history of smoking DVT prophylaxis. Plan: Patient remains on IV Lasix 40 mg to 12 and continue with oxygen supplementation. Patient was also started on antibiotics and Solu-Medrol IV and breathing treatments and be continued. Patient is s./p bronchoscopy on 06/11 due to left lung complete opacification.. Follow-up BAL culture and cytology.. Patient is status post thoracentesis on 06/14/2021.. Cardiology and pulmonary is on board. Continue with daily weights and strict I&O's. Continue with home medications and follow closely. Prognosis is guarded. Time with Patient: Greater than 30
--- NOTE | 2021-06-16 11:22 | P.PN ---
Subjective Progress Note Date: 06/16/21 Principal diagnosis: This is a 76-year-old female seen in consultation because of acute kidney injury, and severe metabolic alkalosis bicarb 47 currently but was 51 on 06/10/2021 Acute kidney injury secondary to prerenal and cardiorenal syndrome. On diuretics Creatinine went up from 0.7 on admission to 1.41 also she has severe alkalosis bicarb 51 on admission and 47 yesterday. Subsequently venous blood gases showed pH of 7.4 pCO2 is 86. She remained on Lasix and Diamox was added yesterday 250 twice a day for 3 days She came in because of shortness of breath, as well as increasing edema. She was coughing. A chest x-ray shows complete opacification of left hemithorax with abrupt cutoff of the left main bronchus. Further right-sided consolidation and pleural effusion with diffuse interstitial pattern. She supposedly had a bronchoscopy which was negative for malignant cells and then she underwent left- sided thoracentesis with 1 L removed Her creatinine on admission on 06/10/2021 was 0.7 went up to 0.9 to 02/27/2020, 1.7 and then 1.41 as of this morning. She is on diuretics and Blood pressures are somewhat better today 103 systolic to 127 systolic, heart rate in the 80s to 90s afebrile. 24-hour intake is documented at 100 output not documented She is known with coronary artery disease status post recent PCI and stenting February 2021, cardiomyopathy, ejection fraction was 35% with moderate to severe TR and moderate to severe MR, COPD on home oxygen peripheral vascular disease. Objective - Vital Signs Vital signs: Vital Signs Temp 97.7 F 06/16/21 08:00 Pulse 92 06/16/21 08:00 Resp 18 06/16/21 08:00 BP 111/81 06/16/21 08:00 Pulse Ox 93 L 06/16/21 08:00 Intake & Output 06/15/21 06/16/21 06/16/21 18:59 06:59 18:59 Intake Total 100 Balance 100 Intake: Oral 100 Other: Voiding Method External Catheter # Voids 2 Examination she is awake alert feels better HEENT exam JVP is elevated about 6 cm above the sternal angle no facial asymmetry Lungs are significant for diminished breath sounds on the right with coarse crackles and diminished breath sounds on the left. Heart sounds are unremarkable for any murmur rub gallop. Abdomen soft nontender nondistended Extremity exam reveals trace edema Neurologically awake alert oriented but - Labs CBC & Chem 7: 06/15/21 08:05 06/15/21 08:05 Labs: Abnormal Lab Results - Last 24 Hours (Table) 06/15/21 06/15/21 06/15/21 Range/Units 11:28 11:51 16:22 VBG pCO2 86 H* (37-51) mmHg VBG HCO3 52 H (24-28) mmol/L POC Glucose (mg/dL) 128 H 174 H (75-99) mg/dL 06/15/21 06/16/21 Range/Units 20:47 06:24 VBG pCO2 (37-51) mmHg VBG HCO3 (24-28) mmol/L POC Glucose (mg/dL) 180 H 111 H (75-99) mg/dL Microbiology - Last 24 Hours (Table) 06/14/21 09:30 Gram Stain - Preliminary Pleural Fluid Body Fluid Culture - Preliminary 06/10/21 06:59 Blood Culture - Final Blood No Growth after 144 hours 06/10/21 06:59 Blood Culture - Final Blood No Growth after 144 hours 06/14/21 09:30 Acid Fast Bacilli Smear - Final Pleural Fluid Acid Fast Bacilli Culture - Preliminary Assessment and Plan Plan: Impression 1. Acute kidney injury secondary to prerenal and cardiorenal syndrome. On diuretics Creatinine went up from 0.7 on admission to 1.41 yesterday, labs pending today 2. Severe alkalosis with bicarb 51 on admission and 47 this morning, etiology is compensatory to severe respiratory acidosis with pCO2 in the 80s on a venous blood gas. PH is 7.4. There may be an element of primary metabolic alkalosis from prednisone and diuresis Currently on Diamox 250 twice a day. 3. Left-sided lung collapse with pleural effusion status post tap 1 L yesterday 06/14/2021, cytology supposedly negative on the bronchoscopy 4. Ischemic cardiopathy myopathy, echocardiogram January 2021 shows 30-35% ejection fraction, 30 cath January 2021 advised to seek surgical consultation because of an inability to stand. Recommendation 1. Continue Diamox 250 bid for 3 days to improve the alkalosis 2. Maintain Lasix for right now. 3. May need dobutamine drip if she does not respond Thank you for this consultation, we'll follow the patient closely
[2021-06-16 11:28] LABS: Calcium 8.6 mg/dL (8.4-10.2)
[2021-06-16 11:30] LABS: Potassium 5.1 mmol/L (3.5-5.1)
[2021-06-16 11:47] LABS: Glucose,Whole Blood 122 mg/dL (75-99)
--- NOTE | 2021-06-16 14:51 | P.PN ---
Subjective Progress Note Date: 06/16/21 Principal diagnosis: Shortness of breath. Pulmonary consult dated 06/10/2021. 76-year-old female who presented to the emergency department on June 10, complaining of shortness of breath and difficulty breathing. She has significant cough. She sees a physician out in [place], [place]. She hadn't been feeling well for a couple of days. She is a heavy smoker, started smoking at the age of 16. She quit January 2021. The patient apparently was in the hospital recently, and had stents placed in her heart. She been using her nebulizer treatments at home. She is on home O2 at 3 L/m, 24/. The patient also complained of lower extremity edema. Currently, she is on 4 L. Not receiving any IV fluids. White count 7.6, hemoglobin 12.1, hematocrit 40.4, and platelet count 194,000. PT, INR, PTT were normal. Sodium 139, potassium 4.1, chlorides 83, CO2 51, anion gap 5, BUN 40, and creatinine 0.77. Her troponin was 0.104. N-terminal proBNP was 19,500. Testing for virgen virus was negative. Chest x-ray shows near complete opacification of the left hemithorax. Ultrasound of the chest shows a small right-sided pleural effusion, and a small to moderate left-sided pleural effusion, measuring 7.3 cm. Progress note dated 06/11/2021. 76-year-old female seen yesterday in the emergency department. We saw her in consultation for increasing shortness of breath. The patient has significant opacification of the left lung, and moderate sized left-sided pleural effusion. The patient is on the bronchoscopy scheduled today. Currently, she's feeling about the same today as she did yesterday. May be a bit better. The patient's on O2 at 4 L. She uses home oxygen at 3 L, /7. Labs today include a sodium 135, potassium 3.9, chlorides 81, CO2 44, a normal anion gap, BUN 32, and creatinine 0.78. Microbiologic studies are currently pending or negative. The chest x-ray continues to show a near complete opacification of the left lung, with a left-sided pleural effusion. Progress note dated 06/13/2021. 76-year-old female seen a couple days ago in consultation. She came into the hospital with significant opacification of the left lung. She also had a m oderate sized left-sided pleural effusion. The patient had bronchoscopy on June 11, and we primarily remove secretions from her lungs, more left-sided than right-sided. The plan is to do a left-sided thoracentesis tomorrow. Her aspirin and Plavix is currently on hold. There are no new labs today. Sputum sampling from June 10 did show evidence of Proteus mirabilis. Cytology from the bronchoscopy is currently pending. Computed tomography scan and chest x-ray from June 12 was reviewed. The patient is currently on ceftriaxone, and the Proteus, is sensitive to it. Progress note dated 06/14/2021. 76-year-old female, who had a left-sided thoracentesis performed today. 1 L of fluid was removed. The patient had constipation June 11, for removal of significant airway secretions. Most recent chest x-ray continues to show significant opacification of the left lung. The patient is currently on 4 L nasal cannula. Laboratory data includes a white count 6.7, hemoglobin 12.7, and platelet count 156,000. Sodium 127, potassium 4.8, chlorides 75, CO2 49, anion gap 3, BUN 63, and creatinine 1.27. The patient is a DO NOT RESUSCITATE patient. She is profoundly weak and could not even sit up at the bedside on her own for the procedure. The left pleural effusion with left for cytology, chemistry, and microbiology. Washings from the left lung, performed the other day, did not reveal any malignant cells. Progress note dated 06/15/2021. 76-year-old female status post left-sided thoracentesis. 1 L of fluid was removed. The patient had a bronchoscopy performed on June 11, for airway secretion removal. The patient is a DO NOT RESUSCITATE patient. She is not receiving any IV fluids. She is on Rocephin. White count is 6.4, hemoglobin 12.7, hematocrit 42, and platelet count 165,000. The venous CO2 was 86 with a normal pH. Sodium 126, potassium 4.2, chloride 74, CO2 47, BUN 69, and creatinine 1.41. Sputum from June 10 was positive for Proteus mirabilis. It was sensitive to ceftriaxone.. Chest x-ray from yesterday shows opacification of the left hemithorax, and abrupt termination of the left mainstem bronchus. Progress note dated 06/16/2021. 76-year-old female, status post left-sided thoracentesis, with 1 L of fluid removed. She also had bronchoscopy performed on June 11, for removal of airway secretions and mucous. The patient is a DO NOT RESUSCITATE patient. Currently, she is on 4 L nasal cannula. She is not receiving any IV fluids. She was found to have Proteus mirabilis pneumonia, and is being treated with ceftriaxone. Her daughter was in the room today. They were discussing where the patient might go post discharge. The patient would probably benefit from some sort of rehab. Laboratory data includes a sodium 121, potassium 5.1, chloride 76, CO2 38, BUN 75, and creatinine 1.78. Objective - Vital Signs Vital signs: Vital Signs Temp 97.7 F 06/16/21 08:00 Pulse 92 06/16/21 08:00 Resp 18 06/16/21 08:00 BP 111/81 06/16/21 08:00 Pulse Ox 93 L 06/16/21 08:00 Intake & Output 06/15/21 06/16/21 06/16/21 18:59 06:59 18:59 Intake Total 100 Output Total 450 Balance 100 -450 Intake: Oral 100 Output: Urine 450 Other: Voiding Method External Catheter # Voids 2 - Exam No acute distress, oriented 3. Currently on 4 L nasal cannula. No co nversational dyspnea or use of accessory muscles noted. Saturations are 93 %. HEENT examination is grossly unremarkable. Neck supple. Full range of motion. No adenopathy thyromegaly or neck vein distention. Cardiovascular examination reveals regular rhythm rate. S1-S2 normal. No S3 or S4. No discernible murmur noted. Heart rate 92 bpm. Heart sounds are distant. Lungs reveal severely diminished breath sounds at the left side. Rhonchi noted on the right side. No wheezes. No crackles. Abdomen soft bowel sounds are heard. No masses or tenderness. Extremities are intact. No cyanosis or clubbing. Mild lower extremity edema noted. Skin is without rash or lesion. Neurologic examination is brief but nonfocal. - Labs CBC & Chem 7: 06/15/21 08:05 06/16/21 10:58 Labs: Abnormal Lab Results - Last 24 Hours (Table) 06/15/21 06/15/21 06/16/21 Range/Units 16:22 20:47 06:24 Sodium (137-145) mmol/L Chloride (98-107) mmol/L Carbon Dioxide (22-30) mmol/L BUN (7-17) mg/dL Creatinine (0.52-1.04) mg/dL Glucose (74-99) mg/dL POC Glucose (mg/dL) 174 H 180 H 111 H (75-99) mg/dL 06/16/21 06/16/21 Range/Units 10:58 11:46 Sodium 121 L (137-145) mmol/L Chloride 76 L (98-107) mmol/L Carbon Dioxide 38 H (22-30) mmol/L BUN 75 H (7-17) mg/dL Creatinine 1.78 H (0.52-1.04) mg/dL Glucose 119 H (74-99) mg/dL POC Glucose (mg/dL) 122 H (75-99) mg/dL Microbiology - Last 24 Hours (Table) 06/14/21 09:30 Gram Stain - Preliminary Pleural Fluid Body Fluid Culture - Preliminary 06/10/21 06:59 Blood Culture - Final Blood No Growth after 144 hours 06/10/21 06:59 Blood Culture - Final Blood No Growth after 144 hours 06/14/21 09:30 Acid Fast Bacilli Smear - Final Pleural Fluid Acid Fast Bacilli Culture - Preliminary Assessment and Plan Assessment: Acute hypoxemic respiratory failure secondary to left-sided pneumonia, as well as left-sided pleural effusion. Sputum positive for Proteus mirabilis, and the patient remains on ceftriaxone. Bronchoscopy, with airway examination, 06/11/2021. Status post left thoracentesis, 06/14/2021, with 1 L removed. Acute exacerbation of COPD. History of heavy tobacco use, for at least 60 years. History of diabetes mellitus. History of hyperlipidemia. CAD with previous and recent stent placement. History of hypertension. History of DVT. History of myocardial infarction. Plan: Plan dated 06/10/2021. The patient is seen in the emergency department, room 9. The patient will have an ultrasound of the chest. The ultrasound shows a small right-sided pleural effusion, and a moderate sized left pleural effusion. The patient will probably benefit from thoracentesis, and bronchoscopy. We'll get her on the schedule for that. Additional recommendations and suggestions are forthcoming. We will have to hold her blood thinner. Additional recommendations and suggestions are forthcoming. Prognosis is guarded. Plan dated 06/11/2021. The patient is seen today in room 362. Yesterday, we saw in consultation in the emergency department. She remains on 4 L of oxygen. I held the aspirin. We'll do the bronchoscopy today, and asked for a chest x-ray in the morning. She may benefit from thoracentesis. If that's the case, we would have to hold the Plavix. Additional recommendations and suggestions are forthcoming. Clinically she is about the same or minimally better today than she was yesterday. Additional recommendations and suggestions are forthcoming. Prognosis is guarded. Plan dated 06/13/2021. The patient's sputum was positive for Proteus. The patient is currently on Rocephin, which is effective against this bacteria. The plan is to do a thoracentesis tomorrow. She remains on 4 L nasal cannula. Aspirin and Plavix are currently on hold. The patient appears to be relatively comfortable. She does not appear to be short of breath. We did explain to her that we are lynn nning to do a thoracentesis tomorrow. She does agree. Plan dated 06/14/2021. The patient is currently on antibiotics for Proteus, in the patient's sputum. The cytology on the recent bronchoscopy, was negative for malignant cells. Today, she underwent a left-sided thoracentesis, and 1 L of fluid was removed. It will be sent for chemistry, cytology, and microbiology. The patient is profoundly weak. The patient's aspirin and Plavix can be resumed. Additional recommendations and suggestions are forthcoming. Some consideration should be given to palliative care consult, or hospice consultation. Additional recommendations and suggestions are forthcoming. Prognosis is poor. Plan dated 06/15/2021. Currently, the patient appears to be relatively stable. She remains on 4 L. She is a DO NOT RESUSCITATE patient. Sampling from the thoracentesis is currently pending. The patient remains on Rocephin for her Proteus mirabilis infection. Additional recommendations and suggestions are forthcoming. Prognosis is certainly guarded. We will continue to follow the patient and make recommendations where appropriate. As mentioned over the last couple of days, the patient should be considered for possible palliative care consultation or hospice consultation. Plan dated 06/16/2021. The patient remains on Rocephin. The patient is currently on 4 L. The patient and her daughter were discussing discharge options. Apparently the daughter works full-time, and cannot take care of her mother on her own. Anyway, her vital signs are stable. She remains on 4 L. Labs, x-rays, and medications are all reviewed. We will continue to follow and make recommendations were appropriate. Prognosis is guarded. Cytology from the pleural fluid, is currently pending. Time with Patient: Less than 30
[2021-06-16 16:55] LABS: Glucose,Whole Blood 183 mg/dL (75-99)
[2021-06-16] MEDS: ACETAMINOPHEN TAB 325 MG TAB PO PRN (17:51)
[2021-06-16 21:20] LABS: Glucose,Whole Blood 134 mg/dL (75-99)
[2021-06-16] MEDS: LINAGLIPTIN 5 MG TABLET PO SCH (21:26)
[2021-06-16] MEDS: ATORVASTATIN 40 MG TAB PO SCH (21:26)
[2021-06-16] MEDS: SERTRALINE 50 MG TAB PO SCH (21:26)
[2021-06-16] MEDS: LATANOPROST 0.005% OPHTH DROPS 2.5 ML BTL RIGHT EYE SCH (21:28)
--- NOTE | 2021-06-16 21:51 | P.PN ---
Subjective Progress Note Date: 06/16/21 Patient is a 76-year-old female with a known history of coronary artery disease and stent placement in February 2021, COPD on home oxygen, peripheral vascular disease, ischemic cardiomyopathy ejection fraction 35%, presents to ER with complaints of worsening shortness of breath and leg swelling for the past 2 days. She does have cough with whitish sputum production. No complaints of fever or chills. No nausea vomiting. No chest pain. Chest x-ray showed there is a combination of large pleural effusion with left- sided pulmonary consolidation and mild atelectasis which is new compared to old exam. Small right pleural effusion. Congestive heart failure is possible. EKG showed sinus bradycardia WBC 7.6 hemoglobin 12.1 and Laboratory data showed platelets 194 Sodium 139 potassium 4.1 chloride 83 bicarb is 51 BUN 14 creatinine 0.7 troponin 0.104 andAlbumin 3.6 Pro BNP 2021 Patient is awake alert and oriented. States that his breathing is little better today. No complaints of chest pain. Chest x-ray today showed persistent near complete opacification of the left hemithorax likely representing combination of airspace disease and pleural effusion. Possible loculated air collection or pneumothorax. Right-sided small effusion correlate for underlying CHF with chronic interstit ial lung disease superimposed on background of COPD. Pulmonary is planning for bronchoscopy today. Laboratory data showed sodium 135 potassium 3.9 chloride 81 bicarb is 844 BUN 32 and creatinine 0.78 and blood sugar is 161. Patient is being continued IV Solu-Medrol, duo nebs and Lasix 40 mg every 12. Also on antibiotics of ceftriaxone. 06/12/2021 Patient is currently sitting in the chair. Patient states that her breathing is little better today. Requiring oxygen at 4 L via nasal cannula. Patient is status post bronchoscopy and follow-up BAL fluid cultures. Bronchoscopy done on 06/11/2021. CT chest done this morning showed severe cardiomegaly with large bilateral pleural effusions and almost complete collapse of the left lung as detailed. On retrospective review of the previous CT scan there is an apparent spiculated suspicious lesion in the left lower lobe not identified today due to collapse of the left lung. Recommend CT or PET scan. Intermediate left adrenal lesion.. 06/13/2021 Patient is currently lying in the bed. Patient states that her breathing is slightly better. Patient was found to have left-sided complete opacification and moderate left-sided pleural effusion. Status post bronchoscopy on 06/11/2021. Pulmonary is planning for left thoracentesis tomorrow. Aspirin and Plavix on hold. Sputum culture showed Proteus mirabilis. Patient is on antibiotics in the form of ceftriaxone. Bowel fluid cultures are pending. Laboratory data showed sodium 129 potassium 4.0 chloride 78 bicarb is 43 BUN 15 creatinine 2.90 and blood sugar is 121 06/14/2021 Patient is lying in the bed. Awake alert and oriented 3. Breathing status remains the same. Patient is status post thoracentesis with 1 L fluid removal. Patient is on oxygen with nasal cannula 4 L. No complaints of chest pain.. No fever no chills. Patient remains on antibiotics on ceftriaxone for Proteus mirabilis in the sputum cultures. No complaints of headache or dizziness or lightheadedness. Pleural fluid cultures are negative so far. Fluid cytology is also pending. Laboratory data showed sodium 127 potassium 4.8 chloride 75 bicarb is 49 BUN 63 and creatinine 1.27 WBC 6.7 hemoglobin 12.7 and platelets 156 and calcium 8.7. Pulmonary and cardiology is on board. 06/15/2021 Patient is currently lying in the bed. Awake alert and oriented. Lethargic and weak. No complaints of chest pain. Does have shortness of breath. Patient is status post left-sided thoracentesis with 1 L fluid removal. BAL cultures have been negative. Cytology is pending. Sputum culture showed Proteus mirabilis. Patient is being continued on antibiotics in the form of ceftriaxone. Next and chest x-ray showed opacification of the left hemithorax and abrupt termination of the left mainstem bronchus.. Otherwise laboratory data showed a sodium level CXXVI, potassium 4.2 chloride 74 bicarb is 47 and BUN 16 and creatinine 1.41. Nephrology was consulted. Patient was started on his it is undermined. Pulmonary is on board. Patient is be continued on Lasix IV 40 mg twice daily. 06/16/2021 Patient is currently resting in bed. Awake alert and oriented. Still having shortness of breath. Requiring oxygen at 4 L via nasal cannula. Current CODE STATUS is DNR/DNI. Patient is status post bronchoscopy on 06/11/2021 and left- sided thoracentesis on 06/14. No complaints of chest pain. Cough without any sputum production. Sputum cultures showed Proteus and is being continued on ceftriaxone. Laboratory showed sodium 121 potassium 5.1 BUN 75 and creatinine worsening to 1.78. Bicarb is 38 and patient was started on acetazolamide. Patient is being current on Lasix 40 mg every 12 and methylprednisone 60 mg every 12 and duo nebs. Also on anticoagulation with Eliquis 2.5 mg twice daily. Cardiology nephrology and pulmonary is on board. Current medications reviewed. Objective - Vital Signs Vital signs: Vital Signs Temp 97.7 F 06/16/21 08:00 Pulse 83 06/16/21 12:00 Resp 18 06/16/21 12:00 BP 132/82 06/16/21 12:00 Pulse Ox 98 06/16/21 12:00 Intake & Output 06/15/21 06/16/21 06/16/21 18:59 06:59 18:59 Intake Total 100 Output Total 450 Balance 100 -450 Intake: Oral 100 Output: Urine 450 Other: Voiding Method External Catheter # Voids 2 - Exam PHYSICAL EXAMINATION: Patient is lying in the bed comfortably, no acute distress, awake alert and oriented.. HEENT: Normocephalic. Neck is supple. Pupils reactive. Nostrils clear. Oral cavity is moist. Neck reveals no JVD, carotid bruits, or thyromegaly. CHEST EXAMINATION: Trachea is central. Symmetrical expansion. Left-sided diminished and coarse sounds.. expiratory wheezing. Nonlabored breathing. CARDIAC: Normal S1, S2 with no gallops. No murmurs ABDOMEN: Soft. Bowel sounds normal. No organomegaly. No abdominal bruits. Extremities: 2+ bilateral pedal edema. No clubbing or cyanosis Neurologically awake, alert, oriented x3 with well-coordinated movements. No focal deficits noted Skin: No rash or skin lesions. Psychiatric: Coperative. Nonsuicidal Musculoskeletal: No joint swelling or deformity. Normal range of motion. - Labs CBC & Chem 7: 06/15/21 08:05 06/16/21 10:58 Labs: Abnormal Lab Results - Last 24 Hours (Table) 06/15/21 06/15/21 06/16/21 Range/Units 16:22 20:47 06:24 Sodium (137-145) mmol/L Chloride (98-107) mmol/L Carbon Dioxide (22-30) mmol/L BUN (7-17) mg/dL Creatinine (0.52-1.04) mg/dL Glucose (74-99) mg/dL POC Glucose (mg/dL) 174 H 180 H 111 H (75-99) mg/dL 06/16/21 06/16/21 Range/Units 10:58 11:46 Sodium 121 L (137-145) mmol/L Chloride 76 L (98-107) mmol/L Carbon Dioxide 38 H (22-30) mmol/L BUN 75 H (7-17) mg/dL Creatinine 1.78 H (0.52-1.04) mg/dL Glucose 119 H (74-99) mg/dL POC Glucose (mg/dL) 122 H (75-99) mg/dL Microbiology - Last 24 Hours (Table) 06/14/21 09:30 Gram Stain - Preliminary Pleural Fluid Body Fluid Culture - Preliminary 06/10/21 06:59 Blood Culture - Final Blood No Growth after 144 hours 06/10/21 06:59 Blood Culture - Final Blood No Growth after 144 hours 06/14/21 09:30 Acid Fast Bacilli Smear - Final Pleural Fluid Acid Fast Bacilli Culture - Preliminary Assessment and Plan Assessment: Large left pleural effusion With complete opacification.and right small pleural effusion.s./p bronchoscopy on 06/11. Status post thoracentesis on 06/14/21 Left-sided pneumonia Acute COPD exacerbation Left lower lobe spiculated lesion. Acute on chronic CHF with systolic dysfunction ejection fraction 30%. Hyponatremia likely hypovolemic and diuresis.. Coronary artery disease with history of stent placement in February 2021 Severe coronary artery disease involving RCA and circumflex, deemed high risk for CABG Ischemic cardiomyopathy ejection fraction 35% Peripheral vascular disease Hypertension Hyperlipidemia Chronic hypoxic respiratory failure on oxygen via nasal cannula at home. Previous history of smoking DVT prophylaxis. Plan: Patient remains on IV Lasix 40 mg to 12 and continue with oxygen supplementation. Patient was also started on antibiotics and Solu-Medrol IV and breathing treatments and be continued. Patient is s./p bronchoscopy on 06/11 due to left lung complete opacification.. Follow-up BAL culture and cytology.. Patient is status post thoracentesis on 06/14/2021.. Cardiology and pulmonary is on board. Continue with daily weights and strict I&O's. Continue with home medications and follow closely. Prognosis is guarded. CODE STATUS is DNR/DNI. Time with Patient: Greater than 30
[2021-06-16] MEDS ORDERED: SODIUM CHLORIDE 0.9% 500 ML 250 ML IV ONE (21:54)
[2021-06-16] MEDS ORDERED: HYDROcodone/APAP 5-325MG 1 EACH TAB PO STA (21:54)
[2021-06-16 23:08] VITALS: TEMP 98.3
[2021-06-17] MEDS ORDERED: FUROSEMIDE 10 MG/ML 2 ML VIAL IV ONE (00:43)
[2021-06-17 04:28] VITALS: RESP 22
[2021-06-17] MEDS: FUROSEMIDE 10 MG/ML 4 ML VIAL IV SCH (05:10)
[2021-06-17 08:39] LABS: Calcium 8.5 mg/dL (8.4-10.2); Potassium 5.2 mmol/L (3.5-5.1)
[2021-06-17] MEDS ORDERED: MORPHINE SULFATE 2 MG/ML SYRINGE ONE ×2 (09:21→11:56)
[2021-06-17 11:12] VITALS: BP 75/54; PULSE 113
[2021-06-17] MEDS: IPRATROPIUM-ALBUTEROL 3 ML NEB INHALATION SCH (11:12)
[2021-06-17] MEDS ORDERED: MORPHINE SULFATE 2 MG/ML SYRINGE IVP PRN (11:51)
--- NOTE | 2021-06-17 13:22 | P.PN ---
Subjective Progress Note Date: 06/17/21 Patient is a 76-year-old female with a known history of coronary artery disease and stent placement in February 2021, COPD on home oxygen, peripheral vascular disease, ischemic cardiomyopathy ejection fraction 35%, presents to ER with complaints of worsening shortness of breath and leg swelling for the past 2 days. She does have cough with whitish sputum production. No complaints of fever or chills. No nausea vomiting. No chest pain. Chest x-ray showed there is a combination of large pleural effusion with left- sided pulmonary consolidation and mild atelectasis which is new compared to old exam. Small right pleural effusion. Congestive heart failure is possible. EKG showed sinus bradycardia WBC 7.6 hemoglobin 12.1 and Laboratory data showed platelets 194 Sodium 139 potassium 4.1 chloride 83 bicarb is 51 BUN 14 creatinine 0.7 troponin 0.104 andAlbumin 3.6 Pro BNP 2021 Patient is awake alert and oriented. States that his breathing is little better today. No complaints of chest pain. Chest x-ray today showed persistent near complete opacification of the left hemithorax likely representing combination of airspace disease and pleural effusion. Possible loculated air collection or pneumothorax. Right-sided small effusion correlate for underlying CHF with chronic interstiti al lung disease superimposed on background of COPD. Pulmonary is planning for bronchoscopy today. Laboratory data showed sodium 135 potassium 3.9 chloride 81 bicarb is 844 BUN 32 and creatinine 0.78 and blood sugar is 161. Patient is being continued IV Solu-Medrol, duo nebs and Lasix 40 mg every 12. Also on antibiotics of ceftriaxone. 06/12/2021 Patient is currently sitting in the chair. Patient states that her breathing is little better today. Requiring oxygen at 4 L via nasal cannula. Patient is status post bronchoscopy and follow-up BAL fluid cultures. Bronchoscopy done on 06/11/2021. CT chest done this morning showed severe cardiomegaly with large bilateral pleural effusions and almost complete collapse of the left lung as detailed. On retrospective review of the previous CT scan there is an apparent spiculated suspicious lesion in the left lower lobe not identified today due to collapse of the left lung. Recommend CT or PET scan. Intermediate left adrenal lesion.. 06/13/2021 Patient is currently lying in the bed. Patient states that her breathing is slightly better. Patient was found to have left-sided complete opacification and moderate left-sided pleural effusion. Status post bronchoscopy on 06/11/2021. Pulmonary is planning for left thoracentesis tomorrow. Aspirin and Plavix on hold. Sputum culture showed Proteus mirabilis. Patient is on antibiotics in the form of ceftriaxone. Bowel fluid cultures are pending. Laboratory data showed sodium 129 potassium 4.0 chloride 78 bicarb is 43 BUN 15 creatinine 2.90 and blood sugar is 121 06/14/2021 Patient is lying in the bed. Awake alert and oriented 3. Breathing status remains the same. Patient is status post thoracentesis with 1 L fluid removal. Patient is on oxygen with nasal cannula 4 L. No complaints of chest pain.. No fever no chills. Patient remains on antibiotics on ceftriaxone for Proteus m irabilis in the sputum cultures. No complaints of headache or dizziness or lightheadedness. Pleural fluid cultures are negative so far. Fluid cytology is also pending. Laboratory data showed sodium 127 potassium 4.8 chloride 75 bicarb is 49 BUN 63 and creatinine 1.27 WBC 6.7 hemoglobin 12.7 and platelets 156 and calcium 8.7. Pulmonary and cardiology is on board. 06/15/2021 Patient is currently lying in the bed. Awake alert and oriented. Lethargic and weak. No complaints of chest pain. Does have shortness of breath. Patient is status post left-sided thoracentesis with 1 L fluid removal. BAL cultures have been negative. Cytology is pending. Sputum culture showed Proteus mirabilis. Patient is being continued on antibiotics in the form of ceftriaxone. Next and chest x-ray showed opacification of the left hemithorax and abrupt termination of the left mainstem bronchus.. Otherwise laboratory data showed a sodium level CXXVI, potassium 4.2 chloride 74 bicarb is 47 and BUN 16 and creatinine 1.41. Nephrology was consulted. Patient was started on his it is undermined. Pulmonary is on board. Patient is be continued on Lasix IV 40 mg twice daily. 06/16/2021 Patient is currently resting in bed. Awake alert and oriented. Still having shortness of breath. Requiring oxygen at 4 L via nasal cannula. Current CODE STATUS is DNR/DNI. Patient is status post bronchoscopy on 06/11/2021 and left- sided thoracentesis on 06/14. No complaints of chest pain. Cough without any sputum production. Sputum cultures showed Proteus and is being continued on ceftriaxone. Laboratory showed sodium 121 potassium 5.1 BUN 75 and creatinine worsening to 1.78. Bicarb is 38 and patient was started on acetazolamide. Patient is being current on Lasix 40 mg every 12 and methylprednisone 60 mg e very 12 and duo nebs. Also on anticoagulation with Eliquis 2.5 mg twice daily. Cardiology nephrology and pulmonary is on board. 06/17/2021 Patient evaluated today resting in bed with family at the bedside. Patient is minimally responsive and has been moaning in pain. Family is requesting consult ation with hospice and would like to start comfort care measures. Discussion completed at bedside with multiple family members who are in agreeance and stating this is the patients wishes. Per nurse patient has been asking to go see [facility] in [facility]. Since her previous admission in February where underwent cardiac stenting, family states she has been on oxygen therapy, and just prior to this admission her functionality had begun to decline. She is currently being followed by nephrology and pulmonary. She is maintained on diamox, IV rocephin, IV solumedrol, IV lasix, updrafts. She is also on eliquis for anticoagulation. Blood pressure today in the 70/50s, and oxygenation is marginal she is now in the high 80s on 4L nasal cannula. She has also been tachycardic since yesterday evening. Sputum culture showing proteus mirabilis and cytology from pleural fluid is pending. Patients code status is do not resuscitate. Labs today showing sodium 122, potassium 5.2, chloride 73, CO2 40, BUN 80 creat 2.53, blood glucose 89. Unable to complete review of systems as patient is lethargic and minimally responsive. PHYSICAL EXAMINATION: GENERAL: The patient is alert and oriented x1, appears comfortable at this time. Skin is cool and clammy. HEENT: Pupils are round and equally reacting to light. EOMI. No scleral icterus. No conjunctival pallor. Normocephalic, atraumatic. No pharyngeal erythema. No thyromegaly. CARDIOVASCULAR: S1 and S2 present. No murmurs, rubs, or gallops. Tachycardic PULMONARY: Coarse and congested, no wheezing noted. ABDOMEN: Soft, nontender, nondistended, normoactive bowel sounds. No palpable organomegaly. MUSCULOSKELETAL: No joint swelling or deformity. EXTREMITIES: No cyanosis, clubbing, or pedal edema. NEUROLOGICAL: Unable to complete full neurological exam. SKIN: No rashes. Assessment and Plan Assessment Large left pleural effusion With complete opacification. and right small pleural effusion. s./p bronchoscopy on 06/11. Status post thoracentesis on 06/14/21 Left-sided pneumonia Acute COPD exacerbation Left lower lobe spiculated lesion. Acute on chronic CHF with systolic dysfunction ejection fraction 30%. Acute kidney injury most likely cardiorenal, with creatinine today now 2.53 Hyperkalemia Hyponatremia likely hypovolemic and diuresis. Coronary artery disease with history of stent placement in February 2021 Severe coronary artery disease involving RCA and circumflex, deemed high risk for CABG Ischemic cardiomyopathy ejection fraction 35% Peripheral vascular disease Hypertension Hyperlipidemia Chronic hypoxic respiratory failure on oxygen via nasal cannula at home. Previous history of smoking DVT prophylaxis. Plan: Patient remains on IV Lasix 40 mg to 12 and continue with oxygen supplementation. Patient was also started on antibiotics and Solu-Medrol IV and breathing treatments and be continued. Follow-up BAL culture and cytology.. Patient is status post thoracentesis on 06/14/2021.. Cardiology, nephrology, pulmonary consultations Continue with daily weights and strict I&O's. Continue with home medications and follow closely. Prognosis is guarded. CODE STATUS is DNR Patient/Family would like to pursue comfort care/hospice measures and hospice at this time has been consulted. The impression and plan of care has been dictated by Kimberlee Turner Nurse Practitioner as directed. Dr. Juan Antonio MD I have performed a history and physical examination and medical decision making of this patient, discussed the same with the dictator, and agree with the dictators assessment and plan as written, documented as a scribe. Based on total visit time, I have performed more than 50% of this visit. Objective - Vital Signs Vital signs: Vital Signs Temp 98.3 F 06/16/21 23:07 Pulse 113 H 06/17/21 08:00 Resp 22 06/17/21 08:00 BP 75/54 06/17/21 08:00 Pulse Ox 89 L 06/17/21 08:00 Intake & Output 06/16/21 06/17/21 06/17/21 18:59 06:59 18:59 Output Total 450 Balance -450 Output: Urine 450 Other: Voiding Method External Catheter # Voids 2 - Labs CBC & Chem 7: 06/15/21 08:05 06/17/21 07:16 Labs: Abnormal Lab Results - Last 24 Hours (Table) 06/16/21 06/16/21 06/16/21 Range/Units 10:58 11:46 16:53 Sodium 121 L (137-145) mmol/L Potassium (3.5-5.1) mmol/L Chloride 76 L (98-107) mmol/L Carbon Dioxide 38 H (22-30) mmol/L BUN 75 H (7-17) mg/dL Creatinine 1.78 H (0.52-1.04) mg/dL Glucose 119 H (74-99) mg/dL POC Glucose (mg/dL) 122 H 183 H (75-99) mg/dL 06/16/21 06/17/21 Range/Units 21:19 07:16 Sodium 122 L (137-145) mmol/L Potassium 5.2 H (3.5-5.1) mmol/L Chloride 73 L* (98-107) mmol/L Carbon Dioxide 40 H (22-30) mmol/L BUN 80 H (7-17) mg/dL Creatinine 2.53 H (0.52-1.04) mg/dL Glucose (74-99) mg/dL POC Glucose (mg/dL) 134 H (75-99) mg/dL Microbiology - Last 24 Hours (Table) 06/14/21 09:30 Gram Stain - Preliminary Pleural Fluid Body Fluid Culture - Preliminary 06/10/21 06:59 Blood Culture - Final Blood No Growth after 144 hours 06/10/21 06:59 Blood Culture - Final Blood No Growth after 144 hours Assessment and Plan Time with Patient: Greater than 30
== END 2021-06-17 13:10 | disposition hospice, inpatient (51) | DRG 177 ==
LOC: EC 06:07 → 3SCARD 06:49
PROVIDERS: ADMIT Hospitalist; ATTEND Hospitalist
PROC: 0BJ08ZZ Inspection of Tracheobronchial Tree, Via Natural or Artificial Opening Endoscopic (ICD-10-PCS; 2021-06-11)
PROC: 3E1F88Z Irrigation of Respiratory Tract using Irrigating Substance, Via Natural or Artificial Opening Endoscopic (ICD-10-PCS; 2021-06-11)
PROC: 0W9B3ZZ Drainage of Left Pleural Cavity, Percutaneous Approach (ICD-10-PCS; principal; 2021-06-14)
DX: J15.6 Pneumonia due to other Gram-negative bacteria (principal); I50.23 Acute on chronic systolic (congestive) heart failure; J96.21 Acute and chronic respiratory failure with hypoxia; I13.0 Hypertensive heart and chronic kidney disease with heart failure and stage 1 through stage 4 chronic kidney disease, or unspecified chronic kidney disease; N17.9 Acute kidney failure, unspecified; E87.1 Hypo-osmolality and hyponatremia; E87.4 Mixed disorder of acid-base balance; J44.1 Chronic obstructive pulmonary disease with (acute) exacerbation; J44.0 Chronic obstructive pulmonary disease with (acute) lower respiratory infection; J91.8 Pleural effusion in other conditions classified elsewhere; J98.11 Atelectasis; B96.4 Proteus (mirabilis) (morganii) as the cause of diseases classified elsewhere; N18.9 Chronic kidney disease, unspecified; E11.22 Type 2 diabetes mellitus with diabetic chronic kidney disease; E11.51 Type 2 diabetes mellitus with diabetic peripheral angiopathy without gangrene; E27.9 Disorder of adrenal gland, unspecified; E78.5 Hyperlipidemia, unspecified; E86.1 Hypovolemia; E87.5 Hyperkalemia; I08.1 Rheumatic disorders of both mitral and tricuspid valves; I25.10 Atherosclerotic heart disease of native coronary artery without angina pectoris; I25.2 Old myocardial infarction; Z20.822 Contact with and (suspected) exposure to COVID-19; I25.5 Ischemic cardiomyopathy; I48.0 Paroxysmal atrial fibrillation; K59.00 Constipation, unspecified; Z51.5 Encounter for palliative care; Z66 Do not resuscitate; Z79.01 Long term (current) use of anticoagulants; Z79.02 Long term (current) use of antithrombotics/antiplatelets; Z79.82 Long term (current) use of aspirin; Z79.84 Long term (current) use of oral hypoglycemic drugs; Z79.899 Other long term (current) drug therapy; Z80.1 Family history of malignant neoplasm of trachea, bronchus and lung; Z82.3 Family history of stroke; Z82.49 Family history of ischemic heart disease and other diseases of the circulatory system; Z86.718 Personal history of other venous thrombosis and embolism; Z87.891 Personal history of nicotine dependence; Z95.5 Presence of coronary angioplasty implant and graft; Z96.1 Presence of intraocular lens; Z99.81 Dependence on supplemental oxygen
CPT/HCPCS: 31624; 36415; 71045; 71046; 71260; 76604; 80048; 80053; 82803; 82945; 83605; 83615; 83880; 84145; 84157; 84484; 85025; 85610; 85730; 87040; 87070; 87077; 87102; 87116; 87186; 87205; 87206; 87252; 87496; 87498; 87502; 87529; 87634; 87635; 87798; 88108; 88305; 88341; 88342; 89050; 93005; 94640; 94660; 94760; 96365; 96367; 96375; 99285

== ENCOUNTER 2021-06-17 12:50 | Inpatient (IN) | payer MEDICAID ==
[~2021-06-17 12:50] MED LIST changes: +ACETAMINOPHEN SUPPOSITORY 650 MG SUPP RECTAL PRN; -ALPRAZolam 0.25 MG TAB PO PRN; -ALPRAZolam 0.5 MG TAB PO PRN; -ASPIRIN 325 MG TAB PO STA; -ATORVASTATIN 80 MG TAB PO STA; -HEPARIN SODIUM,PORCINE 10,000 UNIT in SODIUM CHLORIDE 0.9% 1,000 ML IRRIGATION PRN; -HEPARIN SODIUM,PORCINE 2,500 UNIT in SODIUM CHLORIDE 0.9% 250 ML IRRIGATION PRN; -LACTATED RINGERS 1,000 ML IV SCH; -LIDOCAINE 1% (10MG/ML) FOR IV START INTRADERMA PRN; +LORazepam 2 MG/ML INJ IV PRN; +MORPHINE SULFATE 2 MG/ML SYRINGE IV PRN; -NITROGLYCERIN SL TABS 0.4 MG TAB SUBLINGUAL PRN; +ONDANSETRON 4 MG/2 ML VIAL IVP PRN
[2021-06-17] MEDS ORDERED: MORPHINE SULFATE (100 MG/2 ML) 100 MG in SODIUM CHLORIDE 0.9% 100 ML IV SCH (13:00)
[2021-06-17] MEDS ORDERED: SCOPOLAMINE 1 MG/72 HR PATCH TRANSDERM SCH (13:00)
[2021-06-17] MEDS ORDERED: GLYCOPYRROLATE 0.2 MG/ML 2 ML VIAL IVP SCH (13:00)
--- NOTE | 2021-06-17 14:35 | P.HPIM ---
History of Present Illness H&P Date: 06/17/21 This is a 76 year old female who presented to the hospital on 06/10/2021 with complaints of difficulty in breathing with onset of symptoms several days prior to admission. Patient has been on home oxygen therapy since February of this year for which she was wearing 2L initially and in the last weeks since onset of dyspnea has had to increase her oxygen up to 4L of nasal cannula, lasix has also been increased outpatient prior to admission. She does have history of COPD with exacerbation that presents as similar. There is also increase in leg swelling. Chest xray on admission showing large pleural effusion with left sided pulmonary consolidation, mild atlectasis which is new compared to old exam. There is also small right pleural effusion. Complete opacification left hemithorax with trachea slightly deviated to the left. Patient admitted to the hospital with consults placed to cardiology and pulmonary services. Chest ultrasound completed showing 7.3 cm pocket on the left side. On 06/11/2021 patient underwent left bronchoscopy with airway examination, therapuetic lavage, washings of the left lung, which was negative for malignancy. The patient did require BIPAP post operatively. On 06/14/2021 Patient underwent left sided thoracentesis with 1 liter of yellow fluid removed. Cytology is pending on pleural fluid. This hospitalization patient required treatment with updrafts, oxygen support, steroids, IV lasix. On admission her CO2 level was found to be 51, chloride 83, blood glucose in the 200s, liver enzymes are mildly elevated, she did have elevated troponins as well and BNP on admission was 19,500. Her chronic conditions include, heart failure, diabetes mellitus, COPD, DVT, hyperlipidemia, hypertension, thyroid disorder, heart catheterization with most recent stent in February 2021, former smoker she quit in January 2021. She was a 2 pack per day smoker. Patient currently wears home oxygen and uses a nebulizer. She had an echocardiogram completed in January 2011 showing ejection fraction of 30-35% with moderate mitral regurg, mild tricuspid regurg, trivial pericardial effusion. She also underwent carotid Doppler in January 2021 showed moderate to severe plaque bilaterally in the CCA, ECA and ICA more severe on the left. There is also stenosis in the right ICA as well as left ICA and ECA. She was evaluated at that time for surgical revascularization recommendations regarding severe calcified triple vessel disease found on cardiac catheterization. Emiliano yo was deemed a nonsurgical candidate at that time. Despite agressive therapies this admission including bronchoscopy, thoracentesis, diuresis and oxygen support, patient had minimal clinical improvement and today her creatinine is 2.53, sodium 122, potassium 5.2, chloride critical at 73, bicarb 40. Blood pressure has been marginal today 70/50s. Multiple children and their spouses at the bedside today to discuss hospice/comfort care measures and states this is what the patient wants. 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 For this reason, hospice was consulted to meet and speak with family. Unable to complete review of systems as patient is lethargic and minimally responsive. PHYSICAL EXAMINATION: GENERAL: The patient is alert and oriented x1, appears comfortable at this time. Skin is cool and clammy. HEENT: Pupils are round and equally reacting to light. EOMI. No scleral icterus. No conjunctival pallor. Normocephalic, atraumatic. No pharyngeal erythema. No thyromegaly. CARDIOVASCULAR: S1 and S2 present. No murmurs, rubs, or gallops. Tachycardic PULMONARY: Coarse and congested, no wheezing noted. ABDOMEN: Soft, nontender, nondistended, normoactive bowel sounds. No palpable organomegaly. MUSCULOSKELETAL: No joint swelling or deformity. EXTREMITIES: No cyanosis, clubbing, or pedal edema. NEUROLOGICAL: Unable to complete full neurological exam. SKIN: No rashes. Assessment and Plan Assessment Large left pleural effusion With complete opacification. and right small pleural effusion. s./p bronchoscopy on 06/11. Status post thoracentesis on 06/14/21 Left-sided pneumonia Acute COPD exacerbation Left lower lobe spiculated lesion. Acute on chronic CHF with systolic dysfunction ejection fraction 30%. Acute kidney injury most likely cardiorenal, with creatinine today now 2.53 Hyperkalemia Hyponatremia likely hypovolemic and diuresis. Coronary artery disease with history of stent placement in February 2021 Severe coronary artery disease involving RCA and circumflex, deemed high risk for CABG Ischemic cardiomyopathy ejection fraction 35% Peripheral vascular disease Hypertension Hyperlipidemia Chronic hypoxic respiratory failure on oxygen via nasal cannula at home. Previous history of smoking DVT prophylaxis. Plan: Patient remains on IV Lasix 40 mg Q12 and continue with oxygen supplementation. Patient on antibiotics and Solu-Medrol IV and breathing treatments and be continued. Follow-up BAL culture and cytology. Patient is status post thoracentesis on 06/14/2021.. Cardiology, nephrology, pulmonary consultations Continue with daily weights and strict I&O's. Continue with home medications and follow closely. Prognosis is guarded. CODE STATUS is DNR Patient/Family would like to pursue comfort care/hospice measures and hospice at this time has been consulted. The impression and plan of care has been dictated by Kimberlee Turner, Nurse Practitioner as directed. Dr. Juan Antonio MD I have performed a history and physical examination and medical decision making of this patient, discussed the same with the dictator, and agree with the dictators assessment and plan as written, documented as a scribe. Based on total visit time, I have performed more than 50% of this visit. Objective Past Medical History Past Medical History: Chest Pain / Angina, Heart Failure, COPD, Diabetes Mellitus, Deep Vein Thrombosis (DVT), Hyperlipidemia, Hypertension, Myocardial Infarction (CA), Osteoarthritis (OA), Thyroid Disorder Additional Past Medical History / Comment(s): ARTHRITIS WITH BACK PAIN. GLAUCOMA , DVT RIGHT LEG Last Myocardial Infarction Date:: 2000 POSSIBLE DATE History of Any Multi-Drug Resistant Organisms: None Reported Past Surgical History: Appendectomy, Heart Catheterization, Orthopedic Surgery, Tubal Ligation Additional Past Surgical History / Comment(s): LEFT WRIST SURGERY; right knee- ARTHROSCOPIC, Past Anesthesia/Blood Transfusion Reactions: No Reported Reaction Date of Last Stent Placement:: 03/13/21 Past Psychological History: No Psychological Hx Reported Smoking Status: Former smoker Past Alcohol Use History: None Reported Past Drug Use History: None Reported - Past Family History Mother Family Medical History: Cancer, Coronary Artery Disease (CAD) Additional Family Medical History / Comment(s): from LUNG CANCER Father Family Medical History: CVA/TIA Additional Family Medical History / Comment(s): from CVA Medications and Allergies Home Medications Medication Instructions Recorded Confirmed Type sitaGLIPtin PHOSPHATE [Januvia] 100 mg PO HS 07/30/17 06/17/21 History Cholecalciferol [Vitamin D3 (25 25 mcg PO HS 01/28/21 06/17/21 History Mcg = 1000 Iu)] Albuterol Inhaler [Ventolin Hfa 2 puff INHALATION RT-QID PRN #8 gm 02/04/2105/25 Rx Inhaler] Atorvastatin [Lipitor] 40 mg PO HS #30 tab 02/04/21 06/17/21 Rx Clopidogrel [Plavix] 75 mg PO DAILY #30 tab 02/04/21 06/17/21 Rx Metoprolol Succinate (ER) [Toprol 25 mg PO DAILY #30 tablet 02/04/21 06/17/21 Rx XL] lisinopriL [Zestril] 5 mg PO DAILY #30 tab 02/04/21 06/17/21 Rx Latanoprost [Xalatan 0.005%] 1 drop RIGHT EYE HS 03/11/21 06/17/21 History Aspirin EC [Ecotrin Low Dose] 81 mg PO DAILY 06/10/21 06/17/21 History Furosemide [Lasix] 40 mg PO BID@0900,1600 06/10/21 06/17/21 History Ketoconazole 2% Cream [Nizoral 2%] 1 applic TOPICAL DAILY 06/10/21 06/17/21 History Sertraline [Zoloft] 50 mg PO HS 06/10/21 06/17/21 History Spironolactone [Aldactone] 25 mg PO DAILY 06/10/21 06/17/21 History Allergies Allergy/AdvReac Type Severity Reaction Status Date / Time No Known Allergies Allergy Verified 06/17/21 13:59 Physical Exam Vitals: Intake and Output 06/16/21 06/17/21 06/17/21 22:59 06:59 14:59 Other: Weight 79 kg Assessment and Plan Time with Patient: Greater than 30
--- NOTE | 2021-06-18 15:15 | P.DS ---
Providers Date of admission: 06/17/21 13:20 Attending physician: Sil Perez Primary care physician: Lindsey Romano Hospital Course: Large left pleural effusion With complete opacification. and right small pleural effusion. s./p bronchoscopy on 06/11. Status post thoracentesis on 06/14/21 Left-sided pneumonia Acute COPD exacerbation Left lower lobe spiculated lesion. Acute on chronic CHF with systolic dysfunction ejection fraction 30%. Acute kidney injury most likely cardiorenal, with creatinine today now 2.53 Hyperkalemia Hyponatremia likely hypovolemic and diuresis. Coronary artery disease with history of stent placement in February 2021 Severe coronary artery disease involving RCA and circumflex, deemed high risk for CABG Ischemic cardiomyopathy ejection fraction 35% Peripheral vascular disease Hypertension Hyperlipidemia Chronic hypoxic respiratory failure on oxygen via nasal cannula at home. Patient on 06/17/2021 at 1335 under hospice services with family at bedside. Hospital Course Despite aggressive therapies this admission including bronchoscopy, thoracentesis, diuresis and oxygen support, patient had minimal clinical improvement and today her creatinine is 2.53, sodium 122, potassium 5.2, chloride critical at 73, bicarb 40. Blood pressure has been marginal today 70/50s. Multiple children and their spouses at the bedside today to discuss hospice/comfort care measures and states this is what the patient wants. 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 For this reason, hospice was consulted to meet and speak with family. Patient was opened to inpatient hospice as was felt imminent in hours to day. Patient shortly after with her children and family at bedside. Please refer to H & P regarding hospital course. Noted that pleural fluid cytology has been completed and no malignant cells identified. Thank you for allowing us to participate in the care of this patient. The impression and plan of care has been dictated by Kimberlee Turner Nurse Practitioner as directed. Dr. Juan Antonio MD I have performed a history and physical examination and medical decision making of this patient, discussed the same with the dictator, and agree with the dictators assessment and plan as written, documented as a scribe. Based on total visit time, I have performed more than 50% of this visit. Plan - Discharge Summary New Discharge Prescriptions: No Action sitaGLIPtin PHOSPHATE [Januvia] 100 mg PO HS Atorvastatin [Lipitor] 40 mg PO HS #30 tab Clopidogrel [Plavix] 75 mg PO DAILY #30 tab Metoprolol Succinate (ER) [Toprol XL] 25 mg PO DAILY #30 tablet Aspirin EC [Ecotrin Low Dose] 81 mg PO DAILY Furosemide [Lasix] 40 mg PO BID@0900,1600 Cholecalciferol [Vitamin D3 (25 Mcg = 1000 Iu)] 25 mcg PO HS Albuterol Inhaler [Ventolin Hfa Inhaler] 2 puff INHALATION RT-QID PRN #8 gm PRN Reason: Shortness Of Breath lisinopriL [Zestril] 5 mg PO DAILY #30 tab Latanoprost [Xalatan 0.005%] 1 drop RIGHT EYE HS Spironolactone [Aldactone] 25 mg PO DAILY Sertraline [Zoloft] 50 mg PO HS Ketoconazole 2% Cream [Nizoral 2%] 1 applic TOPICAL DAILY Discharge Medication List sitaGLIPtin PHOSPHATE [Januvia] 100 mg PO HS 07/30/17 [History] Cholecalciferol [Vitamin D3 (25 Mcg = 1000 Iu)] 25 mcg PO HS 01/28/21 [History] Albuterol Inhaler [Ventolin Hfa Inhaler] 2 puff INHALATION RT-QID PRN #8 gm 02/04/21 [Rx] Atorvastatin [Lipitor] 40 mg PO HS #30 tab 02/04/21 [Rx] Clopidogrel [Plavix] 75 mg PO DAILY #30 tab 02/04/21 [Rx] Metoprolol Succinate (ER) [Toprol XL] 25 mg PO DAILY #30 tablet 02/04/21 [Rx] lisinopriL [Zestril] 5 mg PO DAILY #30 tab 02/04/21 [Rx] Latanoprost [Xalatan 0.005%] 1 drop RIGHT EYE HS 03/11/21 [History] Aspirin EC [Ecotrin Low Dose] 81 mg PO DAILY 06/10/21 [History] Furosemide [Lasix] 40 mg PO BID@0900,1600 06/10/21 [History] Ketoconazole 2% Cream [Nizoral 2%] 1 applic TOPICAL DAILY 06/10/21 [History] Sertraline [Zoloft] 50 mg PO HS 06/10/21 [History] Spironolactone [Aldactone] 25 mg PO DAILY 06/10/21 [History] Discharge Disposition: - Preliminary Cause of Preliminary Cause of : Congestive Heart Failure
== END 2021-06-17 17:13 | disposition expired | DRG 951 ==
LOC: 3SCARD 13:20
PROVIDERS: ADMIT Hospitalist; ATTEND Hospitalist
DX: Z51.5 Encounter for palliative care (principal); I50.23 Acute on chronic systolic (congestive) heart failure; J18.9 Pneumonia, unspecified organism; J44.0 Chronic obstructive pulmonary disease with (acute) lower respiratory infection; E87.1 Hypo-osmolality and hyponatremia; J96.11 Chronic respiratory failure with hypoxia; N17.9 Acute kidney failure, unspecified; J98.11 Atelectasis; I31.3 Pericardial effusion (noninflammatory); J44.1 Chronic obstructive pulmonary disease with (acute) exacerbation; I11.0 Hypertensive heart disease with heart failure; T50.1X5A Adverse effect of loop [high-ceiling] diuretics, initial encounter; E11.51 Type 2 diabetes mellitus with diabetic peripheral angiopathy without gangrene; E78.5 Hyperlipidemia, unspecified; R91.1 Solitary pulmonary nodule; E86.1 Hypovolemia; E87.5 Hyperkalemia; I73.9 Peripheral vascular disease, unspecified; I08.1 Rheumatic disorders of both mitral and tricuspid valves; I25.10 Atherosclerotic heart disease of native coronary artery without angina pectoris; I25.2 Old myocardial infarction; I25.5 Ischemic cardiomyopathy; I65.21 Occlusion and stenosis of right carotid artery; Z66 Do not resuscitate; Z79.02 Long term (current) use of antithrombotics/antiplatelets; Z79.82 Long term (current) use of aspirin; Z79.84 Long term (current) use of oral hypoglycemic drugs; Z79.899 Other long term (current) drug therapy; Z80.1 Family history of malignant neoplasm of trachea, bronchus and lung; Z82.3 Family history of stroke; Z82.49 Family history of ischemic heart disease and other diseases of the circulatory system; Z87.891 Personal history of nicotine dependence; Z95.5 Presence of coronary angioplasty implant and graft; X58.XXXA Exposure to other specified factors, initial encounter; J41.1 Mucopurulent chronic bronchitis